=== PATIENT | male | born 1955 | race Caucasian/White ===

== ENCOUNTER 2018-10-16 19:18 | Inpatient (IN) | payer OTHER, SELFPAY ==
[2018-10-16] MEDS ORDERED: Sodium Chloride 0.9% 100 ML ONE (20:14)
[2018-10-16] MEDS ORDERED: Piperacillin/Tazobactam 4.5 GM VIAL ONE (20:14)
[2018-10-16 20:34] LABS: #Basophils 0.1 thou/uL (0.0-0.2); #Eosinphils 0.1 thou/uL (0.0-0.7); #Lymphocytes 1.6 thou/uL (1.20-3.40); #Monocytes 1.2 thou/uL (0.11-0.59); %Eosinophils 0.9 % (0.0-10.0); %Monocytes 9.7 % (0.0-10.0); %Neutrophils 75.4 % (42.0-75.0); Hemoglobin 14.2 g/dL (14.0-18.0); Mean Corpuscular HGB CONC 33.6 g/dL (32.0-36.0); Mean Corpuscular Hemoglobin 28.6 pg (27.0-31.0); Mean Platelet Volume 6.8 fL (7.4-10.4); Platelet Count 327 thou/uL (130-400); RBC Distribution Width 10.4 % (11.5-14.5); Red Blood Cell (RBC) Count 4.96 mill/uL (4.70-6.10); White Blood Cell (WBC) Count 11.9 thou/uL (4.8-10.8)
--- NOTE | 2018-10-16 20:36 | RAD ---
LEFT FOOT THREE VIEWS: HISTORY: A piece of metal was found in the patient's foot. The patient reports a pressure ulcer on the medial aspect of the great toe. FINDINGS: There are some soft tissue changes along the medial and plantar sides of the interphalangeal joint of the great toe, with some faint punctate radiopaque density associated with this. I am not certain i f this is a tiny foreign body or possibly calcification, less likely some type of packing. There is no underlying plain film evidence for osteomyelitis. IMPRESSION: Soft tissue ulcer of the great toe. No underlying osteomyelitis. POS: [facility]
[2018-10-16 20:51] LABS: ALT (SGPT) 15 U/L (8-55); AST (SGOT) 14 U/L (5-34); Albumin 4.2 g/dL (3.4-4.8); Alkaline Phosphatase 101 U/L (40-150); Anion Gap 17 mmol/L (10-20); BUN (Urea Nitrogen) 16 mg/dL (8.4-25.7); Bilirubin, Total 0.6 mg/dL (0.2-1.2); Calc. Creatinine Clearance 0 mL/min (70-130); Calcium 9.7 mg/dL (7.8-10.44); Carbon Dioxide 25 mmol/L (23-31); Chloride 96 mmol/L (98-107); Estimated GFR-MDRD Greater than 90; Glucose 328 mg/dL (80-115); Potassium 4.4 mmol/L (3.5-5.1); Protein, Total 8.2 g/dL (5.8-8.1); Sodium 134 mmol/L (136-145)
[2018-10-16] MEDS ORDERED: Adacel (T-DAP) 0.5 ML SYRINGE ONE (21:01)
[2018-10-16] MEDS ORDERED: Clindamycin/D5W 900 mg/50 ml Premix Bag ONE (21:07)
[2018-10-16 23:01] VITALS: BMI 24.0
[2018-10-16] MEDS ORDERED: Dextrose 5% in Water 1,000 ML IV PRN (23:06)
[2018-10-16] MEDS ORDERED: Dextrose 50% Abboject 50 ML SYRINGE SLOW IVP PRN (23:06)
[2018-10-16] MEDS: Sodium Chloride 0.9% 1,000 ML IV SCH (23:36)
[2018-10-17] MEDS ORDERED: hydrALAZINE 20 MG/ML VIAL SLOW IVP PRN (00:17)
[2018-10-17] MEDS ORDERED: Lisinopril 20 MG TAB PO SCH (00:30)
[2018-10-17] MEDS: HumaLOG 300 UNITS/3 ML VIAL SC PRN ×5 (00:33→21:05)
[2018-10-17] MEDS ORDERED: Metoprolol Tartrate 50 MG TAB PO SCH (01:00)
[2018-10-17] MEDS ORDERED: Nitroglycerin 0.4 MG TAB (25 Tab Bottle) SL SCH (01:00)
[2018-10-17] MEDS ORDERED: Insulin Glargine 8 UNITS in Pre-Filled Syringe 1 EACH SC SCH ×2 (01:00→21:00)
--- NOTE | 2018-10-17 01:36 | HP ---
CHIEF COMPLAINT: Left foot pain. HISTORY OF PRESENT ILLNESS: The patient is a very pleasant 62-year-old male with past medical history of diabetes and coronary artery disease status post bypass 7 years ago, who presented to the hospital with left foot pain. The patient stated that a few weeks ago, he had a small water blister on the left great toe, which the patient has been keeping an eye on. However, on , the patient stated that when he got home, took his boot off, the patient noticed a triangular metal piece imbedded in his left plantar aspect of his foot. 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 The patient stated that he removed it and has been cleaning it with hydrogen peroxide and has been doing [place] salt soaks. The patient denies any fevers or chills. However, today, he noticed that he has worsening erythema of the left foot, which concerned him, so he came into the ER for further evaluation. The patient does have a history of neuropathy and does not really have any pain. The patient denies any fevers or chills. Any nausea, vomiting, diarrhea, any abdominal pain, any chest pain or shortness of breath. PAST MEDICAL HISTORY: 1. The patient has a history of diabetes. 2. He has a history of coronary artery disease status post bypass. 3. He says he has a history of hypertension, but does not take any medications for that. PAST SURGICAL HISTORY: The patient had a coronary artery bypass in 2011. Has a history of hernia repair. SOCIAL HISTORY: He denies any alcohol use, drug use, or smoking history. He is a full code. Lives with his . ALLERGIES: HE HAS NO KNOWN DRUG ALLERGIES MEDICATIONS: pt takes no meds. REVIEW OF SYSTEMS: All negative except for the ones mentioned above in the HPI. FAMILY HISTORY: History of heart disease and diabetes. PHYSICAL EXAMINATION: VITAL SIGNS: The patient's temperature was 98.8, heart rate of 77, respirations 18, 95% on room air. Blood pressure of 210/98. GENERAL: He is awake, alert, and oriented x3. Does not appear in any distress. CV: S1, S2 present. No murmurs, rubs, or gallops. LUNGS: Clear to auscultation. No rhonchi or wheezes noted. ABDOMEN: Soft and nontender. Bowel sounds present x2. No hepatomegaly or splenomegaly noted. EXTREMITIES: His left foot has two wounds, one is in his great toe, which was the old blister, has some callus around it and some erythema around it and one that is between the fourth and the fifth toe. He has just a small healed puncture site. Does have some erythema around his toes going up all the way to his about mid foot. The pedal pulses are present bilaterally. No drainage has been noted. Neurovascular licona, no focal deficits noted. The patient is able to move all 4 extremities. PSYCH: The patient's affect is normal. He is awake, alert, and oriented x3. HEENT: Normocephalic, atraumatic. No lymphadenopathy noted. LABORATORY RESULTS: As of the following; WBCs of 11.9, hemoglobin of 14.2, hematocrit of 42.1, platelets of 327. Chemistry; sodium of 134, potassium of 4.4, BUN of 16, creatinine of 0.84, sugar of 328. His LFTs were normal. He also did have a left foot x-ray, which indicated that there possibly may be a tiny foreign body versus calcification, which I am not sure what it is and also mentions some soft tissue ulcer of the great toe. No underlying osteomyelitis was noted. ASSESSMENT AND PLAN: The patient is a very pleasant 62-year-old male who presents to the hospital with complaints of left foot erythema: 1. Left foot cellulitis. Given the fact that the patient is diabetic, we will start him on some Zosyn and also will add some vancomycin. We will also consult surgery in regard to this x-ray finding and also the patient might need some debridement. 2. Diabetes. We will check a hemoglobin A1c. PT TAKES NO HOME MEDS!! 3. Hypertension. The patient's blood pressure was in the 200s. We will start him on some lisinopril and also we will start him on some p.r.n. medications. 4. CAD: pt takes no home meds 5. Deep venous thrombosis prophylaxis, we will put the patient on some subcutaneous heparin. Job ID: [id number] [facility]
[2018-10-17] MEDS: Piperacillin/Tazobactam 3.375 GM in Sodium Chloride 0.9% 100 ML IVPB SCH ×4 (02:04→20:34)
[2018-10-17 06:26] LABS: #Eosinphils 0.1 thou/uL (0.0-0.7); #Lymphocytes 1.8 thou/uL (1.20-3.40); #Monocytes 1.2 thou/uL (0.11-0.59); #Neutrophils 6.7 thou/uL (1.40-6.50); %Basophils 0.5 % (0.0-1.0); %Eosinophils 0.9 % (0.0-10.0); %Lymphocytes 18.2 % (21.0-51.0); %Neutrophils 68.4 % (42.0-75.0); Hemoglobin 12.4 g/dL (14.0-18.0); Mean Corpuscular HGB CONC 34.9 g/dL (32.0-36.0); Mean Corpuscular Hemoglobin 30.1 pg (27.0-31.0); Mean Corpuscular Volume 86.3 fL (78.0-98.0); Mean Platelet Volume 7.3 fL (7.4-10.4); Platelet Count 308 thou/uL (130-400); RBC Distribution Width 11.3 % (11.5-14.5); Red Blood Cell (RBC) Count 4.11 mill/uL (4.70-6.10); White Blood Cell (WBC) Count 9.8 thou/uL (4.8-10.8)
[2018-10-17 06:32] LABS: Hemoglobin A1c 12.7 % (4.0-6.0)
[2018-10-17 06:50] LABS: Anion Gap 12 mmol/L (10-20); BUN (Urea Nitrogen) 15 mg/dL (8.4-25.7); Calc. Creatinine Clearance 98 mL/min (70-130); Calcium 8.6 mg/dL (7.8-10.44); Carbon Dioxide 25 mmol/L (23-31); Chloride 101 mmol/L (98-107); Estimated GFR-MDRD Greater than 90; Glucose 238 mg/dL (80-115); Potassium 3.7 mmol/L (3.5-5.1); Sodium 134 mmol/L (136-145)
[2018-10-17] MEDS ORDERED: Loratadine 10 MG TAB PO PRN (07:30)
[2018-10-17] MEDS ORDERED: Nitroglycerin 0.4 MG TAB (25 Tab Bottle) SL PRN (07:30)
[2018-10-17] MEDS ORDERED: Ondansetron PF 4 MG/2 ML Vial IVP PRN (07:30)
[2018-10-17] MEDS ORDERED: Labetalol HCl 100 MG/20 ML VIAL SLOW IVP PRN (07:30)
[2018-10-17] MEDS ORDERED: Sodium Chloride 0.65% Nasal 44 ML BOT EA NARE PRN (07:30)
[2018-10-17] MEDS ORDERED: Eucerin (Mineral Oil/Petrolatum,White) 30 gm Jar TOP PRN (07:30)
[2018-10-17] MEDS ORDERED: Zolpidem Tartrate 5 MG TAB PO PRN (07:30)
[2018-10-17] MEDS ORDERED: Bisacodyl 10 MG SUPP PR PRN (07:30)
[2018-10-17] MEDS ORDERED: Senokot S 8.6-50 MG TAB PO PRN (07:30)
[2018-10-17] MEDS ORDERED: Acetaminophen 500 MG TAB PO PRN (07:30)
[2018-10-17] MEDS ORDERED: Diabetic Tussin 200 MG/10 ML UDCUP PO PRN (07:30)
[2018-10-17] MEDS ORDERED: Ondansetron ODT 4 MG TAB PO PRN (07:30)
[2018-10-17] MEDS ORDERED: HYDROcodone/Acetaminophen 5/325 mg Tablet PO PRN (07:30)
[2018-10-17] MEDS ORDERED: Cepastat Lozenges 1 LOZ PO PRN (07:30)
[2018-10-17] MEDS ORDERED: Artificial Tears 18 DROP/0.9 ML EA EYE PRN (07:30)
[2018-10-17] MEDS ORDERED: Loperamide HCl 2 MG CAP PO PRN (07:30)
[2018-10-17] MEDS ORDERED: Morphine 2 MG/ML SYRINGE SLOW IVP PRN (07:32)
[2018-10-17] MEDS: Metoprolol Tartrate 50 MG TAB PO SCH ×2 (09:21→20:37)
[2018-10-17] MEDS: Saccharomyces boulardii 250 MG CAP PO SCH (09:22)
[2018-10-17] MEDS: Insulin Glargine 8 UNITS in Pre-Filled Syringe 1 EACH SC SCH (09:22)
[2018-10-17] MEDS: Lisinopril 20 MG TAB PO SCH ×2 (09:22→20:36)
[2018-10-17] MEDS: Enoxaparin Sodium 40 MG/0.4 ML SYRINGE SC SCH (09:27)
--- NOTE | 2018-10-17 09:54 | PDOC.PN ---
- Subjective Encounter Start Date: 10/17/18 Encounter Start Time: 08:00 -: old records requested/rev Patient seen and examined. No new complaints. No overnight events pt has less sensation over feet and he had galvanised nail injury to his toe and left great toe ulcer was getting worse - Objective Resuscitation Status - Order Detail: 10/16/18 23:05 Resuscitation Status Routine Resuscitation Status: FULL: Full Resuscitation MAR Reviewed: Yes Vital Signs & Weight: Vital Signs (12 hours) Temp Pulse Resp BP BP BP Pulse Ox 10/17/18 09:22 130/73 10/17/18 07:29 99.5 F 72 20 130/73 95 10/17/18 04:00 99.3 F 66 20 126/67 94 L 10/17/18 02:42 94 L 10/17/18 02:37 98.3 F 64 16 131/65 94 L 10/17/18 02:04 68 135/65 10/17/18 01:10 87 142/69 H 10/17/18 01:02 77 176/81 H 10/17/18 00:35 81 211/95 H 10/17/18 00:31 211/95 H 10/17/18 00:00 81 211/95 H 10/16/18 23:25 213/97 H 10/16/18 22:58 98.9 F 77 18 210/98 H 95 Weight Weight 157 lb 12.8 oz Result Diagrams: 10/17/18 05:35 10/17/18 05:35 Additional Labs: Accuchecks 10/17/18 10/16/18 04:07 23:06 POC Glucose 223 H 259 H Radiology Reviewed by me: Yes (xray foot reviewed) Phys Exam - Physical Examination Constitutional: NAD HEENT: PERRLA, moist MMs, sclera anicteric Neck: no JVD, supple Respiratory: no wheezing, no rales, no rhonchi Cardiovascular: RRR, no significant murmur, no rub Gastrointestinal: soft, non-tender, no distention, positive bowel sounds Musculoskeletal: no edema, pulses present left great toe base ulcer, erythema Neurological: non-focal, normal sensation, moves all 4 limbs Lymphatic: no nodes Psychiatric: normal affect, A&O x 3 Skin: no rash, normal turgor Dx/Plan (1) Cellulitis of left foot Code(s): L03.116 - CELLULITIS OF LEFT LOWER LIMB Status: Acute (2) Diabetic ulcer of toe Code(s): E11.621 - TYPE 2 DIABETES MELLITUS WITH FOOT ULCER; L97.509 - NON- PRESSURE CHRONIC ULCER OTH PRT UNSP FOOT W UNSP SEVERITY Status: Acute Qualifiers: Diabetes mellitus type: type 2 (3) CAD (coronary artery disease) Code(s): I25.10 - ATHSCL HEART DISEASE OF [place] CORONARY ARTERY W/O ANG PCTRS Status: Chronic (4) Diabetes type 2, controlled Code(s): E11.9 - TYPE 2 DIABETES MELLITUS WITHOUT COMPLICATIONS Status: Chronic (5) Hypertension Code(s): I10 - ESSENTIAL (PRIMARY) HYPERTENSION Status: Chronic - Plan cont current plan of care, plan discussed w/ family, continue antibiotics * podiatry consulted today * continue vancomycin and zosyn * wound care * medication reviewed as below * symptomatic treatment * discussed with * diabetes control. * repeat labs tomorrow Review of Systems - Review of Systems Constitutional: negative: fever, chills, sweats, weakness, malaise, other Eyes: negative: Pain, Vision Change, Conjunctivae Inflammation, Eyelid Inflammation, Redness, Other ENT: negative: Ear Pain, Ear Discharge, Nose Pain, Nose Discharge, Nose Congestion, Mouth Pain, Mouth Swelling, Throat Pain, Throat Swelling, Other Respiratory: negative: Cough, Dry, Shortness of Breath, Hemoptysis, SOB with Excertion, Pleuritic Pain, Sputum, Wheezing Cardiovascular: negative: chest pain, palpitations, orthopnea, paroxysmal nocturnal dyspnea, edema, light headedness, other Gastrointestinal: negative: Nausea, Vomiting, Abdominal Pain, Diarrhea, Constipation, Melena, Hematochezia, Other Genitourinary: negative: Dysuria, Frequency, Incontinence, Hematuria, Retention , Other Musculoskeletal: Foot Pain. negative: Neck Pain, Shoulder Pain, Arm Pain, Back Pain, Hand Pain, Leg Pain, Other - Medications/Allergies Allergies/Adverse Reactions: Allergies Allergy/AdvReac Type Severity Reaction Status Date / Time No Known Allergies Allergy Verified 10/16/18 23:20 Medications: Current Medications Acetaminophen (Tylenol) 650 mg PO Q4H PRN PRN Reason: Headache/Fever Acetaminophen (Tylenol) 500 mg PO Q6H PRN PRN Reason: Mild Pain (1-3) Hydrocodone Bitart/Acetaminophen ([place] 5/325) 1 tab PO Q4H PRN PRN Reason: Moderate Pain (4-6) Artificial Tears (Tears Naturale) 2 drop EA EYE PRN PRN PRN Reason: Dry Eyes Bisacodyl (Dulcolax) 10 mg [place] DAILYPRN PRN PRN Reason: Constipation Dextrose/Water (Dextrose 50%) 25 gm SLOW IVP PRN PRN PRN Reason: Hypoglycemia Enoxaparin Sodium (Lovenox) 40 mg SC 0900 [facility] Last Admin: 10/17/18 09:27 Dose: 40 mg Glucagon (Glucagon) 1 mg IM PRN PRN PRN Reason: Hypoglycemia Guaifenesin (Robitussin Sf) 200 mg PO Q4H PRN PRN Reason: Cough Hydralazine HCl (Apresoline) 5 mg SLOW IVP Q8H PRN PRN Reason: SBP > 180 Last Admin: 10/17/18 00:35 Dose: 5 mg Dextrose/Water (D5w) 1,000 mls @ 0 mls/hr IV .Q0M PRN PRN Reason: Hypoglycemia Piperacillin Sod/Tazobactam (Sod 3.375 gm/ Sodium Chloride) 100 mls @ 200 mls/ hr IVPB 0200,0800,1400,2000 [facility] Last Admin: 10/17/18 09:23 Dose: 100 mls Sodium Chloride (Normal Saline 0.9%) 1,000 mls @ 50 mls/hr IV .Q20H [facility] Last Admin: 10/16/18 23:36 Dose: 1,000 mls Insulin Glargine 8 units/ (Miscellaneous Medication) 0.08 mls @ 0 mls/hr SC HS [facility] Insulin Glargine 8 units/ (Miscellaneous Medication) 0.08 mls @ 0 mls/hr SC QAM [facility] Last Admin: 10/17/18 09:22 Dose: 0.08 mls Vancomycin HCl 1 gm/ Device 200 mls @ 200 mls/hr IVPB Q12HR [facility] Insulin Human Lispro (Humalog) 0 units SC .MILD SLIDING SCALE PRN PRN Reason: Mild Correctional Scale Last Admin: 10/17/18 06:26 Dose: 3 unit Insulin Human Lispro (Humalog) 0 units SC .BEDTIME SLIDING SC PRN; Protocol PRN Reason: BEDTIME SLIDING SCALE Last Admin: 10/17/18 00:33 Dose: 3 unit Labetalol HCl (Normodyne) 20 mg SLOW IVP Q4H PRN PRN Reason: SBP > 180 and HR >/= 70 Lisinopril (Zestril) 20 mg PO BID [facility] Last Admin: 10/17/18 09:22 Dose: 20 mg Loperamide HCl (Imodium) 2 mg PO PRN PRN PRN Reason: Diarrhea/Loose Stools Loratadine (Claritin) 10 mg PO DAILYPRN PRN PRN Reason: Sinus Symptoms Metoprolol Tartrate (Lopressor) 50 mg PO BID [facility] Last Admin: 10/17/18 09:21 Dose: 50 mg Mineral Oil/White Petrolatum (Eucerin Cream) 0 gm TOP BIDPRN PRN PRN Reason: Dry Skin Miscellaneous Medication (Pharmacy To Dose) 1 each IVPB PRN PRN PRN Reason: Pharmacy to dose Morphine Sulfate (Morphine) 2 mg SLOW IVP Q4H PRN PRN Reason: Severe Pain (7-10) Nitroglycerin (Nitrostat) 0.4 mg SL Q5MIN PRN PRN Reason: Chest Pain Ondansetron HCl (Zofran Odt) 4 mg PO Q6H PRN PRN Reason: Nausea/Vomiting Ondansetron HCl (Zofran) 4 mg IVP Q6H PRN PRN Reason: Nausea/Vomiting Saccharomyces Boulardii (Florastor) 250 mg PO DAILY [facility] Last Admin: 10/17/18 09:22 Dose: 250 mg Senna/Docusate Sodium (Senokot S) 2 tab PO BID PRN PRN Reason: Constipation Sodium Chloride ([place] Nasal [place] 0.65%) 0 ml EA NARE QIDPRN PRN PRN Reason: Nasal Congestion Throat Lozenges (Cepastat Lozenges) 1 tanner PO Q2H PRN PRN Reason: Sore Throat Zolpidem Tartrate (Ambien) 5 mg PO HSPRN PRN PRN Reason: Insomnia
[2018-10-17] MEDS: Vancomycin HCl 1 GM in Premix Bag 1 BAG IVPB SCH ×2 (10:27→20:44)
[2018-10-17 15:26] LABS: Bilirubin Negative (Negative); Blood, Urine Negative (Negative); Clarity CLEAR (Clear); Glucose, Urine (Dipstick) 500 mg/dL (Negative); Leukocyte Negative (Negative); Nitrite Negative (Negative); Protein, Urine (Dipstick) Negative (Neg-Trace); Specific Gravity, Urine 1.019 (1.002-1.036); Urobilinogen 0.2 mg/dL (0.2-1.0); pH, Urine 5.5 (5.0-9.0)
[2018-10-17 15:28] LABS: Bacteria/HPF None Seen HPF (None Seen); Hyaline Casts/LPF 0-3 HYALINE CAST LPF (0-3 Hyaline); RBC/HPF 0-3 HPF (0-3); Squamous Epithelial None Seen HPF (0-3); WBC/HPF 0-3 HPF (0-3)
[2018-10-17] MEDS: Sodium Chloride 0.9% 1,000 ML IV SCH (17:07)
[2018-10-18] MEDS: Piperacillin/Tazobactam 3.375 GM in Sodium Chloride 0.9% 100 ML IVPB SCH ×4 (02:46→20:52)
[2018-10-18] MEDS: HumaLOG 300 UNITS/3 ML VIAL SC PRN ×3 (06:22→18:42)
[2018-10-18 07:17] LABS: #Eosinphils 0.2 thou/uL (0.0-0.7); #Lymphocytes 1.6 thou/uL (1.20-3.40); #Monocytes 1.1 thou/uL (0.11-0.59); #Neutrophils 6.3 thou/uL (1.40-6.50); %Basophils 0.5 % (0.0-1.0); %Eosinophils 1.7 % (0.0-10.0); %Lymphocytes 17.3 % (21.0-51.0); %Monocytes 12.1 % (0.0-10.0); %Neutrophils 68.4 % (42.0-75.0); Hemoglobin 12.2 g/dL (14.0-18.0); Mean Corpuscular HGB CONC 34.4 g/dL (32.0-36.0); Mean Corpuscular Hemoglobin 29.9 pg (27.0-31.0); Mean Platelet Volume 7.1 fL (7.4-10.4); Platelet Count 315 thou/uL (130-400); RBC Distribution Width 11.1 % (11.5-14.5); Red Blood Cell (RBC) Count 4.07 mill/uL (4.70-6.10); White Blood Cell (WBC) Count 9.3 thou/uL (4.8-10.8)
[2018-10-18 07:38] LABS: Anion Gap 11 mmol/L (10-20); BUN (Urea Nitrogen) 10 mg/dL (8.4-25.7); CRP (Inflammatory) 6.84 mg/dL (= or < 0.5); Calc. Creatinine Clearance 102 mL/min (70-130); Calcium 8.7 mg/dL (7.8-10.44); Carbon Dioxide 27 mmol/L (23-31); Chloride 102 mmol/L (98-107); Estimated GFR-MDRD Greater than 90; Glucose 180 mg/dL (80-115); Potassium 4.6 mmol/L (3.5-5.1); Sodium 135 mmol/L (136-145)
[2018-10-18] MEDS: Enoxaparin Sodium 40 MG/0.4 ML SYRINGE SC SCH (08:27)
[2018-10-18] MEDS: Saccharomyces boulardii 250 MG CAP PO SCH (08:27)
[2018-10-18] MEDS: Lisinopril 20 MG TAB PO SCH ×2 (08:27→20:58)
[2018-10-18] MEDS: Metoprolol Tartrate 50 MG TAB PO SCH ×2 (08:27→20:58)
[2018-10-18] MEDS: Acetaminophen 325 MG TAB PO PRN (08:44)
--- NOTE | 2018-10-18 09:51 | PDOC.PN ---
- Subjective Encounter Start Date: 10/18/18 Encounter Start Time: 07:40 Patient seen and examined. No new complaints. No overnight events - Objective Resuscitation Status - Order Detail: 10/16/18 23:05 Resuscitation Status Routine Resuscitation Status: FULL: Full Resuscitation MAR Reviewed: Yes Vital Signs & Weight: Vital Signs (12 hours) Temp Pulse Resp BP BP Pulse Ox 10/18/18 07:19 98.8 F 64 19 156/70 H 91 L 10/18/18 04:52 98.7 F 61 16 160/69 H 92 L 10/17/18 22:21 94 L Weight Admit Weight 157 lb 12.8 oz Weight 157 lb 12.8 oz I&O: 10/17/18 10/18/18 10/19/18 06:59 06:59 06:59 Intake Total 1320 Balance 1320 Result Diagrams: 10/18/18 06:34 10/18/18 06:34 Additional Labs: Accuchecks 10/18/18 10/17/18 10/17/18 04:56 20:51 15:28 POC Glucose 206 H 316 H 234 H 10/17/18 11:24 POC Glucose 254 H Phys Exam - Physical Examination Constitutional: NAD HEENT: PERRLA, moist MMs, sclera anicteric Neck: no JVD, supple Respiratory: no wheezing, no rales, no rhonchi Cardiovascular: RRR, no significant murmur, no rub Gastrointestinal: soft, non-tender, no distention, positive bowel sounds Musculoskeletal: no edema, pulses present left foot cellulitis improving, diabetic toe ulcer Neurological: non-focal, normal sensation, moves all 4 limbs Lymphatic: no nodes Psychiatric: normal affect, A&O x 3 Skin: no rash, normal turgor Dx/Plan (1) Cellulitis of left foot Code(s): L03.116 - CELLULITIS OF LEFT LOWER LIMB Status: Acute (2) Diabetic ulcer of toe Code(s): E11.621 - TYPE 2 DIABETES MELLITUS WITH FOOT ULCER; L97.509 - NON- PRESSURE CHRONIC ULCER OTH PRT UNSP FOOT W UNSP SEVERITY Status: Acute Qualifiers: Diabetes mellitus type: type 2 (3) CAD (coronary artery disease) Code(s): I25.10 - ATHSCL HEART DISEASE OF [place] CORONARY ARTERY W/O ANG PCTRS Status: Chronic (4) Diabetes type 2, controlled Code(s): E11.9 - TYPE 2 DIABETES MELLITUS WITHOUT COMPLICATIONS Status: Chronic (5) Hypertension Code(s): I10 - ESSENTIAL (PRIMARY) HYPERTENSION Status: Chronic - Plan cont current plan of care, plan discussed w/ family, continue antibiotics * continue vancomycin and zosyn * await surgery (podiatry) input, may need I & D * discussed with * medication reviewed as below * symptomatic treatment. Review of Systems - Review of Systems ENT: negative: Ear Pain, Ear Discharge, Nose Pain, Nose Discharge, Nose Congestion, Mouth Pain, Mouth Swelling, Throat Pain, Throat Swelling, Other Respiratory: negative: Cough, Dry, Shortness of Breath, Hemoptysis, SOB with Excertion, Pleuritic Pain, Sputum, Wheezing Cardiovascular: negative: chest pain, palpitations, orthopnea, paroxysmal nocturnal dyspnea, edema, light headedness, other Gastrointestinal: negative: Nausea, Vomiting, Abdominal Pain, Diarrhea, Constipation, Melena, Hematochezia, Other Genitourinary: negative: Dysuria, Frequency, Incontinence, Hematuria, Retention , Other Musculoskeletal: negative: Neck Pain, Shoulder Pain, Arm Pain, Back Pain, Hand Pain, Leg Pain, Foot Pain, Other Skin: negative: Rash, Lesions, Kg, Bruising, Other - Medications/Allergies Allergies/Adverse Reactions: Allergies Allergy/AdvReac Type Severity Reaction Status Date / Time No Known Allergies Allergy Verified 10/16/18 23:20 Medications: Current Medications Acetaminophen (Tylenol) 650 mg PO Q4H PRN PRN Reason: Headache/Fever Last Admin: 10/18/18 08:44 Dose: 650 mg Acetaminophen (Tylenol) 500 mg PO Q6H PRN PRN Reason: Mild Pain (1-3) Hydrocodone Bitart/Acetaminophen ([place] 5/325) 1 tab PO Q4H PRN PRN Reason: Moderate Pain (4-6) Artificial Tears (Tears Naturale) 2 drop EA EYE PRN PRN PRN Reason: Dry Eyes Bisacodyl (Dulcolax) 10 mg [place] DAILYPRN PRN PRN Reason: Constipation Dextrose/Water (Dextrose 50%) 25 gm SLOW IVP PRN PRN PRN Reason: Hypoglycemia Enoxaparin Sodium (Lovenox) 40 mg SC 0900 [facility] Last Admin: 10/18/18 08:27 Dose: 40 mg Glucagon (Glucagon) 1 mg IM PRN PRN PRN Reason: Hypoglycemia Guaifenesin (Robitussin Sf) 200 mg PO Q4H PRN PRN Reason: Cough Hydralazine HCl (Apresoline) 5 mg SLOW IVP Q8H PRN PRN Reason: SBP > 180 Last Admin: 10/17/18 00:35 Dose: 5 mg Dextrose/Water (D5w) 1,000 mls @ 0 mls/hr IV .Q0M PRN PRN Reason: Hypoglycemia Piperacillin Sod/Tazobactam (Sod 3.375 gm/ Sodium Chloride) 100 mls @ 200 mls/ hr IVPB 0200,0800,1400,2000 [facility] Last Admin: 10/18/18 08:27 Dose: 100 mls Sodium Chloride (Normal Saline 0.9%) 1,000 mls @ 50 mls/hr IV .Q20H [facility] Last Admin: 10/17/18 17:07 Dose: 1,000 mls Insulin Glargine 8 units/ (Miscellaneous Medication) 0.08 mls @ 0 mls/hr SC HS [facility] Last Admin: 10/17/18 20:51 Dose: 0.08 mls Insulin Glargine 8 units/ (Miscellaneous Medication) 0.08 mls @ 0 mls/hr SC QAM [facility] Last Admin: 10/17/18 09:22 Dose: 0.08 mls Vancomycin HCl 1.25 gm/ Sodium (Chloride) 250 mls @ 166.667 mls/hr IVPB 0100, 0900,1700 [facility] Insulin Human Lispro (Humalog) 0 units SC .MILD SLIDING SCALE PRN PRN Reason: Mild Correctional Scale Last Admin: 10/18/18 06:22 Dose: 3 unit Insulin Human Lispro (Humalog) 0 units SC .BEDTIME SLIDING SC PRN; Protocol PRN Reason: BEDTIME SLIDING SCALE Last Admin: 10/17/18 21:05 Dose: 4 unit Labetalol HCl (Normodyne) 20 mg SLOW IVP Q4H PRN PRN Reason: SBP > 180 and HR >/= 70 Lisinopril (Zestril) 20 mg PO BID [facility] Last Admin: 10/18/18 08:27 Dose: 20 mg Loperamide HCl (Imodium) 2 mg PO PRN PRN PRN Reason: Diarrhea/Loose Stools Loratadine (Claritin) 10 mg PO DAILYPRN PRN PRN Reason: Sinus Symptoms Metoprolol Tartrate (Lopressor) 50 mg PO BID [facility] Last Admin: 10/18/18 08:27 Dose: 50 mg Mineral Oil/White Petrolatum (Eucerin Cream) 0 gm TOP BIDPRN PRN PRN Reason: Dry Skin Miscellaneous Medication (Pharmacy To Dose) 1 each IVPB PRN PRN PRN Reason: Pharmacy to dose Morphine Sulfate (Morphine) 2 mg SLOW IVP Q4H PRN PRN Reason: Severe Pain (7-10) Nitroglycerin (Nitrostat) 0.4 mg SL Q5MIN PRN PRN Reason: Chest Pain Ondansetron HCl (Zofran Odt) 4 mg PO Q6H PRN PRN Reason: Nausea/Vomiting Ondansetron HCl (Zofran) 4 mg IVP Q6H PRN PRN Reason: Nausea/Vomiting Saccharomyces Boulardii (Florastor) 250 mg PO DAILY [facility] Last Admin: 10/18/18 08:27 Dose: 250 mg Senna/Docusate Sodium (Senokot S) 2 tab PO BID PRN PRN Reason: Constipation Sodium Chloride ([place] Nasal [place] 0.65%) 0 ml EA NARE QIDPRN PRN PRN Reason: Nasal Congestion Throat Lozenges (Cepastat Lozenges) 1 tanner PO Q2H PRN PRN Reason: Sore Throat Zolpidem Tartrate (Ambien) 5 mg PO HSPRN PRN PRN Reason: Insomnia
[2018-10-18] MEDS: Insulin Glargine 8 UNITS in Pre-Filled Syringe 1 EACH SC SCH (10:04)
[2018-10-18] MEDS: Vancomycin HCl 1.25 GM in Sodium Chloride 0.9% 250 ML 250 ML IVPB SCH ×2 (10:05→19:15)
[2018-10-18] MEDS: Sodium Chloride 0.9% 1,000 ML IV SCH ×2 (15:15→21:03)
[2018-10-18] MEDS: Insulin Glargine 12 UNITS in Pre-Filled Syringe 1 EACH SC SCH (21:01)
[2018-10-19] MEDS: Vancomycin HCl 1.25 GM in Sodium Chloride 0.9% 250 ML 250 ML IVPB SCH ×3 (00:06→17:40)
[2018-10-19] MEDS: Piperacillin/Tazobactam 3.375 GM in Sodium Chloride 0.9% 100 ML IVPB SCH ×4 (01:54→20:59)
[2018-10-19 06:34] LABS: #Basophils 0.1 thou/uL (0.0-0.2); #Eosinphils 0.1 thou/uL (0.0-0.7); #Lymphocytes 1.6 thou/uL (1.20-3.40); #Monocytes 1.2 thou/uL (0.11-0.59); #Neutrophils 6.2 thou/uL (1.40-6.50); %Basophils 0.8 % (0.0-1.0); %Eosinophils 1.6 % (0.0-10.0); %Lymphocytes 17.4 % (21.0-51.0); %Monocytes 12.7 % (0.0-10.0); %Neutrophils 67.6 % (42.0-75.0); Hemoglobin 12.1 g/dL (14.0-18.0); Mean Corpuscular HGB CONC 34.6 g/dL (32.0-36.0); Mean Corpuscular Volume 86.8 fL (78.0-98.0); Mean Platelet Volume 6.6 fL (7.4-10.4); Platelet Count 317 thou/uL (130-400); RBC Distribution Width 11.2 % (11.5-14.5); Red Blood Cell (RBC) Count 4.04 mill/uL (4.70-6.10); White Blood Cell (WBC) Count 9.2 thou/uL (4.8-10.8)
[2018-10-19 06:56] LABS: Anion Gap 12 mmol/L (10-20); BUN (Urea Nitrogen) 7 mg/dL (8.4-25.7); Calc. Creatinine Clearance 114 mL/min (70-130); Calcium 8.2 mg/dL (7.8-10.44); Carbon Dioxide 24 mmol/L (23-31); Chloride 105 mmol/L (98-107); Estimated GFR-MDRD Greater than 90; Glucose 144 mg/dL (80-115); Potassium 3.7 mmol/L (3.5-5.1); Sodium 137 mmol/L (136-145)
[2018-10-19] MEDS: Metoprolol Tartrate 50 MG TAB PO SCH ×2 (08:13→20:59)
[2018-10-19] MEDS: Enoxaparin Sodium 40 MG/0.4 ML SYRINGE SC SCH (08:13)
[2018-10-19] MEDS: Saccharomyces boulardii 250 MG CAP PO SCH (08:13)
[2018-10-19] MEDS: Lisinopril 20 MG TAB PO SCH ×2 (08:13→20:59)
[2018-10-19] MEDS: Insulin Glargine 12 UNITS in Pre-Filled Syringe 1 EACH SC SCH ×2 (08:13→21:00)
[2018-10-19 08:54] LABS: Vancomycin, Trough 16.9 ug/mL
--- NOTE | 2018-10-19 09:59 | PDOC.PN ---
- Subjective Encounter Start Date: 10/19/18 Encounter Start Time: 08:10 Patient seen and examined. No new complaints. No overnight events - Objective Resuscitation Status - Order Detail: 10/16/18 23:05 Resuscitation Status Routine Resuscitation Status: FULL: Full Resuscitation MAR Reviewed: Yes Vital Signs & Weight: Vital Signs (12 hours) Temp Pulse Resp BP Pulse Ox 10/19/18 07:35 98.0 F 66 16 178/74 H 92 L 10/19/18 04:00 99.6 F 62 16 157/66 H 95 10/19/18 00:00 100.1 F H 66 18 164/72 H 92 L Weight Admit Weight 157 lb 12.8 oz Weight 157 lb 12.8 oz I&O: 10/18/18 10/19/18 10/20/18 06:59 06:59 06:59 Intake Total 1320 2140 Balance 1320 2140 Result Diagrams: 10/19/18 06:12 10/19/18 06:12 Additional Labs: Accuchecks 10/19/18 10/18/18 10/18/18 05:36 21:01 15:51 POC Glucose 153 H 208 H 179 H 10/18/18 11:09 POC Glucose 330 H Phys Exam - Physical Examination Constitutional: NAD HEENT: PERRLA, moist MMs, sclera anicteric Neck: no JVD, supple Respiratory: no wheezing, no rales, no rhonchi Cardiovascular: RRR, no significant murmur, no rub Gastrointestinal: soft, non-tender, no distention, positive bowel sounds Musculoskeletal: no edema, pulses present left great toe diabetic ulcer, cellulitis left foot improving Neurological: non-focal, normal sensation, moves all 4 limbs Lymphatic: no nodes Psychiatric: normal affect, A&O x 3 Skin: no rash, normal turgor Dx/Plan (1) Cellulitis of left foot Code(s): L03.116 - CELLULITIS OF LEFT LOWER LIMB Status: Acute (2) Diabetic ulcer of toe Code(s): E11.621 - TYPE 2 DIABETES MELLITUS WITH FOOT ULCER; L97.509 - NON- PRESSURE CHRONIC ULCER OTH PRT UNSP FOOT W UNSP SEVERITY Status: Acute Qualifiers: Diabetes mellitus type: type 2 (3) CAD (coronary artery disease) Code(s): I25.10 - ATHSCL HEART DISEASE OF [place] CORONARY ARTERY W/O ANG PCTRS Status: Chronic (4) Diabetes type 2, controlled Code(s): E11.9 - TYPE 2 DIABETES MELLITUS WITHOUT COMPLICATIONS Status: Chronic (5) Hypertension Code(s): I10 - ESSENTIAL (PRIMARY) HYPERTENSION Status: Chronic - Plan cont current plan of care, plan discussed w/ family, continue antibiotics * today podiatry will see for I & D evaluation * continue vancomcin and zosyn * medication reviewed as below * symptomatic treatment * wound care. Review of Systems - Review of Systems Eyes: negative: Pain, Vision Change, Conjunctivae Inflammation, Eyelid Inflammation, Redness, Other ENT: negative: Ear Pain, Ear Discharge, Nose Pain, Nose Discharge, Nose Congestion, Mouth Pain, Mouth Swelling, Throat Pain, Throat Swelling, Other Respiratory: negative: Cough, Dry, Shortness of Breath, Hemoptysis, SOB with Excertion, Pleuritic Pain, Sputum, Wheezing Cardiovascular: negative: chest pain, palpitations, orthopnea, paroxysmal nocturnal dyspnea, edema, light headedness, other Gastrointestinal: negative: Nausea, Vomiting, Abdominal Pain, Diarrhea, Constipation, Melena, Hematochezia, Other Genitourinary: negative: Dysuria, Frequency, Incontinence, Hematuria, Retention , Other Musculoskeletal: negative: Neck Pain, Shoulder Pain, Arm Pain, Back Pain, Hand Pain, Leg Pain, Foot Pain, Other - Medications/Allergies Allergies/Adverse Reactions: Allergies Allergy/AdvReac Type Severity Reaction Status Date / Time No Known Allergies Allergy Verified 10/16/18 23:20 Medications: Current Medications Acetaminophen (Tylenol) 650 mg PO Q4H PRN PRN Reason: Headache/Fever Last Admin: 10/18/18 08:44 Dose: 650 mg Acetaminophen (Tylenol) 500 mg PO Q6H PRN PRN Reason: Mild Pain (1-3) Hydrocodone Bitart/Acetaminophen ([place] 5/325) 1 tab PO Q4H PRN PRN Reason: Moderate Pain (4-6) Artificial Tears (Tears Naturale) 2 drop EA EYE PRN PRN PRN Reason: Dry Eyes Bisacodyl (Dulcolax) 10 mg SD DAILYPRN PRN PRN Reason: Constipation Dextrose/Water (Dextrose 50%) 25 gm SLOW IVP PRN PRN PRN Reason: Hypoglycemia Enoxaparin Sodium (Lovenox) 40 mg SC 0900 BRITANY Last Admin: 12/26/18 08:13 Dose: 40 mg Glucagon (Glucagon) 1 mg IM PRN PRN PRN Reason: Hypoglycemia Guaifenesin (Robitussin Sf) 200 mg PO Q4H PRN PRN Reason: Cough Hydralazine HCl (Apresoline) 5 mg SLOW IVP Q8H PRN PRN Reason: SBP > 180 Last Admin: 10/17/18 00:35 Dose: 5 mg Dextrose/Water (D5w) 1,000 mls @ 0 mls/hr IV .Q0M PRN PRN Reason: Hypoglycemia Piperacillin Sod/Tazobactam (Sod 3.375 gm/ Sodium Chloride) 100 mls @ 200 mls/ hr IVPB 0200,0800,1400,2000 [facility] Last Admin: 10/19/18 08:08 Dose: 100 mls Sodium Chloride (Normal Saline 0.9%) 1,000 mls @ 50 mls/hr IV .Q20H [facility] Last Admin: 10/18/18 21:03 Dose: 1,000 mls Vancomycin HCl 1.25 gm/ Sodium (Chloride) 250 mls @ 166.667 mls/hr IVPB 0100, 0900,1700 [facility] Last Admin: 10/19/18 09:21 Dose: 250 mls Insulin Glargine 12 units/ (Miscellaneous Medication) 0.12 mls @ 0 mls/hr SC HS [facility] Last Admin: 10/18/18 21:01 Dose: 0.12 mls Insulin Glargine 12 units/ (Miscellaneous Medication) 0.12 mls @ 0 mls/hr SC QAM [facility] Last Admin: 10/19/18 08:13 Dose: 0.12 mls Insulin Human Lispro (Humalog) 0 units SC .MILD SLIDING SCALE PRN PRN Reason: Mild Correctional Scale Last Admin: 10/18/18 18:42 Dose: 2 unit Insulin Human Lispro (Humalog) 0 units SC .BEDTIME SLIDING SC PRN; Protocol PRN Reason: BEDTIME SLIDING SCALE Last Admin: 10/17/18 21:05 Dose: 4 unit Labetalol HCl (Normodyne) 20 mg SLOW IVP Q4H PRN PRN Reason: SBP > 180 and HR >/= 70 Lisinopril (Zestril) 20 mg PO BID [facility] Last Admin: 10/19/18 08:13 Dose: 20 mg Loperamide HCl (Imodium) 2 mg PO PRN PRN PRN Reason: Diarrhea/Loose Stools Loratadine (Claritin) 10 mg PO DAILYPRN PRN PRN Reason: Sinus Symptoms Metoprolol Tartrate (Lopressor) 50 mg PO BID [facility] Last Admin: 10/19/18 08:13 Dose: 50 mg Mineral Oil/White Petrolatum (Eucerin Cream) 0 gm TOP BIDPRN PRN PRN Reason: Dry Skin Miscellaneous Medication (Pharmacy To Dose) 1 each IVPB PRN PRN PRN Reason: Pharmacy to dose Morphine Sulfate (Morphine) 2 mg SLOW IVP Q4H PRN PRN Reason: Severe Pain (7-10) Nitroglycerin (Nitrostat) 0.4 mg SL Q5MIN PRN PRN Reason: Chest Pain Ondansetron HCl (Zofran Odt) 4 mg PO Q6H PRN PRN Reason: Nausea/Vomiting Ondansetron HCl (Zofran) 4 mg IVP Q6H PRN PRN Reason: Nausea/Vomiting Saccharomyces Boulardii (Florastor) 250 mg PO DAILY [facility] Last Admin: 10/19/18 08:13 Dose: 250 mg Senna/Docusate Sodium (Senokot S) 2 tab PO BID PRN PRN Reason: Constipation Sodium Chloride ([place] 0.65%) 0 ml EA NARE QIDPRN PRN PRN Reason: Nasal Congestion Throat Lozenges (Cepastat Lozenges) 1 tanner PO Q2H PRN PRN Reason: Sore Throat Zolpidem Tartrate (Ambien) 5 mg PO HSPRN PRN PRN Reason: Insomnia
[2018-10-19] MEDS: HumaLOG 300 UNITS/3 ML VIAL SC PRN ×2 (12:48→17:40)
--- NOTE | 2018-10-19 17:05 | HP ---
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 Had sheet metal injury to his left big toe. He is admitted to hospitalist service on 10/16/2018 with an x-ray of his left foot demonstrating soft tissue changes without osteomyelitis. The patient has been receiving intravenous antibiotics, vancomycin. I have been asked to see him today. ALLERGIES: NONE. TOBACCO: None. ALCOHOL: Rarely. MEDICATIONS: None. PAST MEDICAL HISTORY: Diabetes mellitus type 2. Coronary artery bypass grafting, several years ago. Hypertension, does not take any medications. SOCIAL HISTORY: The patient is . His daughter works for [employer]. In the hospital, he has been given vancomycin, Zosyn, insulin, lisinopril b.i.d. 20 mg, metoprolol 50 b.i.d. PHYSICAL EXAMINATION: VITAL SIGNS: 5 feet 8 inches, 157 pounds, 24 BMI, temperature 98 degrees, respirations 16, blood pressure 178/74. HEAD, EARS, EYES, NOSE, AND THROAT: Unremarkable. LUNGS: Clear to auscultation. CARDIAC: Regular rate and rhythm without murmur or gallop. ABDOMEN: Soft and nontender. EXTREMITIES: Palpable femoral, popliteal, posterior tibial pulses bilaterally. Left great toe reveals blistered skin plantar aspect. He has necrotic tissue about a centimeter and half in diameter. At the bedside, this was debrided sharply down to the phalanx. Blood cultures are positive for Gram-positive radames, one of two cultures. LABORATORY DATA: White count 9.2, hemoglobin 12.1. Basic metabolic profile normal. ASSESSMENT AND PLAN: 1. Left foot diabetic infection, on vancomycin and Zosyn. He has been started on oral medications for his diabetes, which he was not taking before. He has been started on medications for his hypertension, which he was not taking before. The patient's hemoglobin A1c is 12.7. Accu-Cheks are 150 to 329. I have debrided the wound at the bedside. It has been debrided back to healthy tissue. I think this wound has a chance of requiring amputation in the future. At this point, he could be treated with antibiotics and outpatient wound VAC can be applied. I could see him in the outpatient wound care next Wednesday or Wednesday. We will make further recommendations pending that. He should be sent home with orthotic shoe. He should follow up with my office in about 2 to 3 weeks. 2. Diabetes mellitus, noncompliant, now started on oral medication and possibly insulin. 3. Hypertension, noncompliant on medications, has been restarted on new medications. 4. Coronary artery disease, stable. Job ID: [id number]
[2018-10-19] MEDS: Acetaminophen 325 MG TAB PO PRN (17:46)
[2018-10-20] MEDS: Vancomycin HCl 1.25 GM in Sodium Chloride 0.9% 250 ML 250 ML IVPB SCH ×2 (00:23→09:00)
[2018-10-20] MEDS: Piperacillin/Tazobactam 3.375 GM in Sodium Chloride 0.9% 100 ML IVPB SCH ×2 (02:19→08:40)
[2018-10-20] MEDS: Acetaminophen 325 MG TAB PO PRN (02:24)
--- NOTE | 2018-10-20 08:20 | PRG ---
DATE OF SERVICE: 10/20/2018 Tima Marie is doing well today. He has a wound VAC on his left foot. I debrided his toe and there is necrotic tissue over the plantar aspect of the distal toe extended down towards the bone. There were healthy margins. X-rays are negative for osteomyelitis. He has had minimal pain. Blood cultures positive 1/2 on admission for gram-negative radames, Gram stain, culture. During my debridement yesterday, gram-positive cocci. The patient is continued on intravenous antibiotics, awaiting sensitivities. From a surgical standpoint, the patient has a wound VAC and can be followed up as an outpatient in wound care for this wound. I will look at the wound in outpatient wound care. They will call me when he attends this. This has been approved and the patient is awaiting antibiotic recommendation for his 1/2 positive blood cultures of gram-negative rods. I will see him as needed during this hospitalization. Dr. Lawrence is covering tomorrow and she can look at his toe should it will be necessary tomorrow. Otherwise, we will change the wound VAC next week and I will see him as inpatient or outpatient pending his status. Job ID: [id number]
[2018-10-20] MEDS: Insulin Glargine 12 UNITS in Pre-Filled Syringe 1 EACH SC SCH (08:31)
[2018-10-20] MEDS: Saccharomyces boulardii 250 MG CAP PO SCH (08:31)
[2018-10-20] MEDS: Enoxaparin Sodium 40 MG/0.4 ML SYRINGE SC SCH (08:34)
[2018-10-20] MEDS ORDERED: Metoprolol Tartrate 50 MG TAB PO SCH (09:00)
[2018-10-20] MEDS ORDERED: NIFEdipine XL 60 MG TAB PO SCH (09:00)
[2018-10-20 09:17] LABS: Vancomycin, Trough 18.4 ug/mL
--- NOTE | 2018-10-20 10:40 | OP ---
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 X-rays negative for osteomyelitis, necrosis of skin, subcutaneous tissue, left great toe with cellulitis. PROCEDURE PERFORMED: Debridement at bedside left great toe plantar, blistered skin and necrotic tissue, placement of a disposable wound VAC. Anticipating discharge home on oral antibiotics, pending medical evaluation. ANESTHESIA: None. DESCRIPTION OF PROCEDURE: The patient at bedside, left great toe, plantar aspect prepared with alcohol, draped in routine fashion. Blistered skin debrided sharply, excised, discarded. Necrotic subcutaneous tissue and deep tissue debrided down to the deep fascia toward the phalanx. Finally reached viable tissue. Small focus of pus identified, sent for culture. Wound was irrigated. Wound Care Team arrived to place disposable wound VAC. The patient tolerated the procedure well. PLAN: Outpatient wound VAC, wound care appointment next week. Gram-negative rods, 1 out of 2 blood culture is positive per Medical. Job ID: [id number]
[2018-10-20] MEDS ORDERED: cloNIDine 0.1 MG TAB PO SCH (11:15)
[2018-10-20 12:01] VITALS: BP 180/81; TEMP 98.2
--- NOTE | 2018-10-20 13:12 | DIS ---
DATE OF ADMISSION: 10/16/2018 DATE OF DISCHARGE: 10/20/2018 PRIMARY CARE PHYSICIAN: Chris Campos MD. DISCHARGE DISPOSITION: Home. PRIMARY DISCHARGE DIAGNOSES: 1. Left foot cellulitis. 2. Diabetic ulcer of the left great toe. SECONDARY DISCHARGE DIAGNOSES: Diabetes, type 2; hypertension; and coronary artery disease. PRIMARY PROCEDURE/OPERATION: Dr. Aceves did incision and debridement for diabetic toe ulcer. RADIOLOGICAL INVESTIGATION: Foot x-ray showed soft tissue edema. LABORATORY DATA: Significant labs; WBC 9.2, hemoglobin 12.1, and platelets 317. Sodium 137, potassium 3.7, BUN 7, creatinine 0.67, and calcium 8.2. Urinalysis unremarkable. Blood culture showed contaminated Corynebacterium species, and wound culture growing Staph aureus. DISCHARGE MEDICATIONS: 1. Augmentin 875 mg twice daily for 10 days. 2. Doxycycline 100 mg twice daily for 10 days. 3. Metoprolol 25 mg twice daily. 4. Procardia XL 60 mg p.o. daily. 5. Lantus 12 units subcu b.i.d. 6. Florastor 250 mg p.o. daily. CONTRAINDICATION: None. CODE STATUS: Full code. 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 Aceves was consulted while in hospital. CASE RESULT PENDING ON DISCHARGE: None. ALLERGIES: NO KNOWN DRUG ALLERGIES. DISCHARGE PLAN: Posthospital, the patient will follow up with Dr. Aceves in 1 week. The patient will follow up with Dr. Campos in 1 week. HOSPITAL COURSE: A 62-year-old male with above-mentioned medical problem, who was admitted by Dr. Tonya Delcid. Please see her H and P for further details. The patient was admitted for left foot cellulitis and left great toe diabetic ulcer. The patient has history of puncture wound in the left great toe, which he was not recognized, and the left great toe cellulitis and ulcer was getting worse and that is why we admitted him in the hospital. This patient was also not taking any blood pressure and diabetes medication. We started Procardia XL and metoprolol on his regimen. This patient has lisinopril induced cough and that is why we discontinued lisinopril on discharge and changed to Procardia XL. This patient will follow up with primary care physician for further adjustment of his blood pressure medication. The patient was given Augmentin and doxycycline for staph infection. The patient will continue to follow up with Dr. Aceves on an outpatient basis for wound care. While in the hospital, wound VAC was arranged at surgical site and the patient is doing very well. His pain is well controlled. The patient is seen and examined at bedside today. REVIEW OF SYSTEMS: All review of systems reviewed with him and negative. Plan of care discussed with the patient and his . PHYSICAL EXAMINATION: VITAL SIGNS: Currently, temperature 97.9, pulse 60, blood pressure 174/72, and saturation 95% on room air. Weight 157 pounds. GENERAL: The patient is currently alert, awake. No obvious acute distress. HEENT: Head, normocephalic and atraumatic. Eyes; pupils round, reactive to light. Extraocular muscle intact. ENT; oropharynx within normal limits. Moist mucous membranes. No oral lesion. No pharyngeal erythema. No exudate. NECK: Supple. No JVD. No thyromegaly. No carotid bruit. LUNGS: Clear to auscultation without any rhonchi or rales. CARDIAC: S1 and S2, regular, without any murmur. ABDOMEN: Soft and benign without any tenderness. EXTREMITIES: No edema. NEUROLOGIC: Nonfocal examination. Overall, the patient is medically stable for discharge today. Job ID: [id number]
== END 2018-10-20 12:11 | disposition home or self-care (01) | DRG 623 ==
LOC: SCSER 19:18 → 2SW 21:30 → OBSVTOIN 21:30 → T4-A 22:38
PROVIDERS: ADMIT Internal Medicine; ATTEND Internal Medicine
PROC: 0JBR0ZZ Excision of Left Foot Subcutaneous Tissue and Fascia, Open Approach (ICD-10-PCS; principal; 2018-10-19)
PROC: 2W1VX6Z Compression of Left Toe using Pressure Dressing (ICD-10-PCS; 2018-10-19)
DX: E11.621 Type 2 diabetes mellitus with foot ulcer (principal); L03.116 Cellulitis of left lower limb; L97.529 Non-pressure chronic ulcer of other part of left foot with unspecified severity; I10 Essential (primary) hypertension; I25.10 Atherosclerotic heart disease of native coronary artery without angina pectoris; Z95.1 Presence of aortocoronary bypass graft
CPT/HCPCS: 36415; 36416; 80048; 80053; 80202; 81001; 83036; 83605; 85025; 86140; 87040; 87070; 87077; 87186; 87205; 90471; 90686; 90715; 90732; 96365; 96367; 96368; G0008; G0009; J0360; J1650; J2543; J3370; J3490; J7050

== ENCOUNTER 2018-10-24 07:47 | Outpatient (CLI) | payer SELFPAY | END 2018-10-24 07:48 | disposition home or self-care (01) | LOC: WCC 07:47 | PROVIDERS: ATTEND Family Medicine | DX: T81.89XD Other complications of procedures, not elsewhere classified, subsequent encounter (principal) | CPT/HCPCS: 97602 ==

== ENCOUNTER 2018-10-24 08:34 | Inpatient (IN) | payer OTHER, SELFPAY ==
[2018-10-24 09:34] LABS: #Basophils 0.1 thou/uL (0.0-0.2); #Eosinphils 0.1 thou/uL (0.0-0.7); #Lymphocytes 1.3 thou/uL (1.20-3.40); #Monocytes 1.1 thou/uL (0.11-0.59); #Neutrophils 6.9 thou/uL (1.40-6.50); %Basophils 0.7 % (0.0-1.0); %Eosinophils 1.5 % (0.0-10.0); %Lymphocytes 13.6 % (21.0-51.0); %Monocytes 11.7 % (0.0-10.0); %Neutrophils 72.4 % (42.0-75.0); Hemoglobin 12.9 g/dL (14.0-18.0); Mean Corpuscular HGB CONC 33.4 g/dL (32.0-36.0); Mean Corpuscular Hemoglobin 28.9 pg (27.0-31.0); Mean Corpuscular Volume 86.5 fL (78.0-98.0); Mean Platelet Volume 6.4 fL (7.4-10.4); Platelet Count 511 thou/uL (130-400); RBC Distribution Width 11.3 % (11.5-14.5); Red Blood Cell (RBC) Count 4.46 mill/uL (4.70-6.10); White Blood Cell (WBC) Count 9.6 thou/uL (4.8-10.8)
[2018-10-24 10:03] LABS: ALT (SGPT) 16 U/L (8-55); AST (SGOT) 16 U/L (5-34); Albumin 3.6 g/dL (3.4-4.8); Alkaline Phosphatase 66 U/L (40-150); Anion Gap 17 mmol/L (10-20); BUN (Urea Nitrogen) 17 mg/dL (8.4-25.7); Bilirubin, Total 0.4 mg/dL (0.2-1.2); Calc. Creatinine Clearance 0 mL/min (70-130); Calcium 9.7 mg/dL (7.8-10.44); Carbon Dioxide 25 mmol/L (23-31); Chloride 99 mmol/L (98-107); Estimated GFR-MDRD 87; Globulin 3.4 g/dL (2.4-3.5); Glucose 264 mg/dL (80-115); Potassium 5.4 mmol/L (3.5-5.1); Sodium 136 mmol/L (136-145)
--- NOTE | 2018-10-24 10:14 | RAD ---
LEFT TOES 3 VIEWS: HISTORY: Ulceration. Osteomyelitis. FINDINGS: Mild degenerative changes. On the lateral view, there is irregular soft tissue defect at the plantar surface at the level of the interphalangeal joint. No radiopaque foreign bodies or underlying destr uctive lesions are apparent. IMPRESSION: 1. Soft tissue ulceration. Mild degenerative changes. 2. No aggressive osseous destruction is evident. POS: [facility]
[2018-10-24] MEDS ORDERED: Piperacillin/Tazobactam 4.5 GM VIAL ONE (10:37)
[2018-10-24] MEDS ORDERED: Vancomycin HCl 1 GM in Premix Bag 1 BAG IVPB SCH (10:45)
[2018-10-24] MEDS ORDERED: Ondansetron PF 4 MG/2 ML Vial IVP PRN ×2 (14:05→14:42)
[2018-10-24] MEDS ORDERED: Ondansetron ODT 4 MG TAB PO PRN (14:05)
[2018-10-24] MEDS ORDERED: Sodium Chloride 0.9% 1,000 ML IV SCH (14:15)
[2018-10-24] MEDS ORDERED: Ondansetron ODT 4 MG TAB SL PRN (14:42)
[2018-10-24] MEDS ORDERED: Dextrose 5% in Water 1,000 ML IV PRN (14:42)
[2018-10-24] MEDS ORDERED: Dextrose 50% Abboject 50 ML SYRINGE SLOW IVP PRN (14:42)
[2018-10-24] MEDS ORDERED: HumaLOG 300 UNITS/3 ML VIAL SC PRN (14:42)
[2018-10-24] MEDS: metFORMIN 500 MG TAB PO SCH (16:05)
[2018-10-24] MEDS: glyBURIDE 5 MG TAB PO SCH (16:05)
--- NOTE | 2018-10-24 17:00 | MRI ---
LEFT FOOT MRI WITHOUT IV CONTRAST; HISTORY: A 62-year-old male with a history of a left great toe ulcer with concern for osteomyelitis. TECHNIQUE: Multiplanar, multisequence MRI examination of the forefoot is performed. FINDINGS: There is a fairly large, deep ulcer involving the plantar medial aspect of the great toe, at the leve l of the interphalangeal joint. Minimal soft tissue swelling. There is some very subtle STIR increa sed signal within the distal phalanx of the great toe but no abnormal T1 signal. This suggests some nonspecific osteitis but no convincing evidence for osteomyelitis. Arthrosis and degenerative change s are noted. Minimal nonspecific intrinsic muscle T2 hyperintensity. Motion artifact on numerous se quences lowers the sensitivity of this study. IMPRESSION: 1. Large, irregular ulcer involving the great toe medially, and on the plantar aspect, at the level of the interphalangeal joint region. Subtle STIR hyperintensity within the distal phalanx of the gre at toe without significant T2 hypointensity, evidence for nonspecific osteitis but no convincing evid ence for acute osteomyelitis at this time. 2. Minimal arthrosis and degenerative change. 3. Nonspecific intrinsic muscle T2 hyperintensity. E POS: [facility]
[2018-10-24] MEDS: HumaLOG 300 UNITS/3 ML VIAL SC PRN (17:38)
[2018-10-24] MEDS ORDERED: Piperacillin/Tazobactam 3.375 GM in Sodium Chloride 0.9% 100 ML IVPB SCH (18:00)
[2018-10-24] MEDS ORDERED: Piperacillin/Tazobactam 4.5 GM in Sodium Chloride 0.9% 100 ML IVPB SCH (18:00)
[2018-10-24] MEDS: Famotidine 20 MG TAB PO SCH (20:55)
[2018-10-24] MEDS ORDERED: Metoprolol Tartrate 25 MG TAB PO SCH (21:00)
[2018-10-24] MEDS: Acetaminophen 500 MG TAB PO PRN (21:01)
--- NOTE | 2018-10-24 21:07 | HP ---
PRIMARY CARE PROVIDER: Dr. Campos. CHIEF COMPLAINT: Left great toe diabetic ulcer. HISTORY OF PRESENT ILLNESS: This is a 62-year-old male, who presents to [facility] in transfer from the [facility]patient [facility] after the patient presented for his first followup visit for a left great toe diabetic ulcer, status post incision and debridement on 10/19/2018. The patient had initially presented on 10/17/2018 with an ulceration to the left great toe, evaluated by the General Surgery Service for potential debridement. The patient was placed on IV Zosyn and vancomycin, and underwent a bedside debridement of the toe on 10/19/2018. The patient had subsequent application of a wound VAC and was placed on Augmentin and doxycycline, and discharged home on 10/20/2018. The patient states he was compliant with his antibiotic regimen as well as the wound VAC and was following up on an outpatient basis for wound care evaluation. The patient was evaluated at the Wound Care Clinic; however, after evaluation of the foot by exam, the patient was referred to the emergency room for further evaluation due to suspected worsening edema, ischemia, and necrosis of the great toe. The patient denies any increased pain, fever, chills, or red streaks up the foot. In the emergency room, the patient underwent evaluation including plain radiograph imaging showing soft tissue ulceration and degenerative changes without aggressive osseous destruction. The patient was given Zosyn 4.5 g IV x1 dose and transferred to the medical floor. PAST MEDICAL HISTORY: 1. Left great toe diabetic ulceration with cellulitis, status post incision and debridement on 10/19/2018. 2. Diabetes mellitus type 2, on oral hypoglycemics. 3. Coronary artery disease. 4. Hypertension. PAST SURGICAL HISTORY: 1. Status post coronary artery bypass grafting in 2011. 2. Status post hernia repair. 3. Status post left great toe incision and debridement. CURRENT MEDICATIONS: 1. Augmentin 875 mg p.o. b.i.d. 2. Doxycycline 100 mg p.o. b.i.d. 3. Glyburide 5 mg p.o. b.i.d. 4. Metformin 1000 mg p.o. b.i.d. 5. Metoprolol tartrate 25 mg p.o. b.i.d. 6. Nifedipine XL 60 mg p.o. daily. 7. Florastor 250 mg p.o. daily. ALLERGIES: NO KNOWN DRUG ALLERGIES. FAMILY HISTORY: Positive for coronary artery disease and diabetes. SOCIAL HISTORY: No current alcohol, tobacco, or illicit drug use. , resides in the [place], [place] area. 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 REVIEW OF SYSTEMS: CONSTITUTIONAL: Negative for weight loss or gain, ability to conduct usual activities. SKIN: Negative for rash, itching. EYES: Negative for double vision, pain. ENT/MOUTH: Negative for nose bleeding, neck stiffness, pain, tenderness. CARDIOVASCULAR: Negative for palpitations, dyspnea on exertion, orthopnea. RESPIRATORY: Negative for shortness of breath, wheezing, cough, hemoptysis, fever or night sweats. GASTROINTESTINAL: Negative for poor appetite, abdominal pain, heartburn, nausea, vomiting, constipation, or diarrhea. GENITOURINARY: Negative for urgency, frequency, dysuria, nocturia. MUSCULOSKELETAL: Negative for pain, swelling. NEUROLOGIC/PSYCHIATRIC: Negative for anxiety, depression. ALLERGY/IMMUNOLOGIC: Negative for skin rash, bleeding tendency. Otherwise, negative except as stated in HPI. PHYSICAL EXAMINATION: VITAL SIGNS: Currently, blood pressure 167/70, pulse 67, respiratory rate 16, temperature 98.3 degrees Fahrenheit, O2 saturation 94% on room air. GENERAL APPEARANCE: This is a 62-year-old male, alert and oriented x3, pleasant, conversant, in no acute distress. HEENT: Pupils are equal, round, and reactive to light and accommodation. Extraocular muscles are intact. No scleral icterus. No conjunctival injection. Nares patent. OP is clear. Teeth in good repair. NECK: Supple. No cervical adenopathy, no thyromegaly, no carotid bruits, no JVD appreciated. Cervical spine with full active and passive range of motion. No meningeal signs noted. CHEST: Lungs are clear to auscultation bilaterally. CARDIOVASCULAR: S1 and S2 without noted murmur, rub, or gallop. ABDOMEN: Rounded, soft, nontender, and nondistended. Bowel sounds are positive in all 4 quadrants. There is no hepatosplenomegaly, no abdominal bruits, no rebound or guarding appreciated. EXTREMITIES: Warm and dry with fair turgor. Left great toe with edema and violaceous discoloration with black eschar at the distal aspect of the great toe. Large ulceration with granulation tissue and exposed fascia at the base. Pulses are diminished, but palpable at the dorsalis pedis, posterior tibial, and popliteal arteries bilaterally. Capillary refill less than 2 seconds. NEUROLOGIC: Cranial nerves 2 through 12 are grossly intact. No focal or lateralizing signs appreciated. PERTINENT LAB AND X-RAY FINDINGS: Sodium 136, potassium 5.4, chloride 99, CO2 of 25, BUN 17, creatinine 0.88, estimated GFR of 87, glucose 264, calcium 9.7. LFTs within normal limits. CRP 4.04, previously noted 6.84; 10/18/2018. CBC showed a white blood cell count of 9.6, hemoglobin 13, hematocrit 39, platelet count 511 with 72% neutrophils. ESR 61. Wound culture of the left great toe dated 10/19/2018, showed Staphylococcus aureus and Klebsiella/Enterobacter species. Sensitivities showed pansensitive except for amoxicillin and piperacillin. ASSESSMENT AND PLAN: 1. Left great toe diabetic ulcer/osteomyelitis. The patient will be admitted to the medical floor. We will continue vancomycin 1 g IV q.12 hours with additional Levaquin 750 mg IV daily. Consult General Surgery Service for any further debridement or recommendations regarding surgical intervention. Consider MRI imaging of the great toe. Consult Wound Care Service for local dressing changes and cleaning of the wound. 2. Diabetes mellitus type 2. Insulin sliding scale for reflexive coverage. Continue glyburide and metformin. Accu-Cheks a.c. and bedtime. ADA diet. 3. Hypertension. Resume home antihypertensive regimen and monitor clinical response. 4. Coronary artery disease. Stable. Continue metoprolol and Procardia. Aspirin 81 mg daily. 5. Prophylaxis. Lovenox 40 mg subcutaneously daily. Pepcid 20 mg p.o. b.i.d. 6. Code status is full. Surrogate medical decision maker is the patient's spouse. Job ID: [id number]
[2018-10-24] MEDS: Vancomycin HCl 1 GM in Premix Bag 1 BAG IVPB SCH (23:18)
[2018-10-24] MEDS: Lactated Ringer's 1,000 ML IV SCH (23:19)
--- NOTE | 2018-10-24 23:44 | CON ---
DATE OF CONSULTATION: 10/24/2018 CONSULTING PHYSICIAN: Dr. Fernando Martinez. REASON FOR CONSULTATION: Left great toe ulcer. HISTORY OF PRESENT ILLNESS: The patient is a 62-year-old diabetic white male. He was seen by Dr. Aceves on October 19 at which time, he debrided the left great toe diabetic infection. It was felt that this had a chance of healing with appropriate antibiotics and wound care. When the patient returned to outpatient wound care today, I was contacted due to worsening appearance of the ulcer. He was admitted to the medical service and I am consulted for further evaluation and management. The patient denies any discomfort, fever, or chills. He has been compliant with his wound care and antibiotics and then attempted to be compliant with his diabetic management. PAST MEDICAL HISTORY: 1. Diabetes mellitus type 2 for the past 5 or 6 years. 2. Coronary artery disease. 3. Hypertension. PAST SURGICAL HISTORY: 1. Coronary artery bypass graft 2011. 2. Hernia repair. 3. Left great toe debridement, last week. CURRENT MEDICATIONS: 1. Augmentin. 2. Doxycycline. 3. Glyburide. 4. Metformin. 5. Metoprolol. 6. Nifedipine. 7. Florastor. ALLERGIES: NO KNOWN DRUG ALLERGIES. PERSONAL AND SOCIAL HISTORY: He is . is present at bedside. They have 7 children. 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 He denies tobacco or alcohol use. REVIEW OF SYSTEMS: Otherwise unremarkable. FAMILY HISTORY: Noncontributory. PHYSICAL EXAMINATION: VITAL SIGNS: Temperature 97.9, pulse 73, blood pressure 176/79. GENERAL: Well-developed, well-nourished, pleasant white male, resting in bed, in no acute distress. He is alert and oriented x3. HEAD, EYES, EARS, NOSE, AND THROAT: Unremarkable. NECK: Supple without mass or tenderness. LUNGS: Clear to auscultation throughout. CARDIAC: Regular rate and rhythm without murmur. ABDOMEN: Soft, nontender, and nondistended. EXTREMITIES: He has palpable bilateral femoral pulses. Examination of his left great toe reveals an ulcer with over a centimeter of exposed bone on the plantar aspect. He also has necrotic changes of the skin on the plantar surface of the great toe. The wound surrounding the bone is devitalized and has a soupy appearance. There is some surrounding erythema. LABORATORY DATA: CBC obtained this morning reveals a white blood cell count of 9.6 with hemoglobin of 12.9. His metabolic panel reveals elevated potassium of 5.4, elevated glucose of 264. X-rays, an MRI was obtained of his foot that did not reveal any definite osteomyelitis at this time. ASSESSMENT: The patient's wound on his toes, not compatible with potential for healing. I would therefore recommend proceeding with great toe amputation. Due to the position of this ulcer on the medial aspect of the toe along the proximal phalanx, I suspect that this will need to be a ray amputation. Because of the surrounding erythema and the appearance of the wound, I suspect that this will need to be an open amputation with subsequent wound VAC application. I discussed all this in detail with the patient's . They understand and agree to proceed with surgery, which has been scheduled for tomorrow. Job ID: [id number]
[2018-10-25] MEDS: hydrALAZINE 20 MG/ML VIAL SLOW IVP PRN ×2 (04:09→15:33)
[2018-10-25] MEDS: Enoxaparin Sodium 40 MG/0.4 ML SYRINGE SC SCH (07:12)
[2018-10-25] MEDS: glyBURIDE 5 MG TAB PO SCH ×2 (07:12→16:40)
[2018-10-25] MEDS: metFORMIN 500 MG TAB PO SCH ×2 (07:12→16:40)
[2018-10-25] MEDS: Saccharomyces boulardii 250 MG CAP PO SCH (07:13)
[2018-10-25] MEDS: Famotidine 20 MG TAB PO SCH ×2 (07:13→20:28)
[2018-10-25] MEDS: NIFEdipine XL 60 MG TAB PO SCH (08:15)
[2018-10-25 08:17] LABS: Anion Gap 17 mmol/L (10-20); BUN (Urea Nitrogen) 11 mg/dL (8.4-25.7); Calc. Creatinine Clearance 102 mL/min (70-130); Calcium 9.3 mg/dL (7.8-10.44); Carbon Dioxide 21 mmol/L (23-31); Chloride 104 mmol/L (98-107); Estimated GFR-MDRD Greater than 90; Glucose 100 mg/dL (80-115); Potassium 4.2 mmol/L (3.5-5.1); Sodium 138 mmol/L (136-145)
--- NOTE | 2018-10-25 09:12 | PDOC.PN ---
- Subjective Encounter Start Date: 10/25/18 Encounter Start Time: 09:10 Subjective: f/u for L great toe DM ulcer with osteitis currently planned for amputation -: later today. No new complaints, fever or chills. - Objective Resuscitation Status - Order Detail: 10/24/18 14:35 Resuscitation Status Routine Resuscitation Status: FULL: Full Resuscitation MAR Reviewed: Yes Vital Signs & Weight: Vital Signs (12 hours) Temp Pulse Resp BP BP Pulse Ox 10/25/18 08:15 96 10/25/18 07:33 98.1 F 74 18 181/73 H 96 10/25/18 05:26 172/75 H 10/25/18 04:09 58 L 191/79 H 10/25/18 03:22 97.8 F 58 L 16 181/77 H 100 10/24/18 23:50 97.9 F 56 L 16 173/75 H 93 L Weight Weight 151 lb 3.2 oz I&O: 10/24/18 10/25/18 10/26/18 06:59 06:59 06:59 Intake Total 1620 Balance 1620 Result Diagrams: 10/25/18 07:50 10/25/18 07:50 Additional Labs: Accuchecks 10/25/18 10/24/18 10/24/18 05:04 20:42 16:23 POC Glucose 95 102 185 H Microbiology 10/24/18 09:26 Venous blood - Right Arm Blood Culture - Preliminary Specimen has been received and culture in progress. No Growth to date. 10/24/18 09:23 Venous blood - Right Arm Blood Culture - Preliminary Specimen has been received and culture in progress. No Growth to date. Laboratory Tests 10/24/18 10/24/18 10/24/18 09:23 09:23 09:23 ESR Westergren 61 Potassium 5.4 H C-Reactive Protein 4.04 H Radiology Reviewed by me: Yes (L toe MRI - +osteitis, ulceration) Phys Exam - Physical Examination Constitutional: NAD HEENT: PERRLA, sclera anicteric, oral pharynx no lesions Neck: no nodes, no JVD, supple, full ROM Respiratory: no wheezing, no rales, no rhonchi, clear to auscultation bilateral S1, S2 Cardiovascular: RRR, no significant murmur, no rub, gallop Gastrointestinal: soft, non-tender, no distention, positive bowel sounds L great toe edema, exposed bone medially, black Musculoskeletal: pulses present, edema present Neurological: normal sensation, moves all 4 limbs Psychiatric: A&O x 3 Skin: normal turgor, cap refill <2 seconds Dx/Plan (1) Diabetic ulcer of toe Code(s): E11.621 - TYPE 2 DIABETES MELLITUS WITH FOOT ULCER; L97.509 - NON- PRESSURE CHRONIC ULCER OTH PRT UNSP FOOT W UNSP SEVERITY Status: Acute Qualifiers: Diabetes mellitus type: type 2 Comment: Plan for ray amputation of L great toe, continue Levaquin/Vancomycin, wound vac application post-op (2) Cellulitis of left foot Code(s): L03.116 - CELLULITIS OF LEFT LOWER LIMB Status: Acute Comment: Continue Levaquin/Vancomycin (3) Hypertension Code(s): I10 - ESSENTIAL (PRIMARY) HYPERTENSION Status: Chronic Qualifiers: Hypertension type: essential hypertension Qualified Code(s): I10 - Essential (primary) hypertension Comment: Labile, resume Metoprolol 50mg BID, Nifedipine 60mg daily, Hydralazine PRN (4) CAD (coronary artery disease) Code(s): I25.10 - ATHSCL HEART DISEASE OF [place] CORONARY ARTERY W/O ANG PCTRS Status: Chronic Comment: Chronic, stable (5) Diabetes type 2, controlled Code(s): E11.9 - TYPE 2 DIABETES MELLITUS WITHOUT COMPLICATIONS Status: Chronic Comment: ISS, Hold Glyburide while NPO, serial accuchecks - Plan plan discussed w/ family, continue antibiotics, social welfare administrator Stable currently -: Plan for ray amputation of L great toe -: Pain control as clinically indicated -: Resume Metoprolol 50mg BID -: Continue IVF's * AM lab: BMP, CBC
[2018-10-25] MEDS: Metoprolol Tartrate 50 MG TAB PO SCH ×2 (09:44→20:28)
[2018-10-25 09:59] LABS: Eosinophils 7 % (0-10); Hemoglobin 12.6 g/dL (14.0-18.0); Lymphocytes 16 % (21-51); MDiff Complete? YES; Mean Corpuscular HGB CONC 33.6 g/dL (32.0-36.0); Mean Corpuscular Hemoglobin 28.7 pg (27.0-31.0); Mean Corpuscular Volume 85.5 fL (78.0-98.0); Mean Platelet Volume 7.5 fL (7.4-10.4); Monocytes 16 % (0-10); Neutrophil 58 % (42-75); PLT Morphology Comment PLT clumps seen-ADEQ; Platelet Count 364 thou/uL (130-400); RBC Distribution Width 11.3 % (11.5-14.5); Reactive Lymphocytes 2 % (0-10); Red Blood Cell (RBC) Count 4.37 mill/uL (4.70-6.10)
[2018-10-25] MEDS: Lactated Ringer's 1,000 ML IV SCH ×3 (10:43→22:29)
[2018-10-25] MEDS ORDERED: VANCOMYCIN IVPB PRN (11:19)
[2018-10-25] MEDS: Vancomycin HCl 1 GM in Premix Bag 1 BAG IVPB SCH (12:27)
[2018-10-25] MEDS ORDERED: Bupivacaine/Epinephrine 0.25% 30 ML VIAL ONE (13:00)
[2018-10-25] MEDS ORDERED: Fentanyl 100 MCG/2 ML VIAL ONE (13:11)
[2018-10-25] MEDS ORDERED: Midazolam HCl 2 mg/2 ml Vial ONE (13:14)
[2018-10-25] MEDS ORDERED: HYDROcodone/Acetaminophen 5/325 mg Tablet PO PRN ×2 (15:25)
[2018-10-25] MEDS ORDERED: PROPOFOL 200 MG/20 ML VIAL ONE (21:11)
--- NOTE | 2018-10-25 23:39 | OP ---
DATE OF PROCEDURE: 10/25/2018 PREOPERATIVE DIAGNOSIS: Diabetic toe ulcer involving the left great toe. POSTOPERATIVE DIAGNOSIS: Diabetic toe ulcer involving the left great toe. OPERATION PERFORMED: Left great toe ray amputation. ANESTHESIA: Total intravenous anesthesia with local using 0.25% Marcaine with epinephrine. INDICATIONS: The patient is a 62-year-old white male. He presents with an enlarging worsening ulcer involving the left great toe. There is a lengthy segment of exposed bone on the medial plantar aspect of the foot. The plantar aspect of the toe has become black. This is a wound that will not heal and therefore I recommend amputation. DESCRIPTION OF OPERATION: Informed consent was obtained. The patient was taken to the operating room where general anesthesia was obtained with the patient in a supine position. Left foot was prepped with Betadine and draped in sterile fashion. Local anesthetic was infiltrated proximally using 0.25% Marcaine with epinephrine. A circumferential incision was created just proximal to the level of the ulcer. Dissection was carried through the underlying soft tissue sharply. The bone was transected with the rib isabelle. I then debrided the bone back to attempt to obtain a margin of bone that could be covered by the overlying skin. This debridement was carried into the joint space. I therefore removed all of the proximal phalanx and the cartilaginous end of the underlying metatarsal bone. Hemostasis was maintained using electrocautery, but there was little bleeding within the wound. The wound care team presented to place a wound VAC. There were no complications. Blood loss was negligible. The patient tolerated the procedure well and was taken to recovery room in stable condition. Job ID: [id number]
[2018-10-26] MEDS: Vancomycin HCl 1 GM in Premix Bag 1 BAG IVPB SCH (00:52)
[2018-10-26] MEDS: Vancomycin HCl 1.5 GM in Sodium Chloride 0.9% 250 ML 300 ML IVPB SCH ×2 (01:00→12:56)
[2018-10-26] MEDS: Lactated Ringer's 1,000 ML IV SCH ×3 (04:53→20:35)
[2018-10-26] MEDS: metFORMIN 500 MG TAB PO SCH ×2 (08:08→16:51)
[2018-10-26] MEDS: Saccharomyces boulardii 250 MG CAP PO SCH (08:08)
[2018-10-26] MEDS: Famotidine 20 MG TAB PO SCH ×2 (08:09→20:33)
[2018-10-26] MEDS: glyBURIDE 5 MG TAB PO SCH ×2 (08:09→16:50)
[2018-10-26] MEDS: Metoprolol Tartrate 50 MG TAB PO SCH ×2 (08:11→20:33)
[2018-10-26] MEDS: NIFEdipine XL 60 MG TAB PO SCH (08:11)
[2018-10-26] MEDS: Enoxaparin Sodium 40 MG/0.4 ML SYRINGE SC SCH (08:12)
--- NOTE | 2018-10-26 14:17 | PDOC.PN ---
- Subjective Encounter Start Date: 10/26/18 Encounter Start Time: 14:10 Subjective: f/u s/p L great toe ray amputation POD#1. No new complaints and pain -: controlled currently. - Objective Resuscitation Status - Order Detail: 10/24/18 14:35 Resuscitation Status Routine Resuscitation Status: FULL: Full Resuscitation MAR Reviewed: Yes Vital Signs & Weight: Vital Signs (12 hours) Temp Pulse Resp BP BP Pulse Ox 10/26/18 11:56 98.0 F 62 18 149/69 H 95 10/26/18 08:11 78 196/87 H 10/26/18 08:00 98.9 F 78 18 196/87 H 94 L 10/26/18 04:00 99.6 F 68 18 152/69 H 91 L Weight Weight 151 lb 3.2 oz I&O: 10/25/18 10/26/18 10/27/18 06:59 06:59 06:59 Intake Total 1620 2540 Output Total 1100 Balance 1620 1440 Result Diagrams: 10/25/18 07:50 10/25/18 07:50 Additional Labs: Accuchecks 10/26/18 10/26/18 10/25/18 12:00 04:56 19:42 POC Glucose 140 H 104 183 H 10/25/18 16:26 POC Glucose 133 H Microbiology 10/24/18 09:26 Venous blood - Right Arm Blood Culture - Preliminary Specimen has been received and culture in progress. No Growth to date. 10/24/18 09:23 Venous blood - Right Arm Blood Culture - Preliminary Specimen has been received and culture in progress. No Growth to date. Laboratory Tests 10/24/18 10/24/18 10/24/18 09:23 09:23 09:23 ESR Westergren 61 Potassium 5.4 H C-Reactive Protein 4.04 H Microbiology 10/24/18 09:26 Venous blood - Right Arm Blood Culture - Preliminary NO GROWTH AT 48 HOURS 10/24/18 09:23 Venous blood - Right Arm Blood Culture - Preliminary NO GROWTH AT 48 HOURS Phys Exam - Physical Examination Constitutional: NAD HEENT: PERRLA, sclera anicteric, oral pharynx no lesions Neck: no nodes, no JVD, supple, full ROM Respiratory: no wheezing, no rales, no rhonchi, clear to auscultation bilateral S1, S2 Cardiovascular: RRR, no significant murmur, no rub, gallop Gastrointestinal: soft, non-tender, no distention, positive bowel sounds L foot with dressing/wound vac in place Musculoskeletal: pulses present Neurological: normal sensation, moves all 4 limbs Psychiatric: A&O x 3 Skin: normal turgor, cap refill <2 seconds Dx/Plan (1) Diabetic ulcer of toe Code(s): E11.621 - TYPE 2 DIABETES MELLITUS WITH FOOT ULCER; L97.509 - NON- PRESSURE CHRONIC ULCER OTH PRT UNSP FOOT W UNSP SEVERITY Status: Acute Qualifiers: Diabetes mellitus type: type 2 Comment: s/p ray amputation of L great toe POD #1, continue Levaquin/Vancomycin , wound vac application post-op (2) Cellulitis of left foot Code(s): L03.116 - CELLULITIS OF LEFT LOWER LIMB Status: Acute Comment: Continue Levaquin/Vancomycin (3) Hypertension Code(s): I10 - ESSENTIAL (PRIMARY) HYPERTENSION Status: Chronic Qualifiers: Hypertension type: essential hypertension Qualified Code(s): I10 - Essential (primary) hypertension Comment: Labile, resume Metoprolol 50mg BID, Nifedipine 60mg daily, Hydralazine PRN (4) CAD (coronary artery disease) Code(s): I25.10 - ATHSCL HEART DISEASE OF [place] CORONARY ARTERY W/O ANG PCTRS Status: Chronic Comment: Chronic, stable (5) Diabetes type 2, controlled Code(s): E11.9 - TYPE 2 DIABETES MELLITUS WITHOUT COMPLICATIONS Status: Chronic Comment: ISS, resume Glyburide, serial accuchecks - Plan plan discussed w/ family, continue antibiotics, PT/OT, social work therapist, DVT proph w/lovenox Stable overall -: Continue WCT with wound vac, local care -: Pain control -: Continue Levaquin/Vancomycin -: Likely home in 24h * .
[2018-10-26 15:23] VITALS: BMI 22.9
--- NOTE | 2018-10-26 15:23 | PRG ---
DATE OF SERVICE: 10/26/2018 SUBJECTIVE: Mr. Marie is postoperative day #1 from left great toe ray amputation. He has no complaints. He denies any pain. He has a wound VAC in place that was placed yesterday in the operating room. OBJECTIVE: VITAL SIGNS: On examination, he is afebrile. Vital signs within normal limits except that he has intermittent hypertension. Blood pressure one time was 196/87. Physical examination reveals no significant changes. Vac is intact on the left great toe amputation site. LABORATORY DATA: He has no new labs today. Cultures reveal no growth from his blood cultures preoperatively. ASSESSMENT: The patient is doing well following left great toe amputation. He is healing appropriately. He is still on intravenous antibiotics currently. With his toe amputated now, he does not require this any longer. I would recommend conversion to oral medications and discharge home tomorrow, on postoperative day #2. I will see him back in my office in 2 weeks for followup. He will be arranged to have [facility]. Job ID: [id number]
[2018-10-26] MEDS: Acetaminophen 500 MG TAB PO PRN (16:58)
[2018-10-27] MEDS: Vancomycin HCl 1.5 GM in Sodium Chloride 0.9% 250 ML 300 ML IVPB SCH ×2 (01:06→12:47)
[2018-10-27] MEDS: glyBURIDE 5 MG TAB PO SCH (08:01)
[2018-10-27] MEDS: NIFEdipine XL 60 MG TAB PO SCH (08:01)
[2018-10-27] MEDS: Famotidine 20 MG TAB PO SCH (08:01)
[2018-10-27] MEDS: Saccharomyces boulardii 250 MG CAP PO SCH (08:01)
[2018-10-27] MEDS: Enoxaparin Sodium 40 MG/0.4 ML SYRINGE SC SCH (08:01)
[2018-10-27] MEDS: metFORMIN 500 MG TAB PO SCH (08:01)
[2018-10-27] MEDS: Metoprolol Tartrate 50 MG TAB PO SCH (08:01)
[2018-10-27] MEDS: Lactated Ringer's 1,000 ML IV SCH (08:07)
[2018-10-27] MEDS: HumaLOG 300 UNITS/3 ML VIAL SC PRN (12:18)
[2018-10-27 12:37] LABS: Vancomycin, Trough 15.6 ug/mL
--- NOTE | 2018-10-27 12:50 | DIS ---
DATE OF ADMISSION: 10/24/2018 DATE OF DISCHARGE: 10/27/2018 DISCHARGE DIAGNOSES: 1. 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 2. Status post ray amputation of the left great toe on 10/25/2018. 3. Hypertension, labile. 4. Coronary artery disease, chronic and stable. 5. Diabetes mellitus, type 2, stable. CONSULTATIONS: Dr. Vasquez with General Surgery Service. PERTINENT LABORATORY AND X-RAY FINDINGS: CRP 4.04. ESR 61. Blood cultures x2 dated 10/24/2018, showed no growth at 48 hours. MRI of the left foot showed irregular ulcer of the great toe medially. Osteitis noted. HOSPITAL COURSE: The patient was initially admitted to the medical floor after presenting with increasing discoloration of the left great toe, status post recent incision and drainage with local debridement due to diabetic ulceration. The patient was noted with increasing black discoloration to the left great toe and placed on IV Levaquin with vancomycin. The patient was evaluated by the General Surgery Service after undergoing MRI imaging of the left great toe showing osteitis. Due to tissue destruction, increasing discoloration and lack of viable tissue, the patient was deemed an appropriate candidate and proceeded with ray amputation of the left great toe on 10/25/2018. The patient had postoperative wound VAC application in addition to local wound care by the Wound Care Service. The patient had minimal discomfort to the left great toe and was ambulating with a walking boot. The patient received local care and exchange of the wound VAC on 10/27/2018. Recommendations are to proceed with outpatient Wound Care Services and continue wound VAC therapy and monitor on an outpatient basis. I have examined the patient at the time of discharge and discussed followup instructions. The patient and spouse verbalized understanding and in agreement and ready for discharge on 10/27/2018. DISCHARGE MEDICATIONS: 1. Augmentin 875 mg 1 tab p.o. b.i.d. x10 days. 2. Metoprolol tartrate 50 mg p.o. daily. 3. Glyburide 5 mg p.o. b.i.d. 4. Metformin 1000 mg p.o. b.i.d. 5. Procardia XL 60 mg p.o. daily. FOLLOWUP: The patient will follow up with Dr. Chris Campos within 7 days of discharge. The patient will follow up with Dr. Vasquez with General Surgery Service within 14 days of discharge. CONDITION ON DISCHARGE: Stable. ACTIVITY: Ad-teressa. Ambulate with a postoperative surgical boot. SPECIAL INSTRUCTIONS: Continue wound VAC application with outpatient wound care evaluation. DIET: Heart healthy/ADA. CODE STATUS: Full. DISPOSITION: Home with [facility] on 10/27/2018. TIME SPENT: Total time preparing and coordinating discharge, 35 minutes. Job ID: [id number]
[2018-10-27 16:11] VITALS: BP 150/74; TEMP 98.7
== END 2018-10-27 16:06 | disposition home health service (06) | DRG 617 ==
LOC: ERS 08:34 → ERHOLD 11:03 → T4-A 14:05
PROVIDERS: ADMIT Family Medicine; ATTEND Family Medicine
PROC: 0Y6N0Z9 Detachment at Left Foot, Partial 1st Ray, Open Approach (ICD-10-PCS; principal; 2018-10-25)
DX: E11.69 Type 2 diabetes mellitus with other specified complication (principal); M86.8X7 Other osteomyelitis, ankle and foot; L03.116 Cellulitis of left lower limb; E11.621 Type 2 diabetes mellitus with foot ulcer; L97.529 Non-pressure chronic ulcer of other part of left foot with unspecified severity; I25.10 Atherosclerotic heart disease of native coronary artery without angina pectoris; I10 Essential (primary) hypertension; Z95.1 Presence of aortocoronary bypass graft; Z98.890 Other specified postprocedural states; Z79.84 Long term (current) use of oral hypoglycemic drugs; Z79.2 Long term (current) use of antibiotics; Z79.899 Other long term (current) drug therapy
CPT/HCPCS: 36415; 36416; 80048; 80053; 80202; 85007; 85025; 85027; 85652; 86140; 87040; 88305; 88311; 96361; 96365; 96367; J0360; J1650; J1956; J2250; J2543; J2704; J3010; J3370; J7050

== ENCOUNTER 2018-11-01 09:41 | Outpatient (CLI) | payer SELFPAY | END 2018-11-01 09:42 | disposition home or self-care (01) | LOC: WCC 09:41 | PROVIDERS: ATTEND Family Medicine | DX: T81.89XD Other complications of procedures, not elsewhere classified, subsequent encounter (principal) | CPT/HCPCS: 97605 ==

== ENCOUNTER 2018-11-04 11:01 | Outpatient (CLI) | payer SELFPAY ==
[2018-11-04] MEDS ORDERED: Sodium Chloride 0.9% 15 ML NEB ONE (13:51)
== END 2018-11-04 11:02 | disposition home or self-care (01) ==
LOC: WCC 11:01
PROVIDERS: ATTEND Family Medicine
DX: T81.89XD Other complications of procedures, not elsewhere classified, subsequent encounter (principal)
CPT/HCPCS: 97605; A4218

== ENCOUNTER 2018-11-08 08:54 | Outpatient (CLI) | payer SELFPAY ==
[2018-11-09] MEDS ORDERED: Sodium Chloride 0.9% 15 ML NEB ONE (13:30)
== END 2018-11-08 08:55 | disposition home or self-care (01) ==
LOC: WCC 08:54
PROVIDERS: ATTEND Family Medicine
DX: T81.89XD Other complications of procedures, not elsewhere classified, subsequent encounter (principal)
CPT/HCPCS: 97605

== ENCOUNTER 2018-11-11 11:17 | Outpatient (CLI) | payer SELFPAY ==
[~2018-11-11 11:17] MED LIST: Sodium Chloride 0.9% 15 ML NEB ONE
== END 2018-11-11 11:18 | disposition home or self-care (01) ==
LOC: WCC 11:17
PROVIDERS: ATTEND Family Medicine
DX: T81.89XD Other complications of procedures, not elsewhere classified, subsequent encounter (principal)
CPT/HCPCS: 97605; A4218

== ENCOUNTER 2018-11-14 14:00 | Inpatient (IN) | payer SELFPAY ==
[2018-11-14] MEDS ORDERED: MEROPENEM 1 GM/50 ML 1 GM in Premix Bag 1 BAG IVPB SCH (16:15)
[2018-11-14 16:20] LABS: #Basophils 0.1 thou/uL (0.0-0.2); #Eosinphils 0.1 thou/uL (0.0-0.7); #Lymphocytes 1.5 thou/uL (1.20-3.40); #Monocytes 1.4 thou/uL (0.11-0.59); #Neutrophils 9.3 thou/uL (1.40-6.50); %Basophils 0.5 % (0.0-1.0); %Eosinophils 0.5 % (0.0-10.0); %Lymphocytes 11.9 % (21.0-51.0); %Monocytes 11.2 % (0.0-10.0); Hemoglobin 12.4 g/dL (14.0-18.0); Mean Corpuscular Hemoglobin 28.6 pg (27.0-31.0); Mean Corpuscular Volume 86.5 fL (78.0-98.0); Mean Platelet Volume 6.8 fL (7.4-10.4); Platelet Count 292 thou/uL (130-400); RBC Distribution Width 11.9 % (11.5-14.5); Red Blood Cell (RBC) Count 4.35 mill/uL (4.70-6.10); White Blood Cell (WBC) Count 12.2 thou/uL (4.8-10.8)
[2018-11-14] MEDS ORDERED: Ondansetron PF 4 MG/2 ML Vial IVP PRN (16:31)
[2018-11-14] MEDS ORDERED: Bisacodyl 5 MG TAB PO PRN ×2 (16:31)
[2018-11-14] MEDS ORDERED: Diabetic Tussin 200 MG/10 ML UDCUP PO PRN (16:31)
[2018-11-14] MEDS ORDERED: HYDROcodone/Acetaminophen 5/325 mg Tablet PO PRN ×2 (16:31)
[2018-11-14] MEDS ORDERED: HumaLOG 300 UNITS/3 ML VIAL SC PRN (16:31)
[2018-11-14] MEDS ORDERED: Senokot S 8.6-50 MG TAB PO PRN ×2 (16:31)
[2018-11-14] MEDS ORDERED: Dextrose 5% in Water 1,000 ML IV PRN (16:31)
[2018-11-14] MEDS ORDERED: Benzonatate 100 MG CAP PO PRN (16:31)
[2018-11-14] MEDS ORDERED: cloNIDine 0.1 MG TAB PO PRN (16:31)
[2018-11-14] MEDS ORDERED: Dextrose 50% Abboject 50 ML SYRINGE SLOW IVP PRN (16:31)
[2018-11-14] MEDS ORDERED: hydrALAZINE 20 MG/ML VIAL SLOW IVP PRN (16:31)
[2018-11-14] MEDS ORDERED: Calcium Carbonate 500 MG ChewTAB PO PRN (16:31)
[2018-11-14 16:42] LABS: ALT (SGPT) 20 U/L (8-55); AST (SGOT) 18 U/L (5-34); Albumin 3.5 g/dL (3.4-4.8); Alkaline Phosphatase 72 U/L (40-150); Anion Gap 17 mmol/L (10-20); BUN (Urea Nitrogen) 20 mg/dL (8.4-25.7); Bilirubin, Total 0.5 mg/dL (0.2-1.2); Calc. Creatinine Clearance 0 mL/min (70-130); Calcium 9.1 mg/dL (7.8-10.44); Carbon Dioxide 22 mmol/L (23-31); Chloride 98 mmol/L (98-107); Estimated GFR-MDRD Greater than 90; Globulin 3.7 g/dL (2.4-3.5); Glucose 150 mg/dL (80-115); Potassium 4.2 mmol/L (3.5-5.1); Protein, Total 7.2 g/dL (5.8-8.1); Sodium 133 mmol/L (136-145)
[2018-11-14] MEDS ORDERED: Sodium Chloride 0.9% 1,000 ML IV SCH (16:45)
--- NOTE | 2018-11-14 17:01 | RAD ---
LEFT FOOT 3 VIEWS: Date: 11/14/18 HISTORY: Pain. COMPARISON: None. FINDINGS: There is a relatively recent from the 10/24/18 examination amputation at the great toe metatarsophala ngeal joint. There is a large overlying soft tissue ulcer containing gas, which does appear to abut t he cortex. There is also some gas extending proximally to the level of the great toe metatarsal head and neck. No acute fracture or malalignment. IMPRESSION: Relatively recent amputation through the great toe metatarsophalangeal joint. There does appear to be ulceration of the overlying soft tissue flap with gas extending along the metatarsal head and neck. If surgery is greater than 1-2 weeks, this amount of gas would be abnormal, concerning for dehiscence of the wound and extension of gas and gangrene along the metatarsal neck. POS: ANITA
--- NOTE | 2018-11-14 17:44 | HP ---
PRIMARY CARE PHYSICIAN: Dr. Campos. CHIEF COMPLAINT: Fever, chills, and worsening redness and swelling of the left foot and extending to leg. HISTORY OF PRESENTING ILLNESS: Mr. Marie is a very pleasant 63-year-old male with past medical history of coronary artery disease, diabetes, and hypertension, who presented to the emergency room with above-mentioned complaint from Dr. Chow's office. History is mainly obtained by the patient himself and supplemented by his . Electronic medical records have been reviewed and the case has been discussed with admitting ER physician, Dr. Newby. Mr. Marie was initially admitted on 10/16/2018 with left toe cellulitis. He was treated with vancomycin and Zosyn in the hospital and was discharged on Augmentin and doxycycline after he underwent I and D of diabetic toe ulcer by Dr. Aceves. He was discharged on 10/20/2018. He unfortunately came back to the hospital on 10/24/2018 when he had worsening of the same to cellulitis. Please note that after the first I and D operation on 10/19/2018, the patient was discharged home with wound VAC. Once again, the patient was admitted on 10/24/2018 and started on IV antibiotics. His MRI done during this admission showed osteitis without any specific evidence of osteomyelitis. Once again, he was seen by General Surgery, Dr. Vasquez. At this time, he underwent a ray amputation of the involved toe and was discharged today after on oral Augmentin. Upon review, the pathology specimen from the surgery showed viable skin, soft tissue and bone margins. His cultures are reviewed from these two admissions and initially, he had 1/2 Corynebacterium in the blood cultures on 10/16/2018 and then on 10/19/2018, he had presumptive Klebsiella, Enterobacter and Staphylococcus in the blood culture. He was seen in the outpatient setting by Dr. Vasquez, who referred him to Dr. Chow due to concerns of poor circulation. The patient and the reports that since the discharge, he has been fighting with worsening redness, swelling, and fever and chills at home. His foot has been feeling warm as well. They have been going to outpatient wound care and he is wearing the walking boot when needed. Wound VAC has subsequently been removed. In Dr. Chow's office today, he was noticed to have worsening cellulitis and was sent to the emergency room. He is now being admitted for IV antibiotics and Dr. Chow is planning to do an angiogram with possible angioplasty in the morning. In the emergency room, he has received meropenem and vancomycin. The patient also endorses nausea, vomiting, some loose stools for the last day or so and poor appetite for the last three or four days in addition to fever, chills, generalized weakness, and malaise. PAST MEDICAL HISTORY: 1. History of coronary artery disease, status post stenting by Dr. Chow multiple years ago. 2. Left great toe diabetic ulceration with cellulitis, status post I and D on 10/19/2018 and then ray amputation on 10/25/2018. 3. Diabetes mellitus. 4. Hypertension. 5. Coronary artery disease. PAST SURGICAL HISTORY: Status post CABG in 2011, status post hernia repair, status post left great toe I and D in 09/2018, and ray amputation in 10/2018. ALLERGIES: NO KNOWN MEDICATION ALLERGIES. FAMILY HISTORY: Significant for coronary artery disease and diabetes. SOCIAL HISTORY: No drug, tobacco, or alcohol abuse. 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 HOME MEDICATIONS: As below, 1. Glipizide 5 mg b.i.d. 2. Nifedipine 60 mg daily. 3. Metformin 1000 mg b.i.d. 4. Metoprolol tartrate 50 mg daily. CODE STATUS: Full code discussed with the patient. REVIEW OF SYSTEMS: A 12-point review of system is done. It is negative except for those mentioned in the history and physical. LABORATORY DATA: His CBC shows WBCs 12.2, which was 9.0 on 10/25/2018. He has 76% neutrophils. Serum chemistries largely unremarkable. Lactic acid is normal. Blood cultures have been obtained and sent. Foot x-rays done, but the results are pending. PHYSICAL EXAMINATION: VITAL SIGNS: Upon presentation, saturating 98% on room air, pulse of 88, blood pressure 155/77, temperature 99.9, and respirations 18. GENERAL: No acute distress. Awake, alert, and oriented x3. Very pleasant. Does appear somewhat pale. HEENT: Mucous membrane is slightly dry. No oropharyngeal exudate or erythema. Head is normocephalic and atraumatic. Pupils are equal and reactive to light and accommodation. Extraocular movement intact. NECK: Supple without any lymphadenopathy, JVD, or bruit. CHEST: Clear to auscultation without any wheezing, rales, or rhonchi. HEART: Rate and rhythm is regular without any murmurs, rubs, or gallops. ABDOMEN: Soft, nontender, nondistended with positive bowel sounds. EXTREMITIES: Show pitting edema to left lower extremity with cellulitis with warmth and streaking up his leg extending from the surgical area of amputation. His amputation wound looks healthy, but has some serous discharge. His right lower extremity examination is within normal limits. He has palpable dorsalis pedis in the right lower extremity. NEUROLOGICAL: Nonfocal. SKIN: Otherwise free of any rashes or bruises. IMPRESSION AND PLAN: 1. Recurrent left toe cellulitis. I am worried that the patient may have developed resistance to the antibiotics used in the past versus developing a deep venous thrombosis in that leg versus bacteremia. He did have some evidence of osteitis last time without any specific osteomyelitis, so he may need long-term IV antibiotics during this hospitalization. He also demonstrates poor circulation in that leg. He will be admitted and started on broad-spectrum IV antibiotic, namely meropenem and vancomycin. Blood cultures have been obtained. He will be evaluated with angioplasty for that leg circulation by Dr. Chow and is n.p.o. currently. We will request consultation with Infectious Disease, Dr. Oconnell with regards to the recommendations for outpatient IV antibiotics versus oral at this time. He will also undergo Doppler ultrasound to rule out deep venous thrombosis in that leg. He is otherwise hemodynamically stable. We will start him on D5 half-normal saline given history of diabetes and the fact that he is n.p.o. overnight. He is stable to be admitted to medical floor at this time. 2. Diabetes mellitus. We will put him on insulin sliding scale and hold oral hypoglycemics as he is n.p.o. Continue IV fluids as above. 3. History of coronary artery disease. We will restart his home medication of metoprolol. For some reason, the patient is not on any aspirin, statin, or PAOLA-inhibitor/ARBs. 4. Peripheral arterial disease. Angiogram with possible angioplasty tomorrow per Dr. Chow. 5. Code status, full code discussed with the patient. DISPOSITION: Mr. Marie is being admitted for recurrent left toe cellulitis, status post ray amputation with failed oral outpatient antibiotic therapy twice. Estimated length of stay at this time is at least 2 to 3 midnights. Further management will depend upon his clinical course. Job ID: [id number]
[2018-11-14] MEDS ORDERED: Clindamycin/D5W 300 MG/50 ML BAG IVPB SCH (18:00)
--- NOTE | 2018-11-14 19:03 | ULT ---
LEFT LOWER EXTREMITY VENOUS DOPPLER ULTRASOUND: 11/14/18 COMPARISON: None. HISTORY: Pain, assess for DVT. TECHNIQUE: Multiplanar coats scale sonographic imaging venous structures left lower extremity obtained with color flow and spectral analysis. FINDINGS: The left common femoral vein, greater saphenous vein, profunda femoral vein, femoral vein, popliteal vein, and posterior tibial vein are patent. Normal blood flow, augmentation and compression within t he deep venous system on the left. No evidence for DVT. Mildly prominent left inguinal lymph node measuring 1.2 cm in short axis dimen ellen noted. IMPRESSION: No evidence for deep venous thrombosis of the left lower extremity. POS: LUCIA
[2018-11-14] MEDS: Dextrose 5 %-0.45 % NaCl 1,000 ML IV SCH (20:36)
[2018-11-14] MEDS: Famotidine/PF 20 mg/2ml Vial SLOW IVP SCH (20:37)
[2018-11-14] MEDS: Clindamycin/D5W 300 MG/50 ML BAG IVPB SCH (20:37)
[2018-11-14 20:39] VITALS: BMI 22.6
[2018-11-14] MEDS: Acetaminophen 325 MG TAB PO PRN (20:56)
[2018-11-14] MEDS ORDERED: Vancomycin HCl 1 GM in Premix Bag 1 BAG IVPB SCH (21:00)
[2018-11-14] MEDS ORDERED: Meropenem 1 GM in Sodium Chloride 0.9% 100 ML IVPB SCH (22:00)
[2018-11-15] MEDS: Acetaminophen 325 MG TAB PO PRN ×2 (00:39→19:47)
[2018-11-15] MEDS: Clindamycin/D5W 300 MG/50 ML BAG IVPB SCH ×4 (02:46→19:44)
[2018-11-15] MEDS: MEROPENEM 1 GM/50 ML 1 GM in Premix Bag 1 BAG IVPB SCH ×3 (05:05→21:06)
[2018-11-15] MEDS: Metoprolol Tartrate 50 MG TAB PO SCH (05:22)
[2018-11-15] MEDS: Dextrose 5 %-0.45 % NaCl 1,000 ML IV SCH ×2 (05:31→19:52)
[2018-11-15] MEDS: HumaLOG 300 UNITS/3 ML VIAL SC PRN ×2 (06:44→17:38)
[2018-11-15 07:10] LABS: #Basophils 0.1 thou/uL (0.0-0.2); #Eosinphils 0.1 thou/uL (0.0-0.7); #Lymphocytes 1.8 thou/uL (1.20-3.40); #Monocytes 1.3 thou/uL (0.11-0.59); #Neutrophils 7.2 thou/uL (1.40-6.50); %Basophils 0.6 % (0.0-1.0); %Eosinophils 1.1 % (0.0-10.0); %Lymphocytes 17.4 % (21.0-51.0); %Monocytes 12.4 % (0.0-10.0); %Neutrophils 68.4 % (42.0-75.0); Hemoglobin 11.1 g/dL (14.0-18.0); Mean Corpuscular HGB CONC 32.9 g/dL (32.0-36.0); Mean Corpuscular Hemoglobin 28.8 pg (27.0-31.0); Mean Corpuscular Volume 87.6 fL (78.0-98.0); Mean Platelet Volume 6.7 fL (7.4-10.4); Platelet Count 313 thou/uL (130-400); RBC Distribution Width 11.9 % (11.5-14.5); Red Blood Cell (RBC) Count 3.86 mill/uL (4.70-6.10); White Blood Cell (WBC) Count 10.6 thou/uL (4.8-10.8)
[2018-11-15 07:30] LABS: Anion Gap 14 mmol/L (10-20); BUN (Urea Nitrogen) 13 mg/dL (8.4-25.7); Calc. Creatinine Clearance 95 mL/min (70-130); Calcium 8.6 mg/dL (7.8-10.44); Carbon Dioxide 24 mmol/L (23-31); Chloride 100 mmol/L (98-107); Estimated GFR-MDRD Greater than 90; Glucose 210 mg/dL (80-115); Potassium 3.6 mmol/L (3.5-5.1); Sodium 134 mmol/L (136-145)
[2018-11-15] MEDS ORDERED: Heparin 10,000 UNITS/1 ML VIAL ONE ×2 (07:47→07:48)
[2018-11-15] MEDS ORDERED: Clopidogrel Bisulfate 300 MG TAB ONE (07:49)
[2018-11-15] MEDS ORDERED: Protamine Sulfate 50 MG/5 ML VIAL ONE (08:28)
[2018-11-15] MEDS: Enoxaparin Sodium 40 MG/0.4 ML SYRINGE SC SCH (11:38)
[2018-11-15] MEDS: Famotidine/PF 20 mg/2ml Vial SLOW IVP SCH ×2 (11:44→19:44)
[2018-11-15] MEDS: Saccharomyces boulardii 250 MG CAP PO SCH (11:46)
[2018-11-15] MEDS: NIFEdipine XL 60 MG TAB PO SCH (11:47)
[2018-11-15] MEDS ORDERED: Clopidogrel Bisulfate 75 MG TAB PO SCH (12:15)
--- NOTE | 2018-11-15 12:59 | OP ---
DATE OF PROCEDURE: 11/15/2018 DIAGNOSIS: Nonhealing wound, left foot. PROCEDURES PERFORMED: Aortogram, left lower extremity runoff with stent, tibioperoneal trunk, posterior tibial artery with a 3.5 x 32 synergy drug-eluting stent, and angioplasty of the origin of the peroneal artery with a 2.25 x 15 balloon. CONTRAST: 40. FLUOROSCOPY: 6.8 minutes. DESCRIPTION OF PROCEDURE: After adequate prepping and draping, ultrasound-guided puncture of the common femoral artery on the right was performed. A 5-[place] sheath and Contra catheter were placed. The Contra catheter was then directed over the bifurcation and runoff of the leg was obtained on the left. Following this, the patient was heparinized, initially with 6000, and then an additional 5000. Over the wire, the 6-[place] Citizen destination sheath was advanced. Using a long-angled catheter, a Luge wire was placed down the posterior tibial and a second Luge wire down the peroneal artery. A 3 x 60 balloon was then used to dilate the tibioperoneal trunk and posterior tibial artery. Completion angiography was done. Following which, a synergy 3.5 x 32 mm drug-eluting stent was placed across the takeoff of the posterior tibial artery. Completion angiography showed some pinching of the peroneal artery. The wire was pulled back and then advanced through here, where a 2.25 balloon was inflated and the result was good with no residual stenosis. Anterior tibial was occluded at its origin. The posterior tibial had a 90% stenosis at its origin in the tibioperoneal trunk, about an 80% stenosis. Completion showed no residual disease. The posterior tibial ended above the ankle. The peroneal gave some collaterals to the posterior tibial and anterior tibial at the ankle. Job ID: [id number]
[2018-11-15] MEDS ORDERED: Iopamidol 370 76% 100 ML VIAL ONE (15:09)
--- NOTE | 2018-11-15 15:49 | PDOC.PN ---
- Subjective Encounter Start Date: 11/15/18 Encounter Start Time: 15:47 Subjective: feels a a little better -: s/p angioplasty left leg.was able to walk after that - Objective Resuscitation Status - Order Detail: 11/14/18 16:31 Resuscitation Status Routine Resuscitation Status: FULL: Full Resuscitation Discussed with: discussed w pt ZULMA Reviewed: Yes Vital Signs & Weight: Vital Signs (12 hours) Temp Pulse Resp BP BP Pulse Ox 11/15/18 11:47 75 167/69 H 11/15/18 11:30 98.0 F 75 16 167/69 H 98 11/15/18 04:00 99.1 F 73 20 132/68 92 L Weight Weight 149 lb 1.6 oz I&O: 11/14/18 11/15/18 11/16/18 06:59 06:59 06:59 Intake Total 1200 Balance 1200 Result Diagrams: 11/15/18 06:37 11/15/18 06:37 Additional Labs: Accuchecks 11/15/18 11/15/18 11/14/18 11:45 04:08 19:23 POC Glucose 87 302 H 142 H Microbiology 11/14/18 15:58 Venous blood - Right Hand Blood Culture - Preliminary Specimen has been received and culture in progress. No Growth to date. 11/14/18 15:58 Venous blood - Left Arm Blood Culture - Preliminary Specimen has been received and culture in progress. No Growth to date. Phys Exam - Physical Examination Constitutional: NAD HEENT: PERRLA, moist MMs, sclera anicteric, oral pharynx no lesions Neck: no nodes, no JVD, supple, full ROM Respiratory: no wheezing, no rales, no rhonchi, clear to auscultation bilateral Cardiovascular: RRR, no significant murmur, no rub Gastrointestinal: soft, non-tender, no distention, positive bowel sounds Musculoskeletal: no edema, pulses present left toe erythema better Neurological: non-focal, normal sensation, moves all 4 limbs Psychiatric: normal affect, A&O x 3 Dx/Plan (1) Cellulitis of left foot Code(s): L03.116 - CELLULITIS OF LEFT LOWER LIMB Status: Acute Comment: Continue clindamycin and meropenam due to gas in Xray (2) Diabetic ulcer of toe Code(s): E11.621 - TYPE 2 DIABETES MELLITUS WITH FOOT ULCER; L97.509 - NON- PRESSURE CHRONIC ULCER OTH PRT UNSP FOOT W UNSP SEVERITY Status: Chronic Qualifiers: Diabetes mellitus type: type 2 Comment: s/p ray amputation of L great toe 10/27/18., continue Abx for recurrent cellulitis (3) CAD (coronary artery disease) Code(s): I25.10 - ATHSCL HEART DISEASE OF [place] CORONARY ARTERY W/O ANG PCTRS Status: Chronic Comment: Chronic, stable (4) Diabetes type 2, controlled Code(s): E11.9 - TYPE 2 DIABETES MELLITUS WITHOUT COMPLICATIONS Status: Chronic Comment: ISS, resume Glyburide, serial accuchecks (5) Hypertension Code(s): I10 - ESSENTIAL (PRIMARY) HYPERTENSION Status: Chronic Qualifiers: Comment: Labile, resume Metoprolol 50mg BID, Nifedipine 60mg daily, Hydralazine PRN (6) PAD (peripheral artery disease) Code(s): I73.9 - PERIPHERAL VASCULAR DISEASE, UNSPECIFIED Status: Chronic Comment: s/p Stenting and angiogram 11/15/[address] Chow - Plan continue antibiotics, PT/OT, respiratory therapy, incentive spirometry, DVT proph w/SCDs s/p angioplaty of some PAD in left leg.hopefully will help with healing -: cont empiric ABx. ID to recommend final ABx -: follow Cx -: clinically better. -: home meds as below. * . labs in am Review of Systems - Medications/Allergies Allergies/Adverse Reactions: Allergies Allergy/AdvReac Type Severity Reaction Status Date / Time lisinopril Allergy Verified 11/14/18 20:39 Medications: Current Medications Acetaminophen (Tylenol) 650 mg PO Q4H PRN PRN Reason: Headache/Fever/Mild Pain (1-3) Last Admin: 11/15/18 00:39 Dose: 650 mg Hydrocodone Bitart/Acetaminophen ([place] 5/325) 1 tab PO Q4H PRN PRN Reason: Moderate Pain (4-6) Hydrocodone Bitart/Acetaminophen ([place] 5/325) 2 tab PO Q4H PRN PRN Reason: Severe Pain (7-10) Atorvastatin Calcium (Lipitor) 40 mg PO HS [facility] Benzonatate (Tessalon) 100 mg PO Q6H PRN PRN Reason: Cough Bisacodyl (Dulcolax) 10 mg PO DAILYPRN PRN PRN Reason: Constipation Bisacodyl (Dulcolax) 10 mg PO DAILYPRN PRN PRN Reason: Constipation Calcium Carbonate (Tums) 1,000 mg PO Q4H PRN PRN Reason: Heartburn or Indigestion Clindamycin Phosphate/Dextrose (Cleocin) 300 mg IVPB 0300,0900,1500,2100 [facility] Last Admin: 11/15/18 12:55 Dose: 300 mg Clonidine (Catapres) 0.1 mg PO Q4H PRN PRN Reason: SBP > 160____ Clopidogrel Bisulfate (Plavix) 75 mg PO DAILY [facility] Dextrose/Water (Dextrose 50%) 25 gm SLOW IVP PRN PRN PRN Reason: Hypoglycemia Enoxaparin Sodium (Lovenox) 40 mg SC 0900 [facility] Last Admin: 11/15/18 11:38 Dose: Not Given Famotidine (Pepcid) 20 mg SLOW IVP Q12HR [facility] Last Admin: 11/15/18 11:44 Dose: 20 mg Glucagon (Glucagon) 1 mg IM PRN PRN PRN Reason: Hypoglycemia Guaifenesin (Robitussin Sf) 200 mg PO Q4H PRN PRN Reason: Cough Hydralazine HCl (Apresoline) 10 mg SLOW IVP Q4H PRN PRN Reason: SBP > 180 and HR < 70 Dextrose/Water (D5w) 1,000 mls @ 0 mls/hr IV .Q0M PRN PRN Reason: Hypoglycemia Dextrose/Sodium Chloride (D5 1/2 Ns) 1,000 mls @ 75 mls/hr IV .[id number] [facility] Last Admin: 11/15/18 05:31 Dose: Not Given Meropenem 1 gm/ Device 50 mls @ 50 mls/hr IVPB Q8HR [facility] Last Admin: 11/15/18 14:26 Dose: 50 mls Insulin Human Lispro (Humalog) 0 units SC .MODERATE SLIDING SC PRN PRN Reason: Moderate Correctional Scale Last Admin: 11/15/18 06:44 Dose: 8 unit Insulin Human Lispro (Humalog) 0 units SC .BEDTIME SLIDING SC PRN PRN Reason: Bedtime Correctional Scale Metoprolol Tartrate (Lopressor) 50 mg PO DAILY [facility] Last Admin: 11/15/18 05:22 Dose: 50 mg Nifedipine (Procardia Xl) 60 mg PO DAILY [facility] Last Admin: 11/15/18 11:47 Dose: 60 mg Ondansetron HCl (Zofran) 4 mg IVP Q6H PRN PRN Reason: Nausea/Vomiting Saccharomyces Boulardii (Florastor) 250 mg PO DAILY [facility] Last Admin: 11/15/18 11:46 Dose: 250 mg Senna/Docusate Sodium (Senokot S) 2 tab PO BID PRN PRN Reason: Constipation Senna/Docusate Sodium (Senokot S) 2 tab PO BID PRN PRN Reason: Constipation
[2018-11-15] MEDS: Atorvastatin Calcium 40 MG TAB PO SCH (19:44)
[2018-11-16] MEDS: Clindamycin/D5W 300 MG/50 ML BAG IVPB SCH ×4 (02:16→20:52)
[2018-11-16] MEDS: MEROPENEM 1 GM/50 ML 1 GM in Premix Bag 1 BAG IVPB SCH ×3 (05:23→22:14)
[2018-11-16 06:09] LABS: #Basophils 0.1 thou/uL (0.0-0.2); #Eosinphils 0.1 thou/uL (0.0-0.7); #Lymphocytes 1.6 thou/uL (1.20-3.40); #Monocytes 1.2 thou/uL (0.11-0.59); #Neutrophils 8.9 thou/uL (1.40-6.50); %Basophils 0.4 % (0.0-1.0); %Eosinophils 0.6 % (0.0-10.0); %Lymphocytes 13.9 % (21.0-51.0); %Monocytes 10.4 % (0.0-10.0); %Neutrophils 74.7 % (42.0-75.0); Hemoglobin 10.9 g/dL (14.0-18.0); Mean Corpuscular HGB CONC 32.4 g/dL (32.0-36.0); Mean Corpuscular Volume 86.4 fL (78.0-98.0); Mean Platelet Volume 6.9 fL (7.4-10.4); Platelet Count 304 thou/uL (130-400); RBC Distribution Width 11.9 % (11.5-14.5); Red Blood Cell (RBC) Count 3.87 mill/uL (4.70-6.10); White Blood Cell (WBC) Count 11.9 thou/uL (4.8-10.8)
[2018-11-16] MEDS: HumaLOG 300 UNITS/3 ML VIAL SC PRN ×2 (06:38→18:02)
[2018-11-16] MEDS: Clopidogrel Bisulfate 75 MG TAB PO SCH (08:45)
[2018-11-16] MEDS: NIFEdipine XL 60 MG TAB PO SCH (08:46)
[2018-11-16] MEDS: Saccharomyces boulardii 250 MG CAP PO SCH (08:46)
[2018-11-16] MEDS: Famotidine/PF 20 mg/2ml Vial SLOW IVP SCH (08:46)
[2018-11-16] MEDS: Enoxaparin Sodium 40 MG/0.4 ML SYRINGE SC SCH (08:47)
[2018-11-16] MEDS: Metoprolol Tartrate 50 MG TAB PO SCH (08:52)
[2018-11-16] MEDS: Dextrose 5 %-0.45 % NaCl 1,000 ML IV SCH ×2 (08:53→22:16)
--- NOTE | 2018-11-16 15:29 | CON ---
DATE OF CONSULTATION: 11/16/2018 REASON FOR CONSULTATION: Foot infection. HISTORY OF PRESENT ILLNESS: A 63-year-old with a history of type 2 diabetes, coronary artery disease, and hypertension, previously admitted in September with inflammatory process left first toe, treated with oral vancomycin and Zosyn and discharged on oral Augmentin. Cultures from that episode revealed methicillin-sensitive Staphylococcus aureus and presumptive Klebsiella/enterobacter without the susceptibilities having been done for that organism. The patient experiences the recrudescence of persistence of inflammatory process due to worsening. He was seen and had amputation on October 19 and has had recrudescence again of inflammatory process. Dr. Chow has been consulted and the patient underwent revascularization procedure on November 15, this included aortogram, left lower extremity runoff with stenting of tibioperoneal trunk and posterior tibial artery and angioplasty of the origin of the peroneal artery. The patient currently denies any headaches. No visual symptoms, sore throat, odynophagia, or dysphagia. No cough, sputum production, or chest pain. No abdominal pain or diarrhea. No genitourinary symptoms. Not much pain in the extremity. PAST MEDICAL HISTORY: Includes type 2 diabetes, coronary artery disease with stenting many years ago, recent I and D and amputation of the left great toe, and hypertension. PAST SURGICAL HISTORY: As above plus hernia repair. ALLERGIES: NONE. FAMILY HISTORY: Coronary artery disease and diabetes. SOCIAL HISTORY: He is . 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 Never smoker. CURRENT MEDICATIONS: Include: 1. Tylenol. 2. Other p.r.n. medications. 3. Lipitor. 4. Dulcolax. 5. Tums. 6. Clindamycin. 7. Dextrose. 8. Diltiazem. 9. Meropenem. PHYSICAL EXAMINATION: VITAL SIGNS: T-max 100.6 now 98.6, blood pressure 120/50, pulse 79, respirations 16, and O2 saturation 94%. SKIN: Shows the area of amputation with round-shaped 1 cm ulcer with light red tissue at the base. No obvious bone exposure. There is erythema extending towards the hindfoot through the dorsal aspect of the left foot. HEENT: The patient has no lymphadenopathy. Ocular movements conjugate. Oral cavity is unremarkable. NECK: Supple. No jugular venous distention. No thyromegaly. LUNGS: Symmetric. Clear breath sounds. HEART: S1 and S2. Regular rate. No S3 or S4. No murmurs. ABDOMEN: Soft. Not distended or tender. No ascites. No bladder distention. MUSCULOSKELETAL: No other joint inflammatory process noted. EXTREMITIES: Pulses are 1+ in dorsalis pedis and popliteals. LABORATORY DATA: His cultures from blood samples are negative thus far. Previous cultures have been reviewed above. He had a Corynebacterium from one set of blood cultures from October 16, which is probably a contaminant. IMAGING STUDIES: Included a lower extremity MRI from October 24, which showed irregular ulcer involving the great toe medially at the level of the interphalangeal joint region. Some nonspecific osteitis, but no evidence of acute osteomyelitis. The foot x-ray repeated on November 14 with recent amputation to the great toe metatarsophalangeal joint. It does appear to be ulceration of the overlying soft tissue flap with gas extending along the dorsal head and neck. The observation is made that if the surgery is cleared in 1 to 2 weeks, this amount of gas would be a normal concerning for dehiscence in extension of infection along the metatarsal neck. ASSESSMENT: Type 2 diabetes with peripheral vascular disease, inflammatory process left first toe which failed initial intervention, probably due to vascular insufficiency. The other possibilities that he has a resistant gram-negative radames since the organism did not have susceptibility testing done in September. We assume that it is an extended-spectrum beta-lactamases organism. Continue meropenem that should cover also the Staphylococcus aureus. We did place a PICC line and treat him for a longer period of time until there is partial granulation. Consider repeating the MRI to see if there is extension of the osteomyelitis towards the first ray. Job ID: [id number]
--- NOTE | 2018-11-16 16:02 | PDOC.PN ---
- Subjective Encounter Start Date: 11/16/18 Encounter Start Time: 16:00 Subjective: feels very well. able to walk w walking boot -: redness in left toe much improved - Objective Resuscitation Status - Order Detail: 11/14/18 16:31 Resuscitation Status Routine Resuscitation Status: FULL: Full Resuscitation Discussed with: discussed w pt ZULMA Reviewed: Yes Vital Signs & Weight: Vital Signs (12 hours) Temp Pulse Resp BP BP Pulse Ox 11/16/18 08:46 88 143/72 H 11/16/18 08:00 97 11/16/18 07:21 98.3 F 88 20 143/72 H 97 11/16/18 04:48 98.6 F 77 16 145/71 H 94 L Weight Admit Weight 149 lb 1.6 oz Weight 149 lb 1.6 oz I&O: 11/15/18 11/16/18 11/17/18 06:59 06:59 06:59 Intake Total 1200 750 Balance 1200 750 Result Diagrams: 11/16/18 05:35 11/15/18 06:37 Additional Labs: Accuchecks 11/16/18 11/16/18 11/15/18 11:50 04:49 19:32 POC Glucose 208 H 212 H 187 H 11/15/18 16:57 POC Glucose 233 H Microbiology 11/14/18 15:58 Venous blood - Right Hand Blood Culture - Preliminary Specimen has been received and culture in progress. No Growth to date. 11/14/18 15:58 Venous blood - Right Hand Blood Culture - Preliminary NO GROWTH AT 48 HOURS 11/14/18 15:58 Venous blood - Left Arm Blood Culture - Preliminary Specimen has been received and culture in progress. No Growth to date. 11/14/18 15:58 Venous blood - Left Arm Blood Culture - Preliminary NO GROWTH AT 48 HOURS Phys Exam - Physical Examination Constitutional: NAD HEENT: PERRLA, moist MMs, sclera anicteric, oral pharynx no lesions Neck: no nodes, no JVD, supple, full ROM Respiratory: no wheezing, no rales, no rhonchi, clear to auscultation bilateral Cardiovascular: RRR, no significant murmur, no rub Gastrointestinal: soft, non-tender, no distention, positive bowel sounds Musculoskeletal: no edema, pulses present left toe dressed Neurological: non-focal, normal sensation, moves all 4 limbs Psychiatric: normal affect, A&O x 3 Dx/Plan (1) Cellulitis of left foot Code(s): L03.116 - CELLULITIS OF LEFT LOWER LIMB Status: Acute Comment: Continue clindamycin and meropenam due to gas in Xray (2) Diabetic ulcer of toe Code(s): E11.621 - TYPE 2 DIABETES MELLITUS WITH FOOT ULCER; L97.509 - NON- PRESSURE CHRONIC ULCER OTH PRT UNSP FOOT W UNSP SEVERITY Status: Chronic Qualifiers: Diabetes mellitus type: type 2 Comment: s/p ray amputation of L great toe 10/27/18., continue Abx for recurrent cellulitis (3) CAD (coronary artery disease) Code(s): I25.10 - ATHSCL HEART DISEASE OF [place] CORONARY ARTERY W/O ANG PCTRS Status: Chronic Comment: Chronic, stable (4) Diabetes type 2, controlled Code(s): E11.9 - TYPE 2 DIABETES MELLITUS WITHOUT COMPLICATIONS Status: Chronic Comment: ISS, resume Glyburide, serial accuchecks (5) Hypertension Code(s): I10 - ESSENTIAL (PRIMARY) HYPERTENSION Status: Chronic Qualifiers: Comment: Labile, resume Metoprolol 50mg BID, Nifedipine 60mg daily, Hydralazine PRN (6) PAD (peripheral artery disease) Code(s): I73.9 - PERIPHERAL VASCULAR DISEASE, UNSPECIFIED Status: Chronic Comment: s/p Stenting and angiogram 11/15/[address] Chow - Plan plan discussed w/ family, continue antibiotics, out of bed/ambulate, DVT proph w /SCDs clinically better. -: discussed w Dr. Oconnell. will get MRI of left toe to check for osteo -: may need PICC and meropenam for protracted period -: will follow. stable. * . Review of Systems - Review of Systems Constitutional: negative: fever, chills, sweats, weakness, malaise, other ENT: negative: Ear Pain, Ear Discharge, Nose Pain, Nose Discharge, Nose Congestion, Mouth Pain, Mouth Swelling, Throat Pain, Throat Swelling, Other Respiratory: negative: Cough, Dry, Shortness of Breath, Hemoptysis, SOB with Excertion, Pleuritic Pain, Sputum, Wheezing Cardiovascular: negative: chest pain, palpitations, orthopnea, paroxysmal nocturnal dyspnea, edema, light headedness, other Gastrointestinal: negative: Nausea, Vomiting, Abdominal Pain, Diarrhea, Constipation, Melena, Hematochezia, Other Genitourinary: negative: Dysuria, Frequency, Incontinence, Hematuria, Retention , Other Musculoskeletal: Foot Pain. negative: Neck Pain, Shoulder Pain, Arm Pain, Back Pain, Leg Pain, Other Neurological: negative: Weakness, Numbness, Incoordination, Change in Speech, Confusion, Seizures, Other - Medications/Allergies Allergies/Adverse Reactions: Allergies Allergy/AdvReac Type Severity Reaction Status Date / Time lisinopril Allergy Verified 11/14/18 20:39 Medications: Current Medications Acetaminophen (Tylenol) 650 mg PO Q4H PRN PRN Reason: Headache/Fever/Mild Pain (1-3) Last Admin: 11/15/18 19:47 Dose: 650 mg Hydrocodone Bitart/Acetaminophen ([place] 5/325) 1 tab PO Q4H PRN PRN Reason: Moderate Pain (4-6) Hydrocodone Bitart/Acetaminophen ([place] 5/325) 2 tab PO Q4H PRN PRN Reason: Severe Pain (7-10) Atorvastatin Calcium (Lipitor) 40 mg PO HS [facility] Last Admin: 11/15/18 19:44 Dose: 40 mg Benzonatate (Tessalon) 100 mg PO Q6H PRN PRN Reason: Cough Bisacodyl (Dulcolax) 10 mg PO DAILYPRN PRN PRN Reason: Constipation Bisacodyl (Dulcolax) 10 mg PO DAILYPRN PRN PRN Reason: Constipation Calcium Carbonate (Tums) 1,000 mg PO Q4H PRN PRN Reason: Heartburn or Indigestion Clindamycin Phosphate/Dextrose (Cleocin) 300 mg IVPB 0300,0900,1500,2100 [facility] Last Admin: 11/16/18 14:44 Dose: 300 mg Clonidine (Catapres) 0.1 mg PO Q4H PRN PRN Reason: SBP > 160____ Clopidogrel Bisulfate (Plavix) 75 mg PO DAILY [facility] Last Admin: 11/16/18 08:45 Dose: 75 mg Dextrose/Water (Dextrose 50%) 25 gm SLOW IVP PRN PRN PRN Reason: Hypoglycemia Enoxaparin Sodium (Lovenox) 40 mg SC 0900 [facility] Last Admin: 11/16/18 08:47 Dose: 40 mg Glucagon (Glucagon) 1 mg IM PRN PRN PRN Reason: Hypoglycemia Guaifenesin (Robitussin Sf) 200 mg PO Q4H PRN PRN Reason: Cough Hydralazine HCl (Apresoline) 10 mg SLOW IVP Q4H PRN PRN Reason: SBP > 180 and HR < 70 Dextrose/Water (D5w) 1,000 mls @ 0 mls/hr IV .Q0M PRN PRN Reason: Hypoglycemia Dextrose/Sodium Chloride (D5 1/2 Ns) 1,000 mls @ 75 mls/hr IV .[id number] [facility] Last Admin: 11/16/18 08:53 Dose: Not Given Meropenem 1 gm/ Device 50 mls @ 50 mls/hr IVPB Q8HR [facility] Last Admin: 11/16/18 14:41 Dose: 50 mls Insulin Human Lispro (Humalog) 0 units SC .MODERATE SLIDING SC PRN PRN Reason: Moderate Correctional Scale Last Admin: 11/16/18 06:38 Dose: 4 unit Insulin Human Lispro (Humalog) 0 units SC .BEDTIME SLIDING SC PRN PRN Reason: Bedtime Correctional Scale Metoprolol Tartrate (Lopressor) 50 mg PO DAILY [facility] Last Admin: 11/16/18 08:52 Dose: 50 mg Nifedipine (Procardia Xl) 60 mg PO DAILY [facility] Last Admin: 11/16/18 08:46 Dose: 60 mg Ondansetron HCl (Zofran) 4 mg IVP Q6H PRN PRN Reason: Nausea/Vomiting Pantoprazole Sodium (Protonix) 40 mg PO DAILY [facility] Last Admin: 11/16/18 14:40 Dose: Not Given Saccharomyces Boulardii (Florastor) 250 mg PO DAILY [facility] Last Admin: 11/16/18 08:46 Dose: 250 mg Senna/Docusate Sodium (Senokot S) 2 tab PO BID PRN PRN Reason: Constipation Senna/Docusate Sodium (Senokot S) 2 tab PO BID PRN PRN Reason: Constipation
[2018-11-16] MEDS: Acetaminophen 325 MG TAB PO PRN (18:06)
[2018-11-16] MEDS: Atorvastatin Calcium 40 MG TAB PO SCH (20:52)
[2018-11-17] MEDS: Clindamycin/D5W 300 MG/50 ML BAG IVPB SCH ×3 (02:32→16:33)
[2018-11-17] MEDS: MEROPENEM 1 GM/50 ML 1 GM in Premix Bag 1 BAG IVPB SCH ×3 (05:04→22:57)
[2018-11-17] MEDS: Acetaminophen 325 MG TAB PO PRN (05:08)
[2018-11-17] MEDS: HumaLOG 300 UNITS/3 ML VIAL SC PRN ×2 (06:22→12:31)
[2018-11-17] MEDS: Clopidogrel Bisulfate 75 MG TAB PO SCH (08:50)
[2018-11-17] MEDS: NIFEdipine XL 60 MG TAB PO SCH (08:50)
[2018-11-17] MEDS: Enoxaparin Sodium 40 MG/0.4 ML SYRINGE SC SCH (08:50)
[2018-11-17] MEDS: Saccharomyces boulardii 250 MG CAP PO SCH (08:50)
[2018-11-17] MEDS: Metoprolol Tartrate 50 MG TAB PO SCH (08:56)
[2018-11-17] MEDS: Dextrose 5 %-0.45 % NaCl 1,000 ML IV SCH (09:01)
[2018-11-17] MEDS ORDERED: glyBURIDE 5 MG TAB PO SCH (12:30)
--- NOTE | 2018-11-17 15:49 | PDOC.PN ---
- Subjective Encounter Start Date: 11/17/18 Encounter Start Time: 15:48 Subjective: feels more pain in plantar aspect of foot -: redness is better - Objective Resuscitation Status - Order Detail: 11/14/18 16:31 Resuscitation Status Routine Resuscitation Status: FULL: Full Resuscitation Discussed with: discussed w pt ZULMA Reviewed: Yes Vital Signs & Weight: Vital Signs (12 hours) Temp Pulse Resp BP BP BP Pulse Ox 11/17/18 15:27 99.7 F H 86 18 151/71 H 94 L 11/17/18 11:15 98 F 63 13 136/70 94 L 11/17/18 08:50 78 144/71 H 11/17/18 07:24 98.7 F 78 20 144/71 H 94 L 11/17/18 04:00 102.2 F H 85 20 146/74 H 95 Weight Admit Weight 149 lb 1.6 oz Weight 149 lb 1.6 oz I&O: 11/16/18 11/17/18 11/18/18 06:59 06:59 06:59 Intake Total 750 Balance 750 Result Diagrams: 11/16/18 05:35 11/15/18 06:37 Additional Labs: Accuchecks 11/17/18 11/17/18 11/16/18 11:18 04:46 19:32 POC Glucose 359 H 268 H 189 H 11/16/18 16:56 POC Glucose 237 H Microbiology 11/14/18 15:58 Venous blood - Right Hand Blood Culture - Preliminary NO GROWTH AT 48 HOURS 11/14/18 15:58 Venous blood - Left Arm Blood Culture - Preliminary NO GROWTH AT 48 HOURS Phys Exam - Physical Examination Constitutional: NAD HEENT: PERRLA, moist MMs, sclera anicteric, oral pharynx no lesions Neck: no nodes, no JVD, supple, full ROM Respiratory: no wheezing, no rales, no rhonchi, clear to auscultation bilateral Cardiovascular: RRR, no significant murmur, no rub Gastrointestinal: soft, non-tender, no distention, positive bowel sounds Musculoskeletal: no edema, pulses present Neurological: non-focal, normal sensation, moves all 4 limbs redness better in left foot Psychiatric: normal affect, A&O x 3 Skin: no rash Dx/Plan (1) Cellulitis of left foot Code(s): L03.116 - CELLULITIS OF LEFT LOWER LIMB Status: Acute Comment: Continue clindamycin and meropenam due to gas in Xray (2) Diabetic ulcer of toe Code(s): E11.621 - TYPE 2 DIABETES MELLITUS WITH FOOT ULCER; L97.509 - NON- PRESSURE CHRONIC ULCER OTH PRT UNSP FOOT W UNSP SEVERITY Status: Chronic Qualifiers: Diabetes mellitus type: type 2 Comment: s/p ray amputation of L great toe 10/27/18., continue Abx for recurrent cellulitis (3) CAD (coronary artery disease) Code(s): I25.10 - ATHSCL HEART DISEASE OF [place] CORONARY ARTERY W/O ANG PCTRS Status: Chronic Comment: Chronic, stable (4) Diabetes type 2, controlled Code(s): E11.9 - TYPE 2 DIABETES MELLITUS WITHOUT COMPLICATIONS Status: Chronic Comment: ISS, resume Glyburide, serial accuchecks (5) Hypertension Code(s): I10 - ESSENTIAL (PRIMARY) HYPERTENSION Status: Chronic Qualifiers: Comment: Labile, resume Metoprolol 50mg BID, Nifedipine 60mg daily, Hydralazine PRN (6) PAD (peripheral artery disease) Code(s): I73.9 - PERIPHERAL VASCULAR DISEASE, UNSPECIFIED Status: Chronic Comment: s/p Stenting and angiogram 11/15/[address] Chow - Plan continue antibiotics, PT/OT, out of bed/ambulate, DVT proph w/SCDs MRI concerning for osteomyelitis and osteonecrosis w fracture -: cont IV Abx .no abscess collection. -: HD stable. -: may need protracted IV Abx w PICC. -: Will consult GS again * . Review of Systems - Review of Systems Constitutional: negative: fever, chills, sweats, weakness, malaise, other ENT: negative: Ear Pain, Ear Discharge, Nose Pain, Nose Discharge, Nose Congestion, Mouth Pain, Mouth Swelling, Throat Pain, Throat Swelling, Other Respiratory: negative: Cough, Dry, Shortness of Breath, Hemoptysis, SOB with Excertion, Pleuritic Pain, Sputum, Wheezing Cardiovascular: negative: chest pain, palpitations, orthopnea, paroxysmal nocturnal dyspnea, edema, light headedness, other Gastrointestinal: negative: Nausea, Vomiting, Abdominal Pain, Diarrhea, Constipation, Melena, Hematochezia, Other Genitourinary: negative: Dysuria, Frequency, Incontinence, Hematuria, Retention , Other Musculoskeletal: Foot Pain. negative: Neck Pain, Shoulder Pain, Arm Pain, Back Pain, Hand Pain, Leg Pain, Other Skin: negative: Rash, Lesions, Kg, Bruising, Other Neurological: negative: Weakness, Numbness, Incoordination, Change in Speech, Confusion, Seizures, Other - Medications/Allergies Allergies/Adverse Reactions: Allergies Allergy/AdvReac Type Severity Reaction Status Date / Time lisinopril Allergy Verified 11/14/18 20:39 Medications: Current Medications Acetaminophen (Tylenol) 650 mg PO Q4H PRN PRN Reason: Headache/Fever/Mild Pain (1-3) Last Admin: 11/17/18 05:08 Dose: 650 mg Hydrocodone Bitart/Acetaminophen ([place]by 5/325) 1 tab PO Q4H PRN PRN Reason: Moderate Pain (4-6) Hydrocodone Bitart/Acetaminophen ([place] 5/325) 2 tab PO Q4H PRN PRN Reason: Severe Pain (7-10) Atorvastatin Calcium (Lipitor) 40 mg PO HS [facility] Last Admin: 11/16/18 20:52 Dose: 40 mg Benzonatate (Tessalon) 100 mg PO Q6H PRN PRN Reason: Cough Bisacodyl (Dulcolax) 10 mg PO DAILYPRN PRN PRN Reason: Constipation Bisacodyl (Dulcolax) 10 mg PO DAILYPRN PRN PRN Reason: Constipation Calcium Carbonate (Tums) 1,000 mg PO Q4H PRN PRN Reason: Heartburn or Indigestion Clindamycin Phosphate/Dextrose (Cleocin) 300 mg IVPB 0300,0900,1500,2100 [facility] Last Admin: 11/17/18 08:46 Dose: 300 mg Clonidine (Catapres) 0.1 mg PO Q4H PRN PRN Reason: SBP > 160____ Clopidogrel Bisulfate (Plavix) 75 mg PO DAILY [facility] Last Admin: 11/17/18 08:50 Dose: 75 mg Dextrose/Water (Dextrose 50%) 25 gm SLOW IVP PRN PRN PRN Reason: Hypoglycemia Enoxaparin Sodium (Lovenox) 40 mg SC 0900 [facility] Last Admin: 11/17/18 08:50 Dose: 40 mg Glucagon (Glucagon) 1 mg IM PRN PRN PRN Reason: Hypoglycemia Glyburide (Diabeta) 5 mg PO BID-[facility] Guaifenesin (Robitussin Sf) 200 mg PO Q4H PRN PRN Reason: Cough Hydralazine HCl (Apresoline) 10 mg SLOW IVP Q4H PRN PRN Reason: SBP > 180 and HR < 70 Dextrose/Water (D5w) 1,000 mls @ 0 mls/hr IV .Q0M PRN PRN Reason: Hypoglycemia Meropenem 1 gm/ Device 50 mls @ 50 mls/hr IVPB Q8HR [facility] Last Admin: 11/17/18 14:52 Dose: 50 mls Insulin Human Lispro (Humalog) 0 units SC .MODERATE SLIDING SC PRN PRN Reason: Moderate Correctional Scale Last Admin: 11/17/18 12:31 Dose: 10 unit Insulin Human Lispro (Humalog) 0 units SC .BEDTIME SLIDING SC PRN PRN Reason: Bedtime Correctional Scale Metoprolol Tartrate (Lopressor) 50 mg PO DAILY [facility] Last Admin: 11/17/18 08:56 Dose: 50 mg Nifedipine (Procardia Xl) 60 mg PO DAILY [facility] Last Admin: 11/17/18 08:50 Dose: 60 mg Ondansetron HCl (Zofran) 4 mg IVP Q6H PRN PRN Reason: Nausea/Vomiting Pantoprazole Sodium (Protonix) 40 mg PO DAILY [facility] Last Admin: 11/17/18 08:51 Dose: 40 mg Saccharomyces Boulardii (Florastor) 250 mg PO DAILY [facility] Last Admin: 11/17/18 08:50 Dose: 250 mg Senna/Docusate Sodium (Senokot S) 2 tab PO BID PRN PRN Reason: Constipation Senna/Docusate Sodium (Senokot S) 2 tab PO BID PRN PRN Reason: Constipation
--- NOTE | 2018-11-17 15:49 | MRI ---
MRI OF THE LEFT MID FOOT AND FOREFOOT WITH AND WITHOUT IV CONTRAST: INDICATION: History of left toe cellulitis, concern for osteomyelitis. TECHNIQUE: Multiplanar, multisequence MR images were obtained of the left mid foot and left forefoot with and wi thout contrast utilizing 15 cc of MultiHance. Comparisons are made with a left foot radiograph dated 11/14/2018 and a left foot MRI examination dated 11/24/2017. FINDINGS: There has been interval partial radial amputation of the great toe through the MTP joint. There is a full-thickness ulceration involving the dorsal aspect of the amputation site that contacts the dorsa l and central aspect of the great toe metatarsal head. There is abnormal edema and enhancement invol ving the dorsal aspect of the great toe metatarsal head suspicious for osteomyelitis. There has been interval development of a nondisplaced fracture involving the great toe metatarsal hea d extending to the plantar aspect of the great toe metatarsal neck. There is also fragmentation invo lving the proximal aspect of the tibial and fibula great toe sesamoids suspicious for changes of oste onecrosis and associated fracture development. There was a bifid fibular great toe sesamoid seen on the comparison examination. There is extensive cellulitis along the dorsal medial aspect of the foot. There is extensive edema a nd enhancement involving the distal aspect of the intrinsic foot musculature suspicious for changes o f some residual myositis. No drainable fluid collection is grossly evident. Lisfranc ligament remai ns intact. No additional suspicious marrow signal abnormality is evident. IMPRESSION: 1. Interval partial amputation of the great toe through the metatarsophalangeal joint. There has be en interval development of a dorsal ulceration overlying the great toe metatarsal head that contacts the dorsal and central aspect of the great toe metatarsal head. There is abnormal signal and enhance ment involving the dorsal aspect of the great toe metatarsal head suspicious for osteomyelitis. Ther e has been interval development of a nondisplaced comminuted fracture involving the great toe metatar colten head that extends into the plantar aspect of the great toe metatarsal neck. There is some fragme ntation involving the proximal aspect of the sesamoid suspicious for changes of osteonecrosis and fra cture. 2. Cellulitis and myositis of the forefoot and mid foot. POS: [facility]
[2018-11-17] MEDS: glyBURIDE 5 MG TAB PO SCH (16:34)
--- NOTE | 2018-11-17 17:23 | PRG ---
DATE OF SERVICE: 11/17/2018 SUBJECTIVE: Mr. Marie is still having fever. He denies any headaches, visual symptoms, sore throat, odynophagia, or dysphagia. No vomiting. No diarrhea. No genitourinary symptoms. OBJECTIVE: VITAL SIGNS: T-max 102.2, BP 150/70, pulse 86, respirations 13 to 18, O2 saturation 94%. SKIN EXAM: Shows the left foot amputation site with somewhat dry wound base, round-shaped, is red color, but there is not a lot of either exudate or blood in that area. The erythema still extends to the arch of the left foot in the midfoot region close to the hindfoot dorsal aspect. Pulses are faintly palpable in dorsalis pedis. No lymphadenopathy. Ocular movements conjugate. Oral cavity normal. NECK: Supple. LUNGS: Symmetric, clear breath sounds. HEART: S1, S2. Regular rate. No S3 or S4. ABDOMEN: Soft, not distended or tender. NEURO EXAMINATION: Nonfocal. LABORATORY DATA: White cell count is 11.9, hemoglobin 10.9, platelets 304. Creatinine 0.75. Liver profile normal. Microbiology, no growth in the blood culture of 48 hours. The previous results with Staph aureus, which was methicillin-sensitive and Klebsiella Enterobacter. The patient had an MRI and MRI results demonstrated radial amputation of the great toe through the MTP joint. Full thickness ulceration in the dorsal aspect of the amputation site that contacts the dorsal central aspect of the great toe metatarsal head. There is edema and enhancement involving the dorsal aspect of the great toe metatarsal head suspicious for osteomyelitis. There is a nondisplaced fracture involving the great toe metatarsal head extending to the plantar aspect of the great toe metatarsal neck. There is also fragmentation in the proximal aspect of the tibial and fibular great toe sesamoid. ASSESSMENT AND DISCUSSION: Type 2 diabetes, peripheral vascular disease, and inflammatory process, left first toe, which failed previous interventions, probably secondary to vascular insufficiency. Now, he has had the revascularization and he is on meropenem and we will add vancomycin in view of persistence of fever and inflammatory changes until we have the final results of cultures and some clinical response. He is at a high risk for further amputation and having to revise the surgical wound in view of the findings in the MRI. Job ID: [id number]
--- NOTE | 2018-11-17 19:15 | PRG ---
DATE OF SERVICE: 11/17/2018 Mr. Marie is a 63-year-old diabetic male, well known to myself from prior toe amputation. On October 25, I performed a left great toe ray amputation. When I saw him back in my office about 10 days postoperatively, he had a wound that was clearly making little to no progress. He had impaired pulses going down to his foot. I had referred him to see Dr. Chow, who had performed his prior heart surgery. Dr. Chow performed an arteriogram of his left leg showing severe vascular disease on November 15. He performed balloon angioplasty as well as stented one of the vessels in hopes of obtaining better arterial inflow to the foot. The patient had obvious cellulitis involving his foot based around the poorly healing toe amputation site. He was therefore admitted for IV antibiotics. He has been on meropenem and Dr. Oconnell has recently added vancomycin. An MRI of his foot was obtained today revealing disease within the metatarsal head at the amputation site. There is question of osteomyelitis versus osteonecrosis with concern regarding some degree of fracture involving the head of the metatarsal bone. It is noted that he has been febrile and earlier this morning had a temperature of 102.2. His laboratory studies revealed an elevated white blood cell count of 12.12 when he was admitted and yesterday, it was 11.9. On examination today, he still has some swelling of his left lower leg. He has some cellulitic change of his left foot proximal to the amputation site. His four other toes all appear to be viable. I debrided some of the callus and devitalized skin from around the wound bluntly. This reveals some underlying soft tissue that does not appear to be particularly viable, again especially near the amputation site. There is no foul smell and no obviously necrotic tissue. There is no granulation occurring within the wound bed. I am able to scrub the wound with gauze as well as the bone end. There was no bleeding within the wound that I could produce. ASSESSMENT AND PLAN: The patient with a very poorly healing left great toe amputation site. This is related to his diabetes and his diabetic vasculopathy. I have recommended avoiding further surgery for now. This wound would almost certainly require further debridement at a higher level amputation through the metatarsal bone. My hope was for now that he does have better arterial inflow and treatment with IV antibiotics will stabilize his situation and allow for surgery at the time when there is a better prognosis for healing of the wound. Dry gauze dressing was replaced. I would be happy to continue to see him while he is in the hospital, but I do not anticipate any surgery unless his wound deteriorates to the point that it mandates further debridement or exploration. Otherwise, I would hope that he will be able to be discharged and receive outpatient IV antibiotics and follow up with myself in a week or so. Job ID: [id number]
[2018-11-17] MEDS: Atorvastatin Calcium 40 MG TAB PO SCH (19:59)
[2018-11-17] MEDS ORDERED: Vancomycin HCl 1.75 GM in Sodium Chloride 0.9% 500 ML IVPB SCH (20:00)
[2018-11-17] MEDS ORDERED: Vancomycin HCl 1.25 GM in Sodium Chloride 0.9% 250 ML 250 ML IVPB SCH (21:00)
[2018-11-18] MEDS: MEROPENEM 1 GM/50 ML 1 GM in Premix Bag 1 BAG IVPB SCH ×2 (05:43→15:42)
[2018-11-18] MEDS ORDERED: Vancomycin HCl 1.25 GM in Sodium Chloride 0.9% 250 ML 250 ML IVPB SCH (08:00)
[2018-11-18] MEDS: Enoxaparin Sodium 40 MG/0.4 ML SYRINGE SC SCH (08:07)
[2018-11-18] MEDS: Metoprolol Tartrate 50 MG TAB PO SCH (08:08)
[2018-11-18] MEDS: Clopidogrel Bisulfate 75 MG TAB PO SCH (08:08)
[2018-11-18] MEDS: glyBURIDE 5 MG TAB PO SCH ×2 (08:08→15:46)
[2018-11-18] MEDS: NIFEdipine XL 60 MG TAB PO SCH (08:08)
[2018-11-18] MEDS: Saccharomyces boulardii 250 MG CAP PO SCH (08:08)
[2018-11-18 08:29] LABS: #Basophils 0.1 thou/uL (0.0-0.2); #Eosinphils 0.2 thou/uL (0.0-0.7); #Lymphocytes 1.7 thou/uL (1.20-3.40); #Monocytes 1.2 thou/uL (0.11-0.59); #Neutrophils 8.3 thou/uL (1.40-6.50); %Basophils 0.5 % (0.0-1.0); %Eosinophils 1.5 % (0.0-10.0); %Monocytes 10.8 % (0.0-10.0); %Neutrophils 72.2 % (42.0-75.0); Hemoglobin 10.8 g/dL (14.0-18.0); Mean Corpuscular HGB CONC 32.1 g/dL (32.0-36.0); Mean Corpuscular Hemoglobin 27.7 pg (27.0-31.0); Mean Corpuscular Volume 86.4 fL (78.0-98.0); Mean Platelet Volume 6.7 fL (7.4-10.4); Platelet Count 409 thou/uL (130-400); Red Blood Cell (RBC) Count 3.89 mill/uL (4.70-6.10); White Blood Cell (WBC) Count 11.5 thou/uL (4.8-10.8)
--- NOTE | 2018-11-18 09:26 | PRG ---
DATE OF SERVICE: 11/18/2018 Mr. Marie has no complaints. Dressing is intact on his left foot. He has been afebrile since I saw him yesterday and vital signs are normal. No additional examination is performed at this time. ASSESSMENT: The patient is apparently scheduled to have a PICC line placed today. Once this is placed, then he will have access for long-term IV antibiotics. This will be arranged per Dr. Oconnell. The patient has a followup visit scheduled in my office next week. At that time, I will reassess his wound and either proceed with further surgery or recommend continued observation. I have discussed all this in detail with the patient and his . Additionally, Physical Therapy should see the patient today and instruct him in crutch walking, which I would recommend for the future. Job ID: [id number]
[2018-11-18] MEDS: HumaLOG 300 UNITS/3 ML VIAL SC PRN (12:27)
--- NOTE | 2018-11-18 18:14 | SPC ---
PICC PLACEMENT ULTRASOUND GUIDED VENOUS ACCESS: (Peripherally Inserted Central Catheter) 11/18/18 HISTORY: 63-year-old male with osteomyelitis of the left foot requiring senior living IV antibiotics. TECHNIQUE: Catheter caliber: 5 Afghan Catheter trim length: 44 cm Catheter lumen number: Single Catheter tip location: Superior vena cava/right atrial junction. Vein accessed: Left basilic. TOTAL FLUOROSCOPY TIME: 0.4 minutes. DOSE AREA PRODUCT: 1827 mGy*cm^2. Signed, informed consent was obtained. A tourniquet was applied at the proximal aspect of the arm. The arm was prepared and draped in the usual sterile fashion. A 25 gauge needle was used to apply bu ffered lidocaine superficially. The vein was punctured with a 21 gauge micropuncture needle under ul trasound guidance. A 0.018 inch guide wire was advanced through the micropuncture needle and into th e vein. Under fluoroscopic guidance, the guide wire was advanced to the right atrium. The PICC (per ipherally inserted central catheter) was flushed and trimmed to the appropriate length. The skin pun cture hole was widened with a blade. The micropuncture needle was exchanged over the guide wire for a 5 Afghan peel-away dilator sheath. The dilator was exchanged over the guide wire for the PICC, whi ch was then further advanced under fluoroscopy. The sheath and guide wire were removed. The PICC wa s flushed again and secured in place at the arm. The patient tolerated the procedure well. There wa s no complication. IMPRESSION: Successful placement of PICC (peripherally inserted central catheter) isela [] POS: [facility]
[2018-11-18 18:16] VITALS: BP 150/75; TEMP 98.9
== END 2018-11-18 18:17 | disposition home or self-care (01) | DRG 253 ==
LOC: ERS 14:00 → T4-B 16:34 → ERHOLD 16:34 → T4-B 18:36
PROVIDERS: ADMIT Internal Medicine; ATTEND Internal Medicine
PROC: 047U341 Dilation of Left Peroneal Artery with Drug-eluting Intraluminal Device, using Drug-Coated Balloon, Percutaneous Approach (ICD-10-PCS; principal; 2018-11-15)
PROC: B41D1ZZ Fluoroscopy of Aorta and Bilateral Lower Extremity Arteries using Low Osmolar Contrast (ICD-10-PCS; 2018-11-15)
PROC: 02HV33Z Insertion of Infusion Device into Superior Vena Cava, Percutaneous Approach (ICD-10-PCS; 2018-11-18)
PROC: B548ZZA Ultrasonography of Superior Vena Cava, Guidance (ICD-10-PCS; 2018-11-18)
DX: E11.51 Type 2 diabetes mellitus with diabetic peripheral angiopathy without gangrene (principal); T87.44 Infection of amputation stump, left lower extremity; L03.116 Cellulitis of left lower limb; Y83.8 Other surgical procedures as the cause of abnormal reaction of the patient, or of later complication, without mention of misadventure at the time of the procedure; I25.10 Atherosclerotic heart disease of native coronary artery without angina pectoris; I10 Essential (primary) hypertension; Z95.5 Presence of coronary angioplasty implant and graft; Z95.1 Presence of aortocoronary bypass graft; Z79.84 Long term (current) use of oral hypoglycemic drugs; Z79.899 Other long term (current) drug therapy; Z83.3 Family history of diabetes mellitus; Z89.412 Acquired absence of left great toe; Z82.49 Family history of ischemic heart disease and other diseases of the circulatory system
CPT/HCPCS: 36415; 36416; 36569; 37230; 80048; 80053; 83605; 85025; 85347; 87040; 96361; 96365; 96368; C1751; C1769; C1874; C1887; J1644; J1650; J2185; J2720; J3370; J3490; J7050; Q9967; S0028

== ENCOUNTER 2018-12-14 15:48 | Outpatient (CLI) | payer SELFPAY ==
[2018-12-14 17:19] LABS: Hemoglobin A1c 7.7 % (4.0-6.0)
--- NOTE | 2018-12-16 06:55 | EKG ---
Test Reason : Blood Pressure : / mmHG Vent. Rate : 085 BPM Atrial Rate : 085 BPM P-R Int : 144 ms QRS Dur : 084 ms QT Int : 384 ms P-R-T Axes : 077 081 073 degrees QTc Int : 456 ms Normal sinus rhythm Normal ECG When compared with ECG of 25-DEC-2011 12:39, Criteria for Septal infarct are no longer Present ST elevation now present in Inferior leads ST no longer depressed in Anterior leads T wave inversion no longer evident in Anterolateral leads QT has shortened Confirmed by FRANCINE ANNA ([id number]) on 12/16/2018 6:55:20 AM Referred By: JINNY Confirmed By:FRANCINE ANNA
== END 2018-12-14 15:49 | disposition home or self-care (01) ==
LOC: LABBT 15:48
PROVIDERS: ATTEND Specialist
DX: Z01.818 Encounter for other preprocedural examination (principal); E11.621 Type 2 diabetes mellitus with foot ulcer; L97.529 Non-pressure chronic ulcer of other part of left foot with unspecified severity; S98.132A Complete traumatic amputation of one left lesser toe, initial encounter; E11.69 Type 2 diabetes mellitus with other specified complication
CPT/HCPCS: 83036; 93005; 93010

== ENCOUNTER 2018-12-14 16:00 | Inpatient (IN) | payer OTHER, SELFPAY ==
[2018-12-14 16:17] VITALS: BMI 22.9
[2018-12-15] MEDS ORDERED: Ketorolac Tromethamine 30 MG/ML VIAL ONE (07:25)
[2018-12-15] MEDS ORDERED: Bupivacaine HCl 0.5%/Epinephrine 1:200,000/PF 30 ml Vial ONE (08:59)
[2018-12-15] MEDS ORDERED: Fentanyl 100 MCG/2 ML VIAL ONE (09:28)
[2018-12-15] MEDS ORDERED: Meperidine HCl/PF 25 MG/ML VIAL SLOW IVP PRN (10:26)
[2018-12-15] MEDS ORDERED: Ondansetron HCl/PF 4 MG/2 ML Vial IVP PRN (10:26)
[2018-12-15] MEDS ORDERED: Promethazine HCl 25 MG/ML VIAL SLOW IVP PRN (10:26)
[2018-12-15] MEDS ORDERED: Promethazine HCl 25 MG/ML VIAL IM PRN (10:26)
[2018-12-15] MEDS ORDERED: Ondansetron PF 4 MG/2 ML Vial IVP PRN (10:29)
[2018-12-15] MEDS ORDERED: hydrALAZINE 20 MG/ML VIAL SLOW IVP PRN (10:29)
[2018-12-15] MEDS ORDERED: Dextrose 50% Abboject 50 ML SYRINGE SLOW IVP PRN (10:29)
[2018-12-15] MEDS ORDERED: Morphine 4 MG/ML VIAL SLOW IVP PRN (10:29)
[2018-12-15] MEDS ORDERED: Dextrose 5% in Water 1,000 ML IV PRN (10:29)
[2018-12-15] MEDS ORDERED: Insulin Regular 300 UNITS/3 ML VIAL SC PRN (10:29)
[2018-12-15] MEDS ORDERED: Lidocaine 1% PF 5 ML VIAL ONE (14:26)
[2018-12-15] MEDS ORDERED: PROPOFOL 200 MG/20 ML VIAL ONE (14:26)
[2018-12-15] MEDS ORDERED: PHENYLEPHRINE-NS 100 MCG/ML 10 ML SYRINGE ONE (14:26)
[2018-12-15] MEDS: Lactated Ringer's 1,000 ML IV SCH (18:11)
[2018-12-15] MEDS ORDERED: NIFEdipine XL 60 MG TAB PO SCH (18:15)
[2018-12-15] MEDS: Metoprolol Tartrate 50 MG TAB PO SCH (20:55)
[2018-12-15] MEDS ORDERED: Atorvastatin Calcium 40 MG TAB PO SCH (21:00)
[2018-12-16 04:23] VITALS: TEMP 98.6
[2018-12-16 06:04] LABS: #Basophils 0.1 thou/uL (0.0-0.2); #Eosinphils 0.2 thou/uL (0.0-0.7); #Monocytes 0.9 thou/uL (0.11-0.59); #Neutrophils 5.2 thou/uL (1.40-6.50); %Basophils 0.7 % (0.0-1.0); %Eosinophils 2.1 % (0.0-10.0); %Lymphocytes 24.3 % (21.0-51.0); %Monocytes 11.2 % (0.0-10.0); %Neutrophils 61.7 % (42.0-75.0); Hemoglobin 10.1 g/dL (14.0-18.0); Mean Corpuscular HGB CONC 32.7 g/dL (32.0-36.0); Mean Corpuscular Hemoglobin 28.1 pg (27.0-31.0); Mean Corpuscular Volume 85.9 fL (78.0-98.0); Mean Platelet Volume 6.1 fL (7.4-10.4); Platelet Count 343 thou/uL (130-400); White Blood Cell (WBC) Count 8.4 thou/uL (4.8-10.8)
[2018-12-16] MEDS ORDERED: metFORMIN 500 MG TAB PO SCH (08:00)
[2018-12-16] MEDS ORDERED: glyBURIDE 5 MG TAB PO SCH (08:00)
[2018-12-16 08:31] VITALS: BP 115/64
[2018-12-16] MEDS: Metoprolol Tartrate 50 MG TAB PO SCH (08:48)
[2018-12-16] MEDS: Lactated Ringer's 1,000 ML IV SCH (08:52)
[2018-12-16] MEDS ORDERED: NIFEdipine XL 60 MG TAB PO SCH (09:00)
[2018-12-16] MEDS ORDERED: Clopidogrel Bisulfate 75 MG TAB PO SCH (09:00)
--- NOTE | 2018-12-17 17:29 | OP ---
DATE OF PROCEDURE: 12/15/2018 PREOPERATIVE DIAGNOSIS: Nonhealing open wound from previous left great toe amputation site. POSTOPERATIVE DIAGNOSIS: Nonhealing open wound from previous left great toe amputation site. PROCEDURES PERFORMED: Debridement of dry gangrenous tissue from the plantar aspect of the left foot (underlying the head of the first metatarsal bone), excision and debridement of the left first metatarsal bone, debridement of nonviable surrounding tissue with packing of the wound open. INDICATIONS: The patient is a 63-year-old diabetic white male, on whom I performed a left great toe amputation about a month ago. When this showed evidence of nonhealing, Vascular Surgery consultation was obtained with Dr. Chow, who performed angiography, balloon angioplasty, and stent placement to try and optimize the vascular inflow into this patient's foot. After waiting several weeks for the benefits of vascular inflow to mature, he is now taken to the operating room for debridement of the nonhealing/nonviable wound in hopes of reaching a level with adequate vascularity to allow healing. DESCRIPTION OF OPERATION: Informed consent was obtained, the patient was taken to the operating room, where general anesthesia was obtained when the patient in supine position. Left foot was prepped with ChloraPrep and draped in sterile fashion. Local anesthetic was infiltrated proximally using 0.25% Marcaine with epinephrine. The operation was begun by excising the eschar from the plantar aspect of the foot. This was probably about 3.5 x 5 cm. There was full-thickness skin, dry gangrene, and the underlying fatty tissue was nonviable as well. I then created an incision on the dorsal aspect overlying the first metatarsal bone and dissected the metatarsal bone approximately about 3 or 4 cm. This was divided at this level with the rib isabelle. I then used the rongeurs to further debride the bone back up within the soft tissue of the foot. The bone appeared to be of normal integrity. There was bleeding of the tissue at the level of this excision and hemostasis had to be obtained with electrocautery. I then debrided the surrounding fatty tissue and soft tissue removing all desiccated or dusky tissue and hopefully optimizing the viability of surrounding soft tissue. A couple of tendons were distracted and excised. The wound was irrigated with saline and packed with dry gauze. There were no complications. Blood loss was negligible. The patient tolerated the procedure well and was taken to recovery room in stable condition. Plan will be to place a wound VAC tomorrow and follow him after a couple of weeks of wound care, hoping that this wound will begin to granulate. Job ID: [id number]
== END 2018-12-16 11:50 | disposition home or self-care (01) | DRG 504 ==
LOC: SURG A 12-15 06:36 → SURG B 12-15 11:50 → EDSTATUS 12-15 16:00
PROVIDERS: ADMIT Specialist; ATTEND Specialist
PROC: 0QBP0ZZ Excision of Left Metatarsal, Open Approach (ICD-10-PCS; principal; 2018-12-15)
DX: T87.81 Dehiscence of amputation stump (principal); I96 Gangrene, not elsewhere classified; E11.69 Type 2 diabetes mellitus with other specified complication
CPT/HCPCS: 36415; 36416; 85025; 88305; 88311; J0131; J0360; J0670; J1885; J2001; J2270; J2704; J3010

== ENCOUNTER 2018-12-19 15:37 | Outpatient (CLI) | payer OTHER | END 2018-12-19 15:38 | disposition home or self-care (01) | LOC: WCC 15:37 | PROVIDERS: ATTEND Family Medicine | DX: T81.89XD Other complications of procedures, not elsewhere classified, subsequent encounter (principal); Z89.432 Acquired absence of left foot | CPT/HCPCS: A4218 ==

== ENCOUNTER 2018-12-21 15:56 | Outpatient (CLI) | payer OTHER | END 2018-12-21 15:57 | disposition home or self-care (01) | LOC: WCC 15:56 | PROVIDERS: ATTEND Family Medicine | DX: T81.89XD Other complications of procedures, not elsewhere classified, subsequent encounter (principal) | CPT/HCPCS: 97605; A4218 ==

== ENCOUNTER 2018-12-23 16:09 | Outpatient (CLI) | payer OTHER | END 2018-12-23 16:10 | disposition home or self-care (01) | LOC: WCC 16:09 | PROVIDERS: ATTEND Family Medicine | DX: T81.89XD Other complications of procedures, not elsewhere classified, subsequent encounter (principal) | CPT/HCPCS: 97605; A4218 ==

== ENCOUNTER 2018-12-27 13:04 | Outpatient (CLI) | payer OTHER | END 2018-12-27 13:05 | disposition home or self-care (01) | LOC: WCC 13:04 | PROVIDERS: ATTEND Family Medicine | DX: L03.116 Cellulitis of left lower limb (principal) | CPT/HCPCS: 97605; A4218 ==

== ENCOUNTER 2018-12-29 15:01 | Outpatient (CLI) | payer OTHER ==
[2018-12-29] MEDS ORDERED: Sodium Chloride 0.9% 15 ML NEB ONE (19:43)
== END 2018-12-29 15:02 | disposition home or self-care (01) ==
LOC: WCC 15:01
PROVIDERS: ATTEND Family Medicine
DX: L03.116 Cellulitis of left lower limb (principal)
CPT/HCPCS: 97605; A4218

== ENCOUNTER 2019-01-02 14:39 | Outpatient (CLI) | payer OTHER ==
[2019-01-02] MEDS ORDERED: Sodium Chloride 0.9% 15 ML NEB ONE (17:52)
== END 2019-01-02 14:40 | disposition home or self-care (01) ==
LOC: WCC 14:39
PROVIDERS: ATTEND Family Medicine
DX: L03.116 Cellulitis of left lower limb (principal)
CPT/HCPCS: A4218

== ENCOUNTER 2019-01-04 13:05 | Outpatient (CLI) | payer OTHER ==
[2019-01-04] MEDS ORDERED: Sodium Chloride 0.9% 15 ML NEB ONE (16:55)
== END 2019-01-04 13:06 | disposition home or self-care (01) ==
LOC: WCC 13:05
PROVIDERS: ATTEND Family Medicine
DX: L03.116 Cellulitis of left lower limb (principal)
CPT/HCPCS: 97605; A4218

== ENCOUNTER 2019-01-06 13:07 | Outpatient (CLI) | payer OTHER | END 2019-01-06 13:08 | disposition home or self-care (01) | LOC: WCC 13:07 | PROVIDERS: ATTEND Family Medicine | DX: T81.89XD Other complications of procedures, not elsewhere classified, subsequent encounter (principal) | CPT/HCPCS: 97605; A4218 ==

== ENCOUNTER 2019-01-09 09:36 | Outpatient (CLI) | payer OTHER ==
--- NOTE | 2019-01-09 14:13 | HP ---
HISTORY OF PRESENT ILLNESS: Mr. Tima Marie is a very pleasant 63-year-old gentleman, who presents to the Wound Center for evaluation of a wound of the left foot subsequent to left great toe debridement on 12/15/2018. Previously, the patient underwent left great toe ray amputation on 10/25/2018. Prior to left great toe debridement, the patient underwent percutaneous revascularization of the left lower extremity on 11/15/2018. Negative pressure therapy was initiated subsequent to left great toe debridement and the patient has been receiving dressing changes of the wound VAC in the wound center. PAST MEDICAL HISTORY: 1. Hypertension. 2. Diabetes mellitus. 3. Coronary artery disease. 4. Peripheral vascular disease. PAST SURGICAL HISTORY: 1. Bilateral inguinal herniorrhaphy. 2. Coronary artery bypass grafting. 3. Left great toe ray amputation. 4. Left great toe debridement, status post amputation. MEDICATIONS: 1. Glyburide. 2. Metoprolol. 3. Metformin. 4. Lipitor. 5. Plavix. 6. Procardia. 7. Vitamin C. 8. Aspirin 81 mg. 9. Cephalexin. ALLERGIES: LISINOPRIL. SOCIAL HISTORY: Social history is negative for tobacco or EtOH use. FAMILY HISTORY: Family history is significant for diabetes mellitus. The patient states that he has two siblings, who were diagnosed with diabetes mellitus. PHYSICAL EXAMINATION: VITAL SIGNS: Temperature 97.7, pulse 68, respirations 18, blood pressure 191/87, and Accu-Chek 152. GENERAL: A 63-year-old gentleman, lying on table in examination room, in no acute distress. HEENT: Normocephalic and atraumatic. NECK: No nuchal rigidity. CHEST: Clear to auscultation. CV: Regular rate and rhythm. ABDOMEN: Soft. EXTREMITIES: A wound of the left foot subsequent to left great toe ray amputation followed by debridement is present. The dimensions of the wound are approximately 3.8 x 3.7 cm. No purulent drainage is associated with the wound. No maceration of the skin of the periwound is noted. No significant edema of the left foot is present on exam today. NEUROLOGIC: Grossly nonfocal. ASSESSMENT AND PLAN: 1. Wound of left foot as described above. Negative pressure therapy will be continued with dressing changes of the wound VAC here in the Wound Center. The patient is to continue cephalexin as per Dr. Oconnell. I will see Mr. Marie again in 3 weeks. The patient states that he has a followup appointment with Dr. Vasquez later this week. 2. Hypertension. 3. Diabetes mellitus. The patient's Accu-Chek in clinic today is 152. The patient has been told that for optimal wound healing, his blood glucoses should remain below 150. 4. Coronary artery disease. 5. Peripheral vascular disease. Job ID: [id number]
[2019-01-09] MEDS ORDERED: Sodium Chloride 0.9% 15 ML NEB ONE (18:00)
== END 2019-01-09 09:37 | disposition home or self-care (01) ==
LOC: WCC 09:36
PROVIDERS: ATTEND Family Medicine
DX: T81.89XD Other complications of procedures, not elsewhere classified, subsequent encounter (principal); I10 Essential (primary) hypertension; E11.51 Type 2 diabetes mellitus with diabetic peripheral angiopathy without gangrene; I25.10 Atherosclerotic heart disease of native coronary artery without angina pectoris; L03.116 Cellulitis of left lower limb
CPT/HCPCS: 97605; 99203; A4218; G0463

== ENCOUNTER 2019-01-11 15:20 | Outpatient (CLI) | payer OTHER | END 2019-01-11 15:21 | disposition home or self-care (01) | LOC: WCC 15:20 | PROVIDERS: ATTEND Family Medicine | DX: T81.89XD Other complications of procedures, not elsewhere classified, subsequent encounter (principal); L03.116 Cellulitis of left lower limb ==

== ENCOUNTER 2019-01-16 14:21 | Outpatient (CLI) | payer OTHER ==
[2019-01-16] MEDS ORDERED: Sodium Chloride 0.9% 15 ML NEB ONE (18:00)
== END 2019-01-16 14:22 | disposition home or self-care (01) ==
LOC: WCC 14:21
PROVIDERS: ATTEND Family Medicine
DX: T81.89XD Other complications of procedures, not elsewhere classified, subsequent encounter (principal)
CPT/HCPCS: A4218

== ENCOUNTER 2019-01-18 11:06 | Outpatient (CLI) | payer OTHER | END 2019-01-18 11:07 | disposition home or self-care (01) | LOC: WCC 11:06 | PROVIDERS: ATTEND Family Medicine | DX: T81.89XD Other complications of procedures, not elsewhere classified, subsequent encounter (principal) | CPT/HCPCS: 97605; A4218 ==

== ENCOUNTER 2019-01-20 13:40 | Outpatient (CLI) | payer OTHER ==
[2019-01-20] MEDS ORDERED: Sodium Chloride 0.9% 15 ML NEB ONE (18:00)
== END 2019-01-20 13:41 | disposition home or self-care (01) ==
LOC: WCC 13:40
PROVIDERS: ATTEND Family Medicine
DX: T81.89XD Other complications of procedures, not elsewhere classified, subsequent encounter (principal)
CPT/HCPCS: A4218

== ENCOUNTER 2019-01-27 14:28 | Outpatient (CLI) | payer OTHER | END 2019-01-27 14:29 | disposition home or self-care (01) | LOC: WCC 14:28 | PROVIDERS: ATTEND Family Medicine | DX: L03.116 Cellulitis of left lower limb (principal) | CPT/HCPCS: 99211; A4218; G0463 ==

== ENCOUNTER 2019-02-13 15:29 | Inpatient (IN) | payer OTHER, SELFPAY ==
[~2019-02-13 15:29] MED LIST changes: +Heparin 1,000 UNITS/ML VIAL ONE; -Sodium Chloride 0.9% 15 ML NEB ONE
[2019-02-13 16:48] LABS: #Eosinphils 0.1 thou/uL (0.0-0.7); #Lymphocytes 1.6 thou/uL (1.20-3.40); #Monocytes 1.3 thou/uL (0.11-0.59); #Neutrophils 11.2 thou/uL (1.40-6.50); %Basophils 0.2 % (0.0-1.0); %Eosinophils 0.6 % (0.0-10.0); %Monocytes 9.3 % (0.0-10.0); %Neutrophils 78.9 % (42.0-75.0); Hemoglobin 10.6 g/dL (14.0-18.0); Mean Corpuscular HGB CONC 33.9 g/dL (32.0-36.0); Mean Corpuscular Hemoglobin 29.2 pg (27.0-31.0); Mean Corpuscular Volume 86.4 fL (78.0-98.0); Mean Platelet Volume 6.3 fL (7.4-10.4); Platelet Count 409 thou/uL (130-400); RBC Distribution Width 12.8 % (11.5-14.5); Red Blood Cell (RBC) Count 3.63 mill/uL (4.70-6.10); White Blood Cell (WBC) Count 14.2 thou/uL (4.8-10.8)
--- NOTE | 2019-02-13 17:01 | RAD ---
LEFT FOOT THREE VIEWS: History: Status post left great toe amputation with swelling of the second toe now. FINDINGS: There is a prominent wound involving the amputation site of the great toe. There is some soft tissue gas extending from the wound towards and into the second toe with some soft tissue swelling and soft tissue gas, evidence for acute infection. There is some bony erosive changes of the distal second met atarsal and base of the proximal phalanx as well as new narrowing of the metatarsal phalangeal joint, certainly concerning for septic arthritis and osteomyelitis. IMPRESSION: Evidence for soft tissue infection involving the second toe with evidence for osteomyelitis involving the distal second metatarsal and base of the proximal phalanx of the second toe with second metatars al phalangeal joint arthritis, probably septic. POS: TPC
[2019-02-13 17:06] LABS: ALT (SGPT) 15 U/L (8-55); AST (SGOT) 11 U/L (5-34); Albumin 3.8 g/dL (3.4-4.8); Alkaline Phosphatase 87 U/L (40-150); Anion Gap 14 mmol/L (10-20); BUN (Urea Nitrogen) 19 mg/dL (8.4-25.7); Bilirubin, Total 0.5 mg/dL (0.2-1.2); Calc. Creatinine Clearance 0 mL/min (70-130); Calcium 9.6 mg/dL (7.8-10.44); Carbon Dioxide 27 mmol/L (23-31); Chloride 96 mmol/L (98-107); Estimated GFR-MDRD 83; Globulin 3.5 g/dL (2.4-3.5); Glucose 243 mg/dL (80-115); Potassium 4.4 mmol/L (3.5-5.1); Protein, Total 7.3 g/dL (5.8-8.1); Sodium 133 mmol/L (136-145)
[2019-02-13] MEDS ORDERED: Piperacillin/Tazobactam 4.5 GM VIAL ONE (18:33)
[2019-02-13 19:35] LABS: Bilirubin Negative (Negative); Blood, Urine Small (Negative); Clarity CLEAR (Clear); Glucose, Urine (Dipstick) 100 mg/dL (Negative); Leukocyte Negative (Negative); Nitrite Negative (Negative); Protein, Urine (Dipstick) Trace mg/dL (Neg-Trace); Specific Gravity, Urine 1.025 (1.002-1.036); Urobilinogen 0.2 mg/dL (0.2-1.0); pH, Urine 5.5 (5.0-9.0)
[2019-02-13 19:37] LABS: Bacteria/HPF None Seen HPF (None Seen); Hyaline Casts/LPF 0-3 HYALINE CAST LPF (0-3 Hyaline); Squamous Epithelial None Seen HPF (0-3); WBC/HPF 0-3 HPF (0-3)
[2019-02-13] MEDS ORDERED: Acetaminophen 500 MG TAB ONE (20:37)
[2019-02-13] MEDS ORDERED: Sodium Chloride 0.9% 1,000 ML IV SCH (23:22)
[2019-02-13] MEDS: Piperacillin/Tazobactam 3.375 GM in Sodium Chloride 0.9% 100 ML IVPB SCH (23:36)
[2019-02-14 03:55] VITALS: BMI 23.6
[2019-02-14] MEDS: Piperacillin/Tazobactam 3.375 GM in Sodium Chloride 0.9% 100 ML IVPB SCH ×4 (05:02→23:26)
[2019-02-14] MEDS ORDERED: Acetaminophen 325 MG TAB PO PRN (08:50)
[2019-02-14] MEDS ORDERED: Ondansetron PF 4 MG/2 ML Vial IVP PRN (08:50)
[2019-02-14] MEDS ORDERED: HYDROcodone/Acetaminophen 10/325 mg Tablet PO PRN (08:50)
[2019-02-14] MEDS ORDERED: Bisacodyl 10 MG SUPP PR PRN (08:50)
[2019-02-14] MEDS ORDERED: Bisacodyl 5 MG TAB PO PRN (08:50)
[2019-02-14] MEDS ORDERED: Dextrose 50% Abboject 50 ML SYRINGE SLOW IVP PRN (08:55)
[2019-02-14] MEDS ORDERED: Dextrose 5% in Water 1,000 ML IV PRN (08:55)
[2019-02-14] MEDS ORDERED: NIFEdipine XL 60 MG TAB PO SCH (09:00)
[2019-02-14 09:34] LABS: #Basophils 0.1 thou/uL (0.0-0.2); #Eosinphils 0.2 thou/uL (0.0-0.7); #Lymphocytes 1.5 thou/uL (1.20-3.40); #Monocytes 1.3 thou/uL (0.11-0.59); %Basophils 0.6 % (0.0-1.0); %Eosinophils 1.6 % (0.0-10.0); %Lymphocytes 13.9 % (21.0-51.0); %Monocytes 11.7 % (0.0-10.0); %Neutrophils 72.2 % (42.0-75.0); Hemoglobin 9.9 g/dL (14.0-18.0); Mean Corpuscular HGB CONC 33.3 g/dL (32.0-36.0); Mean Platelet Volume 6.3 fL (7.4-10.4); Platelet Count 360 thou/uL (130-400); RBC Distribution Width 12.7 % (11.5-14.5)
[2019-02-14] MEDS: HumaLOG 300 UNITS/3 ML VIAL SC PRN ×2 (09:41→17:56)
[2019-02-14 09:54] LABS: Anion Gap 12 mmol/L (10-20); BUN (Urea Nitrogen) 10 mg/dL (8.4-25.7); Calc. Creatinine Clearance 105 mL/min (70-130); Calcium 8.6 mg/dL (7.8-10.44); Carbon Dioxide 25 mmol/L (23-31); Chloride 102 mmol/L (98-107); Estimated GFR-MDRD Greater than 90; Glucose 186 mg/dL (80-115); Potassium 4.2 mmol/L (3.5-5.1); Sodium 135 mmol/L (136-145)
[2019-02-14] MEDS ORDERED: Bupivacaine/Epinephrine 0.25% 30 ML VIAL ONE (10:08)
[2019-02-14] MEDS ORDERED: Bupivacaine 0.5% 10 ML VIAL ONE (10:24)
--- NOTE | 2019-02-14 10:39 | HP ---
CHIEF COMPLAINT: Left second toe infection. HISTORY OF PRESENT ILLNESS: The patient is a very pleasant 63-year-old diabetic white male well known to myself. He has a history of coronary artery disease for which he underwent bypass grafting per Dr. Chow in 2011. I saw him initially on October 24, 2018 and performed a left great toe ray amputation on October 25. He had poor healing of this wound and was subsequently seen by Dr. Chow, who performed an aortogram, angioplasty and stent placement on his left leg to improve the arterial inflow. He continued to have poor healing of the wound and on December 15, I debrided the wound and took out additional exposed bone, removing most of the first metatarsal. Subsequent to this, he has had fairly good healing over the past couple of months. The bone was completely covered and there was reasonable granulation tissue with slow, but persisting healing within the wound. This past weekend, he developed chills with discoloration of the second toe. He presented to the hospital last night and was seen and admitted by the hospitalist service. X-rays of the foot demonstrate obvious osteomyelitis at the metatarsophalangeal joint. When he was admitted to the hospital, he had a leukocytosis with a white blood cell count of 14.2. His white blood cell count has dropped down to 11.0 this morning. He has persistent anemia and his hemoglobin is 10.6 upon admission yesterday and is 9.9 today. He was empirically started on Zosyn and vancomycin. No cultures of the wound were obtained. Blood culture results are preliminary. PAST MEDICAL HISTORY: 1. Diabetes mellitus. This was poorly controlled previously with a hemoglobin A1c of 13.5. Most recently, his hemoglobin A1c was 7.7. 2. Coronary artery disease. 3. Hypertension. 4. Hypercholesterolemia. 5. Peripheral neuropathy. 6. Peripheral arterial disease. PAST SURGICAL HISTORY: 1. Coronary artery bypass graft in 2011. 2. Hernia repair. 3. Left great toe amputation in October 2018. 4. Left first partial metatarsectomy on December 15. 5. Left leg angiogram with angioplasty and stenting on November 15, 2018. CURRENT MEDICATIONS: Include glyburide, metformin, metoprolol, nifedipine, valsartan, atorvastatin, and Plavix. ALLERGIES: NO KNOWN DRUG ALLERGIES. PERSONAL AND SOCIAL HISTORY: He is . is present at bedside. They have 7 children. 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 He has not been working since his toe amputation. 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 He denies tobacco or alcohol use. REVIEW OF SYSTEMS: Otherwise unremarkable. FAMILY HISTORY: Noncontributory. PHYSICAL EXAMINATION: VITAL SIGNS: His temperature is 98.4, pulse 76, and blood pressure 135/62. GENERAL: He is a well-developed, well-nourished, pleasant white male resting in bed, in no acute distress. He is alert and oriented x3. HEAD, EYES, EARS, NOSE, AND THROAT: Unremarkable. NECK: Supple without masses or tenderness. LUNGS: Clear to auscultation throughout. CARDIAC: Regular rate and rhythm without murmur. ABDOMEN: Soft, nontender, and nondistended. EXTREMITIES: He has palpable femoral pulse. On his left foot, the open wound from his great toe amputation site is healing appropriately with healthy granulation tissue within the base. His left second toe is erythematous and swollen. It did not look this way when I saw him last week in the office. ASSESSMENT: The patient with osteomyelitis involving the metatarsophalangeal joint of the second toe. The debridement of his wound carried close to the second joint. This is probably the origin of the infection. I do not think that this can heal with anything other than a second toe ray amputation. The wound will of course be left open. I have discussed the operation in detail with the patient's . They understand and agreed to proceed with surgery at this time. Job ID: [id number]
[2019-02-14] MEDS: Enoxaparin Sodium 40 MG/0.4 ML SYRINGE SC SCH (11:00)
[2019-02-14] MEDS: Famotidine 20 MG TAB PO SCH ×2 (11:01→20:04)
[2019-02-14] MEDS: Metoprolol Tartrate 50 MG TAB PO SCH ×2 (11:01→20:04)
[2019-02-14] MEDS: NIFEdipine XL 60 MG TAB PO SCH ×2 (11:01→12:30)
[2019-02-14] MEDS: Clopidogrel Bisulfate 75 MG TAB PO SCH (11:01)
[2019-02-14] MEDS: Lactinex Tablet PO SCH (11:01)
[2019-02-14] MEDS ORDERED: Promethazine HCl 25 MG/ML VIAL SLOW IVP PRN (11:02)
[2019-02-14] MEDS ORDERED: Promethazine HCl 25 MG/ML VIAL IM PRN (11:02)
[2019-02-14] MEDS ORDERED: Ondansetron HCl/PF 4 MG/2 ML Vial IVP PRN (11:02)
[2019-02-14] MEDS ORDERED: Ketorolac Tromethamine 30 MG/ML VIAL IVP PRN (11:02)
[2019-02-14] MEDS: Vancomycin HCl 1 GM in Premix Bag 1 BAG IVPB SCH ×2 (11:57→22:05)
[2019-02-14] MEDS: Sodium Chloride 0.9% 1,000 ML IV SCH ×2 (11:57→22:06)
[2019-02-14] MEDS ORDERED: Propofol 1,000 MG/100 ML VIAL IV ONE (12:11)
[2019-02-14] MEDS ORDERED: PROPOFOL 200 MG/20 ML VIAL ONE (13:49)
--- NOTE | 2019-02-14 14:28 | HP ---
PRIMARY CARE PHYSICIAN: Chris Campos MD CHIEF COMPLAINT: Chills. HISTORY OF PRESENT ILLNESS: This is a 63-year-old male with history of ray amputation of the left first toe due to diabetic osteomyelitis of that toe in September last year that required debridement in November and prolonged IV antibiotics at home, diabetes mellitus type 2 with complications, coronary artery disease, peripheral vascular disease, hypertension, hyperlipidemia, who comes to the emergency department complaining of chills at home and left foot discoloration. He states that he started seeing purplish discoloration of the surgical area and started having chills at home, for which he got concerned and came to the emergency department for evaluation. In the ED, his leukocytes were elevated and also found evidence of osteomyelitis of the distal second metatarsal base and proximal phalanx on x-ray. REVIEW OF SYSTEMS: All systems are reviewed and negative except for the ones mentioned above. PAST MEDICAL HISTORY: As stated in HPI. PAST SURGICAL HISTORY: Bilateral inguinal hernia repair, CABG, left great toe ray amputation, and left great toe debridement after amputation. SOCIAL HISTORY: Denies tobacco, alcohol, or illicit drugs. Happily . No living will, power of trust and estates attorney, or advance directive. He is a full code. HOME MEDICATIONS: Reviewed. ALLERGIES: TO LISINOPRIL. FAMILY HISTORY: Significant for diabetes. PHYSICAL EXAMINATION: VITAL SIGNS: Blood pressure 135/62, pulse 76, respirations 18, oxygen saturation 94% on room air, and temperature 98.4 Fahrenheit. GENERAL: No distress. He is awake, alert, and oriented x3. HEAD AND NECK: Pupils are equal and reactive to light. Extraocular muscles are intact. Mucous membranes are moist. Neck is supple. CARDIOVASCULAR: Rhythm and rate are regular. No audible murmurs, rubs, or gallops. PULMONARY: Clear to auscultation bilaterally. No wheezes, rhonchi, or crackles. ABDOMEN: Soft, nontender, nondistended. Positive bowel sounds. EXTREMITIES: No palpable edema. Pulses are symmetric. Left great toe amputation. SKIN: Purplish discoloration of the left second toe. Area of granulation at the amputation site of the left great toe with surrounding pocket of purulent material. This area is not tender. NEUROLOGIC: Decreased sensation in bilateral lower extremities. Cranial nerves 2 through 12 are grossly intact. LABORATORY ABNORMALITIES: Sodium 133, glucose 243. White blood cell count 14.2, hemoglobin 10.6. Current medications are reviewed. Foot x-ray report is reviewed. ASSESSMENT AND PLAN: 1. Left foot diabetic osteomyelitis: Recurrent events. Vancomycin and Zosyn for now. ID consultation. Surgery consultation. Possible need for forefoot amputation. 2. Diabetes mellitus type 2 with complications: Sliding scale insulin. Monitor glucose closely. 3. Coronary artery disease: Chronic, but stable. Resume home medications. 4. Peripheral arterial disease: History of previous stenting of the left lower extremity. Continue Plavix. 5. Acute hyponatremia: Likely pseudohyponatremia due to hyperglycemia. We will monitor. IV fluids. 6. Leukocytosis: Secondary to above. 7. Nonspecific anemia: Normocytic. Monitor. No evidence of bleeding. 8. Essential hypertension: Currently at goal. Resume home medications. 9. Hyperlipidemia: Continue statin. CODE STATUS: Full code. CORE MEASURE: Lovenox. DISPOSITION: Surgical Unit. PROGNOSIS: Guarded. CLINICAL STATUS: Guarded. EXPECTED LENGTH OF STAY: Greater than two midnights. TOTAL TIME SPENT: 35 minutes. Job ID: [id number]
--- NOTE | 2019-02-14 14:31 | OP ---
DATE OF PROCEDURE: 02/14/2019 PREOPERATIVE DIAGNOSIS: Osteomyelitis of left second toe. POSTOPERATIVE DIAGNOSIS: Osteomyelitis of left second toe. OPERATION PERFORMED: Left second toe ray amputation. ANESTHESIA: Total intravenous anesthesia with ankle block placed by Anesthesia. INDICATIONS: The patient is a 63-year-old diabetic male, who has undergone prior ray amputation of the left great toe. He developed fairly sudden onset of significant swelling and erythema of the left second toe associated with chills. X-rays indicate osteomyelitis at the proximal phalanx and distal metatarsal. He was taken to the operative room at this time for amputation of the second toe. DESCRIPTION OF OPERATION: Informed consent was obtained. The patient was taken to the operating room, where total intravenous anesthesia was administered. Left foot was prepped with Betadine and draped in sterile fashion. Incision was created extending from the open wound medially around the base of the second toe and then on the plantar surface. Dissection was carried directly into the MTP joint. There was abundant purulence within the joint indicating a septic joint. Cultures were obtained. There was no foul smell. The toe was disarticulated, and all soft tissue was removed, and the toe was passed off the field. The head of the metatarsal bone was then removed using rongeurs. There was obvious diseased spongy bone in the head of the metatarsal. I then proceeded a centimeter or two up the metatarsal bone. The bone became normal. The underlying tendons and fibrous tissue were sharply excised. There was significant bleeding from the skin edges that had to be controlled with electrocautery. The tissues were debrided with curette. It was then extensively irrigated with saline. It was then packed with a dry gauze dressing and a Kerlix roll and Coban was placed. There were no complications. Blood loss was negligible. The patient tolerated the procedure well and was taken to recovery room in stable condition. Job ID: [id number]
[2019-02-14] MEDS: Atorvastatin Calcium 40 MG TAB PO SCH (20:03)
[2019-02-14] MEDS: Valsartan 80 MG TAB PO SCH (20:05)
[2019-02-14] MEDS ORDERED: VALSARTAN 40 MG PO SCH (21:00)
--- NOTE | 2019-02-14 21:37 | CON ---
DATE OF CONSULTATION: 02/14/2019 REASON FOR CONSULTATION: Left foot osteomyelitis. HISTORY OF PRESENT ILLNESS: This is a 63-year-old whom I had seen, I believe, in October of 2018 when he presented with type 2 diabetes history as well as coronary artery disease, and peripheral vascular disease. He underwent revascularization by Dr. Chow and the procedure was carried out in general on November 15, 2018 and consisted of a posterior tibial artery angioplasty and peroneal artery angioplasty with stent in the tibial artery. He had amputation of the first ray and the cultures yielded methicillin-sensitive Staphylococcus aureus and presumptive Klebsiella Enterobacter, which was not susceptibility tested. He was treated at the Oncology Unit with IV Rocephin, completed a 6-week course of treatment. I recently saw him initially in December when he was switched to oral Keflex and then I saw him in January and still had a large wound at the first metatarsophalangeal amputation site,, but no bone exposure and no inflammatory changes. Antimicrobials were discontinued and he was supposed to follow up, but then he developed recrudescence of inflammatory process, was admitted. This time, the second toe seemed to be involved according to the radiology study performed. There was osteomyelitis evidence in the distal second metatarsal at the base of the proximal phalanx of the second toe. So, he underwent amputation of the second toe this time and is currently on broad-spectrum coverage. He otherwise denies any headaches, visual symptoms, sore throat, odynophagia, dysphagia, no cough, no sputum production, chest pain, no abdominal pain, or diarrhea. No genitourinary symptoms. No other joint symptoms. PAST MEDICAL HISTORY: Type 2 diabetes, peripheral vascular disease, coronary artery disease with stenting and left lower extremity angioplasty with stenting recently completed in October of 2018, recent amputation of the first ray. PICC line placement and protracted IV Rocephin at the Oncology Unit. SURGICAL HISTORY: Hernia repair in addition to the above. ALLERGIES: NONE. FAMILY HISTORY: Coronary artery disease and diabetes type 2. 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 Never a smoker. . CURRENT MEDICATIONS: 1. Tylenol. 2. Gallant. 3. Floranex. 4. Lipitor. 5. Dulcolax. 6. Plavix. 7. Lovenox. 8. Pepcid. 9. Insulin. 10. Procardia. 11. Zosyn. 12. Vancomycin. 13. Valsartan. PHYSICAL EXAMINATION: VITAL SIGNS: Essentially normal. Slight elevation of systolic blood pressure. SKIN: Shows before the surgical procedure, this area of wide wound with yellow base and purulence under the skin below the second toe. There is inflammatory changes with swelling of the second toe as well. There is redness in the dorsal aspect at the second toe level. Peripheral IV access. HEENT: Ocular movements conjugate. Nasal passages patent. Oral cavity normal. NECK: Supple. LUNGS: Symmetric. Clear breath sounds. HEART: S1 and S2, regular rate. No S3 or S4. ABDOMEN: Soft, not distended or tender. No ascites. No bladder distention. No other joint inflammatory process noted. Pulses are faintly palpable and dorsalis pedis. Moves extremities with little limitation. PSYCH: Cognitive function appears to be intact. LABORATORY DATA: White cell count is down from 14 to 11, platelets 360, hemoglobin 9.9, 72% neutrophils. Sodium 135, creatinine 0.71. Liver profile normal. Albumin 3.8. Repeat cultures from the toe are pending from the specimen submitted to Surgery. ASSESSMENT: 1. Coronary artery disease. 2. Peripheral vascular disease. 3. Recent first ray amputation, now with involvement of the second ray, status post amputation as well this time. PLAN: We will wait for the culture results and then resume IV antimicrobial therapy through a PICC line guided by the culture results from the latest specimen. Job ID: [id number]
[2019-02-15 06:22] LABS: #Eosinphils 0.2 thou/uL (0.0-0.7); #Lymphocytes 2.1 thou/uL (1.20-3.40); #Monocytes 1.3 thou/uL (0.11-0.59); #Neutrophils 6.1 thou/uL (1.40-6.50); %Basophils 0.5 % (0.0-1.0); %Lymphocytes 21.4 % (21.0-51.0); %Monocytes 13.3 % (0.0-10.0); %Neutrophils 62.9 % (42.0-75.0); Hemoglobin 9.4 g/dL (14.0-18.0); Mean Corpuscular HGB CONC 32.7 g/dL (32.0-36.0); Mean Corpuscular Hemoglobin 28.5 pg (27.0-31.0); Mean Corpuscular Volume 87.3 fL (78.0-98.0); Mean Platelet Volume 6.2 fL (7.4-10.4); Platelet Count 372 thou/uL (130-400); RBC Distribution Width 12.4 % (11.5-14.5); White Blood Cell (WBC) Count 9.8 thou/uL (4.8-10.8)
[2019-02-15] MEDS: Piperacillin/Tazobactam 3.375 GM in Sodium Chloride 0.9% 100 ML IVPB SCH ×3 (06:32→18:17)
[2019-02-15 06:48] LABS: Anion Gap 13 mmol/L (10-20); BUN (Urea Nitrogen) 8 mg/dL (8.4-25.7); Calc. Creatinine Clearance 111 mL/min (70-130); Calcium 8.4 mg/dL (7.8-10.44); Carbon Dioxide 24 mmol/L (23-31); Chloride 102 mmol/L (98-107); Estimated GFR-MDRD Greater than 90; Glucose 100 mg/dL (80-115); Potassium 3.5 mmol/L (3.5-5.1); Sodium 135 mmol/L (136-145)
[2019-02-15 07:55] LABS: Hemoglobin A1c 6.1 % (4.0-6.0)
[2019-02-15] MEDS: Famotidine 20 MG TAB PO SCH ×2 (09:08→19:57)
[2019-02-15] MEDS: Lactinex Tablet PO SCH (09:08)
[2019-02-15] MEDS: Clopidogrel Bisulfate 75 MG TAB PO SCH (09:08)
[2019-02-15] MEDS: Enoxaparin Sodium 40 MG/0.4 ML SYRINGE SC SCH (09:08)
[2019-02-15] MEDS: NIFEdipine XL 60 MG TAB PO SCH (09:08)
[2019-02-15] MEDS: Metoprolol Tartrate 50 MG TAB PO SCH ×2 (09:08→19:58)
[2019-02-15 09:13] LABS: Vancomycin, Trough 9.3 ug/mL
--- NOTE | 2019-02-15 09:28 | PRG ---
DATE OF SERVICE: 02/15/2019 SUBJECTIVE: Mr. Marie is postoperative day #1 from left 2nd toe amputation. He had a septic 2nd MTP joint with abundant purulence within the joint space and obvious osteomyelitis involving the bones. Mr. Marie has no complaints following his surgery. He notes minimal discomfort. His dressing is still intact from surgery yesterday. PHYSICAL EXAMINATION: VITAL SIGNS: He had a maximum temperature overnight of 100.7. Pulse is currently 73, blood pressure is 133/69. Physical examination is unremarkable. Dressing is clean, dry, and intact on his left foot. LABORATORY DATA: His Gram stain from the purulence in his foot reveals many gram-negative rods and moderate gram-positive cocci. Final cultures are pending. His blood culture from the previous day revealed no growth. CBC reveals that his white blood cell count is normalized at 9.8 with a hemoglobin of 9.4. Chemistry panel is unremarkable. ASSESSMENT: The patient with slowly healing left foot wound from this great toe amputation initially in October, it is still healing. He is now status post 2nd toe amputation as well. I will ask wound care team to place a wound VAC today. Dr. Oconnell has been consulted from an Infectious Disease standpoint. Hopefully, the cultures of his wound will have growth in spite of his intravenous antibiotics that he was receiving before his surgery. Either way, he will need a course of ongoing antibiotics and this will be per Dr. Oconnell. Hopefully, he will be ready for discharge by the end of the week. Job ID: [id number]
[2019-02-15] MEDS: Vancomycin HCl 1.5 GM in Sodium Chloride 0.9% 250 ML 300 ML IVPB SCH ×2 (10:24→20:30)
[2019-02-15] MEDS: HumaLOG 300 UNITS/3 ML VIAL SC PRN ×3 (12:18→20:29)
--- NOTE | 2019-02-15 13:32 | PDOC.PN ---
- Subjective Encounter Start Date: 02/15/19 Encounter Start Time: 07:50 CC; LEFT FOOT INFECTION SUBJECTIVE; PATIENT SEEN AND EVALUATED. S/P AMPUTATION OF LEFT SECOND TOE. NO COMPLICATIONS. PER NURSE, NO ACUTE EVENTS OVERNIGHT ROS; ALL SYSTEMS ARE REVIEWED AND NEGATIVE EXCEPT FOR THE ONES MENTIONED ABOVE - Objective Resuscitation Status - Order Detail: 02/14/19 08:50 Resuscitation Status Routine Resuscitation Status: FULL: Full Resuscitation Discussed with: Patient MAR Reviewed: Yes Vital Signs & Weight: Vital Signs (12 hours) Temp Pulse Resp BP BP BP Pulse Ox 02/15/19 11:00 98.6 F 62 18 115/55 L 96 02/15/19 09:08 73 133/69 02/15/19 08:00 93 L 02/15/19 07:46 98.3 F 73 20 133/69 93 L 02/15/19 04:00 98.6 F 65 20 148/70 H 93 L Weight Weight 155 lb I&O: 02/14/19 02/15/19 02/16/19 06:59 06:59 06:59 Intake Total 1200 1745 Output Total 700 Balance 500 1745 Result Diagrams: 02/15/19 05:58 02/15/19 05:58 Additional Labs: Accuchecks 02/15/19 02/14/19 02/14/19 11:03 20:01 16:34 POC Glucose 232 H 160 H 222 H Radiology Reviewed by me: Yes EKG Reviewed by me: Yes Phys Exam - Physical Examination HEENT: PERRLA, moist MMs, oral pharynx no lesions Neck: no nodes, no JVD, supple Respiratory: no wheezing, no rales, no rhonchi, clear to auscultation bilateral Cardiovascular: RRR, no significant murmur, no rub Gastrointestinal: soft, non-tender, no distention Musculoskeletal: no edema, pulses present Neurological: non-focal, moves all 4 limbs DECREASE SENSATION Psychiatric: normal affect, A&O x 3 Skin: no rash, normal turgor, cap refill <2 seconds Deviation from normal: SURGICAL SITE COVERED WITH GAUZE Dx/Plan (1) Diabetic foot infection Code(s): E11.628 - TYPE 2 DIABETES MELLITUS WITH OTHER SKIN COMPLICATIONS; L08.9 - LOCAL INFECTION OF THE SKIN AND SUBCUTANEOUS TISSUE, UNSP Status: Acute Plan: S/P AMPUTATION OF LEFT SECOND TOE. AWAITING ID RECOMMENDATIONS FOR LENGTH OF ABx (2) Anemia Code(s): D64.9 - ANEMIA, UNSPECIFIED Status: Acute Qualifiers: Anemia type: unspecified type Qualified Code(s): D64.9 - Anemia, unspecified Plan: BLOOD LOSS ANEMIA RULED OUT (3) Hyponatremia Code(s): E87.1 - HYPO-OSMOLALITY AND HYPONATREMIA Status: Acute Plan: RESOLVED (4) CAD (coronary artery disease) Code(s): I25.10 - ATHSCL HEART DISEASE OF [place] CORONARY ARTERY W/O ANG PCTRS Status: Chronic Comment: Chronic, stable (5) Diabetes type 2, controlled Code(s): E11.9 - TYPE 2 DIABETES MELLITUS WITHOUT COMPLICATIONS Status: Chronic Comment: ISS, resume Glyburide, serial accuchecks (6) Hypertension Code(s): I10 - ESSENTIAL (PRIMARY) HYPERTENSION Status: Chronic Qualifiers: Comment: Labile, resume Metoprolol 50mg BID, Nifedipine 60mg daily, Hydralazine PRN (7) PAD (peripheral artery disease) Code(s): I73.9 - PERIPHERAL VASCULAR DISEASE, UNSPECIFIED Status: Chronic Comment: s/p Stenting and angiogram 11/15/[address] Chow - Plan cont current plan of care CODE; FULL CORE; LOVENOX DISP; SURGICAL PROG; GUARDED CLINICAL STATUS; GUARDED EXPECTED DISCHARGE; TBD TOTAL TIME SPENT; 32 MINUTES DATE OF SERVICE; 02/15/2019
--- NOTE | 2019-02-15 16:53 | PRG ---
DATE OF SERVICE: 02/15/2019 SUBJECTIVE: Mr. Marie does not have any major new symptoms, particularly no diarrhea and no respiratory symptoms. OBJECTIVE: VITAL SIGNS: Fairly unremarkable. He did have some temp elevation of 100.7 yesterday and early this morning. GENERAL: Awake, alert, and oriented. LUNGS: Clear. HEART: S1 and S2, regular rate. ABDOMEN: Soft and not distended. EXTREMITIES: Left foot dressing not removed. LABORATORY DATA: White cell count 9.8, hemoglobin 9.4, and platelets 372. Creatinine 0.67. Microbiology with presumptive E. coli with pending susceptibilities. He did have Staph aureus in September and presumptive Klebsiella Enterobacter. ASSESSMENT AND DISCUSSION: Coronary artery disease, peripheral vascular disease with recent angioplasty and stenting, and left-sided first ray amputation, now with second ray inflammatory changes, status post amputation. We will wait for the final culture results and then plan on PICC line and give him IV therapy for protracted periods of time until there is good granulation. In view of the peripheral vascular disease and the risk of further amputation, I will get the best antimicrobial concentrations possible at the tissue level. Job ID: [id number]
[2019-02-15] MEDS: Sodium Chloride 0.9% 1,000 ML IV SCH (18:17)
[2019-02-15] MEDS: Atorvastatin Calcium 40 MG TAB PO SCH (19:57)
[2019-02-15] MEDS: Valsartan 80 MG TAB PO SCH (19:58)
[2019-02-16] MEDS: Piperacillin/Tazobactam 3.375 GM in Sodium Chloride 0.9% 100 ML IVPB SCH ×4 (00:34→17:02)
[2019-02-16] MEDS: Sodium Chloride 0.9% 1,000 ML IV SCH ×2 (00:43→15:27)
[2019-02-16 05:58] LABS: #Basophils 0.1 thou/uL (0.0-0.2); #Eosinphils 0.2 thou/uL (0.0-0.7); #Lymphocytes 2.6 thou/uL (1.20-3.40); #Monocytes 1.1 thou/uL (0.11-0.59); #Neutrophils 5.5 thou/uL (1.40-6.50); %Basophils 0.6 % (0.0-1.0); %Eosinophils 2.6 % (0.0-10.0); %Lymphocytes 27.3 % (21.0-51.0); %Monocytes 11.6 % (0.0-10.0); Hemoglobin 10.1 g/dL (14.0-18.0); Mean Corpuscular HGB CONC 33.7 g/dL (32.0-36.0); Mean Corpuscular Hemoglobin 29.3 pg (27.0-31.0); Platelet Count 435 thou/uL (130-400); RBC Distribution Width 12.6 % (11.5-14.5); Red Blood Cell (RBC) Count 3.43 mill/uL (4.70-6.10); White Blood Cell (WBC) Count 9.5 thou/uL (4.8-10.8)
[2019-02-16 06:03] LABS: INR-International Normal Ratio 1.1; Prothrombin Time 14.7 SEC (12.0-14.7)
[2019-02-16 06:25] LABS: Anion Gap 10 mmol/L (10-20); BUN (Urea Nitrogen) 11 mg/dL (8.4-25.7); Calc. Creatinine Clearance 98 mL/min (70-130); Carbon Dioxide 29 mmol/L (23-31); Chloride 102 mmol/L (98-107); Estimated GFR-MDRD Greater than 90; Glucose 91 mg/dL (80-115); Potassium 3.7 mmol/L (3.5-5.1); Sodium 137 mmol/L (136-145)
[2019-02-16] MEDS: NIFEdipine XL 60 MG TAB PO SCH (09:10)
[2019-02-16] MEDS: Clopidogrel Bisulfate 75 MG TAB PO SCH (09:11)
[2019-02-16] MEDS: Lactinex Tablet PO SCH (09:11)
[2019-02-16] MEDS: Enoxaparin Sodium 40 MG/0.4 ML SYRINGE SC SCH (09:11)
[2019-02-16] MEDS: Metoprolol Tartrate 50 MG TAB PO SCH ×2 (09:12→20:26)
[2019-02-16] MEDS: Famotidine 20 MG TAB PO SCH ×2 (09:12→20:26)
--- NOTE | 2019-02-16 09:45 | PDOC.PN ---
- Subjective Encounter Start Date: 02/16/19 Encounter Start Time: 09:45 CC; CHILLS. FOOT INFECTION SUBJECTIVE; PATIENT SEEN AND EVAL. PRESENT. NO COMPLAINTS. E COLI REPORTED ON WOUND CULTURES. ROS; ALL SYSTEMS ARE REVIEWED EXCEPT FOR THE ONES MENTIONED ABOVE - Objective Resuscitation Status - Order Detail: 02/14/19 08:50 Resuscitation Status Routine Resuscitation Status: FULL: Full Resuscitation Discussed with: Patient MAR Reviewed: Yes Vital Signs & Weight: Vital Signs (12 hours) Temp Pulse Resp BP Pulse Ox 02/16/19 09:10 80 02/16/19 08:00 98.3 F 80 18 164/70 H 97 Weight Admit Weight 155 lb Weight 155 lb I&O: 02/15/19 02/16/19 02/17/19 06:59 06:59 06:59 Intake Total 1745 1375 Output Total 1000 Balance 1745 375 Result Diagrams: 02/16/19 05:45 02/16/19 05:45 Additional Labs: Accuchecks 02/16/19 02/15/19 02/15/19 04:40 19:55 16:30 POC Glucose 101 311 H 309 H 02/15/19 11:03 POC Glucose 232 H Radiology Reviewed by me: Yes EKG Reviewed by me: Yes Phys Exam - Physical Examination HEENT: PERRLA, moist MMs, sclera anicteric Neck: no nodes, no JVD, supple Respiratory: no wheezing, no rales, no rhonchi Cardiovascular: RRR, no significant murmur, no rub Gastrointestinal: soft, non-tender, no distention, positive bowel sounds Musculoskeletal: no edema, pulses present LEFT 1st AND 2nd TOES AMPUTATED Neurological: non-focal, normal sensation, moves all 4 limbs DECREASE Nate SENSATION Psychiatric: normal affect, A&O x 3 Skin: no rash, normal turgor, cap refill <2 seconds Deviation from normal: SURGICAL SITE COVERED Dx/Plan (1) Diabetic foot infection Code(s): E11.628 - TYPE 2 DIABETES MELLITUS WITH OTHER SKIN COMPLICATIONS; L08.9 - LOCAL INFECTION OF THE SKIN AND SUBCUTANEOUS TISSUE, UNSP Status: Acute Plan: E COLI IN WOUND CULTURE. ID AND SURGEON FOLLOW. PLAN FOR IV ABx UNTIL GRANULATION TISSUE PRESENT WITHFINAL CULTURES. PICC ORDERED (2) Anemia Code(s): D64.9 - ANEMIA, UNSPECIFIED Status: Acute Qualifiers: Anemia type: unspecified type Qualified Code(s): D64.9 - Anemia, unspecified (3) Hyponatremia Code(s): E87.1 - HYPO-OSMOLALITY AND HYPONATREMIA Status: Resolved (4) CAD (coronary artery disease) Code(s): I25.10 - ATHSCL HEART DISEASE OF [place] CORONARY ARTERY W/O ANG PCTRS Status: Chronic Comment: Chronic, stable (5) Diabetes type 2, controlled Code(s): E11.9 - TYPE 2 DIABETES MELLITUS WITHOUT COMPLICATIONS Status: Chronic Comment: ISS, resume Glyburide, serial accuchecks (6) Hypertension Code(s): I10 - ESSENTIAL (PRIMARY) HYPERTENSION Status: Chronic Qualifiers: Comment: Labile, resume Metoprolol 50mg BID, Nifedipine 60mg daily, Hydralazine PRN (7) PAD (peripheral artery disease) Code(s): I73.9 - PERIPHERAL VASCULAR DISEASE, UNSPECIFIED Status: Chronic Comment: s/p Stenting and angiogram 11/15/[address] Chow - Plan cont current plan of care PICC ORDERED. MONITOR FINAL CULTURES. ID AND SURGERY FOLLOW. PLAN TO CONTINUE IV ABx UNTIL GRANULATION TISSUE PRESENT PER ID'S RECOMMENDATIONS. CODE; FULL CORE; LOVENOX DISP; MED SURG PROGNOSIS; FAIR CLINICAL STATUS; STABLE EXPECTED DISCHARGE; SEE ABOVE TOTAL TIME SPENT; 32 MINUTES DATE OF SERVICE; 02/16/2019
[2019-02-16] MEDS: Vancomycin HCl 1.5 GM in Sodium Chloride 0.9% 250 ML 300 ML IVPB SCH ×2 (10:52→20:23)
--- NOTE | 2019-02-16 11:16 | SPC ---
[facility] CVP LINE PICC INITAL >5: 02/16/2019 12:00 AM PROCEDURE: Peripherally placed 46 cm power PICC line. PICC Line Placement: The left arm was prepped and draped in sterile fashion. One percent lidocaine was used for local anesthetic. Under fluoroscopic and ultrasound guidance, the basilic vein was patent and accessed with a micropunc ture needle. A guide wire was then advanced into the basilic vein. A vascular sheath was then advanced over a guide wire, and a single lumen PICC line was trimmed. The PICC line was then advanc ed into the central venous system. A final placement film demonstrates the tip of the catheter terminated in the caval-atrial junction. After confirmation of the catheter position, the catheter was sutured in place at the skin entry site . There was no immediate complication. Total fluoroscopic time 0.1 minutes. Total exposure 14 66 mg/sq cm IMPRESSION: Peripheral placement of a single lumen power PICC line into the left basilic vein using fluoroscopic and ultrasound guidance.
[2019-02-16] MEDS: HumaLOG 300 UNITS/3 ML VIAL SC PRN ×2 (17:40→20:24)
[2019-02-16] MEDS: Valsartan 80 MG TAB PO SCH (20:25)
[2019-02-16] MEDS: Atorvastatin Calcium 40 MG TAB PO SCH (20:26)
[2019-02-16 21:58] LABS: Vancomycin, Trough 35.7 ug/mL
[2019-02-16] MEDS: HYDROcodone/Acetaminophen 5/325 mg Tablet PO PRN (22:16)
[2019-02-17] MEDS: Piperacillin/Tazobactam 3.375 GM in Sodium Chloride 0.9% 100 ML IVPB SCH ×5 (00:43→23:36)
[2019-02-17] MEDS: Sodium Chloride 0.9% 1,000 ML IV SCH ×3 (05:39→20:54)
[2019-02-17 07:14] LABS: #Basophils 0.1 thou/uL (0.0-0.2); #Eosinphils 0.3 thou/uL (0.0-0.7); #Lymphocytes 2.3 thou/uL (1.20-3.40); #Neutrophils 4.2 thou/uL (1.40-6.50); %Basophils 0.9 % (0.0-1.0); %Eosinophils 4.1 % (0.0-10.0); %Lymphocytes 28.9 % (21.0-51.0); %Monocytes 12.7 % (0.0-10.0); %Neutrophils 53.4 % (42.0-75.0); Hemoglobin 10.1 g/dL (14.0-18.0); Mean Corpuscular HGB CONC 32.8 g/dL (32.0-36.0); Mean Corpuscular Hemoglobin 28.9 pg (27.0-31.0); Mean Corpuscular Volume 88.2 fL (78.0-98.0); Mean Platelet Volume 6.4 fL (7.4-10.4); Platelet Count 413 thou/uL (130-400); RBC Distribution Width 12.4 % (11.5-14.5); Red Blood Cell (RBC) Count 3.48 mill/uL (4.70-6.10); White Blood Cell (WBC) Count 7.9 thou/uL (4.8-10.8)
[2019-02-17 07:35] LABS: Anion Gap 13 mmol/L (10-20); BUN (Urea Nitrogen) 9 mg/dL (8.4-25.7); Calc. Creatinine Clearance 103 mL/min (70-130); Calcium 8.7 mg/dL (7.8-10.44); Carbon Dioxide 26 mmol/L (23-31); Chloride 102 mmol/L (98-107); Estimated GFR-MDRD Greater than 90; Glucose 118 mg/dL (80-115); Potassium 3.9 mmol/L (3.5-5.1); Sodium 137 mmol/L (136-145)
[2019-02-17] MEDS: Lactinex Tablet PO SCH (08:19)
[2019-02-17] MEDS: Metoprolol Tartrate 50 MG TAB PO SCH ×2 (08:19→20:47)
[2019-02-17] MEDS: NIFEdipine XL 60 MG TAB PO SCH (08:19)
[2019-02-17] MEDS: Famotidine 20 MG TAB PO SCH ×2 (08:20→20:46)
[2019-02-17] MEDS: Enoxaparin Sodium 40 MG/0.4 ML SYRINGE SC SCH (08:20)
[2019-02-17] MEDS: Clopidogrel Bisulfate 75 MG TAB PO SCH (08:20)
[2019-02-17 09:37] LABS: Vancomycin, Trough 16.4 ug/mL
[2019-02-17] MEDS: Vancomycin HCl 1.5 GM in Sodium Chloride 0.9% 250 ML 300 ML IVPB SCH ×2 (12:08→20:46)
[2019-02-17] MEDS: HumaLOG 300 UNITS/3 ML VIAL SC PRN ×3 (12:31→20:50)
[2019-02-17] MEDS ORDERED: Valsartan 80 MG TAB PO SCH (16:36)
--- NOTE | 2019-02-17 17:25 | PRG ---
DATE OF SERVICE: 02/17/2019 SUBJECTIVE: The patient is seen and examined at bedside. He is not having much complaints to offer. He had his surgery done on , when Dr. Vasquez did second toe ray amputation with postoperative diagnosis of osteomyelitis of the left second toe. OBJECTIVE: VITAL SIGNS: Blood pressure is 165/84, pulse is 60, temperature is 98.5, maximal temperature is 98.5, respiratory rate is 18, and O2 saturation is 95% on room air. HEENT: His head is atraumatic and normocephalic. Eyes are PERRLA. Sclerae are nonicteric. Oral mucosa is moist. NECK: Supple. No lymphadenopathy. Thyroid is not palpable. LUNGS: Clear. HEART: S1, S2 normal. No S3. No S4. No any murmur. ABDOMEN: Soft, nontender, nondistended. EXTREMITIES: Left foot is wrapped. NEUROLOGICAL: He is alert and oriented x4. There are no any motor deficits. LABORATORY DATA: Labs showed white count of 7.9, hemoglobin 10.1, hematocrit 30.7, platelet count is 413. Normal chemistry. Glycemia is ranging from 126 to 289. Vancomycin trough is 16.4. Microbiology toe and specimen are growing E. coli, which is pansensitive and Prevotella bivia moderate with beta-lactamase positive. IMPRESSION: 1. Diabetic foot infection with osteomyelitis and status post ray amputation of the second left toe. 2. Anemia. 3. Hyponatremia, resolved. 4. Coronary artery disease, chronic, stable. 5. Diabetes mellitus type 2, uncontrolled. I will try to manage this and get under control before his discharge home. 6. Hypertension. 7. Peripheral arterial disease, status post stenting and angiogram in October [address] Chow. PLAN: The patient had a PICC line, and he is supposed to have Rocephin and Flagyl until the end of February per Dr. Oconnell' orders and wound VAC is going to be used. We are in the process of obtaining this and getting him set up for outpatient IV antibiotic therapy and follow up with Dr. Oconnell during that time. I am going to increase his blood pressure medications because his blood pressure is running on the higher side. Job ID: [id number]
[2019-02-17 20:18] VITALS: TEMP 98.6
[2019-02-17] MEDS: Atorvastatin Calcium 40 MG TAB PO SCH (20:47)
[2019-02-17] MEDS: HYDROcodone/Acetaminophen 5/325 mg Tablet PO PRN (20:50)
[2019-02-18] MEDS: Piperacillin/Tazobactam 3.375 GM in Sodium Chloride 0.9% 100 ML IVPB SCH (05:25)
[2019-02-18] MEDS: Famotidine 20 MG TAB PO SCH (08:04)
[2019-02-18] MEDS: Lactinex Tablet PO SCH (08:04)
[2019-02-18] MEDS: Clopidogrel Bisulfate 75 MG TAB PO SCH (08:04)
[2019-02-18] MEDS: Metoprolol Tartrate 50 MG TAB PO SCH (08:04)
[2019-02-18] MEDS: Enoxaparin Sodium 40 MG/0.4 ML SYRINGE SC SCH (08:05)
[2019-02-18] MEDS: NIFEdipine XL 60 MG TAB PO SCH (08:05)
[2019-02-18] MEDS: Vancomycin HCl 1.5 GM in Sodium Chloride 0.9% 250 ML 300 ML IVPB SCH (09:09)
[2019-02-18 10:18] VITALS: BP 164/66
--- NOTE | 2019-02-19 02:34 | DIS ---
DATE OF ADMISSION: 02/13/2019 DATE OF DISCHARGE: 02/18/2019 FINAL DIAGNOSES AT THE TIME OF DISCHARGE: 1. Diabetic foot infection with osteomyelitis and status post ray amputation of the second left toe. 2. Anemia. 3. Hyponatremia, resolved. 4. Coronary artery disease, chronic, stable. 5. Diabetes mellitus type 2. 6. Hypertension. 7. Peripheral arterial disease, status post stenting and angiogram in October [address] Chow. CONSULTANTS: 1. Dr. Edu Oconnell, Infectious Disease. 2. Dr. Israel Vasquez, General Surgery. PROCEDURE/OPERATION: Left second toe ray amputation on the [address] Vasquez. HOSPITAL COURSE: The patient is a 63-year-old male with history of ray amputation of the left first toe due to diabetic osteomyelitis of that toe in September 2018, that required debridement in November and prolonged IV antibiotic therapy at home. Also, he has diabetes mellitus type 2 with complications, coronary artery disease, peripheral vascular disease, hypertension, hyperlipidemia, who came to the emergency department complaining of chills at home and left foot discoloration. In the emergency room, his leukocytosis was elevated and he was found to have osteomyelitis of the distal second metatarsal base at the proximal phalanx on x-ray. He got admitted to the hospital with white count of 14.2. Sodium of 133, glucose 243, and hemoglobin of 10.6. He was started on vancomycin and Zosyn, and ID consultation was requested along with surgical consultation. His Plavix was continued and he had pseudohyponatremia due to his hyperglycemia, which improved with time. He was seen by Dr. Vasquez, who recommended second toe ray amputation, which was done on the 14 of February. Blood cultures x2 came back negative and culture from the left second toe showed E coli, which was pansensitive and Prevotella bivia moderate amount, which was positive for beta lactamase. The Gram stain showed many gram-negative rods and moderate gram-positive cocci in pairs and chains. No epithelial cells. A few WBCs were seen in the specimen. Postoperatively, he did very well. There was no any unexpected events. His blood pressure was running on the high side, so his Diovan was doubled from 40 mg once a day to 80 mg once a day at bedtime and his blood pressure is down to 164/66. He was seen by Dr. Oconnell for ID consultation and he recommended PICC line and IV Rocephin until the end of February, 2 g every 24 hours, and Flagyl 500 mg q.8 hours until the end of February. The outpatient IV antibiotic infusion was arranged along with wound care and wound VAC management. The patient is doing well. His blood pressure is 164/66, pulse is 65, respiratory rate is 18, O2 saturation is 96% on room air. He was seen and examined before his discharge. At the time of discharge, diet recommended is 2000 calories ADA diet. Activities as tolerated. MEDICATIONS: At the time of discharge: 1. Tylenol No. 3, one tablet every 4 hours p.r.n. as needed. 2. Rocephin 2 g every 24 hours until the end of February. 3. Lactobacillus which is Floranex one tablet once a day. 4. Metronidazole 500 mg tablets every 8 hours. 5. He will continue his diabetic medications, which is metformin 1000 mg twice a day and glyburide 5 mg twice a day. 6. As mentioned above, he will double the dose on his valsartan to 80 mg once a day. He will take Tylenol No. 3 and continue his nifedipine 60 mg once a day. 7. Metoprolol tartrate 50 mg twice a day. 8. Clopidogrel 75 mg once a day. 9. Atorvastatin 40 mg at bedtime. FOLLOWUP: He will follow up with Dr. Vasquez in [address] Oconnell in 3 weeks. He will have weekly blood work done, which will include CBC, comp and CRP, and this will be sent to Dr. Oconnell' office. TIME SPENT: Time spent on this discharge is more than 30 minutes. Job ID: [id number]
== END 2019-02-18 13:27 | disposition home or self-care (01) | DRG 504 ==
LOC: ERS 15:29 → T4-B 22:35
PROVIDERS: ADMIT Internal Medicine; ATTEND Internal Medicine
PROC: 0Y6S0Z0 Detachment at Left 2nd Toe, Complete, Open Approach (ICD-10-PCS; principal; 2019-02-14)
PROC: 02HV33Z Insertion of Infusion Device into Superior Vena Cava, Percutaneous Approach (ICD-10-PCS; 2019-02-16)
PROC: B518YZA Fluoroscopy of Superior Vena Cava using Other Contrast, Guidance (ICD-10-PCS; 2019-02-16)
PROC: B548ZZA Ultrasonography of Superior Vena Cava, Guidance (ICD-10-PCS; 2019-02-16)
DX: M86.8X7 Other osteomyelitis, ankle and foot (principal); E87.1 Hypo-osmolality and hyponatremia; E11.69 Type 2 diabetes mellitus with other specified complication; I25.10 Atherosclerotic heart disease of native coronary artery without angina pectoris; E11.51 Type 2 diabetes mellitus with diabetic peripheral angiopathy without gangrene; I10 Essential (primary) hypertension; E78.00 Pure hypercholesterolemia, unspecified; D64.9 Anemia, unspecified; E11.65 Type 2 diabetes mellitus with hyperglycemia; B96.20 Unspecified Escherichia coli [E. coli] as the cause of diseases classified elsewhere; E11.40 Type 2 diabetes mellitus with diabetic neuropathy, unspecified; Z95.1 Presence of aortocoronary bypass graft; Z89.422 Acquired absence of other left toe(s); Z88.8 Allergy status to other drugs, medicaments and biological substances; Z79.84 Long term (current) use of oral hypoglycemic drugs
CPT/HCPCS: 36415; 36416; 36569; 80048; 80053; 80202; 81003; 81015; 83036; 83605; 85025; 85610; 86850; 86900; 86901; 87040; 87070; 87076; 87077; 87186; 87205; 88305; 88311; 93005; 94760; 96365; 96366; 96375; C1751; J1644; J1650; J2543; J2704; J3370; J3490; J7050

== ENCOUNTER 2019-05-10 10:12 | Outpatient (CLI) | payer SELFPAY ==
[2019-05-10 11:48] LABS: Hemoglobin A1c 7.6 % (4.0-6.0)
[2019-05-10 11:49] LABS: Hemoglobin 10.7 g/dL (14.0-18.0); Mean Corpuscular Hemoglobin 29.2 pg (27.0-31.0); Mean Corpuscular Volume 88.4 fL (78.0-98.0); Mean Platelet Volume 6.3 fL (7.4-10.4); Platelet Count 517 thou/uL (130-400); RBC Distribution Width 12.6 % (11.5-14.5); Red Blood Cell (RBC) Count 3.67 mill/uL (4.70-6.10); White Blood Cell (WBC) Count 20.3 thou/uL (4.8-10.8)
[2019-05-10 12:00] LABS: Anion Gap 16 mmol/L (10-20); BUN (Urea Nitrogen) 16 mg/dL (8.4-25.7); Calc. Creatinine Clearance 0 mL/min (70-130); Calcium 8.8 mg/dL (7.8-10.44); Carbon Dioxide 22 mmol/L (23-31); Chloride 98 mmol/L (98-107); Estimated GFR-MDRD Greater than 90; Glucose 202 mg/dL (80-115); Potassium 5.9 mmol/L (3.5-5.1); Sodium 130 mmol/L (136-145)
[2019-05-10 12:13] LABS: Band 12 % (5-11); Lymphocytes 6 % (21-51); MDiff Complete? YES; Metamyelocyte 2 % (0-0); Monocytes 8 % (0-10); Neutrophil 72 % (42-75); Platelet Morphology Comment Appears Increased; Polychromasia SLIGHT = 2-3 cells (100X) (0-2/hpf)
--- NOTE | 2019-05-10 12:28 | EKG ---
Test Reason : Blood Pressure : / mmHG Vent. Rate : 064 BPM Atrial Rate : 064 BPM P-R Int : 148 ms QRS Dur : 086 ms QT Int : 442 ms P-R-T Axes : 058 046 084 degrees QTc Int : 455 ms Normal sinus rhythm Nonspecific ST-T changes When compared with ECG of 13-FEB-2019 18:52, T wave amplitude has increased in Inferior leads Nonspecific T wave abnormality no longer evident in Anterior leads Confirmed by DR. Femi BYRD ([id number]) on 05/10/2019 12:27:20 PM Referred By: JINNY Confirmed By:DR. Femi BYRD
== END 2019-05-10 10:13 | disposition home or self-care (01) ==
LOC: LABBT 10:12
PROVIDERS: ATTEND Specialist
DX: Z01.818 Encounter for other preprocedural examination (principal); S98.132A Complete traumatic amputation of one left lesser toe, initial encounter; I96 Gangrene, not elsewhere classified; E11.69 Type 2 diabetes mellitus with other specified complication
CPT/HCPCS: 80048; 83036; 85025; 93005; 93010

== ENCOUNTER 2019-05-11 08:09 | Inpatient (IN) | payer SELFPAY ==
[2019-05-11] MEDS ORDERED: Ketorolac Tromethamine 30 MG/ML VIAL ONE (09:34)
[2019-05-11 10:10] LABS: Anion Gap 14 mmol/L (10-20); BUN (Urea Nitrogen) 12 mg/dL (8.4-25.7); Calc. Creatinine Clearance 102 mL/min (70-130); Carbon Dioxide 23 mmol/L (23-31); Chloride 100 mmol/L (98-107); Estimated GFR-MDRD Greater than 90; Glucose 192 mg/dL (80-115); Potassium 4.5 mmol/L (3.5-5.1); Sodium 132 mmol/L (136-145)
[2019-05-11] MEDS ORDERED: Fentanyl 100 MCG/2 ML VIAL ONE (10:51)
[2019-05-11] MEDS ORDERED: Dextrose 5% in Water 1,000 ML IV PRN (15:55)
[2019-05-11] MEDS ORDERED: Dextrose 50% Abboject 50 ML SYRINGE SLOW IVP PRN (15:55)
[2019-05-11] MEDS ORDERED: Sodium Chloride 0.9% 1,000 ML IV SCH (15:55)
[2019-05-11] MEDS ORDERED: Morphine 2 MG/ML SYRINGE SLOW IVP PRN (15:55)
[2019-05-11] MEDS ORDERED: Ondansetron ODT 4 MG TAB PO PRN (15:55)
[2019-05-11 17:11] VITALS: BMI 23.8
[2019-05-11] MEDS ORDERED: CEFAZOLIN 1 GM VIAL SLOW IVP SCH (18:00)
[2019-05-11] MEDS: glyBURIDE 5 MG TAB PO SCH (19:36)
[2019-05-11] MEDS: HumaLOG 300 UNITS/3 ML VIAL SC PRN (20:51)
[2019-05-11] MEDS: ceFAZolin 1 GM/D5W 1 GM in Premix Bag 1 BAG IVPB SCH (20:51)
[2019-05-11] MEDS: Metoprolol Tartrate 50 MG TAB PO SCH (20:52)
[2019-05-11] MEDS ORDERED: Valsartan 80 MG TAB PO SCH (21:00)
[2019-05-11] MEDS ORDERED: metFORMIN 500 MG TAB PO SCH (21:00)
[2019-05-11] MEDS: HYDROcodone/Acetaminophen 10/325 mg Tablet PO PRN (23:39)
[2019-05-12] MEDS: ceFAZolin 1 GM/D5W 1 GM in Premix Bag 1 BAG IVPB SCH ×2 (03:54→12:11)
--- NOTE | 2019-05-12 04:19 | OP ---
DATE OF PROCEDURE: 05/11/2019 PREOPERATIVE DIAGNOSIS: Gangrenous left third toe (history of prior first and second toe amputations). POSTOPERATIVE DIAGNOSIS: Gangrenous left third toe (history of prior first and second toe amputations) with finding of infection extending laterally to the fourth toe, and proximally within the bed of the previously resected great toe. PROCEDURES PERFORMED: Initial third toe amputation, followed by conversion to a transmetatarsal amputation. ANESTHESIA: General with laryngeal mask airway. INDICATIONS: The patient is a 63-year-old diabetic white male. He had undergone amputation of the left great toe and second toe at 2 separate times secondary to infected and gangrenous diabetic toe infections. He presented yesterday with evidence of new gangrenous changes of the third toe and I recommended proceeding with third toe amputation. He also has leukocytosis as well as swelling of the left foot. DESCRIPTION OF PROCEDURE: Informed consent was obtained. The patient was taken to the operating room, where general anesthesia was obtained with the patient in supine position. Left foot was prepped with Betadine and draped in sterile fashion. An incision was created around the base of the third toe extending into the healing wound from the prior first and second toe amputations. The toe was disarticulated at the MTP joint. The underlying head of the third metatarsal bone was removed with rongeurs. During the course of this dissection, purulent fluid was noted emanating from the lateral aspect of the wound. As this tract was dissected, was found to extend over towards the fourth toe. There was no evidence of fourth toe gangrene, but there was additional purulence that was able to be expressed. I was concerned about persistent infection of this area. Additionally, I noted purulence draining from the bed of the first resected toe when this was pressed upon. At this point, I felt that he would do better with a transmetatarsal amputation and attempting to remove this third toe as I felt that further problems were imminent. I scrubbed out of the operation and spoke to his . I conveyed my findings to her as well as my recommendation for conversion to a transmetatarsal amputation, with which she agreed. An incision was then created across the dorsum of the left foot at the level of the distal metatarsal. The incision was created along the base of the toe so as to create a long plantar flap. The flap was dissected up underneath the bones of the lateral three toes. Rib isabelle were used to divide the third, fourth and fifth metatarsals, and the specimen was passed off the field. There was significant bleeding from the skin edges, which I felt was a good sign for healing. This was controlled with electrocautery. I debrided all of the bones back with rongeur. Meticulous hemostasis obtained with cautery. The wound was thoroughly irrigated. All tendons were distracted and excised. The remainder of the foot was compressed to ensure that there was no further purulence that could be expressed and none was seen. A dry gauze dressing was placed in the wound with dry gauze externally and a Kerlix roll followed by an Scar wrap. There were no complications. Blood loss was minimal. The patient tolerated the procedure well and was taken to recovery room in stable condition. Job ID: [id number]
[2019-05-12 05:45] LABS: #Eosinphils 0.3 thou/uL (0.0-0.7); #Lymphocytes 2.1 thou/uL (1.20-3.40); %Basophils 0.3 % (0.0-1.0); %Eosinophils 2.2 % (0.0-10.0); %Lymphocytes 18.7 % (21.0-51.0); %Monocytes 8.9 % (0.0-10.0); %Neutrophils 69.8 % (42.0-75.0); Mean Corpuscular HGB CONC 32.7 g/dL (32.0-36.0); Mean Corpuscular Hemoglobin 28.9 pg (27.0-31.0); Mean Corpuscular Volume 88.3 fL (78.0-98.0); Mean Platelet Volume 5.9 fL (7.4-10.4); Platelet Count 508 thou/uL (130-400); RBC Distribution Width 12.5 % (11.5-14.5); Red Blood Cell (RBC) Count 3.12 mill/uL (4.70-6.10); White Blood Cell (WBC) Count 11.4 thou/uL (4.8-10.8)
[2019-05-12 06:16] LABS: Anion Gap 12 mmol/L (10-20); BUN (Urea Nitrogen) 10 mg/dL (8.4-25.7); Calc. Creatinine Clearance 104 mL/min (70-130); Calcium 8.3 mg/dL (7.8-10.44); Carbon Dioxide 25 mmol/L (23-31); Chloride 100 mmol/L (98-107); Estimated GFR-MDRD Greater than 90; Glucose 139 mg/dL (80-115); Potassium 4.6 mmol/L (3.5-5.1); Sodium 132 mmol/L (136-145)
[2019-05-12] MEDS: glyBURIDE 5 MG TAB PO SCH (07:51)
[2019-05-12] MEDS: Metoprolol Tartrate 50 MG TAB PO SCH (07:52)
[2019-05-12] MEDS ORDERED: metFORMIN 500 MG TAB PO SCH (08:00)
[2019-05-12] MEDS ORDERED: Sulfameth/Trimethoprim DS 800-160mg TAB PO SCH (09:00)
[2019-05-12] MEDS ORDERED: Clopidogrel Bisulfate 75 MG TAB PO SCH (09:00)
[2019-05-12] MEDS ORDERED: Lactinex Tablet PO SCH (09:00)
[2019-05-12] MEDS ORDERED: NIFEdipine XL 60 MG TAB PO SCH (09:00)
--- NOTE | 2019-05-12 09:31 | PRG ---
DATE OF SERVICE: 05/12/2019 SUBJECTIVE: Mr. Marie is postoperative day #1 from left transmetatarsal amputation. He has no complaints. He has minimal discomfort. Cultures from his wound yesterday have revealed gram-positive cocci. Sensitivities have not been generated yet. Sensitivities from a culture of similar area last week revealed a multiply sensitive Staphylococcus. This is sensitive to both cephalosporins, quinolones, and Bactrim. OBJECTIVE: GENERAL: He is afebrile. VITAL SIGNS: Within normal limits. EXTREMITIES: Dressing is intact on his left foot. LABORATORY DATA: His hemoglobin level is 9.0 and white blood cell count is 11.4, this is down from 20.3 two days ago. ASSESSMENT AND PLAN: He is doing well following left transmetatarsal amputation. The wound appeared to be viable at the time of surgery. Because of the large open tissue area, I would recommend wound VAC. This is being arranged today. He has had a wound VAC previously on a prior amputation site. As soon as the wound VAC could be arranged, he can be discharged to home with outpatient wound care. I would recommend he be on a 2-week course of antibiotics and I will give him Bactrim at this time. I will see him back in followup in my office in regard to this. Job ID: [id number]
[2019-05-12 11:18] VITALS: TEMP 98.4
[2019-05-12] MEDS: HumaLOG 300 UNITS/3 ML VIAL SC PRN (12:14)
[2019-05-12] MEDS: HYDROcodone/Acetaminophen 10/325 mg Tablet PO PRN (13:55)
[2019-05-12 16:09] VITALS: BP 124/68
== END 2019-05-12 16:59 | disposition home or self-care (01) | DRG 617 ==
LOC: SDC 08:09 → T4-A 12:37
PROVIDERS: ADMIT Specialist; ATTEND Specialist
PROC: 0Y6N0ZC Detachment at Left Foot, Partial 3rd Ray, Open Approach (ICD-10-PCS; principal; 2019-05-11)
DX: E11.69 Type 2 diabetes mellitus with other specified complication (principal); E11.52 Type 2 diabetes mellitus with diabetic peripheral angiopathy with gangrene; I96 Gangrene, not elsewhere classified; E11.621 Type 2 diabetes mellitus with foot ulcer; L97.529 Non-pressure chronic ulcer of other part of left foot with unspecified severity; I10 Essential (primary) hypertension; B95.61 Methicillin susceptible Staphylococcus aureus infection as the cause of diseases classified elsewhere; Z16.23 Resistance to quinolones and fluoroquinolones; Z16.19 Resistance to other specified beta lactam antibiotics; E78.5 Hyperlipidemia, unspecified; I25.10 Atherosclerotic heart disease of native coronary artery without angina pectoris; I25.2 Old myocardial infarction; Z95.1 Presence of aortocoronary bypass graft; Z88.8 Allergy status to other drugs, medicaments and biological substances
CPT/HCPCS: 36415; 36416; 80048; 85025; 87070; 87077; 87186; 87205; J0131; J0690; J1885; J2270; J3010

== ENCOUNTER 2019-05-15 16:16 | Outpatient (CLI) | payer SELFPAY ==
[~2019-05-15 16:16] MED LIST changes: -Heparin 1,000 UNITS/ML VIAL ONE; +Sodium Chloride 0.9% 15 ML NEB ONE
== END 2019-05-15 16:17 | disposition home or self-care (01) ==
LOC: WCC 16:16
PROVIDERS: ATTEND Family Medicine
DX: T81.89XD Other complications of procedures, not elsewhere classified, subsequent encounter (principal); Z89.422 Acquired absence of other left toe(s)
CPT/HCPCS: 97605; A4218

== ENCOUNTER 2019-05-18 11:46 | Inpatient (IN) | payer OTHER, SELFPAY ==
[2019-05-18 16:07] VITALS: BMI 23.1
[2019-05-18] MEDS ORDERED: Dextrose 50% Abboject 50 ML SYRINGE IVP PRN (16:07)
[2019-05-18] MEDS ORDERED: Dextrose 5% in Water 1,000 ML IV PRN (16:07)
[2019-05-18 16:43] LABS: #Basophils 0.1 thou/uL (0.0-0.2); #Eosinphils 0.2 thou/uL (0.0-0.7); #Lymphocytes 1.8 thou/uL (1.20-3.40); #Monocytes 0.9 thou/uL (0.11-0.59); #Neutrophils 8.4 thou/uL (1.40-6.50); %Basophils 0.5 % (0.0-1.0); %Eosinophils 1.7 % (0.0-10.0); %Lymphocytes 16.2 % (21.0-51.0); %Monocytes 7.5 % (0.0-10.0); %Neutrophils 74.1 % (42.0-75.0); Hemoglobin 8.9 g/dL (14.0-18.0); Mean Corpuscular HGB CONC 33.6 g/dL (32.0-36.0); Mean Corpuscular Hemoglobin 29.5 pg (27.0-31.0); Mean Corpuscular Volume 87.9 fL (78.0-98.0); Mean Platelet Volume 5.7 fL (7.4-10.4); Platelet Count 640 thou/uL (130-400); RBC Distribution Width 12.7 % (11.5-14.5); Red Blood Cell (RBC) Count 3.03 mill/uL (4.70-6.10); White Blood Cell (WBC) Count 11.3 thou/uL (4.8-10.8)
[2019-05-18 17:04] LABS: Anion Gap 13 mmol/L (10-20); BUN (Urea Nitrogen) 24 mg/dL (8.4-25.7); Calc. Creatinine Clearance 74 mL/min (70-130); Calcium 9.1 mg/dL (7.8-10.44); Carbon Dioxide 24 mmol/L (23-31); Chloride 99 mmol/L (98-107); Estimated GFR-MDRD 76; Glucose 256 mg/dL (80-115); Potassium 4.7 mmol/L (3.5-5.1); Sodium 131 mmol/L (136-145)
--- NOTE | 2019-05-18 18:00 | HP ---
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 He is a diabetic. 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 X-rays were negative for osteomyelitis. At the bedside, the wound was debrided of blistered skin, necrotic tissue, and then a disposable wound VAC applied. Small focus of pus identified and sent for culture. The patient was subsequently returned on 10/25/2018, and Dr. Vasquez saw him, requiring left great toe ray amputation. Dr. Chow saw him in that hospitalization and performed aortogram runoff with stent to tibioperoneal trunk, posterior tibial artery, and peroneal artery angioplasty. Dr. Vasquez returned to the operating room with the patient on 12/15/2018 with further debridement of the foot and again returned to the operating room on 02/14/2019 with his left second toe ray amputation for progressive infection. On 05/11/2019, Dr. Vasquez performed essential transmetatarsal amputation. He was discharged home 3 days ago on Wednesday. Wound VAC was changed today in Wound Care, where he is [facility] VAC care. Dr. Vargas appreciated some redness in the medial arch area of the proximal foot and sent him for evaluation. In the office, I evaluated the wound and at the approximate area between the second and third metatarsals in the open transmetatarsal wound, there was a tract plantar that extended towards the plantar arch medially about 8 cm. This was cultured, although no frankly purulent material was seen. A gauze dressing was applied. I then communicated directly with Wound Care and asked them to pack this tract deeply with white foam and place a wound VAC and recommended admission to the hospital for intravenous antibiotics and consultation with Dr. Oconnell. The patient is at risk for limb loss. MEDICATIONS: 1. Bactrim DS. 2. Hydralazine 10 mg a day. 3. Rosuvastatin 5 mg at bedtime. 4. Metoprolol 50 mg twice a day with meals. 5. Glyburide 5 mg with meals twice a day. 6. Metformin 1000 mg twice a day. 7. Nifedipine 60 mg a day. 8. Plavix 75 mg a day. PAST SURGICAL HISTORY: Tonsillectomy, bilateral inguinal hernia repair, history of a bypass surgery in 2011 for coronary artery disease, and left toe amputations as described. FAMILY HISTORY: Significant for cancer, diabetes, and hypertension. SOCIAL HISTORY: Tobacco, none alcohol none. REVIEW OF SYSTEMS: Ten-point noncontributory. 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 ALLERGIES: LISINOPRIL. PHYSICAL EXAMINATION: VITAL SIGNS: Weight 152 pounds, blood pressure 137/51, 59 heart rate, and temperature 96.4 degrees. HEAD EARS EYES, NOSE, and THROAT: Unremarkable. LUNGS: Clear to auscultation. CARDIAC: Regular rate and rhythm without no murmur or gallop. ABDOMEN: Soft and nontender. Palpable femoral pulses and popliteal pulses bilaterally. EXTREMITIES: The patient has an open transmetatarsal wound in left foot. The plantar flap is slightly ischemic in appearance. In the mid flap at its base on the plantar aspect, there is a superficial 0.5 cm area that is about to ulcerate through the skin and break down. There is some slough over the flap on the plantar aspect. The patient has an area that tracks between the second and third metatarsals plantar towards the proximal foot arch area medially, where there is overlying redness and induration. DIAGNOSTIC STUDIES: Deep cultures were obtained and sent to microbiology. Wound was packed. ASSESSMENT AND PLAN: 1. Diabetic foot infection in left leg. The patient is at risk for limb loss. We will admit him to the hospital for more aggressive intravenous antibiotics and wound care. We will ask the physician rehab/pre vocational counselor over the weekend to look at his foot on Wednesday and I will look at it on Wednesday. The patient understands he is at risk for limb loss. We will try to salvage his leg. At this time, I think we can avoid a plantar incision. 2. Peripheral artery disease. 3. Diabetes mellitus. Job ID: [id number]
[2019-05-18] MEDS: Insulin Regular 300 UNITS/3 ML VIAL SC PRN (18:06)
[2019-05-18] MEDS: glyBURIDE 5 MG TAB PO SCH (18:06)
[2019-05-18] MEDS: Cefepime 2 GM in Sodium Chloride 0.9% 100 ML IVPB SCH (18:06)
--- NOTE | 2019-05-18 18:19 | RAD ---
LEFT FOOT: 05/18/19 Three views. HISTORY: Diabetic infection. COMPARISON: 02/13/19. FINDINGS/IMPRESSION: There has been midfoot amputation since prior exam with amputation in the mid metatarsals since prior study. There is soft tissue swelling at the stump and some soft tissue gas which could represent infection. No evidence of osseous erosion or lysis. POS: LUDIVINA
[2019-05-18] MEDS: Vancomycin HCl 1 GM in Premix Bag 1 BAG IVPB SCH (19:09)
[2019-05-18] MEDS: Metoprolol Tartrate 50 MG TAB PO SCH (20:53)
[2019-05-18] MEDS: metFORMIN 500 MG TAB PO SCH (20:53)
[2019-05-18] MEDS: Insulin Glargine 8 UNITS in Pre-Filled Syringe SC SCH (20:54)
[2019-05-18] MEDS: Rosuvastatin 5 MG TAB PO SCH (20:54)
[2019-05-18] MEDS: hydrALAZINE 10 MG TAB PO SCH (20:54)
[2019-05-18] MEDS ORDERED: hydrALAZINE 10 MG TAB PO SCH (21:00)
[2019-05-19] MEDS: Cefepime 2 GM in Sodium Chloride 0.9% 100 ML IVPB SCH ×2 (00:25→08:30)
[2019-05-19] MEDS: Vancomycin HCl 1 GM in Premix Bag 1 BAG IVPB SCH (06:01)
[2019-05-19] MEDS: Lactinex Tablet PO SCH (08:28)
[2019-05-19] MEDS: glyBURIDE 5 MG TAB PO SCH ×2 (08:28→17:06)
[2019-05-19] MEDS: metFORMIN 500 MG TAB PO SCH ×2 (08:29→20:34)
[2019-05-19] MEDS: hydrALAZINE 10 MG TAB PO SCH ×2 (08:29→20:33)
[2019-05-19] MEDS: Clopidogrel Bisulfate 75 MG TAB PO SCH (08:30)
[2019-05-19] MEDS: Metoprolol Tartrate 50 MG TAB PO SCH ×2 (08:30→20:34)
[2019-05-19] MEDS: NIFEdipine XL 60 MG TAB PO SCH (08:30)
[2019-05-19] MEDS ORDERED: Rosuvastatin 5 MG TAB PO SCH (09:00)
--- NOTE | 2019-05-19 09:18 | PDOC.HOSPP ---
- Subjective Subjective: pt up in bed no complains - Objective Vital Signs & Weight: Vital Signs (12 hours) Temp Pulse Resp BP Pulse Ox 05/19/19 07:02 98.6 F 67 16 151/70 H 96 05/19/19 03:16 99.1 F 68 16 136/67 96 05/18/19 23:30 99.2 F 59 L 16 143/69 H 95 Weight Weight 152 lb I&O: 05/18/19 05/19/19 05/20/19 06:59 06:59 06:59 Intake Total 100 Output Total 500 Balance -400 Result Diagrams: 05/18/19 16:30 05/18/19 16:30 Additional Labs: Accuchecks 05/19/19 05/18/19 05/18/19 05:58 20:34 17:00 POC Glucose 91 246 H 288 H ROS - Review of Systems All systems: All other ROS were reviewed and found negative. Respiratory: denies: cough, dry, shortness of breath, hemoptysis, SOB with excertion, pleuritic pain, sputum, wheezing, other Cardiovascular: denies: chest pain, palpitations, orthopnea, paroxysmal noc. dyspnea, edema, light headedness, other - Medication Medications: Active Medications Generic Name Dose Route Start Last Admin Trade Name Freq PRN Reason Stop Dose Admin Acidophilus 1 tab 05/19/19 09:00 05/19/19 08:28 Floranex PO 1 tab DAILY BRITANY Administration Clopidogrel Bisulfate 75 mg 05/19/19 09:00 05/19/19 08:30 Plavix PO 75 mg DAILY BRITANY Administration Glyburide 5 mg 05/18/19 16:30 05/19/19 08:28 Diabeta PO 5 mg BID-AC BRITANY Administration Hydralazine HCl 10 mg 05/18/19 21:00 05/19/19 08:29 Apresoline PO 10 mg BID BRITANY Administration Cefepime HCl 2 gm/ Sodium 100 mls @ 200 mls/hr 05/18/19 17:00 05/19/19 08:30 Chloride IVPB 100 mls 0100,0900,1700 BRITANY Administration Vancomycin HCl 1 gm/ Device 200 mls @ 200 mls/hr 05/18/19 18:00 05/19/19 06: 01 IVPB 200 mls 0600,1800 BRITANY Administration Insulin Glargine 8 units/ 0.08 mls @ 0 mls/hr 05/18/19 21:00 05/18/19 20:54 Miscellaneous Medication SC 0.08 mls HS BRITANY Administration Insulin Human Regular 0 units 05/18/19 16:07 05/18/19 18:06 Humulin R SC 6 unit .MODERATE SLIDING SC PRN Administration MODERATE SLIDING SCALE Protocol Metformin HCl 1,000 mg 05/18/19 21:00 05/19/19 08:29 Glucophage PO 1,000 mg BID BRITANY Administration Metoprolol Tartrate 50 mg 05/18/19 21:00 05/19/19 08:30 Lopressor PO 50 mg BID BRITANY Administration Nifedipine 60 mg 05/19/19 09:00 05/19/19 08:30 Procardia Xl PO 60 mg DAILY BRITANY Administration Rosuvastatin Calcium 5 mg 05/18/19 21:00 05/18/19 20:54 Crestor PO 5 mg HS BRITANY Administration Sodium Chloride 10 ml 05/18/19 21:00 05/19/19 08:31 Flush - Normal Saline IVF 10 ml Q12HR BRITANY Administration - Exam Neck: negative: supple, symmetric, no JVD, no Thyromegaly, no lymphadenopathy, no carotid bruit, JVD Heart: negative: RRR, no murmur, no gallops, no rubs, normal peripheral pulses, irregular, diminshed peripheral pulses, murmur present, II/IV, III/IV Hosp A/P (1) Diabetic foot infection Code(s): E11.628 - TYPE 2 DIABETES MELLITUS WITH OTHER SKIN COMPLICATIONS; L08.9 - LOCAL INFECTION OF THE SKIN AND SUBCUTANEOUS TISSUE, UNSP Status: Acute (2) CAD (coronary artery disease) Code(s): I25.10 - ATHSCL HEART DISEASE OF [place] CORONARY ARTERY W/O ANG PCTRS Status: Chronic (3) Diabetes type 2, controlled Code(s): E11.9 - TYPE 2 DIABETES MELLITUS WITHOUT COMPLICATIONS Status: Chronic (4) Hypertension Code(s): I10 - ESSENTIAL (PRIMARY) HYPERTENSION Status: Chronic Qualifiers: (5) PAD (peripheral artery disease) Code(s): I73.9 - PERIPHERAL VASCULAR DISEASE, UNSPECIFIED Status: Chronic - Plan will add lantus for better sugar control. will continue his home meds.
[2019-05-19] MEDS: Insulin Regular 300 UNITS/3 ML VIAL SC PRN (14:03)
--- NOTE | 2019-05-19 18:36 | PRG ---
DATE OF SERVICE: 05/19/2019 SUBJECTIVE: Tima Marie is seen in followup today. A wound VAC has been placed on his foot. Dr. Oconnell has seen him and only he can be treated as outpatient with Kiran and Yusra next week. Currently, he has wound VAC in place. We will continue intravenous antibiotics. Wound Care team has placed a wound VAC, and tomorrow they will place the Instill wound VAC. They will place white foam and the tract in the plantar foot. His foot looks a little better today with medial arch area, cellulitis slightly improved, but it is still indurated. ASSESSMENT AND PLAN: Diabetic foot infection. He will continue using his antibiotics and wound care. We will view the wound Wednesday and make further decision to assessment. He may need operative intervention pending clinical course. Job ID: [id number]
[2019-05-19] MEDS: Cipro 250 MG TAB PO SCH (20:33)
[2019-05-19] MEDS: Rosuvastatin 5 MG TAB PO SCH (20:34)
[2019-05-19] MEDS: Insulin Glargine 8 UNITS in Pre-Filled Syringe SC SCH (20:38)
[2019-05-19] MEDS: Rifampin 300 MG CAP PO SCH (22:08)
--- NOTE | 2019-05-19 22:08 | CON ---
DATE OF CONSULTATION: 05/19/2019 REASON FOR CONSULTATION: Inflammatory changes of left foot after most recent procedure. HISTORY OF PRESENT ILLNESS: A 63-year-old, known to us from prior visits who has history of type 2 diabetes, coronary artery disease, peripheral vascular disease with previous angioplasty and stent of tibioperoneal areas with amputation of left first ray and subsequently further amputation of second and third and eventually underwent a full transmetatarsal amputation of the left foot once it was found that the infection was tunneling towards the lateral aspect by Dr. Vasquez. The patient had been treated extensively with antimicrobials before, but most likely due to the underlying microvascular disease, has experienced persistence of the inflammatory process, which led to the latest results and now, he developed what appears to be an extension of the inflammatory process towards the more proximal mid foot plantar aspect as identified by Dr. Aceves and he was admitted for antimicrobial therapy and wound care. Cultures have been obtained and they are discussed below. The patient denies headaches. No change in visual symptoms, sore throat, odynophagia, or dysphagia. No cough or sputum production. No chest pain. No abdominal pain or diarrhea. No genitourinary symptoms. No other joint symptoms. PAST MEDICAL HISTORY: Includes type 2 diabetes mellitus, peripheral vascular disease, coronary artery disease with stenting, left lower extremity angioplasty and stenting in October of this year and then multiple procedures in the left foot which eventually culminated in the total transmetatarsal amputation. Has had PICC line treatments with antimicrobial therapy for protracted periods of time at the Oncology Unit. PAST SURGICAL HISTORY: Includes hernia repair. ALLERGIES: NONE. FAMILY HISTORY: Coronary artery disease and type 2 diabetes. 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 Never smoker. . CURRENT MEDICATIONS: 1. Floranex. 2. Cefepime. 3. Plavix. 4. Dextrose. 5. Glucagon. 6. Apresoline. 7. Insulin. 8. Metformin. 9. Nifedipine. 10. Vancomycin. PHYSICAL EXAMINATION: VITAL SIGNS: T-max 99.2, blood pressure 140/60, pulse 56, respirations 16, and O2 saturation 96%. SKIN: Shows the transmetatarsal amputation site with negative pressure dressing towards the medial aspect of the area. There is an area of tunneling towards the plantar aspect with mild erythema noted at this time. Peripheral IV access. No Coughlin catheter. No lymphadenopathy. HEENT: Ocular movements conjugate. Sclerae white. Pupils are equal. Oral cavity moist with no lesions. NECK: Supple. No jugular vein distention. LUNGS: Symmetric, clear breath sounds. HEART: S1 and S2, regular rate. No S3 or S4. ABDOMEN: Soft, not distended or tender. No ascites. No bladder distention. EXTREMITIES: No joint inflammatory activity. Pulses are diminished in dorsalis pedis, 1+ in popliteals. He is able to move all extremities. NEUROLOGIC: His cognitive function is intact. Speech is normal. LABORATORY DATA: White cell count 11.3, hemoglobin 8.9, platelets 640. Sodium 131, creatinine 0.99. Microbiology with Staph aureus, methicillin-sensitive, E. coli with a very broad susceptibility profile, Prevotella bivia. Prevotella is from January. IMAGING: The last imaging procedure was a foot x-ray from May 18 and it demonstrated mid foot amputation, soft-tissue swelling, but no osseous erosion or lysis. The last MRI is from October of this year and it demonstrated partial amputation of the great toe through the metatarsophalangeal joint, dorsal ulceration of the great toe metatarsal head, comminuted fracture as well and some cellulitis, myositis, but no involvement of the other toes and this became only obvious subsequently in the followup. Has a vascular ultrasound from November 14. This was a venous Doppler ultrasound with no evidence of deep vein thrombosis. ASSESSMENT: Type 2 diabetes, peripheral vascular disease with previous revascularization procedures in the left lower extremity, refractory infectious process in the left foot which has required progressive areas of amputation which culminated in total transmetatarsal amputation of the left foot. The organisms are not particularly resistant, but probably the vascular situation has led to this outcome. At this point, we will address the organisms isolated and we will transition him to oral ciprofloxacin and Flagyl and see how he continues to do and plan to continue with Cipro and Flagyl for at least 4 weeks and probably continue ciprofloxacin even longer than that. Job ID: [id number]
[2019-05-20] MEDS: Cipro 250 MG TAB PO SCH ×2 (06:52→19:58)
--- NOTE | 2019-05-20 08:35 | ULT ---
CAROTID DUPLEX ULTRASOUND: DATE: 05/20/19 INDICATION: Right-sided carotid bruit. FINDINGS: Peak systolic velocity within the right ICA is 88.3 cm/second and in the right CCA is 81.7 cm/second. Right ICA/CCA ratio is 1.08. Peak systolic velocity in the left ICA is 124.5 cm/second and in the left proximal CCA is 164.7 cm/se cond. Left ICA/CCA ratio is 0.76. There is mild intimal thickening and atherosclerotic plaque involving the common carotid arteries and proximal internal carotid arteries. No visible stenosis or turbulent flow is evident. There is antegrade flow within both vertebral arteries. IMPRESSION: No hemodynamically significant stenosis. POS: BH
[2019-05-20] MEDS: Clopidogrel Bisulfate 75 MG TAB PO SCH (09:20)
[2019-05-20] MEDS: hydrALAZINE 10 MG TAB PO SCH (09:20)
[2019-05-20] MEDS: NIFEdipine XL 60 MG TAB PO SCH (09:20)
[2019-05-20] MEDS: glyBURIDE 5 MG TAB PO SCH ×2 (09:20→17:18)
[2019-05-20] MEDS: Lactinex Tablet PO SCH (09:20)
[2019-05-20] MEDS: Metoprolol Tartrate 50 MG TAB PO SCH ×2 (09:21→19:58)
[2019-05-20] MEDS: metFORMIN 500 MG TAB PO SCH ×2 (09:21→19:57)
[2019-05-20] MEDS: Rifampin 300 MG CAP PO SCH ×2 (11:29→22:02)
[2019-05-20] MEDS: Insulin Regular 300 UNITS/3 ML VIAL SC PRN ×2 (12:25→21:58)
[2019-05-20] MEDS: Morphine 2 MG/ML SYRINGE SLOW IVP PRN (13:14)
--- NOTE | 2019-05-20 13:21 | PDOC.HOSPP ---
- Subjective Subjective: Pt seen for followup re: hypoglycemia. Says he feels better now, but had blurry vision earlier. - Objective Vital Signs & Weight: Vital Signs (12 hours) Temp Pulse Resp BP Pulse Ox 05/20/19 11:17 98.9 F 56 L 16 176/72 H 98 05/20/19 07:38 98.7 F 70 14 147/73 H 98 05/20/19 03:56 98.2 F 63 18 155/70 H 97 Weight Admit Weight 152 lb Weight 152 lb I&O: 05/19/19 05/20/19 05/21/19 06:59 06:59 06:59 Intake Total 100 1540 Output Total 500 300 Balance -400 1240 Result Diagrams: 05/18/19 16:30 05/18/19 16:30 Additional Labs: Accuchecks 05/20/19 05/20/19 05/19/19 11:22 05:55 20:36 POC Glucose 158 H 63 L 110 05/19/19 15:51 POC Glucose 81 MARs and Labs reviewed by me ROS - Review of Systems All systems: All other ROS were reviewed and found negative. Respiratory: denies: cough, dry, shortness of breath, hemoptysis, SOB with excertion, pleuritic pain, sputum, wheezing Cardiovascular: denies: chest pain, palpitations, orthopnea, paroxysmal noc. dyspnea, edema, light headedness Musculoskeletal: reports: foot pain Neurological: reports: other (blurry vision) - Medication Medications: Active Medications Generic Name Dose Route Start Last Admin Trade Name Freq PRN Reason Stop Dose Admin Acidophilus 1 tab 05/19/19 09:00 05/20/19 09:20 Floranex PO 1 tab DAILY BRITANY Administration Ciprofloxacin 500 mg 05/19/19 20:00 05/20/19 06:52 Cipro PO 500 mg 0600,1999 BRITANY Administration Clopidogrel Bisulfate 75 mg 05/19/19 09:00 05/20/19 09:20 Plavix PO 75 mg DAILY BRITANY Administration Glyburide 5 mg 05/18/19 16:30 05/20/19 09:20 Diabeta PO 5 mg BID-AC BRITANY Administration Hydralazine HCl 10 mg 05/18/19 21:00 05/20/19 09:20 Apresoline PO 10 mg BID BRITANY Administration Insulin Human Regular 0 units 05/18/19 16:07 05/20/19 12:25 Humulin R SC 2 unit .MODERATE SLIDING SC PRN Administration MODERATE SLIDING SCALE Protocol Metformin HCl 1,000 mg 05/18/19 21:00 05/20/19 09:21 Glucophage PO 1,000 mg BID BRITANY Administration Metoprolol Tartrate 50 mg 05/18/19 21:00 05/20/19 09:21 Lopressor PO 50 mg BID BRITANY Administration Nifedipine 60 mg 05/19/19 09:00 05/20/19 09:20 Procardia Xl PO 60 mg DAILY BRITANY Administration Rifampin 300 mg 05/19/19 22:00 05/20/19 11:29 Rifadin PO 300 mg 1000,2200 BRITANY Administration Rosuvastatin Calcium 5 mg 05/18/19 21:00 05/19/19 20:34 Crestor PO 5 mg HS BRITANY Administration Sodium Chloride 10 ml 05/18/19 21:00 05/20/19 12:59 Flush - Normal Saline IVF Not Given Q12HR BRITANY - Exam NAD Eye: anicteric sclera ENT: normocephalic atraumatic Neck: supple Heart: RRR Respiratory: CTAB Gastrointestinal: soft Neurological: CN's grossly intact Psychiatric: normal affect Hosp A/P (1) Hypoglycemia Code(s): E16.2 - HYPOGLYCEMIA, UNSPECIFIED Status: Acute (2) Diabetic foot infection Code(s): E11.628 - TYPE 2 DIABETES MELLITUS WITH OTHER SKIN COMPLICATIONS; L08.9 - LOCAL INFECTION OF THE SKIN AND SUBCUTANEOUS TISSUE, UNSP Status: Acute (3) CAD (coronary artery disease) Code(s): I25.10 - ATHSCL HEART DISEASE OF [place] CORONARY ARTERY W/O ANG PCTRS Status: Chronic (4) Hypertension Code(s): I10 - ESSENTIAL (PRIMARY) HYPERTENSION Status: Chronic Qualifiers: - Plan continue antibiotics, PT/OT, out of bed/ambulate Decrease Lantus tgo 5 units daily, continue accuchecks and titrate insulin dose. Continue oral ciprofloxacin, Blood pressures are high, change hydralazine to 25 mg BID PO.
[2019-05-20 16:53] LABS: #Basophils 0.1 thou/uL (0.0-0.2); #Eosinphils 0.1 thou/uL (0.0-0.7); #Lymphocytes 2.4 thou/uL (1.20-3.40); #Monocytes 1.3 thou/uL (0.11-0.59); #Neutrophils 8.8 thou/uL (1.40-6.50); %Basophils 0.5 % (0.0-1.0); %Eosinophils 0.9 % (0.0-10.0); %Lymphocytes 19.2 % (21.0-51.0); %Monocytes 9.9 % (0.0-10.0); %Neutrophils 69.5 % (42.0-75.0); Hemoglobin 9.8 g/dL (14.0-18.0); Mean Corpuscular Volume 85.3 fL (78.0-98.0); Mean Platelet Volume 5.7 fL (7.4-10.4); Platelet Count 633 thou/uL (130-400); RBC Distribution Width 12.3 % (11.5-14.5); Red Blood Cell (RBC) Count 3.37 mill/uL (4.70-6.10); White Blood Cell (WBC) Count 12.6 thou/uL (4.8-10.8)
--- NOTE | 2019-05-20 17:47 | PRG ---
DATE OF SERVICE: 05/20/2019 SUBJECTIVE: This is a 63-year-old gentleman, who has diabetic left foot infection, amputation of the big and second toe. Disease process had been going on since September. At this time, he was admitted to the hospital due to amputation stump infection. The patient is placed on wound VAC and wound care scheduled. The patient has no other complaints, no fever or shortness of breath. He is able to tolerate regular diet. He is able to ambulate well in the range of wound VAC. Urination and bowel movement normal. OBJECTIVE: GENERAL: The patient is alert, awake and oriented x3. VITAL SIGNS: Temperature 99, heart rate 73, respiratory rate 16, O2 sat 95% room air, and blood pressure 153/79. LUNGS: Clear bilaterally. HEART: Regular rate and rhythm. ABDOMEN: Soft and nondistended. EXTREMITIES: Upper extremities; neurovascularly intact. Normal range of motion , dry. Lower extremities; neurovascularly intact. Normal range of motion. Left foot is wrapped on wound VAC which is working. Minimal pain to touch. Wrapping dry and clean. DIAGNOSES: 1. Left foot amputation stump infection, possibly osteomyelitis. 2. Diabetes type 2. 3. Cardiovascular disease. PLAN: Continue supportive care. Continue wound care and wound VAC. The patient will be seen by Dr. Aceves on Wednesday to decide further treatment. Job ID: [id number] MTDD
[2019-05-20] MEDS: hydrALAZINE 25 MG TAB PO SCH (19:57)
[2019-05-20] MEDS: Rosuvastatin 5 MG TAB PO SCH (19:58)
[2019-05-20] MEDS ORDERED: Insulin Glargine 5 UNITS in Pre-Filled Syringe 1 EACH SC SCH (21:00)
--- NOTE | 2019-05-21 03:40 | PRG ---
DATE OF SERVICE: SUBJECTIVE: Patient is currently on the surgical floor. He has been admitted with a diabetic foot infection that has continued to progress. He is undergoing IV antibiotic treatment per Infectious Disease and currently has a wound VAC in place. His next wound VAC dressing change is planned for Wednesday when his primary surgeon returns. Otherwise, there are no reported issues. Patient's pain is controlled and he is tolerating a diet. OBJECTIVE: VITAL SIGNS: Stable. Patient remains afebrile. EXTREMITY: Wound VAC appears to be functioning properly. ASSESSMENT AND PLAN: Status post left midfoot amputation with infection. Plan will be to continue antibiotics per Infectious Disease. Wound VAC and supportive care. Job ID: [id number]
[2019-05-21] MEDS: Cipro 250 MG TAB PO SCH ×2 (06:14→20:46)
[2019-05-21] MEDS: Metoprolol Tartrate 50 MG TAB PO SCH ×2 (08:26→20:46)
[2019-05-21] MEDS: NIFEdipine XL 60 MG TAB PO SCH (08:26)
[2019-05-21] MEDS: glyBURIDE 5 MG TAB PO SCH ×2 (08:26→16:27)
[2019-05-21] MEDS: hydrALAZINE 25 MG TAB PO SCH ×3 (08:26→20:46)
[2019-05-21] MEDS: Lactinex Tablet PO SCH (08:26)
[2019-05-21] MEDS: metFORMIN 500 MG TAB PO SCH ×2 (08:27→20:46)
[2019-05-21] MEDS: Clopidogrel Bisulfate 75 MG TAB PO SCH (08:27)
[2019-05-21] MEDS: Rifampin 300 MG CAP PO SCH ×2 (08:36→20:47)
--- NOTE | 2019-05-21 11:55 | PDOC.HOSPP ---
- Subjective Subjective: Pt seen fo rfollowup re: hypoglycemia. Denies chest pain or shortness of breath. - Objective Vital Signs & Weight: Vital Signs (12 hours) Temp Pulse Resp BP BP Pulse Ox 05/21/19 11:32 98.7 F 61 14 164/72 H 98 05/21/19 08:26 68 169/76 H 05/21/19 07:22 98.6 F 68 14 169/76 H 98 05/21/19 04:15 98.6 F 78 18 176/71 H 97 Weight Admit Weight 152 lb Weight 152 lb I&O: 05/20/19 05/21/19 05/22/19 06:59 06:59 06:59 Intake Total 1540 1620 Output Total 300 700 Balance 1240 920 Result Diagrams: 05/20/19 16:40 05/18/19 16:30 Additional Labs: Accuchecks 05/21/19 05/20/19 05/20/19 05:50 22:52 20:47 POC Glucose 91 92 66 L 05/20/19 16:22 POC Glucose 83 Labs and MARs reviewed by me ROS - Review of Systems All systems: All other ROS were reviewed and found negative. Respiratory: denies: cough, dry, shortness of breath, hemoptysis, SOB with excertion, pleuritic pain, sputum, wheezing Cardiovascular: denies: chest pain, palpitations, orthopnea, paroxysmal noc. dyspnea, edema, light headedness - Medication Medications: Active Medications Generic Name Dose Route Start Last Admin Trade Name Freq PRN Reason Stop Dose Admin Acidophilus 1 tab 05/19/19 09:00 05/21/19 08:26 Floranex PO 1 tab DAILY BRITANY Administration Ciprofloxacin 500 mg 05/19/19 20:00 05/21/19 06:14 Cipro PO 500 mg 0600,1999 BRITANY Administration Clopidogrel Bisulfate 75 mg 05/19/19 09:00 05/21/19 08:27 Plavix PO 75 mg DAILY BRITANY Administration Hydralazine HCl 25 mg 05/20/19 21:00 05/21/19 08:26 Apresoline PO 25 mg BID BRITANY Administration Insulin Human Regular 0 units 05/18/19 16:07 05/20/19 21:58 Humulin R SC 4 unit .MODERATE SLIDING SC PRN Administration MODERATE SLIDING SCALE Protocol Metformin HCl 1,000 mg 05/18/19 21:00 05/21/19 08:27 Glucophage PO 1,000 mg BID BRITANY Administration Metoprolol Tartrate 50 mg 05/18/19 21:00 05/21/19 08:26 Lopressor PO 50 mg BID BRITANY Administration Morphine Sulfate 2 mg 05/20/19 12:51 05/20/19 13:14 Morphine SLOW IVP 2 mg Q6H PRN Administration Moderate to Severe Pain (6-10) Nifedipine 60 mg 05/19/19 09:00 05/21/19 08:26 Procardia Xl PO 60 mg DAILY BRITANY Administration Rifampin 300 mg 05/19/19 22:00 05/21/19 08:36 Rifadin PO 300 mg 1000,2200 BRITANY Administration Rosuvastatin Calcium 5 mg 05/18/19 21:00 05/20/19 19:58 Crestor PO 5 mg HS BRITANY Administration Sodium Chloride 10 ml 05/18/19 21:00 05/21/19 06:14 Flush - Normal Saline IVF 10 ml Q12HR BRITANY Administration - Exam NAD Eye: PERRL ENT: no oropharyngeal lesions Neck: supple Heart: RRR Respiratory: CTAB Gastrointestinal: soft, non-tender Psychiatric: normal affect, normal behavior Hosp A/P (1) Hypoglycemia Code(s): E16.2 - HYPOGLYCEMIA, UNSPECIFIED Status: Acute (2) Diabetic foot infection Code(s): E11.628 - TYPE 2 DIABETES MELLITUS WITH OTHER SKIN COMPLICATIONS; L08.9 - LOCAL INFECTION OF THE SKIN AND SUBCUTANEOUS TISSUE, UNSP Status: Acute (3) CAD (coronary artery disease) Code(s): I25.10 - ATHSCL HEART DISEASE OF [place] CORONARY ARTERY W/O ANG PCTRS Status: Chronic (4) Hypertension Code(s): I10 - ESSENTIAL (PRIMARY) HYPERTENSION Status: Chronic Qualifiers: - Plan continue antibiotics, PT/OT, out of bed/ambulate Discontinue Lantus, decrease glyburide to 2.5 mg BID. Continue accuchecks. BP still high, increase hydralazine to 25 mg TID.
[2019-05-21] MEDS: Morphine 2 MG/ML SYRINGE SLOW IVP PRN (15:39)
[2019-05-21] MEDS: Rosuvastatin 5 MG TAB PO SCH (20:47)
--- NOTE | 2019-05-22 03:39 | PRG ---
DATE OF SERVICE: 05/22/2019 SUBJECTIVE: The patient remains on the surgical floor. He is status post midfoot amputation that has become infected, requiring his admission. He is being followed by the Medicine Team and Infectious Disease. Currently, he also has a wound VAC in place, which is scheduled to be changed tomorrow. Pain is controlled, tolerating a diet. OBJECTIVE: VITAL SIGNS: Stable. The patient continues to have hypertension that the Medicine Team is addressing. Otherwise, he has been afebrile. EXTREMITIES: Wound VAC appears to be functioning properly. The patient appears in no distress. ASSESSMENT: Status post left foot amputation, now with infection. PLAN: Continue antibiotics per Dr. Oconnell and wound VAC change tomorrow. Job ID: [id number]
[2019-05-22] MEDS: Cipro 250 MG TAB PO SCH (05:31)
[2019-05-22] MEDS: NIFEdipine XL 60 MG TAB PO SCH (08:19)
[2019-05-22] MEDS: Lactinex Tablet PO SCH (08:19)
[2019-05-22] MEDS: metFORMIN 500 MG TAB PO SCH (08:20)
[2019-05-22] MEDS: hydrALAZINE 25 MG TAB PO SCH (08:20)
[2019-05-22] MEDS: glyBURIDE 5 MG TAB PO SCH (08:20)
[2019-05-22] MEDS: Metoprolol Tartrate 50 MG TAB PO SCH (08:21)
[2019-05-22] MEDS: Clopidogrel Bisulfate 75 MG TAB PO SCH (08:21)
--- NOTE | 2019-05-22 08:57 | EKG ---
Test Reason : Blood Pressure : / mmHG Vent. Rate : 072 BPM Atrial Rate : 072 BPM P-R Int : 158 ms QRS Dur : 086 ms QT Int : 428 ms P-R-T Axes : 059 027 088 degrees QTc Int : 468 ms Normal sinus rhythm Possible Left atrial enlargement Borderline ECG When compared with ECG of 10-MAY-2019 10:59, No significant change was found Confirmed by DR. Boo MARCELINO ([id number]) on 05/22/2019 8:57:02 AM Referred By: RADHA Confirmed By:DR. Boo MARCELINO
[2019-05-22 11:15] VITALS: BP 169/74; TEMP 98.9
[2019-05-22] MEDS: Insulin Regular 300 UNITS/3 ML VIAL SC PRN (12:03)
[2019-05-22] MEDS: Rifampin 300 MG CAP PO SCH (12:03)
--- NOTE | 2019-05-22 15:48 | OP ---
DATE OF PROCEDURE: 05/22/2019 PREOPERATIVE DIAGNOSIS: Left diabetic foot wound with nonviable flap partially. PROCEDURE PERFORMED: Sharp debridement of skin, subcutaneous tissue, excisional, sharp 10 blade resectional. ANESTHESIA: None. DESCRIPTION OF PROCEDURE: With the patient at bedside, alcohol prep, wound VAC removed and the necrotic skin flaps debrided sharply. Connective tissue and subcutaneous tissue were debrided sharply near the plantar track between the second and third metatarsals plantarly to facilitate wound care. The patient tolerated the procedure well. Wound Care available to place a wound VAC. Job ID: [id number]
--- NOTE | 2019-05-22 16:37 | DIS ---
DATE OF ADMISSION: 05/18/2019 DATE OF DISCHARGE: 05/22/2019 DISCHARGE DIAGNOSES: 1. Diabetic foot infection, left, status post transmetatarsal amputation by Dr. Vasquez. 2. Peripheral artery disease, status post PTAs, right leg, Dr. Chow. 3. Diabetes mellitus. 4. Hypertension. PROCEDURE DURING THIS HOSPITALIZATION: Bedside debridement of his foot. Intravenous antibiotics converted to oral. CONSULTATION: Dr. Oconnell. Cultures, left foot MRSA sensitive to planned discharge antibiotics per recommendation of Dr. Oconnell, 2 weeks of rifampin 300 t.i.d., Cipro 500 b.i.d. Outpatient wound care tracking the white foam into the plantar track towards the arch. HISTORY: A 63-year-old male, status post transmetatarsal amputation by Dr. Vasquez. The patient is seen in Wound Care with [facility] wound VAC. He was called to Wound Care to look at his wound, where he had cellulitis, edema of his medial arch area. There was noted to be tracking plantar to this wound. Wound Care was arranged such that in Wound Care outpatient, he will have packing of the wound. We will white foam towards the plantar aspect of the track. Sent home with the above-mentioned antibiotics. At the bedside, he had debridement of his flap. The remainder of the flap appeared to be viable with some questionable areas, but this will be followed as an outpatient. DISCHARGE MEDICATIONS: The same as preoperative. 1. Floranex. 2. Plavix. 3. Hydralazine. 4. Metformin. 5. Metoprolol. 6. Crestor. Job ID: [id number]
== END 2019-05-22 14:01 | disposition home or self-care (01) | DRG 465 ==
LOC: SURG A 15:49
PROVIDERS: ADMIT Specialist; ATTEND Specialist
PROC: 0JBR0ZZ Excision of Left Foot Subcutaneous Tissue and Fascia, Open Approach (ICD-10-PCS; principal; 2019-05-22)
DX: T87.44 Infection of amputation stump, left lower extremity (principal); E11.628 Type 2 diabetes mellitus with other skin complications; I73.9 Peripheral vascular disease, unspecified; I25.10 Atherosclerotic heart disease of native coronary artery without angina pectoris; E11.649 Type 2 diabetes mellitus with hypoglycemia without coma; Z79.84 Long term (current) use of oral hypoglycemic drugs; Z79.01 Long term (current) use of anticoagulants; Z90.89 Acquired absence of other organs; Z95.1 Presence of aortocoronary bypass graft; Z89.422 Acquired absence of other left toe(s); Z88.8 Allergy status to other drugs, medicaments and biological substances; Y83.5 Amputation of limb(s) as the cause of abnormal reaction of the patient, or of later complication, without mention of misadventure at the time of the procedure
CPT/HCPCS: 36415; 36416; 80048; 85025; 86140; 93005; 93010; 93880; J0692; J1815; J2270; J3370; J3490

== ENCOUNTER 2019-05-18 11:58 | Outpatient (CLI) | payer SELFPAY | END 2019-05-18 11:59 | disposition home or self-care (01) | LOC: WCC 11:58 | PROVIDERS: ATTEND Family Medicine | DX: T81.89XD Other complications of procedures, not elsewhere classified, subsequent encounter (principal) | CPT/HCPCS: 97605; A4218 ==

== ENCOUNTER 2019-05-25 16:11 | Outpatient (CLI) | payer SELFPAY ==
[2019-05-27] MEDS ORDERED: Sodium Chloride 0.9% 15 ML NEB ONE ×2 (14:33)
== END 2019-05-25 16:12 | disposition home or self-care (01) ==
LOC: WCC 16:11
PROVIDERS: ATTEND Family Medicine
DX: T81.89XD Other complications of procedures, not elsewhere classified, subsequent encounter (principal)
CPT/HCPCS: 97605

== ENCOUNTER 2019-05-29 10:12 | Outpatient (CLI) | payer SELFPAY ==
[2019-05-29] MEDS ORDERED: Sodium Chloride 0.9% 15 ML NEB ONE (15:00)
== END 2019-05-29 10:13 | disposition home or self-care (01) ==
LOC: WCC 10:12
PROVIDERS: ATTEND Family Medicine
DX: L03.116 Cellulitis of left lower limb (principal)
CPT/HCPCS: A4218

== ENCOUNTER 2019-06-05 11:47 | Outpatient (CLI) | payer SELFPAY | END 2019-06-05 11:48 | disposition home or self-care (01) | LOC: WCC 11:47 | PROVIDERS: ATTEND Family Medicine | DX: T81.89XD Other complications of procedures, not elsewhere classified, subsequent encounter (principal) | CPT/HCPCS: 97605 ==

== ENCOUNTER 2019-06-08 11:54 | Outpatient (CLI) | payer SELFPAY | END 2019-06-08 11:55 | disposition home or self-care (01) | LOC: WCC 11:54 | PROVIDERS: ATTEND Family Medicine | DX: T81.89XD Other complications of procedures, not elsewhere classified, subsequent encounter (principal) | CPT/HCPCS: 97605; A4218 ==

== ENCOUNTER 2019-06-12 14:29 | Outpatient (CLI) | payer SELFPAY ==
[2019-06-12] MEDS ORDERED: Sodium Chloride 0.9% 15 ML NEB ONE (15:00)
== END 2019-06-12 14:30 | disposition home or self-care (01) ==
LOC: WCC 14:29
PROVIDERS: ATTEND Family Medicine
DX: T81.89XD Other complications of procedures, not elsewhere classified, subsequent encounter (principal)
CPT/HCPCS: A4218

== ENCOUNTER 2019-06-15 15:56 | Outpatient (CLI) | payer SELFPAY | END 2019-06-15 15:57 | disposition home or self-care (01) | LOC: WCC 15:56 | PROVIDERS: ATTEND Family Medicine | DX: L03.116 Cellulitis of left lower limb (principal) | CPT/HCPCS: 97605; A4218 ==

== ENCOUNTER 2019-06-22 14:59 | Outpatient (CLI) | payer SELFPAY ==
--- NOTE | 2019-06-23 10:31 | PRG ---
DATE OF SERVICE: 06/22/2019 SUBJECTIVE: Mr. Tima Marie is a very pleasant 63-year-old gentleman, who presents to the Wound Center for evaluation of a wound of the left foot subsequent to transmetatarsal amputation on 05/11/[address] Israel Vasquez. On 05/22/2019, the patient underwent debridement at bedside by Dr. Aceves. The patient had been admitted to [facility] on 05/18/2019 for a diabetic foot infection. Subsequent to debridement at bedside, negative pressure therapy was initiated, and upon discharge from [facility], the patient was referred to the Wound Center for assistance with dressing changes of the wound VAC. PHYSICAL EXAMINATION: VITAL SIGNS: Temperature 97.9, pulse 82, respirations 17, blood pressure 160/75. Accu-Chek 111. EXTREMITIES: A wound of the left foot is present, which measures approximately 5.0 x 7.5 cm. Granulation tissue is present within the wound margins. No purulent drainage is associated with the wound. No maceration of the skin of the periwound is noted. No significant edema of the left foot is present on exam today. ASSESSMENT AND PLAN: 1. Left foot wound as described above. Negative pressure therapy will be continued with dressing changes of the wound VAC here in the Wound Center. The patient will be seen by Dr. Aceves next week. I will see Mr. Marie again in 2 weeks. 2. Hypertension. 3. Diabetes mellitus. The patient's Accu-Chek in clinic today is 111. The patient has been reminded that for optimal wound healing, his blood glucoses should remain below 150. 4. Coronary artery disease. 5. Peripheral vascular disease. Job ID: [id number]
== END 2019-06-22 15:00 | disposition home or self-care (01) ==
LOC: WCC 14:59
PROVIDERS: ATTEND Family Medicine
DX: S91.302D Unspecified open wound, left foot, subsequent encounter (principal); I10 Essential (primary) hypertension; E11.9 Type 2 diabetes mellitus without complications; I25.10 Atherosclerotic heart disease of native coronary artery without angina pectoris; I73.9 Peripheral vascular disease, unspecified
CPT/HCPCS: 97602; A4218

== ENCOUNTER 2019-06-27 11:01 | Outpatient (CLI) | payer SELFPAY ==
--- NOTE | 2019-06-27 11:53 | PRG ---
DATE OF SERVICE: 06/27/2019 Mr. Marie was seen in [facility] Wound Care in the basement today. He is undergoing wound care. He reports that Dr. Oconnell has seen him and continues oral antibiotics. The patient has had a transmetatarsal amputation of the left foot. He has plantar tunneling towards the arch, which has decreased in size. He has mild redness on the distal arch area, but the proximal arch area medial foot redness has resolved. Probing the wound reveals the tunnel still tunnels plantar about 3 to 4 cm, but not as long as it was previously. This tunnels underneath the slightly reddened area. On the lateral aspect of the foot, there is necrotic tissue over the fifth metatarsal. The necrotic tissue on the plantar flap and plantar side of the foot was debrided sharply exposing the tunnel towards the medial foot and opening the wound over the fifth metatarsal. The fifth metatarsal is palpated and exposed. Debridement of the tissues will allow wound VAC application and hopefully allow this to granulate over the fifth metatarsal hopefully to avoid resection more the metatarsal. I will see the wound in 1 to 2 weeks to assess this. He will continue oral antibiotics and care with Dr. Oconnell. I will see him in Wound Care in a week or 2. Job ID: [id number]
== END 2019-06-27 11:02 | disposition home or self-care (01) ==
LOC: WCC 11:01
PROVIDERS: ATTEND Family Medicine
DX: T81.89XD Other complications of procedures, not elsewhere classified, subsequent encounter (principal); Z89.432 Acquired absence of left foot
CPT/HCPCS: 97605; A4218

== ENCOUNTER 2019-06-28 13:09 | Outpatient (CLI) | payer SELFPAY | END 2019-06-28 13:10 | disposition home or self-care (01) | LOC: WCC 13:09 | PROVIDERS: ATTEND Family Medicine | DX: T81.89XD Other complications of procedures, not elsewhere classified, subsequent encounter (principal) | CPT/HCPCS: 97605 ==

== ENCOUNTER 2019-06-30 11:36 | Emergency (ER) | payer SELFPAY ==
[2019-06-30 13:57] LABS: #Basophils 0.1 thou/uL (0.0-0.2); #Eosinphils 0.4 thou/uL (0.0-0.7); #Lymphocytes 2.5 thou/uL (1.20-3.40); #Monocytes 0.8 thou/uL (0.11-0.59); #Neutrophils 5.1 thou/uL (1.40-6.50); %Eosinophils 4.2 % (0.0-10.0); %Lymphocytes 27.6 % (21.0-51.0); %Monocytes 9.3 % (0.0-10.0); %Neutrophils 57.8 % (42.0-75.0); Hemoglobin 11.5 g/dL (14.0-18.0); Mean Corpuscular HGB CONC 32.4 g/dL (32.0-36.0); Mean Corpuscular Hemoglobin 28.3 pg (27.0-31.0); Mean Corpuscular Volume 87.3 fL (78.0-98.0); Mean Platelet Volume 6.2 fL (7.4-10.4); Platelet Count 406 thou/uL (130-400); RBC Distribution Width 13.4 % (11.5-14.5); Red Blood Cell (RBC) Count 4.06 mill/uL (4.70-6.10); White Blood Cell (WBC) Count 8.9 thou/uL (4.8-10.8)
--- NOTE | 2019-06-30 14:03 | CT ---
CT OF HEAD NONCONTRAST: INDICATION: Emergency exam, hypertension. FINDINGS: There is no acute intracranial hemorrhage, mass effect, or midline shift. Ventricular system is age appropriate in size. IMPRESSION: No acute intracranial abnormalities. POS: C
[2019-06-30 14:20] LABS: ALT (SGPT) 11 U/L (8-55); AST (SGOT) 10 U/L (5-34); Albumin 4.1 g/dL (3.4-4.8); Alkaline Phosphatase 65 U/L (40-150); Anion Gap 15 mmol/L (10-20); BUN (Urea Nitrogen) 13 mg/dL (8.4-25.7); Bilirubin, Total 0.4 mg/dL (0.2-1.2); Calc. Creatinine Clearance 0 mL/min (70-130); Calcium 9.2 mg/dL (7.8-10.44); Carbon Dioxide 26 mmol/L (23-31); Chloride 100 mmol/L (98-107); Estimated GFR-MDRD Greater than 90; Globulin 3.1 g/dL (2.4-3.5); Glucose 68 mg/dL (80-115); Potassium 4.1 mmol/L (3.5-5.1); Protein, Total 7.2 g/dL (5.8-8.1); Sodium 137 mmol/L (136-145)
[2019-06-30] MEDS ORDERED: cloNIDine 0.1 MG TAB ONE (15:28)
== END 2019-06-30 16:50 | disposition home or self-care (01) ==
LOC: ERS 11:36
DX: I10 Essential (primary) hypertension (principal); I25.10 Atherosclerotic heart disease of native coronary artery without angina pectoris; E11.9 Type 2 diabetes mellitus without complications
CPT/HCPCS: 36415; 70450; 80053; 84484; 85025; 93005

== ENCOUNTER 2019-06-30 11:47 | Outpatient (CLI) | payer SELFPAY | END 2019-06-30 11:48 | disposition home or self-care (01) | LOC: WCC 11:47 | PROVIDERS: ATTEND Family Medicine | DX: T81.89XD Other complications of procedures, not elsewhere classified, subsequent encounter (principal) | CPT/HCPCS: 97605; A4218 ==

== ENCOUNTER 2019-07-04 10:00 | Outpatient (CLI) | payer SELFPAY | END 2019-07-04 10:01 | disposition home or self-care (01) | LOC: WCC 10:00 | PROVIDERS: ATTEND Family Medicine | DX: T81.89XD Other complications of procedures, not elsewhere classified, subsequent encounter (principal) | CPT/HCPCS: A4218 ==

== ENCOUNTER 2019-07-07 10:27 | Outpatient (CLI) | payer SELFPAY | END 2019-07-07 10:28 | disposition home or self-care (01) | LOC: WCC 10:27 | PROVIDERS: ATTEND Family Medicine | DX: T81.89XD Other complications of procedures, not elsewhere classified, subsequent encounter (principal); L03.116 Cellulitis of left lower limb | CPT/HCPCS: 97605; A4218 ==

== ENCOUNTER 2019-07-11 14:58 | Outpatient (CLI) | payer SELFPAY | END 2019-07-11 14:59 | disposition home or self-care (01) | LOC: WCC 14:58 | PROVIDERS: ATTEND Family Medicine | DX: T81.89XD Other complications of procedures, not elsewhere classified, subsequent encounter (principal) ==

== ENCOUNTER 2019-07-14 14:46 | Outpatient (CLI) | payer OTHER, SELFPAY ==
[2019-07-14] MEDS ORDERED: Sodium Chloride 0.9% 15 ML NEB ONE (19:14)
== END 2019-07-14 14:47 | disposition home or self-care (01) ==
LOC: WCC 14:46
PROVIDERS: ATTEND Family Medicine
DX: T81.89XD Other complications of procedures, not elsewhere classified, subsequent encounter (principal)
CPT/HCPCS: 97605; A4218

== ENCOUNTER 2019-07-17 15:00 | Outpatient (CLI) | payer OTHER, SELFPAY ==
--- NOTE | 2019-07-17 12:10 | PRG ---
DATE OF SERVICE: 07/17/2019 Tima Marie is seen today in wound care. Mr. Marie has a transmetatarsal amputation of left foot. He has had previous debridement of the left plantar flap that was necrotic with necrotic tissue. He has had a sinus tract protruding from the transmetatarsal amputation plantar towards the arch. We have been persistent and packing this debriding this to allow phone packing, but this tract has resolved. There is no indication of infection or deeper tracts in the plantar arch now. The wound is healthy, granulating and looks very good. I would continue the wound VAC and hopefully in next 3 weeks, we could change to non-wound VAC care. Overall, the prognosis is good for salvage of the foot. Job ID: [id number]
[2019-07-17] MEDS ORDERED: Sodium Chloride 0.9% 15 ML NEB ONE (17:03)
== END 2019-07-17 15:01 | disposition home or self-care (01) ==
LOC: WCC 15:00
PROVIDERS: ATTEND Family Medicine
DX: T81.89XD Other complications of procedures, not elsewhere classified, subsequent encounter (principal); Z89.432 Acquired absence of left foot
CPT/HCPCS: 97605; A4218

== ENCOUNTER 2019-07-20 11:30 | Outpatient (CLI) | payer SELFPAY | END 2019-07-20 11:31 | disposition home or self-care (01) | LOC: WCC 11:30 | PROVIDERS: ATTEND Family Medicine | DX: L03.116 Cellulitis of left lower limb (principal); T81.89XD Other complications of procedures, not elsewhere classified, subsequent encounter | CPT/HCPCS: 97605; A4218 ==

== ENCOUNTER 2019-07-24 14:18 | Outpatient (CLI) | payer SELFPAY ==
[2019-07-24] MEDS ORDERED: Sodium Chloride 0.9% 15 ML NEB ONE (18:22)
== END 2019-07-24 14:19 | disposition home or self-care (01) ==
LOC: WCC 14:18
PROVIDERS: ATTEND Family Medicine
DX: T81.89XD Other complications of procedures, not elsewhere classified, subsequent encounter (principal)
CPT/HCPCS: 97605; A4218

== ENCOUNTER 2019-07-27 11:08 | Outpatient (CLI) | payer SELFPAY ==
[2019-07-27] MEDS ORDERED: Sodium Chloride 0.9% 15 ML NEB ONE (15:00)
== END 2019-07-27 11:09 | disposition home or self-care (01) ==
LOC: WCC 11:08
PROVIDERS: ATTEND Family Medicine
DX: T81.89XD Other complications of procedures, not elsewhere classified, subsequent encounter (principal)
CPT/HCPCS: 99211; A4218; G0463

== ENCOUNTER 2019-07-31 09:46 | Outpatient (CLI) | payer SELFPAY ==
--- NOTE | 2019-07-31 10:31 | PRG ---
DATE OF SERVICE: 07/31/2019 HISTORY: Mr. Tima Marie is a very pleasant 63-year-old gentleman, who presents to the Wound Center for evaluation of a wound of the left foot subsequent to transmetatarsal amputation on 05/11/[address] Israel Vasquez. On 05/22/2019, the patient underwent debridement at bedside by Dr. Aceves. The patient had been admitted to [facility] on 05/18/2019 for a diabetic foot infection. Subsequent to debridement at bedside, negative pressure therapy was initiated, and upon discharge from [facility], the patient was referred to the Wound Center for assistance with dressing changes of the wound VAC. Negative pressure therapy has been discontinued by Dr. Aceves and the patient is receiving dressing changes of Fibracol with the assistance of his . PHYSICAL EXAMINATION: VITAL SIGNS: Temperature 97.8, pulse 59, respirations 16, and blood pressure 114/61. Accu-Chek 177. EXTREMITIES: A wound of the left foot is present which measures approximately 3.5 x 8.2 cm. The dimensions of the wound at the time of the patient's visit on 06/22/2019 were approximately 5.0 x 7.5 cm. Granulation tissue is present within the wound margins. No purulent drainage is associated with the wound. No cellulitis of the left foot is appreciated. No maceration of the skin of the periwound is noted. No significant edema of the left foot is present on exam today. ASSESSMENT AND PLAN: 1. Left foot wound as described above. Dressing changes of Fibracol will be continued after cleansing and irrigation with the assistance of the patient's . The patient will be seen by Dr. Aceves in 1 to 3 weeks. I will see Mr. Marie again in 2 weeks. 2. Hypertension. 3. Diabetes mellitus. The patient's Accu-Chek in clinic today is 177. The patient has been reminded that for optimal wound healing, his blood glucoses should remain below 150. 4. Coronary artery disease. 5. Peripheral vascular disease. Job ID: [id number]
== END 2019-07-31 09:47 | disposition home or self-care (01) ==
LOC: WCC 09:46
PROVIDERS: ATTEND Family Medicine
DX: T81.89XD Other complications of procedures, not elsewhere classified, subsequent encounter (principal); I10 Essential (primary) hypertension; E11.9 Type 2 diabetes mellitus without complications; I25.10 Atherosclerotic heart disease of native coronary artery without angina pectoris; I73.9 Peripheral vascular disease, unspecified
CPT/HCPCS: A4218

== ENCOUNTER 2019-08-14 11:36 | Outpatient (CLI) | payer OTHER, SELFPAY ==
--- NOTE | 2019-08-14 10:40 | PRG ---
DATE OF SERVICE: 08/14/2019 HISTORY: Mr. Tiam Marie is a very pleasant 63-year-old gentleman, who presents to the [facility] for evaluation of a wound of the left foot subsequent to transmetatarsal amputation on 05/11/[address] Israel Vasquez. On 05/22/2019, the patient underwent debridement at bedside by Dr. Aceves. The patient had been admitted to [facility] on 05/18/2019 for a diabetic foot infection. Subsequent to debridement at bedside, negative pressure therapy was initiated, and upon discharge from [facility], the patient was referred to the Wound Center for assistance with dressing changes of the wound VAC. Negative pressure therapy has been discontinued by Dr. Aceves and the patient is receiving dressing changes of Fibracol with the assistance of his . PHYSICAL EXAMINATION: VITAL SIGNS: Temperature 97.8, pulse 63, respirations 16, and blood pressure 154/68. Accu-Chek 119. EXTREMITIES: A wound of the left foot is present, which measures approximately 3.5 x 5.9 cm. The dimensions of the wound at the time of the patient's visit on 07/31/2019 were approximately 3.5 x 8.2 cm. Granulation tissue is present within the wound margins. No purulent drainage is associated with the wound. No cellulitis of the left foot is appreciated. No maceration of the skin of the periwound is noted. No significant edema of the left foot is present on exam today. ASSESSMENT AND PLAN: 1. Left foot wound as described above. Dressing changes of Fibracol or Promogran will be continued after cleansing and irrigation with the assistance of the patient's . I will see Mr. Marie again in 2 weeks. 2. Hypertension. 3. Diabetes mellitus. The patient's Accu-Chek in clinic today is 119. The patient has been reminded that for optimal wound healing, his blood glucoses should remain below 150. 4. Coronary artery disease. 5. Peripheral vascular disease. Job ID: [id number]
== END 2019-08-14 11:37 | disposition home or self-care (01) ==
LOC: WCC 11:36
PROVIDERS: ATTEND Family Medicine
DX: Z47.81 Encounter for orthopedic aftercare following surgical amputation (principal); I10 Essential (primary) hypertension; E11.9 Type 2 diabetes mellitus without complications; I25.10 Atherosclerotic heart disease of native coronary artery without angina pectoris; I73.9 Peripheral vascular disease, unspecified; Z89.432 Acquired absence of left foot
CPT/HCPCS: A4218

== ENCOUNTER 2019-08-28 13:48 | Outpatient (CLI) | payer SELFPAY ==
--- NOTE | 2019-08-28 16:39 | PRG ---
DATE OF SERVICE: 08/28/2019 HISTORY: Mr. Tima Marie is a very pleasant 63-year-old gentleman accompanied by his , who presents to the Wound Center for evaluation of a wound of the left foot subsequent to transmetatarsal amputation on 05/11/[address] Israel Vasquez. On 05/22/2019, the patient underwent debridement at bedside by Dr. Aceves. The patient had been admitted to [facility] on 05/18/2019 for a diabetic foot infection. Subsequent to debridement at bedside, negative pressure therapy was initiated and upon discharge from [facility], the patient was referred to the Wound Center for assistance with dressing changes of the wound VAC. Negative pressure therapy has been discontinued by Dr. Aceves and the patient is receiving dressing changes with the assistance of his . PHYSICAL EXAMINATION: VITAL SIGNS: Temperature 98.0, pulse 81, respirations 19, and blood pressure 144/81. Accu-Chek 171. EXTREMITIES: A wound of the left foot is present which measures approximately 2.6 x 4.3 cm. The dimensions of the wound at the time of the patient's visit on 08/14/2019 were approximately 3.5 x 5.9 cm. Granulation tissue is present within the wound margins. No purulent drainage is associated with the wound. No cellulitis of the left foot is appreciated. No maceration of the skin of the periwound is noted. No significant edema of the left foot is present on exam today. ASSESSMENT AND PLAN: 1. Left foot wound as described above. Dressing changes of Promogran will be continued on a daily basis after cleansing and irrigation with the assistance of the patient's . I will see Mr. Marie in 2 weeks. 2. Hypertension. 3. Diabetes mellitus. The patient's Accu-Chek in clinic today is 171. The patient has been reminded that for optimal wound healing, his blood glucoses should remain below 150. 4. Coronary artery disease. 5. Peripheral vascular disease. Job ID: [id number]
== END 2019-08-28 13:49 | disposition home or self-care (01) ==
LOC: WCC 13:48
PROVIDERS: ATTEND Family Medicine
DX: S91.302D Unspecified open wound, left foot, subsequent encounter (principal); E11.9 Type 2 diabetes mellitus without complications; I25.10 Atherosclerotic heart disease of native coronary artery without angina pectoris; I73.9 Peripheral vascular disease, unspecified
CPT/HCPCS: A4218

== ENCOUNTER 2019-10-24 18:50 | Inpatient (IN) | payer OTHER, MEDICARE ==
[2019-10-24] MEDS ORDERED: Ondansetron ODT 4 MG TAB ONE (19:33)
[2019-10-24] MEDS ORDERED: Ondansetron PF 4 MG/2 ML Vial ONE ×2 (19:33→19:58)
--- NOTE | 2019-10-24 20:03 | RAD ---
EXAM: Portable chest PROVIDED CLINICAL HISTORY: Fever COMPARISON: 08/06/2019 FINDINGS: The lungs are hypoinflated, limiting assessment. Median sternotomy changes are again seen. Cardiac an d mediastinal silhouette is not definitely changed in appearance. Prominence of the pulmonary bronchovascular markings may be on the basis of lung hypoinflation. Vascular congestion is not exclud ed. No focal consolidation or pneumothorax evident. Blunting of each costophrenic angle may be on the basis of lung hypoinflation versus small effusions. IMPRESSION: Hypoinflated exam.
--- NOTE | 2019-10-24 20:14 | RAD ---
EXAM: XR Foot Lt 3 View STANDARD PROVIDED CLINICAL HISTORY: Pain FINDINGS: There is no evidence for fracture or other acute osseous abnormality. Postoperative changes involving the forefoot appear similar to 08/06/2019. Alignment appears anatomic. Joint spaces appear preserved. IMPRESSION: No evidence for an acute osseous abnormality. If there is persistent clinical concern, conservative m anagement and follow-up imaging advised.
[2019-10-24] MEDS ORDERED: Acetaminophen 500 MG TAB ONE (20:16)
[2019-10-24 20:20] LABS: Hemoglobin 11.6 g/dL (14.0-18.0); Mean Corpuscular HGB CONC 35.4 g/dL (32.0-36.0); Mean Corpuscular Hemoglobin 30.1 pg (27.0-31.0); Mean Platelet Volume 7.2 fL (7.4-10.4); Platelet Count 333 thou/uL (130-400); RBC Distribution Width 12.5 % (11.5-14.5); Red Blood Cell (RBC) Count 3.85 mill/uL (4.70-6.10); White Blood Cell (WBC) Count 20.1 thou/uL (4.8-10.8)
[2019-10-24] MEDS ORDERED: MEROPENEM 1 GM/50 ML 1 GM in Premix Bag 1 BAG IVPB SCH (20:30)
[2019-10-24 20:42] LABS: Band 3 % (5-11); Lymphocytes 4 % (21-51); MDiff Complete? YES; Monocytes 4 % (0-10); Neutrophil 89 % (42-75); Platelet Morphology Comment Appears Adequate
[2019-10-24 20:45] LABS: ALT (SGPT) 10 U/L (8-55); AST (SGOT) 12 U/L (5-34); Albumin 4.4 g/dL (3.4-4.8); Alkaline Phosphatase 74 U/L (40-110); Anion Gap 15 mmol/L (10-20); BUN (Urea Nitrogen) 19 mg/dL (8.4-25.7); Bilirubin, Total 0.7 mg/dL (0.2-1.2); CK (CPK) 91 U/L (30-200); Calc. Creatinine Clearance 0 mL/min (70-130); Calcium 9.4 mg/dL (7.8-10.44); Carbon Dioxide 23 mmol/L (23-31); Chloride 100 mmol/L (98-107); Estimated GFR-MDRD 73; Globulin 3.4 g/dL (2.4-3.5); Glucose 198 mg/dL (80-115); Lipase 23 U/L (8-78); Potassium 3.5 mmol/L (3.5-5.1); Protein, Total 7.8 g/dL (5.8-8.1); Sodium 134 mmol/L (136-145)
[2019-10-24 20:57] LABS: Bacteria/HPF None Seen HPF (None Seen); Bilirubin Negative (Negative); Blood, Urine 2+ (Negative); Clarity Clear (Clear); Glucose, Urine (Dipstick) 200 mg/dL (Negative); Leukocyte Negative Leu/uL (Negative); Mucous/LPF 1+ LPF (<2+); Nitrite Negative (Negative); Protein, Urine (Dipstick) 300 mg/dL (Neg-Trace); RBC/HPF 21-50 HPF (0-3); Squamous Epithelial None Seen HPF (0-3); Urobilinogen Normal mg/dL (Less than 2); WBC/HPF 0-3 HPF (0-3)
[2019-10-24 21:05] LABS: CKMB 1.8 ng/mL (0-6.6)
[2019-10-24 23:46] LABS: Troponin I 0.124 ng/mL (< 0.028)
[2019-10-25] MEDS ORDERED: Calcium Carbonate 500 MG ChewTAB PO PRN (00:51)
[2019-10-25] MEDS ORDERED: Ondansetron ODT 4 MG TAB PO PRN (00:51)
[2019-10-25] MEDS ORDERED: Senokot S 8.6-50 MG TAB PO PRN (00:51)
[2019-10-25] MEDS ORDERED: Ondansetron PF 4 MG/2 ML Vial IVP PRN (00:51)
[2019-10-25] MEDS ORDERED: Acetaminophen 325 MG TAB PO PRN (00:51)
[2019-10-25] MEDS ORDERED: Vancomycin HCl 1 GM in Premix Bag 1 BAG IVPB SCH (01:00)
--- NOTE | 2019-10-25 01:22 | HP ---
Patient was seen and examined on October 24, 2019. CHIEF COMPLAINT: Fever. HISTORY OF PRESENT ILLNESS: The patient is a 63-year-old male with chronic diastolic heart failure, recurrent left foot infections, diabetes mellitus type 2, and hypertension, presented to the emergency room with the above complaint. Last hospitalization at this facility was approximately 2 to 3 months ago for diabetic foot infection. He was discharged home with Augmentin. Over the last one month, the patient has gradual worsening shortness of breath along with bilateral lower extremity swelling. He is unable to lie down flat. He gets short of breath on [id number] exertion. He was recently evaluated by Cardiology, Dr. Saavedra, and was diagnosed with diastolic heart failure. He was started on Lasix 20 mg daily that was increased to 20 mg twice daily 1 to 2 days ago. Earlier today, the patient had fever along with chills. He also has dry cough over the last 3 to 4 days. He felt nauseous and had several episodes of vomiting. He denies any abdominal pain or diarrhea. The cough was essentially dry. He noticed minimal redness over the left foot amputation site. He denies any altered mentation. He denies any sick contacts, except for except for one of the grandchildren with transient viral gastroenteritis. His vital signs in the emergency room showed temperature of 102.6, respirations 25, pulse of 116, with a blood pressure of 176/106 with O2 saturation of 90% to 92% on room air. He was later saturating 94% on 3 L nasal cannula. He received vancomycin, meropenem, Zofran with 2 L of IV fluid in the emergency room. PAST MEDICAL HISTORY: 1. Diabetes mellitus, type 2. 2. Hypertension. 3. Hyperlipidemia. 4. Peripheral vascular disease. 5. Coronary artery disease, status post CABG. 6. Recurrent diabetic foot infections. PAST SURGICAL HISTORY: 1. Partial left foot amputation. 2. Coronary artery bypass grafting. 3. Hernia surgery. 4. Lower extremity stent placement. ALLERGIES: PATIENT IS ALLERGIC TO STATINS AND LISINOPRIL. CURRENT HOME MEDICATION: 1. Glyburide 5 mg twice a day. 2. Metformin 1000 mg b.i.d. 3. Lucentis intraocular monthly injection. 4. Procardia XL 60 mg daily. 5. Lopressor 50 mg b.i.d. 6. Lasix 20 mg b.i.d. 7. Plavix 75 mg daily. 8. Hydralazine 50 mg 3 times a day. SOCIAL HISTORY: The patient currently lives at home with his family. Spouse is at the bedside. No smoking, alcohol, or drug use. FAMILY HISTORY: Positive for diabetes, hypertension, and cancer. REVIEW OF SYSTEMS: All other review of systems was reviewed and was found negative. PHYSICAL EXAMINATION: VITAL SIGNS: As discussed above. GENERAL: A 63-year-old male, in mild respiratory distress, able to complete short phrases. HEENT: Head, atraumatic and normocephalic. Sclerae anicteric. Moist mucous membranes. No oral lesion. NECK: Supple. No JVD. No carotid bruit. LUNGS: Show bilateral rhonchi with rales at bases. Minimal accessory muscle use. He is currently on 3 L oxygen. No significant wheezing. HEART: S1, S2 present. Healed midline scar from previous CABG. 3/6 systolic murmur over the mitral area. No heaves or pulsation. ABDOMEN: Soft, nontender. Bowel sounds present. No rebound or guarding. EXTREMITIES: Bilateral lower extremity 2+ edema with some erythema over the left foot surgical site. He also had 1 cm diameter lesion on the anterior upper leg with some serosanguineous dressing and minimal erythema surrounding the lesion. SKIN: As discussed above. Warm and dry. LYMPH NODES: No palpable lymph nodes in the neck. PERIPHERAL VASCULAR: Radial pulses palpable bilaterally. MUSCULOSKELETAL: No joint swelling tenderness. LABORATORY FINDINGS: WBC 20.1 with hemoglobin 11.6, and platelet 333 with neutrophils of 89%, 3% bandemia. Chemistry showed sodium 134, potassium 3.5, chloride 100, bicarb 23, BUN 19, creatinine 1.03, and glucose of 198. Troponin initially was 0.041. Repeat troponin was 0.124. CRP 1.46. BNP 224.8. BNP 3 weeks ago was 124. Influenza screen was negative. Chest x-ray by my review showed increased bronchopulmonary markings. Left foot x-ray by my review was negative for acute findings. EKG by my review showed sinus tachycardia with nonspecific ST-T wave changes in the anterolateral leads. IMPRESSION: 1. Severe sepsis suspected due to left foot cellulitis. 2. Acute on chronic diastolic heart failure exacerbation. 3. Questionable acute bronchitis. 4. Hyponatremia, probably due to volume overload. Patient has gained approximately 10 pounds over the past 1 month. 5. Type 2 myocardial infarction. 6. Chronic kidney disease, stage 2. 7. Diabetes mellitus, type 2. 8. Hypertension. 9. Peripheral vascular disease. 10. Hyperlipidemia, unable to tolerate statins. 11. Coronary artery disease status post coronary artery bypass grafting. PLAN: 1. Patient will be monitored on the telemetry unit. We will continue vancomycin. We will add Zosyn. Consult Infectious Disease, Dr. Oconnell. We will hold further IV fluids. He received 2 L IV fluids in the ER. We will resume home medications including Lasix. The Lasix dose will be increased temporarily. We will start insulin sliding scale. Continue Plavix. Patient denies any chest discomfort. 2. Telemetry monitoring. 3. Vital signs every 4 hourly. Plan was discussed with the patient and the family in detail. They stated understanding. Job ID: [id number]
[2019-10-25] MEDS ORDERED: Piperacillin/Tazobactam 3.375 GM VIAL ONE ×2 (02:00→08:46)
[2019-10-25] MEDS ORDERED: Aspirin 325 MG TAB ONE (02:00)
[2019-10-25] MEDS: Piperacillin/Tazobactam 3.375 GM in Sodium Chloride 0.9% 100 ML IVPB SCH ×4 (02:06→19:40)
[2019-10-25 07:03] LABS: #Lymphocytes 0.6 thou/uL (1.20-3.40); #Monocytes 0.9 thou/uL (0.11-0.59); %Basophils 0.1 % (0.0-1.0); %Eosinophils 0.1 % (0.0-10.0); %Lymphocytes 3.3 % (21.0-51.0); %Monocytes 5.1 % (0.0-10.0); %Neutrophils 91.5 % (42.0-75.0); Mean Corpuscular HGB CONC 32.5 g/dL (32.0-36.0); Mean Corpuscular Hemoglobin 28.6 pg (27.0-31.0); Mean Corpuscular Volume 87.8 fL (78.0-98.0); Mean Platelet Volume 6.7 fL (7.4-10.4); Platelet Count 261 thou/uL (130-400); RBC Distribution Width 12.7 % (11.5-14.5); White Blood Cell (WBC) Count 17.5 thou/uL (4.8-10.8)
[2019-10-25 07:20] LABS: Anion Gap 13 mmol/L (10-20); BUN (Urea Nitrogen) 19 mg/dL (8.4-25.7); Calc. Creatinine Clearance 80 mL/min (70-130); Calcium 8.2 mg/dL (7.8-10.44); Carbon Dioxide 23 mmol/L (23-31); Chloride 104 mmol/L (98-107); Estimated GFR-MDRD 76; Glucose 197 mg/dL (80-115); Magnesium 1.8 mg/dL (1.6-2.6); Potassium 3.5 mmol/L (3.5-5.1); Sodium 136 mmol/L (136-145)
[2019-10-25] MEDS ORDERED: Dextrose 50% Abboject 50 ML SYRINGE SLOW IVP PRN (07:33)
[2019-10-25] MEDS ORDERED: Dextrose 5% in Water 1,000 ML IV PRN (07:33)
[2019-10-25] MEDS ORDERED: Loperamide HCl 2 MG CAP PO PRN (07:33)
[2019-10-25] MEDS ORDERED: Sodium Chloride 0.65% Nasal 44 ML BOT EA NARE PRN (07:33)
[2019-10-25] MEDS ORDERED: hydrALAZINE 20 MG/ML VIAL SLOW IVP PRN (07:33)
[2019-10-25] MEDS ORDERED: Artificial Tears 18 DROP/0.9 ML EA EYE PRN (07:33)
[2019-10-25] MEDS ORDERED: HumaLOG 300 UNITS/3 ML VIAL SC PRN (07:33)
[2019-10-25] MEDS ORDERED: Cepastat Lozenges 1 LOZ PO PRN (07:33)
[2019-10-25] MEDS ORDERED: Diabetic Tussin 200 MG/10 ML UDCUP PO PRN (07:33)
[2019-10-25 07:46] LABS: CKMB 3.4 ng/mL (0-6.6)
[2019-10-25] MEDS ORDERED: Potassium Chloride 20 MEQ TAB PO SCH (08:00)
[2019-10-25] MEDS ORDERED: HumaLOG 300 UNITS/3 ML VIAL ONE (08:46)
[2019-10-25] MEDS ORDERED: Ondansetron ODT 4 MG TAB ONE (08:46)
[2019-10-25] MEDS ORDERED: Furosemide 20 MG/2 ML VIAL ONE (08:46)
[2019-10-25] MEDS ORDERED: Clopidogrel Bisulfate 75 MG TAB ONE (08:46)
[2019-10-25] MEDS ORDERED: Potassium Chloride 20 MEQ TAB ONE (08:46)
[2019-10-25] MEDS ORDERED: hydrALAZINE 25 MG TAB ONE (08:46)
[2019-10-25] MEDS ORDERED: Metoprolol Tartrate 25 MG TAB ONE (08:46)
[2019-10-25] MEDS ORDERED: Enoxaparin Sodium 40 MG/0.4 ML SYRINGE ONE (08:46)
[2019-10-25] MEDS: Potassium Chloride 20 MEQ TAB PO SCH (08:52)
[2019-10-25] MEDS: glyBURIDE 5 MG TAB PO SCH ×2 (08:52→16:36)
[2019-10-25] MEDS: hydrALAZINE 25 MG TAB PO SCH ×2 (08:53→16:36)
[2019-10-25] MEDS: Clopidogrel Bisulfate 75 MG TAB PO SCH (08:53)
[2019-10-25] MEDS: Metoprolol Tartrate 50 MG TAB PO SCH ×2 (08:54→21:22)
[2019-10-25] MEDS: Lactinex Tablet PO SCH (08:54)
[2019-10-25] MEDS: Enoxaparin Sodium 40 MG/0.4 ML SYRINGE SC SCH (08:55)
[2019-10-25] MEDS: NIFEdipine XL 60 MG TAB PO SCH (08:55)
[2019-10-25] MEDS ORDERED: Furosemide 20 MG/2 ML VIAL SLOW IVP SCH (09:00)
[2019-10-25] MEDS: HumaLOG 300 UNITS/3 ML VIAL SC PRN (09:03)
[2019-10-25] MEDS: Vancomycin HCl 1.25 GM in Sodium Chloride 0.9% 250 ML 250 ML IVPB SCH ×2 (10:23→21:22)
--- NOTE | 2019-10-25 12:36 | PDOC.HOSPP ---
- Subjective Encounter Date: 10/25/19 Encounter Time: 11:00 Subjective: Patient seen and examined. No new complaints. No overnight events pt has intermittent chest pain and dyspnea, he has edema of both leg and had fever at home - Objective Vital Signs & Weight: Vital Signs (12 hours) Pulse BP 10/25/19 08:55 88 10/25/19 08:53 88 161/75 H Weight Weight 165 lb 5.82 oz Result Diagrams: 10/25/19 06:51 10/25/19 06:51 Additional Labs: Accuchecks 10/25/19 10/25/19 10/25/19 11:11 07:14 02:47 POC Glucose 229 H 212 H 223 H Radiology Reviewed by me: Yes EKG Reviewed by me: Yes Hospitalist ROS - Review of Systems Constitutional: denies: fever, chills, sweats, weakness, malaise, other ENT: denies: ear pain, ear discharge, nose pain, nose discharge, nose congestion , mouth pain, mouth swelling, throat pain, throat swelling, other Respiratory: reports: SOB with excertion. denies: cough, dry, shortness of breath, hemoptysis, pleuritic pain, sputum, wheezing, other Cardiovascular: reports: chest pain, edema. denies: palpitations, orthopnea, paroxysmal noc. dyspnea, light headedness, other Gastrointestinal: denies: nausea, vomiting, abdominal pain, diarrhea, constipation, melena, hematochezia, other Genitourinary: denies: dysuria, frequency, incontinence, hematuria, retention, other Musculoskeletal: denies: neck pain, shoulder pain, arm pain, back pain, hand pain, leg pain, foot pain, other Skin: denies: rash, lesions, deirdre, bruising, other - Medication Medications: Active Medications Generic Name Dose Route Start Last Admin Trade Name Freq PRN Reason Stop Dose Admin Acidophilus 1 tab 10/25/19 09:00 10/25/19 08:54 Floranex PO 1 tab DAILY BRITANY Administration Clopidogrel Bisulfate 75 mg 10/25/19 09:00 10/25/19 08:53 Plavix PO 75 mg DAILY BRITANY Administration Enoxaparin Sodium 40 mg 10/25/19 09:00 10/25/19 08:55 Lovenox SC 40 mg 0900 BRITANY Administration Glyburide 5 mg 10/25/19 08:00 10/25/19 08:52 Diabeta PO 5 mg BID-WM BRITANY Administration Hydralazine HCl 50 mg 10/25/19 09:00 10/25/19 08:53 Apresoline PO 50 mg TID BRITANY Administration Piperacillin Sod/Tazobactam 100 mls @ 200 mls/hr 10/25/19 02:00 10/25/19 08: 55 Sod 3.375 gm/ Sodium Chloride IVPB 100 mls 0200,0800,1400,2000 BRITANY Administration Vancomycin HCl 1.25 gm/ Sodium 250 mls @ 166.667 mls/hr 10/25/19 09:00 10:23 Chloride IVPB 250 mls Q12HR BRITANY Administration Insulin Human Lispro 0 units 10/25/19 07:33 10/25/19 09:03 Humalog SC 4 unit .MODERATE SLIDING SC PRN Administration Moderate Correctional Scale Metoprolol Tartrate 50 mg 10/25/19 09:00 10/25/19 08:54 Lopressor PO 50 mg BID BRITANY Administration Nifedipine 60 mg 10/25/19 09:00 10/25/19 08:55 Procardia Xl PO 60 mg QAM BRITANY Administration Ondansetron HCl 4 mg 10/25/19 00:51 10/25/19 08:55 Zofran Odt PO 4 mg Q6H PRN Administration Nausea/Vomiting Potassium Chloride 20 meq 10/25/19 08:00 10/25/19 08:52 K-Dur PO 20 meq QAM-WM BRITANY Administration - Exam General Appearance: NAD, awake alert Eye: PERRL, anicteric sclera ENT: normocephalic atraumatic, no oropharyngeal lesions Neck: supple, symmetric, no JVD, no thyromegaly Heart: RRR, no murmur, no gallops Respiratory - other findings: few basilar rales and reduced air entry Gastrointestinal: soft, non-tender, non-distended, normal bowel sounds Extremities: 2+ LE edema Skin: normal turgor, no lesions Neurological: no focal deficits Musculoskeletal: normal tone, normal strength Psychiatric: normal affect, normal behavior Hosp A/P (1) Type [address] elevation Code(s): I21.A1 - MYOCARDIAL INFARCTION TYPE 2 Status: Acute (2) Anemia, normocytic normochromic Code(s): D64.9 - ANEMIA, UNSPECIFIED Status: Chronic (3) CAD (coronary artery disease) Code(s): I25.10 - ATHSCL HEART DISEASE OF [place] CORONARY ARTERY W/O ANG PCTRS Status: Chronic Qualifiers: Coronary Disease-Associated Artery/Lesion type: bypass graft [place] vs. 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 (5) Hypertension Code(s): I10 - ESSENTIAL (PRIMARY) HYPERTENSION Status: Chronic Qualifiers: (6) PAD (peripheral artery disease) Code(s): I73.9 - PERIPHERAL VASCULAR DISEASE, UNSPECIFIED Status: Chronic (7) Sepsis Code(s): A41.9 - SEPSIS, UNSPECIFIED ORGANISM Status: Suspected Qualifiers: Sepsis acute organ dysfunction status: unspecified - Plan old records reviewed/req, continue antibiotics 10/25/19 I am suspecting underlying CAD based on his history for his elevated troponin, will get cardiology opinion in this regard, will get echo, currently on empiric antibiotic, i will increase lasix, will check protein and creatinine ration to rule out nephrotic syndrome. medication reviewed and continue to provide symptomatic treatment
[2019-10-25] MEDS: Furosemide 40 MG/4 ML VIAL SLOW IVP SCH (15:22)
[2019-10-25 20:20] LABS: Creatinine, Urine 46.89 mg/dL (63-166)
[2019-10-25] MEDS: hydrALAZINE 10 MG TAB PO SCH (21:21)
[2019-10-26] MEDS: Piperacillin/Tazobactam 3.375 GM in Sodium Chloride 0.9% 100 ML IVPB SCH ×4 (01:23→21:46)
[2019-10-26 05:06] LABS: #Lymphocytes 1.2 thou/uL (1.20-3.40); #Neutrophils 8.6 thou/uL (1.40-6.50); %Basophils 0.1 % (0.0-1.0); %Eosinophils 0.4 % (0.0-10.0); %Lymphocytes 10.7 % (21.0-51.0); %Monocytes 9.4 % (0.0-10.0); %Neutrophils 79.5 % (42.0-75.0); Hemoglobin 9.5 g/dL (14.0-18.0); Mean Corpuscular HGB CONC 33.8 g/dL (32.0-36.0); Mean Corpuscular Hemoglobin 29.1 pg (27.0-31.0); Mean Corpuscular Volume 85.8 fL (78.0-98.0); Mean Platelet Volume 7.2 fL (7.4-10.4); Platelet Count 246 thou/uL (130-400); RBC Distribution Width 12.5 % (11.5-14.5); Red Blood Cell (RBC) Count 3.28 mill/uL (4.70-6.10); White Blood Cell (WBC) Count 10.8 thou/uL (4.8-10.8)
[2019-10-26 05:30] LABS: Anion Gap 12 mmol/L (10-20); BUN (Urea Nitrogen) 18 mg/dL (8.4-25.7); Calc. Creatinine Clearance 78 mL/min (70-130); Calcium 8.3 mg/dL (7.8-10.44); Carbon Dioxide 24 mmol/L (23-31); Chloride 103 mmol/L (98-107); Estimated GFR-MDRD 74; Glucose 142 mg/dL (80-115); Magnesium 1.9 mg/dL (1.6-2.6); Potassium 3.4 mmol/L (3.5-5.1); Sodium 136 mmol/L (136-145)
[2019-10-26] MEDS: Furosemide 40 MG/4 ML VIAL SLOW IVP SCH ×2 (06:20→14:56)
[2019-10-26 08:50] LABS: Vancomycin, Trough 14.3 ug/mL
[2019-10-26] MEDS: Clopidogrel Bisulfate 75 MG TAB PO SCH (09:24)
[2019-10-26] MEDS: NIFEdipine XL 60 MG TAB PO SCH (09:25)
[2019-10-26] MEDS: Enoxaparin Sodium 40 MG/0.4 ML SYRINGE SC SCH (09:25)
[2019-10-26] MEDS: Metoprolol Tartrate 50 MG TAB PO SCH ×2 (09:25→21:47)
[2019-10-26] MEDS: Potassium Chloride 20 MEQ TAB PO SCH (09:25)
[2019-10-26] MEDS: glyBURIDE 5 MG TAB PO SCH ×2 (09:25→16:28)
[2019-10-26] MEDS: hydrALAZINE 10 MG TAB PO SCH ×2 (09:33→14:57)
[2019-10-26] MEDS: Lactinex Tablet PO SCH (09:34)
[2019-10-26] MEDS: Vancomycin HCl 1.25 GM in Sodium Chloride 0.9% 250 ML 250 ML IVPB SCH ×2 (10:18→21:47)
--- NOTE | 2019-10-26 12:35 | PDOC.HOSPP ---
- Subjective Encounter Date: 10/26/19 Encounter Time: 09:45 Subjective: Patient seen and examined. No new complaints. No overnight events - Objective Vital Signs & Weight: Vital Signs (12 hours) Temp Pulse Resp BP BP Pulse Ox 10/26/19 11:58 97.9 F 66 16 141/70 H 91 L 10/26/19 09:33 82 143/66 H 10/26/19 09:25 82 143/66 H 10/26/19 08:00 98.7 F 82 16 143/66 H 95 10/26/19 04:00 98.4 F 81 20 150/67 H 94 L Weight Weight 170 lb 1.6 oz I&O: 10/25/19 10/26/19 10/27/19 06:59 06:59 06:59 Intake Total 350 Output Total 250 Balance 100 Result Diagrams: 10/26/19 04:19 10/26/19 04:19 Additional Labs: Accuchecks 10/26/19 10/26/19 10/25/19 10:56 05:59 21:34 POC Glucose 294 H 165 H 148 H 10/25/19 16:57 POC Glucose 154 H EKG Reviewed by me: Yes Hospitalist ROS - Review of Systems ENT: denies: ear pain, ear discharge, nose pain, nose discharge, nose congestion , mouth pain, mouth swelling, throat pain, throat swelling, other Respiratory: reports: SOB with excertion. denies: cough, dry, shortness of breath, hemoptysis, pleuritic pain, sputum, wheezing, other Cardiovascular: reports: edema. denies: chest pain, palpitations, orthopnea, paroxysmal noc. dyspnea, light headedness, other Gastrointestinal: denies: nausea, vomiting, abdominal pain, diarrhea, constipation, melena, hematochezia, other Genitourinary: denies: dysuria, frequency, incontinence, hematuria, retention, other Musculoskeletal: denies: neck pain, shoulder pain, arm pain, back pain, hand pain, leg pain, foot pain, other - Medication Medications: Active Medications Generic Name Dose Route Start Last Admin Trade Name Freq PRN Reason Stop Dose Admin Acidophilus 1 tab 10/25/19 09:00 10/26/19 09:34 Floranex PO 1 tab DAILY BRITANY Administration Clopidogrel Bisulfate 75 mg 10/25/19 09:00 10/26/19 09:24 Plavix PO 75 mg DAILY BRITANY Administration Enoxaparin Sodium 40 mg 10/25/19 09:00 10/26/19 09:25 Lovenox SC 40 mg 0900 BRITANY Administration Furosemide 40 mg 10/25/19 14:00 10/26/19 06:20 Lasix SLOW IVP 40 mg 0600,1400 BRITANY Administration Glyburide 5 mg 10/25/19 08:00 10/26/19 09:25 Diabeta PO 5 mg BID-WM BRITANY Administration Hydralazine HCl 50 mg 10/25/19 21:00 10/26/19 09:33 Apresoline PO 50 mg TID BRITANY Administration Piperacillin Sod/Tazobactam 100 mls @ 200 mls/hr 10/25/19 02:00 10/26/19 09: 26 Sod 3.375 gm/ Sodium Chloride IVPB 100 mls 0200,0800,1400,2000 BRITANY Administration Vancomycin HCl 1.25 gm/ Sodium 250 mls @ 166.667 mls/hr 10/25/19 09:00 10:18 Chloride IVPB 250 mls Q12HR BRITANY Administration Insulin Human Lispro 0 units 10/25/19 07:33 10/25/19 09:03 Humalog SC 4 unit .MODERATE SLIDING SC PRN Administration Moderate Correctional Scale Metoprolol Tartrate 50 mg 10/25/19 09:00 10/26/19 09:25 Lopressor PO 50 mg BID BRITANY Administration Nifedipine 60 mg 10/25/19 09:00 10/26/19 09:25 Procardia Xl PO 60 mg QAM BRITANY Administration Ondansetron HCl 4 mg 10/25/19 00:51 10/25/19 08:55 Zofran Odt PO 4 mg Q6H PRN Administration Nausea/Vomiting Potassium Chloride 20 meq 10/25/19 08:00 10/26/19 09:25 K-Dur PO 20 meq QAM-WM BRITANY Administration Sodium Chloride 10 ml 10/25/19 00:51 10/26/19 09:27 Flush - Normal Saline IVF 10 ml PRN PRN Administration Saline Flush - Exam General Appearance: NAD, awake alert Eye: PERRL, anicteric sclera ENT: normocephalic atraumatic, no oropharyngeal lesions Neck: supple, symmetric, no JVD Heart: RRR, no murmur, no gallops, no rubs Respiratory: CTAB, no wheezes, no rales Gastrointestinal: soft, non-tender, non-distended, normal bowel sounds Extremities: no cyanosis, no clubbing, 2+ LE edema Skin: normal turgor, no lesions Neurological: no focal deficits Musculoskeletal: normal tone, normal strength Psychiatric: normal affect, normal behavior Hosp A/P (1) Type [address] elevation Code(s): I21.A1 - MYOCARDIAL INFARCTION TYPE 2 Status: Acute (2) Anemia, normocytic normochromic Code(s): D64.9 - ANEMIA, UNSPECIFIED Status: Chronic (3) CAD (coronary artery disease) Code(s): I25.10 - ATHSCL HEART DISEASE OF [place] CORONARY ARTERY W/O ANG PCTRS Status: Chronic Qualifiers: Coronary Disease-Associated Artery/Lesion type: bypass graft [place] vs. 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 (5) Hypertension Code(s): I10 - ESSENTIAL (PRIMARY) HYPERTENSION Status: Chronic Qualifiers: (6) PAD (peripheral artery disease) Code(s): I73.9 - PERIPHERAL VASCULAR DISEASE, UNSPECIFIED Status: Chronic (7) Sepsis Code(s): A41.9 - SEPSIS, UNSPECIFIED ORGANISM Status: Suspected Qualifiers: Sepsis acute organ dysfunction status: unspecified - Plan old records reviewed/req 10/25/19 I am suspecting underlying CAD based on his history for his elevated troponin, will get cardiology opinion in this regard, will get echo, currently on empiric antibiotic, i will increase lasix, will check protein and creatinine ration to rule out nephrotic syndrome. medication reviewed and continue to provide symptomatic treatment 10/26/19 cardiology to see today, continue lasix, echo pending, continue empiric antibiotic, doubt has sepsis, based on culture will decide dcing antibiotics
[2019-10-26 12:43] VITALS: BMI 25.8
[2019-10-26] MEDS: HumaLOG 300 UNITS/3 ML VIAL SC PRN ×2 (12:51→17:36)
--- NOTE | 2019-10-26 15:14 | CON ---
DATE OF CONSULTATION: 10/26/2019 REASON FOR CONSULTATION: Fever. HISTORY OF PRESENT ILLNESS: A 63-year-old, who is known to me from multiple prior visits. The last time I saw him was in April 2019, when he presented with a history of type 2 diabetes, coronary artery disease, peripheral vascular disease, previous angioplasty and stent of tibioperoneal areas with amputation of left first ray, subsequently further amputation of second and third, and eventually a full transmetatarsal amputation of the left foot. He has received multiple courses of protracted IV antimicrobial therapy. I have seen him in the clinic a few times after that, and he seemed to be doing well. Over the past month, however, he developed worsening dyspnea with volume overload, and Dr. Saavedra was managing his clinical course. Apparently, he had a "leaky valve", but now, he comes in with new onset of chills, which developed fairly suddenly on the [place]. No headaches. No change in visual symptoms, sore throat, odynophagia, or dysphagia. No dental pain. No nasal or ear symptoms. No back pain. He did have this persistent dry cough, which has been there for quite a few weeks before the fever developed, but no new changes in that symptom. No abdominal pain. No genitourinary symptoms. No diarrhea or bleeding. The left foot seemed to be doing okay. The findings on admission included a pulse of 116, BP 170/106, temperature 102.6, O2 saturation 92%, and he appeared to be in moderate distress. Overall, exam was not particularly remarkable. The lungs were described as clear. Currently, Mr. Marie is awake. He is lying in bed. He is in no distress, whatsoever. His is in the room with him. REVIEW OF SYSTEMS: A 10-point review of systems still with cough and mild dyspnea, but other findings are negative. PAST MEDICAL HISTORY: Type 2 diabetes, peripheral vascular disease, coronary artery disease and stenting, left lower extremity angioplasty and stenting, transmetatarsal amputation of left foot, and hernia repair. ALLERGIES: NONE. FAMILY HISTORY: Type 2 diabetes and coronary artery disease. 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 Never smoker. . CURRENT MEDICATIONS: 1. Tylenol. 2. Flomax. 3. Tums. 4. Plavix. 5. Lovenox. 6. Lasix. 7. DiaBeta. 8. Insulin. 9. Lopressor. 10. Procardia. 11. Zofran. 12. Zosyn. 13. Vancomycin. PHYSICAL EXAMINATION: VITAL SIGNS: He defervesced after admission. BP 140/70, pulse 66, respirations 16, O2 saturation 91% to 95%. SKIN: The left foot transmetatarsal site looks quite good. There is no erythema. There is only a slit-like margin that has not yet completely closed at the very end, but no inflammatory changes and no significant drainage. He has those tiny little petechial lesions in the lower leg and a round-shaped 1 cm area of self excoriation with shallow erosion without inflammatory changes in the more proximal anterior aspect of the left lower extremity. The patient has a peripheral IV access, and he is voiding in the urinal. LYMPHATICS: No lymphadenopathy. HEENT: Sclerae are white. Pupils are reactive. Oral cavity is not remarkable. NECK: Supple. LUNGS: Symmetric air entry with faint scattered inspiratory crackles at the bases. HEART: S1 and S2. Regular rate. Diminished heart sounds. Soft aortic murmur. ABDOMEN: Soft. Not distended or tender. No ascites. There is a question of bladder distention. EXTREMITIES: There is 1+ edema in the lower extremities. Pulses are diminished in dorsalis pedis. Capillary refill is little bit delayed. NEUROLOGIC: His cognitive function appears to be intact including normal orientation. LABORATORY DATA: His white cell count was 20,000, down to 10.8; hemoglobin was 11.6, now 9.5; platelet count 246; 79% neutrophils. Sodium 134, creatinine 1.03. Liver profile normal. Troponin 0.041. Albumin 4.4. Urinalysis with 0 to 3 wbc's, 300 protein. Microbiology; we have influenza A and B negative. Two sets of blood cultures, no growth for 48 hours. IMAGING STUDIES: We have a foot x-ray from admission with no osseous abnormalities noted. Chest x-ray with hypoinflated lungs with limited technical quality. ASSESSMENT: Type 2 diabetes; ischemic cardiomyopathy; volume overload; chronic left foot complications, which seem to have resolved after the latest transmetatarsal amputation; new onset of fever; some respiratory symptoms; and possible urinary retention. DISCUSSION: The patient may have had a viral infection or could have been transiently bacteremic. We will have to follow up the blood cultures. He needs a respiratory virus PCR panel, and we will check a bladder ultrasound to rule out urinary retention. An intra-abdominal inflammatory process is not apparent otherwise. An upper respiratory tract infection only if it is viral in nature. May have had early pneumonitis, though that was not demonstrated by the chest x-ray. CT of chest can be more sensitive in that regard. Job ID: [id number]
--- NOTE | 2019-10-26 16:33 | CT ---
CT CHEST WITHOUT CONTRAST: 10/26/19 HISTORY: Shortness of breath. FINDINGS: Absence of IV contrast reduces the sensitivity of the exam particularly for the evaluation of mediast inal, hilar, and vascular structures. There are vascular calcifications without evidence of aneurysmal dilatation of the thoracic aorta. Th ere are changes of median sternotomy. There are moderate sized bilateral pleural effusions. No perica rdial effusion is seen. Adjacent atelectatic changes are noted. No pneumothoraces are identified. The re are degenerative changes in the spine. A small hiatal hernia is present. IMPRESSION: Moderate sized bilateral pleural effusions. POS: [facility]
[2019-10-26] MEDS: hydrALAZINE 25 MG TAB PO SCH (21:46)
--- NOTE | 2019-10-26 21:49 | CON ---
DATE OF CONSULTATION: HISTORY OF PRESENT ILLNESS: Tima Marie is a 63-year-old white male, who I evaluated once in the office on September 18, 2019. He has a history of an aborted lateral infarction in 2011, followed by CABG x3. Press Tender [employer] at that time was Dr. Johnson. I saw him he was complaining of increased shortness of breath and having to sleep in a chair as well as increased lower extremity edema. He would have chest discomfort daily lasting seconds. He was placed on furosemide 20 mg q.a.m. He was on very high dose nifedipine-60 mg b.i.d. and this was reduced to 60 mg daily and hydralazine was increased from 25 b.i.d. to 50 t.i.d. The furosemide later was increased to 20 b.i.d. He has continued to have increased shortness of breath, peripheral edema. He spiked a temp to 102 on the day of admission. He also felt that he could not breathe and had some chest pressure. He came to the hospital and thus far cultures are unremarkable. Influenza type A and B antigen is negative. Saturation was 90% to 92% on room air. He was unable to lie flat in the emergency room. It is of note that echocardiogram in the office on October 12 revealed ejection fraction of 60% to 65% with mild left atrial enlargement, aortic valve sclerosis, moderate mitral regurgitation, and mild tricuspid regurgitation. He has felt that he has diastolic heart failure. PAST MEDICAL HISTORY: 1. Diabetes. 2. Hypertension. 3. Hypercholesterolemia. 4. Peripheral vascular disease. 5. Coronary artery disease. 6. Diabetic foot infections. PAST SURGICAL HISTORY: 1. Tonsillectomy. 2. Nose surgery. 3. Bilateral hernia repair. 4. Left transmetatarsal amputation. 5. CABG x3 in 2011. MEDICATIONS: 1. Procardia 60 XL q.a.m. 2. Furosemide 20 mg b.i.d. 3. Metoprolol 50 b.i.d. 4. Plavix 75 daily. 5. Hydralazine 50 t.i.d. 6. Glyburide 5 mg b.i.d. 7. Metformin 1000 b.i.d. ALLERGIES: LISINOPRIL CAUSES COUGH. HE ALSO DEVELOPS MUSCLE ACHES WITH STATINS AND IS UNABLE TO TOLERATE ATORVASTATIN OR ROSUVASTATIN. SOCIAL HISTORY: He does not smoke or drink. FAMILY HISTORY: Father had sudden . REVIEW OF SYSTEMS: A 10-point review of systems is otherwise unremarkable. PHYSICAL EXAMINATION: VITAL SIGNS: Blood pressure 130/60, pulse 75. HEENT: PERRL. NECK: Supple. CHEST: Clear except for some dullness at the bases. CARDIOVASCULAR: S1, S2 normal without any S3, S4, or murmurs. Carotid upstrokes normal without bruits. ABDOMEN: Normal bowel sounds without tenderness or organomegaly. EXTREMITIES: Revealed 2+ pretibial edema. NEUROLOGICAL: Grossly intact. SKIN: Warm and dry. LABORATORY AND DIAGNOSTIC DATA: Chest CT revealed bilateral pleural effusions. IMPRESSION: 1. [id number] diastolic heart failure. 2. Status post coronary artery bypass graft x3. 3. Diabetes. 4. Peripheral vascular disease, status post left transmetatarsal amputation. 5. Hypertension. 6. Hypercholesterolemia. 7. Positive family history. PLAN: Nifedipine will be discontinued because of the side effect of lower extremity edema. He is being diuresed at the present time. Hydralazine will also be increased for better blood pressure control. Job ID: [id number] [facility]
[2019-10-27] MEDS: Piperacillin/Tazobactam 3.375 GM in Sodium Chloride 0.9% 100 ML IVPB SCH ×3 (03:25→14:21)
[2019-10-27 05:28] LABS: Anion Gap 12 mmol/L (10-20); BUN (Urea Nitrogen) 20 mg/dL (8.4-25.7); Calc. Creatinine Clearance 78 mL/min (70-130); Calcium 8.4 mg/dL (7.8-10.44); Carbon Dioxide 24 mmol/L (23-31); Chloride 105 mmol/L (98-107); Estimated GFR-MDRD 71; Glucose 157 mg/dL (80-115); Potassium 3.4 mmol/L (3.5-5.1); Sodium 138 mmol/L (136-145)
[2019-10-27] MEDS: Furosemide 40 MG/4 ML VIAL SLOW IVP SCH ×2 (06:21→15:14)
[2019-10-27] MEDS: Clopidogrel Bisulfate 75 MG TAB PO SCH (08:58)
[2019-10-27] MEDS: glyBURIDE 5 MG TAB PO SCH ×2 (08:58→18:09)
[2019-10-27] MEDS: Metoprolol Tartrate 50 MG TAB PO SCH ×2 (08:58→20:05)
[2019-10-27] MEDS: Lactinex Tablet PO SCH (08:58)
[2019-10-27] MEDS: hydrALAZINE 25 MG TAB PO SCH ×3 (08:58→20:05)
[2019-10-27] MEDS: Potassium Chloride 20 MEQ TAB PO SCH (08:59)
[2019-10-27] MEDS: Enoxaparin Sodium 40 MG/0.4 ML SYRINGE SC SCH (08:59)
[2019-10-27] MEDS: Vancomycin HCl 1.25 GM in Sodium Chloride 0.9% 250 ML 250 ML IVPB SCH (09:12)
--- NOTE | 2019-10-27 12:16 | PDOC.HOSPP ---
- Subjective Encounter Date: 10/27/19 Encounter Time: 09:00 Subjective: Expresses no complaint.. - Objective Vital Signs & Weight: Vital Signs (12 hours) Temp Pulse Pulse Pulse Resp BP BP 10/27/19 11:34 98.5 F 65 20 10/27/19 10:56 69 65 133/64 123/61 10/27/19 08:58 75 10/27/19 07:45 98.5 F 77 20 10/27/19 05:13 10/27/19 03:23 99 F 75 16 BP Pulse Ox 10/27/19 11:34 123/61 93 L 10/27/19 10:56 10/27/19 08:58 10/27/19 07:45 164/77 H 96 10/27/19 05:13 94 L 10/27/19 03:23 146/67 H 85 L Weight Admit Weight 165 lb 5.82 oz Weight 172 lb 4.8 oz I&O: 10/26/19 10/27/19 10/28/19 06:59 06:59 06:59 Intake Total 350 2070 Output Total 250 1600 375 Balance 100 470 -375 Result Diagrams: 10/26/19 04:19 10/27/19 04:16 Additional Labs: Accuchecks 10/27/19 10/26/19 05:31 16:49 POC Glucose 174 H 164 H Hospitalist ROS - Medication Medications: Active Medications Generic Name Dose Route Start Last Admin Trade Name Freq PRN Reason Stop Dose Admin Acetaminophen 650 mg 10/25/19 00:51 10/26/19 17:41 Tylenol PO 650 mg Q4H PRN Administration Headache/Fever/Mild Pain (1-3) Acidophilus 1 tab 10/25/19 09:00 10/27/19 08:58 Floranex PO 1 tab DAILY BRITANY Administration Clopidogrel Bisulfate 75 mg 10/25/19 09:00 10/27/19 08:58 Plavix PO 75 mg DAILY BRITANY Administration Enoxaparin Sodium 40 mg 10/25/19 09:00 10/27/19 08:59 Lovenox SC 40 mg 0900 BRITANY Administration Furosemide 40 mg 10/25/19 14:00 10/27/19 06:21 Lasix SLOW IVP 40 mg 0600,1400 BRITANY Administration Glyburide 5 mg 10/25/19 08:00 10/27/19 08:58 Diabeta PO 5 mg BID-WM BRITANY Administration Hydralazine HCl 75 mg 10/26/19 21:00 10/27/19 08:58 Apresoline PO 75 mg TID BRITANY Administration Piperacillin Sod/Tazobactam 100 mls @ 200 mls/hr 10/25/19 02:00 10/27/19 08: 58 Sod 3.375 gm/ Sodium Chloride IVPB 100 mls 0200,0800,1400,2000 BRITANY Administration Vancomycin HCl 1.25 gm/ Sodium 250 mls @ 166.667 mls/hr 10/25/19 09:00 09:12 Chloride IVPB 250 mls Q12HR BRITANY Administration Insulin Human Lispro 0 units 10/25/19 07:33 10/26/19 17:36 Humalog SC 2 unit .MODERATE SLIDING SC PRN Administration Moderate Correctional Scale Metoprolol Tartrate 50 mg 10/25/19 09:00 10/27/19 08:58 Lopressor PO 50 mg BID BRITANY Administration Ondansetron HCl 4 mg 10/25/19 00:51 10/25/19 08:55 Zofran Odt PO 4 mg Q6H PRN Administration Nausea/Vomiting Ondansetron HCl 4 mg 10/25/19 00:51 10/26/19 17:48 Zofran IVP 4 mg Q6H PRN Administration Nausea/Vomiting Potassium Chloride 20 meq 10/25/19 08:00 10/27/19 08:59 K-Dur PO 20 meq QAM-WM BRITANY Administration Sodium Chloride 10 ml 10/25/19 00:51 10/26/19 17:48 Flush - Normal Saline IVF 10 ml PRN PRN Administration Saline Flush - Exam General Appearance: NAD Neck: no JVD Heart: RRR Respiratory: CTAB Gastrointestinal: soft Extremities: 1+ LE edema (+left foot wound) Neurological: no weakness Psychiatric: normal affect Hosp A/P (1) Type [address] elevation Code(s): I21.A1 - MYOCARDIAL INFARCTION TYPE 2 Status: Acute (2) Anemia, normocytic normochromic Code(s): D64.9 - ANEMIA, UNSPECIFIED Status: Chronic (3) CAD (coronary artery disease) Code(s): I25.10 - ATHSCL HEART DISEASE OF [place] CORONARY ARTERY W/O ANG PCTRS Status: Chronic Qualifiers: Coronary Disease-Associated Artery/Lesion type: bypass graft [place] vs. transplanted heart: [place] heart Associated angina: without angina Qualified Code(s): I25.810 - Atherosclerosis of coronary artery bypass graft(s) without angina pectoris (4) Diabetes type 2, controlled Code(s): E11.9 - TYPE 2 DIABETES MELLITUS WITHOUT COMPLICATIONS Status: Chronic Qualifiers: Diabetes mellitus roasterman insulin use: without correction use (5) Hypertension Code(s): I10 - ESSENTIAL (PRIMARY) HYPERTENSION Status: Chronic Qualifiers: (6) PAD (peripheral artery disease) Code(s): I73.9 - PERIPHERAL VASCULAR DISEASE, UNSPECIFIED Status: Chronic (7) Sepsis Code(s): A41.9 - SEPSIS, UNSPECIFIED ORGANISM Status: Suspected Qualifiers: Sepsis acute organ dysfunction status: unspecified (8) Cellulitis of left foot Code(s): L03.116 - CELLULITIS OF LEFT LOWER LIMB Status: Acute - Plan BxC negative so far. Continue antibiotics. f/u with ID, Cardiology.. Continue current therapy.
[2019-10-27] MEDS: HumaLOG 300 UNITS/3 ML VIAL SC PRN ×2 (13:25→18:09)
--- NOTE | 2019-10-27 14:33 | PRG ---
DATE OF SERVICE: 10/27/2019 SUBJECTIVE: The patient is back to baseline. He denies any headaches. No respiratory symptoms or abdominal pain. He had urinary retention identified via bladder scan yesterday was a little bit above 300. The subsequent measurement was right around 150. He is still on Zosyn and vancomycin. OBJECTIVE: VITAL SIGNS: He has been afebrile. T-max 99.4, blood pressure 120/61, pulse 65, respirations 20, and O2 saturation 93% to 96%. GENERAL: He is awake, alert, oriented. LUNGS: Symmetric air entry. No crackles or wheezing. HEART: S1 and S2, regular rate. ABDOMEN: Soft, not distended. NEURO: Nonfocal. EXTREMITIES: The foot is still without any inflammatory changes. LABORATORY DATA: White cell count down to 10.8, hemoglobin 9.5, platelets 246. Creatinine 1.05. Urinalysis with 0 to 3 wbc's. Microbiology with negative respiratory virus PCR and blood culture thus far no growth. Echocardiogram with EF 60% to 65%, diastolic dysfunction, mitral regurg, mild tricuspid regurg, some ascites. Chest CT without any infiltrates, but just pleural effusion. ASSESSMENT AND DISCUSSION: Type 2 diabetes, ischemic cardiomyopathy, volume overload, chronic left foot complications but no evidence of inflammatory change remaining in the left foot, transient temperature elevation, some respiratory symptoms and evidence of urinary retention. The urinary retention may have precipitated decompensation with fever. It is hard to prove that beyond reasonable doubt in the absence of urine cultures, but he will probably need Flomax and similar. We will go ahead and discontinue antimicrobial therapy and follow up his clinical course. He will need probably to schedule appointment with urologist for followup in the outpatient setting on Flomax. Job ID: [id number]
[2019-10-28] MEDS: Furosemide 40 MG/4 ML VIAL SLOW IVP SCH ×2 (05:04→14:28)
[2019-10-28 05:15] LABS: Anion Gap 9 mmol/L (10-20); BUN (Urea Nitrogen) 17 mg/dL (8.4-25.7); Calc. Creatinine Clearance 92 mL/min (70-130); Calcium 8.5 mg/dL (7.8-10.44); Carbon Dioxide 30 mmol/L (23-31); Chloride 103 mmol/L (98-107); Estimated GFR-MDRD 87; Glucose 162 mg/dL (80-115); Potassium 3.3 mmol/L (3.5-5.1); Sodium 139 mmol/L (136-145)
[2019-10-28 09:00] VITALS: TEMP 98.3
[2019-10-28] MEDS: Lactinex Tablet PO SCH (09:02)
[2019-10-28] MEDS: Potassium Chloride 20 MEQ TAB PO SCH (09:02)
[2019-10-28] MEDS: glyBURIDE 5 MG TAB PO SCH (09:03)
[2019-10-28] MEDS: hydrALAZINE 25 MG TAB PO SCH ×2 (09:03→14:28)
[2019-10-28] MEDS: Enoxaparin Sodium 40 MG/0.4 ML SYRINGE SC SCH (09:03)
[2019-10-28] MEDS: Clopidogrel Bisulfate 75 MG TAB PO SCH (09:03)
[2019-10-28] MEDS: Metoprolol Tartrate 50 MG TAB PO SCH (09:03)
[2019-10-28] MEDS ORDERED: Tamsulosin HCl 0.4 MG CAP PO SCH (11:00)
--- NOTE | 2019-10-28 11:17 | PDOC.HOSPP ---
- Subjective Encounter Date: 10/28/19 Encounter Time: 08:35 Subjective: Some difficulty urinating.. Residual urine 350cc on bladder scan. - Objective Vital Signs & Weight: Vital Signs (12 hours) Temp Pulse Resp BP Pulse Ox 10/28/19 09:03 66 10/28/19 08:57 98.3 F 66 20 180/88 H 95 10/28/19 08:35 95 10/28/19 03:32 99.4 F 69 20 176/76 H 94 L 10/27/19 23:51 175/80 H Weight Admit Weight 165 lb 5.82 oz Weight 169 lb 9.6 oz I&O: 10/27/19 10/28/19 10/29/19 06:59 06:59 06:59 Intake Total 2070 200 Output Total 1600 625 Balance 470 -425 Result Diagrams: 10/26/19 04:19 10/28/19 04:32 Additional Labs: Accuchecks 10/28/19 10/27/19 10/27/19 05:45 22:28 16:48 POC Glucose 176 H 177 H 166 H 10/27/19 10:51 POC Glucose 264 H Hospitalist ROS - Medication Medications: Active Medications Generic Name Dose Route Start Last Admin Trade Name Freq PRN Reason Stop Dose Admin Acetaminophen 650 mg 10/25/19 00:51 10/26/19 17:41 Tylenol PO 650 mg Q4H PRN Administration Headache/Fever/Mild Pain (1-3) Acidophilus 1 tab 10/25/19 09:00 10/28/19 09:02 Floranex PO 1 tab DAILY BRITANY Administration Clopidogrel Bisulfate 75 mg 10/25/19 09:00 10/28/19 09:03 Plavix PO 75 mg DAILY BRITANY Administration Enoxaparin Sodium 40 mg 10/25/19 09:00 10/28/19 09:03 Lovenox SC 40 mg 0900 BRITANY Administration Furosemide 40 mg 10/25/19 14:00 10/28/19 05:04 Lasix SLOW IVP 40 mg 0600,1400 BRITANY Administration Glyburide 5 mg 10/25/19 08:00 10/28/19 09:03 Diabeta PO 5 mg BID-WM BRITANY Administration Hydralazine HCl 75 mg 10/26/19 21:00 10/28/19 09:03 Apresoline PO 75 mg TID BRITANY Administration Insulin Human Lispro 0 units 10/25/19 07:33 10/27/19 18:09 Humalog SC 2 unit .MODERATE SLIDING SC PRN Administration Moderate Correctional Scale Metoprolol Tartrate 50 mg 10/25/19 09:00 10/28/19 09:03 Lopressor PO 50 mg BID BRITANY Administration Ondansetron HCl 4 mg 10/25/19 00:51 10/25/19 08:55 Zofran Odt PO 4 mg Q6H PRN Administration Nausea/Vomiting Ondansetron HCl 4 mg 10/25/19 00:51 10/26/19 17:48 Zofran IVP 4 mg Q6H PRN Administration Nausea/Vomiting Potassium Chloride 20 meq 10/25/19 08:00 10/28/19 09:02 K-Dur PO 20 meq QAM-WM BRITANY Administration Sodium Chloride 10 ml 10/25/19 00:51 10/26/19 17:48 Flush - Normal Saline IVF 10 ml PRN PRN Administration Saline Flush - Exam General Appearance: NAD Neck: no JVD Heart: RRR Respiratory: CTAB Gastrointestinal: soft Extremities: 1+ LE edema (Left foot wound , ..redness is better.) Neurological: no weakness Hosp A/P (1) Type [address] elevation Code(s): I21.A1 - MYOCARDIAL INFARCTION TYPE 2 Status: Acute (2) Anemia, normocytic normochromic Code(s): D64.9 - ANEMIA, UNSPECIFIED Status: Chronic (3) CAD (coronary artery disease) Code(s): I25.10 - ATHSCL HEART DISEASE OF [place] CORONARY ARTERY W/O ANG PCTRS Status: Chronic Qualifiers: Coronary Disease-Associated Artery/Lesion type: bypass graft [place] vs. transplanted heart: [place] heart Associated angina: without angina Qualified Code(s): I25.810 - Atherosclerosis of coronary artery bypass graft(s) without angina pectoris (4) Diabetes type 2, controlled Code(s): E11.9 - TYPE 2 DIABETES MELLITUS WITHOUT COMPLICATIONS Status: Chronic Qualifiers: Diabetes mellitus long term care phlebotomist insulin use: without chcf use (5) Hypertension Code(s): I10 - ESSENTIAL (PRIMARY) HYPERTENSION Status: Chronic Qualifiers: (6) PAD (peripheral artery disease) Code(s): I73.9 - PERIPHERAL VASCULAR DISEASE, UNSPECIFIED Status: Chronic (7) Sepsis Code(s): A41.9 - SEPSIS, UNSPECIFIED ORGANISM Status: Suspected Qualifiers: Sepsis acute organ dysfunction status: unspecified (8) Cellulitis of left foot Code(s): L03.116 - CELLULITIS OF LEFT LOWER LIMB Status: Acute - Plan BxC negative so far. Continue antibiotics. f/u with ID, Cardiology.. Continue current therapy. Add flomax .5mg qd in view of dysuria, high residual urine.
[2019-10-28] MEDS: HumaLOG 300 UNITS/3 ML VIAL SC PRN (11:47)
[2019-10-28] MEDS ORDERED: Potassium Chloride 20 MEQ TAB PO SCH (14:45)
[2019-10-28 16:04] VITALS: BP 180/80
--- NOTE | 2019-10-29 02:20 | DIS ---
DATE OF ADMISSION: 10/24/2019 DATE OF DISCHARGE: 10/28/2019 ADMITTING DIAGNOSES: Severe sepsis, possibly due to left foot cellulitis; acute on chronic diastolic heart failure; possible bronchitis; hyponatremia; type 2 myocardial infarction; chronic kidney disease; diabetes mellitus; hypertension; peripheral vascular disease; hyperlipidemia; and coronary artery disease. DISCHARGE DIAGNOSES: Left foot cellulitis, acute on chronic diastolic heart failure, hyponatremia secondary to fluid overload, type 2 myocardial infarction, chronic kidney disease, diabetes mellitus, hypertension, peripheral vascular disease, hyperlipidemia, and coronary artery disease. CONSULTANTS: Dr. Oconnell and Dr. Zeus Saavedra. PROCEDURES: Chest x-ray, foot x-ray, chest CT, echocardiogram. COURSE OF HOSPITALIZATION: Uncomplicated, responded well to management. The patient is clinically stable at this time, being discharged home. For discharge medication, please see discharge medication reconciliation sheet. The patient is to follow up with consultants. He is also to see a urologist as outpatient. We have to mention that the patient had some dysuria and was noticed to have a high urine residual about 300 mL. He was started on Flomax and he is being discharged home. As you mentioned, appointment is to be made for him to see a urologist as outpatient. For today's physical examination, please report to the patient's medical record, progress note section. Discharge time, 32 minutes. Job ID: [id number]
[2019-10-29] MEDS ORDERED: Tamsulosin HCl 0.4 MG CAP PO SCH ×2 (09:00)
--- NOTE | 2019-10-31 00:40 | PQF ---
TOREY LEVY CYPRIEN [id number] CLINICAL DOCUMENTATION CLARIFICATION FORM: POST DISCHARGE Addendum to original discharge summary date: ____ Late entry note date: __ DATE: 10/31/19 ATTN: Marcello Samayoa Please exercise your independent, professional judgment in responding to the clarification form. Clinical indicators are provided on the bottom of this form for your review Can you please further clarify if Left foot cellulitis is due to recent left foot amputation of not? Please check appropriate box(s): [ ] Left foot cellulitis is due to recent left foot amputation [ ] Left foot cellulitis is due to recent left foot amputation [ ] Left foot cellulitis is due Diabetes mellitus [ ] Other diagnosis please specify [ ] Unable to determine In addition, please specify: Present on Admission (POA): [ ] Yes [x ] No [ ] Unable to determine CLINICAL INDICATORS - SIGNS / SYMPTOMS / LABS H and P pg.2- Partial left foot amputation H and P pg.3- severe sepsis suspected due to left foot cellulitis Consult 10/26 pg.1- past medical history: transmetatarsal amputation of left foot Consult 10/26 Dr. Oconnell pg.2- Skin: the left foot transmetatarsal site looks quite good Consult 10/26 pg.2- he has those tiny little petechial lesion in the lower leg and a round shaped 1 cm area of self excoriation with shallw erosion Consult 10/26 pg.3- chronic left foot complication, which seems t have resolved after the latest transmetatarsal amputation Consult Dr. Baez pg.2- PVD status post left transmetatarsal amputation RISK FACTORS Left foot cellulitis Hypertension- H and P pg.3 diabetes mellitus type 2-H and P pg.3 Peripheral vascular disease- H and P pg.3 Hyperlipidemia- H and P pg.3 CKD 2- H and P pg.3 TREATMENT: Infectious Consult 10/26 Dr. Oconnell Foot Xray 10/24 IV Fluids- DEC IV Antibiotics- DEC (This form is maintained as a part of the permanent medical record) 2014 [employer]. All Rights Reserved [email or web address] [not [email or web address]] [email or web address]
--- NOTE | 2019-10-31 00:47 | PQF ---
TOREY LEVY CYPRIEN [id number] CLINICAL DOCUMENTATION CLARIFICATION FORM: POST DISCHARGE Addendum to original discharge summary date: ____ Late entry note date: __ DATE: 10/31/19 ATTN: Marcello Samayoa Please exercise your independent, professional judgment in responding to the clarification form. Clinical indicators are provided on the bottom of this form for your review Can you please further clarify if Severe sepsis is ruled in or ruled out? Severe Sepsis [ x ] Ruled in diagnosis [ ] Continue to treat [ ] Resolved [ ] Ruled out diagnosis [ ] Cannot rule out diagnosis [ ] Other diagnosis [ ] Unable to determine In addition, please specify: Present on Admission (POA): [ ] Yes [ ] No [ ] Unable to determine For continuity of documentation, please document condition throughout progress notes and discharge summary. Thank You. CLINICAL INDICATORS - SIGNS / SYMPTOMS / LABS H and P pg.3- severe sepsis suspected due to left foot cellulitis Consult 10/26 pg.1- past medical history: transmetatarsal amputation of left foot Hospitalist KIRA Dc 10/26 p.6-doubt has sepsis based on culture will decide dcing antibiotics DS pg.1- admitting diagnosis: severe sepsis possibly due to left foot cellulitis RISK FACTORS Left foot cellulitis Hypertension- H and P pg.3 diabetes mellitus type 2-H and P pg.3 Peripheral vascular disease- H and P pg.3 Hyperlipidemia- H and P pg.3 CKD 2- H and P pg.3 TREATMENTS Infectious Consult 10/26 Dr. Oconnell Foot Xray 10/24 IV Fluids- MAR IV Antibiotics- DEC (This form is maintained as a part of the permanent medical record) 2014 [employer]. All Rights Reserved Chang [email or web address] [not provided] MTDD
[2019-11-01 17:09] LABS: % Free PSA 6.6 % (.); Total PSA 2.9 ng/mL (0.0-4.0)
== END 2019-10-28 16:29 | disposition home or self-care (01) | DRG 871 ==
LOC: ERS 18:50 → ERHOLD 22:57 → 2NO 10-25 15:25
PROVIDERS: ADMIT Internal Medicine; ATTEND Internal Medicine
DX: A41.9 Sepsis, unspecified organism (principal); I50.33 Acute on chronic diastolic (congestive) heart failure; I21.A1 Myocardial infarction type 2; L03.116 Cellulitis of left lower limb; I13.0 Hypertensive heart and chronic kidney disease with heart failure and stage 1 through stage 4 chronic kidney disease, or unspecified chronic kidney disease; E87.1 Hypo-osmolality and hyponatremia; I42.9 Cardiomyopathy, unspecified; R65.20 Severe sepsis without septic shock; E11.51 Type 2 diabetes mellitus with diabetic peripheral angiopathy without gangrene; I25.10 Atherosclerotic heart disease of native coronary artery without angina pectoris; E11.22 Type 2 diabetes mellitus with diabetic chronic kidney disease; N18.2 Chronic kidney disease, stage 2 (mild); J40 Bronchitis, not specified as acute or chronic; D63.1 Anemia in chronic kidney disease; E78.5 Hyperlipidemia, unspecified; E78.00 Pure hypercholesterolemia, unspecified; Z95.1 Presence of aortocoronary bypass graft; Z79.84 Long term (current) use of oral hypoglycemic drugs; Z79.02 Long term (current) use of antithrombotics/antiplatelets; Z79.899 Other long term (current) drug therapy; Z88.8 Allergy status to other drugs, medicaments and biological substances
CPT/HCPCS: 36415; 36416; 71045; 71250; 80048; 80053; 80202; 81003; 81015; 82550; 82553; 82570; 83605; 83690; 83735; 83880; 84153; 84154; 84156; 84484; 85025; 85652; 86140; 87040; 87633; 87804; 93005; 93306; 93798; 96361; 96365; 96367; 96375; J1650; J1940; J1956; J2185; J2405; J2543; J3370; J3490; J7050; Q0162

== ENCOUNTER 2020-12-12 11:22 | Inpatient (IN) | payer MEDICARE ==
[2020-12-12] MEDS ORDERED: hydrALAZINE 20 MG/ML VIAL ONE (12:26)
[2020-12-12 13:34] LABS: SARS-CoV-2 NAA Rapid Test Not Detected (NotDetected)
--- NOTE | 2020-12-12 13:37 | PDOC.HHP ---
Hospitalist HPI Shortness of breath History of Present Illness: The patient is a 65-year-old male with past medical history of coronary artery disease, diabetes mellitus, hypertension, and congestive heart failure who presented to the hospital with worsening shortness of breath. The patient has been symptomatic for a while but only on activity. Recently his symptoms became worse with minimal activity at home and over the past 2 days he was symptomatic at rest. He also reported worsening orthopnea and lower extremity swelling. He denies fever, chills, nausea, vomiting but endorses dry cough. Allergies/Adverse Reactions: Allergy/AdvReac Type Severity Reaction Status Date / Time lisinopril Allergy COUGH Verified 05/18/19 16:06 [id number] Reductase Allergy Verified 10/25/19 00:39 Inhibitor Home Medications: Medication Instructions Recorded Confirmed Type glyBURIDE 5 mg PO BID-WM #60 tablet 10/20/18 10/24/19 Rx metFORMIN HCl [Metformin HCl] 1,000 mg PO BID #60 tablet 10/20/18 10/24/19 Rx Metoprolol Tartrate [Lopressor] 50 mg PO BID 10/24/18 10/24/19 History Clopidogrel Bisulfate [Plavix] 75 mg PO DAILY #30 tab 11/18/18 10/24/19 Rx Lactobacillus [Floranex] 1 tab PO DAILY #30 tab 02/18/19 10/24/19 Rx Ranibizumab [Lucentis] 0.3 mg IO ASDIR 05/19/19 10/24/19 History Potassium Chloride [K-Dur] 20 meq PO QAM-WM 30 Days #30 tab 10/28/19 Rx Tamsulosin HCl [Flomax] 0.4 mg PO DAILY 30 Days #30 cap 10/28/19 Rx hydrALAZINE [Apresoline] 75 mg PO TID 30 Days #90 tab 10/28/19 Rx Past History: PMHx: As above PSHx: Tonsillectomy, CABG, hernia repair, eye surgery, toe surgery FHx: Noncontributory for the current presentation Social: The patient denies alcohol use, drug use or smoking Hospitalist HPI ROS All other systems reviewed; all pertinent +/- noted in HPI/Subj Hospitalist Exam General Appearance: awake alert ENT: normocephalic atraumatic Neck: supple Heart: RRR Respiratory: normal chest expansion, no tachypnea, rhonchi Extremities: no cyanosis, no clubbing, 1+ LE edema Neurological: cranial nerve grossly intact, no new deficit Hospitalist Results Lab results: Laboratory Last Values Influenza A RNA INAAT Not Detected (NotDetected) 12/12/20 12:40 Influenza B RNA INAAT Not Detected (NotDetected) 12/12/20 12:40 SARS-CoV-2 Rap RNA(RT-PCR) Not Detected (NotDetected) 12/12/20 12:40 Hospitalist H&P A/P (1) CHF exacerbation Code(s): I50.9 - HEART FAILURE, UNSPECIFIED Status: Acute Assessment and Plan: Admit to telemetry. 2 g sodium diet and 1500 cc fluid restriction. Strict intake and output. Lasix 40 mg IV twice daily. Check echocardiogram. (2) Acute respiratory failure with hypoxia Code(s): J96.01 - ACUTE RESPIRATORY FAILURE WITH HYPOXIA Status: Acute Assessment and Plan: Due to volume overload. Supplemental oxygen as needed. (3) Hypertension Code(s): I10 - ESSENTIAL (PRIMARY) HYPERTENSION Status: Chronic Qualifiers: Assessment and Plan: This is uncontrolled. The patient is on hydralazine and metoprolol titrate. I will add Imdur to his blood pressure regimen. IV Lasix will also help with his hypertension. (4) CAD (coronary artery disease) Code(s): I25.10 - ATHSCL HEART DISEASE OF [place] CORONARY ARTERY W/O ANG PCTRS Status: Chronic Qualifiers: Coronary Disease-Associated Artery/Lesion type: bypass graft [place] vs. transplanted heart: [place] heart Associated angina: without angina Qualified Code(s): I25.810 - Atherosclerosis of coronary artery bypass graft(s) without angina pectoris Assessment and Plan: The patient is on Plavix. (5) Diabetes type 2, controlled Code(s): E11.9 - TYPE 2 DIABETES MELLITUS WITHOUT COMPLICATIONS Status: Chronic Qualifiers: Diabetes mellitus skilled nursing insulin use: without skilled nursing use Assessment and Plan: Restart his home glipizide. Hold Metformin due to CHF exacerbation. Start insulin sliding scale. (6) Pneumonia Code(s): J18.9 - PNEUMONIA, UNSPECIFIED ORGANISM Status: Acute Assessment and Plan: The patient does not have any fever or signs of sepsis. Neutrophilia is present on his CBC. Chest x-ray showed right lower lobe infiltrates and some effusion. I will start IV ceftriaxone and azithromycin. Check procalcitonin in the morning. (7) Chronic kidney disease Code(s): N18.9 - CHRONIC KIDNEY DISEASE, UNSPECIFIED Status: Acute Assessment and Plan: Stage III. Creatinine at baseline.
[2020-12-12] MEDS ORDERED: Dextrose 50% Abboject 50 ML SYRINGE SLOW IVP PRN (13:45)
[2020-12-12] MEDS ORDERED: HumaLOG 300 UNITS/3 ML VIAL SC PRN (13:45)
[2020-12-12] MEDS ORDERED: Dextrose 5% in Water 1,000 ML IV PRN (13:45)
[2020-12-12] MEDS: Azithromycin 500 MG in Sodium Chloride 0.9% 250 ML 250 ML IVPB SCH (14:45)
[2020-12-12] MEDS: Furosemide 40 MG/4 ML VIAL SLOW IVP SCH (14:45)
[2020-12-12] MEDS ORDERED: Furosemide 40 MG/4 ML VIAL ONE (14:53)
[2020-12-12] MEDS ORDERED: Azithromycin 500 MG VIAL ONE (14:53)
[2020-12-12] MEDS ORDERED: cefTRIAXone\\ROCEPHIN 1 GM VIAL ONE (15:39)
[2020-12-12] MEDS: cefTRIAXone\\ROCEPHIN 1 GM in Sodium Chloride 0.9% 100 ML IVPB SCH (15:45)
[2020-12-12] MEDS ORDERED: hydrALAZINE 25 MG TAB ONE (17:02)
[2020-12-12 21:44] VITALS: BMI 27.0
[2020-12-12] MEDS: hydrALAZINE 25 MG TAB PO SCH ×2 (21:46→21:47)
[2020-12-12] MEDS: Metoprolol Tartrate 50 MG TAB PO SCH (21:47)
[2020-12-12] MEDS: glyBURIDE 5 MG TAB PO SCH (21:47)
[2020-12-13 04:08] LABS: Anion Gap 13 mmol/L (10-20); BUN (Urea Nitrogen) 35 mg/dL (8.4-25.7); Calc. Creatinine Clearance 57 mL/min (70-130); Carbon Dioxide 25 mmol/L (23-31); Chloride 100 mmol/L (98-107); Glucose 84 mg/dL (80-115); Potassium 3.5 mmol/L (3.5-5.1); Sodium 134 mmol/L (136-145)
[2020-12-13 04:26] LABS: Band 2 % (5-11); Eosinophils 1 % (0-10); Hemoglobin 9.5 g/dL (14.0-18.0); Hypochromia SLIGHT = 6-15 cells (100X) (0-5/hpf); Lymphocytes 7 % (21-51); MDiff Complete? YES; Mean Corpuscular HGB CONC 32.3 g/dL (32.0-36.0); Mean Corpuscular Hemoglobin 27.3 pg (27.0-31.0); Mean Corpuscular Volume 84.7 fL (78.0-98.0); Mean Platelet Volume 6.8 fL (7.4-10.4); Monocytes 22 % (0-10); Neutrophil 68 % (42-75); Platelet Count 215 thou/uL (130-400); Platelet Morphology Comment Appears Adequate; Red Blood Cell (RBC) Count 3.47 mill/uL (4.70-6.10); White Blood Cell (WBC) Count 6.7 thou/uL (4.8-10.8)
[2020-12-13] MEDS: Furosemide 40 MG/4 ML VIAL SLOW IVP SCH ×2 (05:45→14:48)
[2020-12-13] MEDS: hydrALAZINE 25 MG TAB PO SCH ×3 (09:02→21:57)
[2020-12-13] MEDS: glyBURIDE 5 MG TAB PO SCH ×2 (09:02→17:18)
[2020-12-13] MEDS: Clopidogrel Bisulfate 75 MG TAB PO SCH (09:03)
[2020-12-13] MEDS: Enoxaparin Sodium 40 MG/0.4 ML SYRINGE SC SCH (09:03)
[2020-12-13] MEDS: Tamsulosin HCl 0.4 MG CAP PO SCH (09:03)
[2020-12-13] MEDS: Metoprolol Tartrate 50 MG TAB PO SCH ×2 (09:30→21:58)
[2020-12-13] MEDS: Azithromycin 500 MG in Sodium Chloride 0.9% 250 ML 250 ML IVPB SCH (14:47)
[2020-12-13] MEDS: cefTRIAXone\\ROCEPHIN 1 GM in Sodium Chloride 0.9% 100 ML IVPB SCH (14:48)
--- NOTE | 2020-12-13 17:08 | PDOC.HOSPP ---
- Subjective Encounter Date: 12/13/20 Subjective: Was a fair amount of cough. Still has some peripheral edema. - Objective Vital Signs & Weight: Vital Signs (12 hours) Temp Pulse Resp BP Pulse Ox 12/13/20 15:44 98.9 F 63 16 181/85 H 97 12/13/20 12:00 99.0 F 86 21 H 167/70 H 94 L 12/13/20 08:45 98.0 F 63 20 183/83 H 94 L Weight Weight 179 lb I&O: 12/12/20 12/13/20 12/14/20 06:59 06:59 06:59 Intake Total 480 Output Total 850 Balance -370 Result Diagrams: 12/13/20 03:24 12/13/20 03:24 Additional Labs: Accuchecks 12/13/20 12/13/20 12/12/20 11:17 06:04 20:46 POC Glucose 153 H 82 143 H 12/12/20 18:48 POC Glucose 89 Hospitalist ROS - Medication Medications: Active Medications Generic Name Dose Route Start Last Admin Trade Name Kodiq PRN Reason Stop Dose Admin Clopidogrel Bisulfate 75 mg 12/13/20 09:00 12/13/20 09:03 Clopidogrel Bisulfate 75 Mg Tab PO 75 mg DAILY BRITANY Administration Enoxaparin Sodium 40 mg 12/13/20 09:00 12/13/20 09:03 Enoxaparin Sodium 40 Mg/0.4 Ml Syringe SC 40 mg 0900 BRITANY Administration Furosemide 40 mg 12/12/20 14:00 12/13/20 14:48 Furosemide 40 Mg/4 Ml Vial SLOW IVP 40 mg 0600,1400 BRITANY Administration Glyburide 5 mg 12/12/20 17:00 12/13/20 09:02 Glyburide 5 Mg Tab PO 5 mg BID-WM BRITANY Administration Hydralazine HCl 75 mg 12/12/20 15:00 12/13/20 14:48 Hydralazine 25 Mg Tab PO 75 mg TID BRITANY Administration Azithromycin 500 mg/ Sodium 250 mls @ 250 mls/hr 12/12/20 14:00 12/13/20 14:47 Chloride IVPB 250 mls Q24HR BRITANY Administration Ceftriaxone Sodium 1 gm/ 100 mls @ 200 mls/hr 12/12/20 15:00 12/13/20 14:48 Sodium Chloride IVPB 100 mls Q24HR BRITANY Administration Isosorbide Mononitrate 30 mg 12/12/20 14:00 12/13/20 09:03 Isosorbide Mononitrate Er 30 Mg Tab PO 30 mg DAILY BRITANY Administration Metoprolol Tartrate 50 mg 12/12/20 21:00 12/13/20 09:30 Metoprolol Tartrate 50 Mg Tab PO 50 mg BID BRITANY Administration Tamsulosin HCl 0.4 mg 12/13/20 09:00 12/13/20 09:03 Tamsulosin Hcl 0.4 Mg Cap PO 0.4 mg DAILY BRITANY Administration Hospitalist Exam Vitals: Vital Signs (12 hours) Temp Pulse Resp BP Pulse Ox 12/13/20 15:44 98.9 F 63 16 181/85 H 97 12/13/20 12:00 99.0 F 86 21 H 167/70 H 94 L 12/13/20 08:45 98.0 F 63 20 183/83 H 94 L Weight Weight 179 lb General Appearance: NAD, awake alert Heart: RRR, no murmur, no gallops, no rubs, normal peripheral pulses Respiratory - other findings: Diffuse rales throughout both lungs. Diminished right base. Gastrointestinal: soft, non-tender, non-distended, normal bowel sounds, no palpable masses, no hepatomegaly, no splenomegaly, no bruit Extremities: 1+ LE edema Extremities - other findings: Left midfoot amputation Neurological: no focal deficits Musculoskeletal: normal tone, normal strength, no muscle wasting Psychiatric: normal affect, normal behavior, A&O x 3 Hosp A/P (1) CKD (chronic kidney disease), stage III Code(s): N18.30 - CHRONIC KIDNEY DISEASE, STAGE 3 UNSPECIFIED Status: Acute (2) Acute respiratory failure with hypoxia Code(s): J96.01 - ACUTE RESPIRATORY FAILURE WITH HYPOXIA Status: Acute (3) CHF exacerbation Code(s): I50.9 - HEART FAILURE, UNSPECIFIED Status: Acute (4) Pneumonia Code(s): J18.9 - PNEUMONIA, UNSPECIFIED ORGANISM Status: Acute (5) Anemia Code(s): D64.9 - ANEMIA, UNSPECIFIED Status: Chronic Qualifiers: (6) CAD (coronary artery disease) Code(s): I25.10 - ATHSCL HEART DISEASE OF [place] CORONARY ARTERY W/O ANG PCTRS Status: Chronic Qualifiers: Coronary Disease-Associated Artery/Lesion type: bypass graft [place] vs. transplanted heart: [place] heart Associated angina: without angina Qualified Code(s): I25.810 - Atherosclerosis of coronary artery bypass graft(s) without angina pectoris (7) Diabetes type 2, controlled Code(s): E11.9 - TYPE 2 DIABETES MELLITUS WITHOUT COMPLICATIONS Status: Chronic Qualifiers: Diabetes mellitus detention insulin use: without detention use (8) Hypertension Code(s): I10 - ESSENTIAL (PRIMARY) HYPERTENSION Status: Chronic Qualifiers: (9) PAD (peripheral artery disease) Code(s): I73.9 - PERIPHERAL VASCULAR DISEASE, UNSPECIFIED Status: Chronic - Plan Acute hypoxic respiratory failure with hypoxia: Appears to be due to some congestive heart failure decompensation and pneumonia. Continue supplemental oxygen as needed. Acute on chronic systolic congestive heart failure: Continue IV Lasix. Sodium restricted diet. 1500 cc fluid restriction. Echocardiogram has been ordered and results pending. Consider consulting cardiology if he is not move along quickly. Pneumonia: Patient has right lower lobe infiltrate with effusion on the right lung. He has fairly diffuse rales throughout both lungs. Productive cough. CT chest. Continue Rocephin and azithromycin. COVID-19 screen was negative. CKD stage III: Patient appears to be at his baseline renal function. Continue to monitor. Hypertension: Patient is on hydralazine and metoprolol at home. He had Imdur added to his regimen as his pressure was still running high on presentation. Coronary artery disease: Continue Plavix and statin. Diabetes mellitus: Continue home regimen of glipizide. Metformin being held for now. Continue sliding scale insulin. DVT prophylaxis: Lovenox.
--- NOTE | 2020-12-13 18:35 | CT ---
Chest CT without contrast: 12/13/2020 COMPARISON: 10/26/2019 HISTORY: Shortness of breath, evaluate pleural effusion TECHNIQUE: Axial CT imaging at 5 mm intervals from the thoracic inlet through the upper abdomen witho ut contrast. Coronal and sagittal reformatted imaging obtained. FINDINGS: The lack of contrast media limits assessment of the imaged viscera, the vascular structures , and assessment for lymphadenopathy. Limited assessment of the upper abdomen demonstrates no acute findings. There is a small left pleural effusion and a moderate/large right pleural effusion. Bilater al pleural effusions were present on the prior examination, now larger on the right and smaller on the left. Midline sternotomy wires are present. Multiple mediastinal clips are present and coronary arterial ca lcification is noted. There is hazy increased interstitial density in bilateral perihilar regions and the central portion o f both lungs, right greater than left, with associated mild bilateral perihilar groundglass opacity. Partial consolidation/collapse is noted involving the right lower lobe. Review of the osseous structures demonstrates no acute finding. No worrisome lytic or blastic bone le ellen. IMPRESSION: Bilateral pleural effusions, right greater than left. Nonspecific partial consolidation/c ollapse of the right lower lobe with perihilar interstitial and groundglass opacity as above. Findings are most consistent with pulmonary edema. Infectious pneumonitis or aspiration cannot be exc luded. Follow-up imaging following treatment to document resolution is thus advised.
[2020-12-14 04:44] LABS: Anion Gap 13 mmol/L (10-20); BUN (Urea Nitrogen) 36 mg/dL (8.4-25.7); Calc. Creatinine Clearance 60 mL/min (70-130); Calcium 8.1 mg/dL (7.8-10.44); Carbon Dioxide 27 mmol/L (23-31); Chloride 103 mmol/L (98-107); Glucose 91 mg/dL (80-115); Potassium 3.6 mmol/L (3.5-5.1); Sodium 139 mmol/L (136-145)
[2020-12-14 05:01] LABS: Eosinophils 2 % (0-10); Lymphocytes 14 % (21-51); MDiff Complete? YES; Mean Corpuscular HGB CONC 32.3 g/dL (32.0-36.0); Mean Corpuscular Hemoglobin 27.4 pg (27.0-31.0); Mean Corpuscular Volume 84.8 fL (78.0-98.0); Mean Platelet Volume 6.8 fL (7.4-10.4); Monocytes 12 % (0-10); Neutrophil 72 % (42-75); Platelet Count 249 thou/uL (130-400); Platelet Morphology Comment Appears Adequate; RBC Morphology Normal; Red Blood Cell (RBC) Count 3.65 mill/uL (4.70-6.10); White Blood Cell (WBC) Count 5.7 thou/uL (4.8-10.8)
[2020-12-14] MEDS: Furosemide 40 MG/4 ML VIAL SLOW IVP SCH ×2 (05:51→15:52)
[2020-12-14] MEDS: hydrALAZINE 25 MG TAB PO SCH ×3 (08:39→21:47)
[2020-12-14] MEDS: Enoxaparin Sodium 40 MG/0.4 ML SYRINGE SC SCH (08:39)
[2020-12-14] MEDS: Clopidogrel Bisulfate 75 MG TAB PO SCH (08:39)
[2020-12-14] MEDS: glyBURIDE 5 MG TAB PO SCH ×2 (08:39→17:32)
[2020-12-14] MEDS: Tamsulosin HCl 0.4 MG CAP PO SCH (08:40)
[2020-12-14] MEDS: Metoprolol Tartrate 50 MG TAB PO SCH ×2 (11:14→21:48)
[2020-12-14] MEDS: hydrALAZINE 20 MG/ML VIAL SLOW IVP PRN (12:24)
--- NOTE | 2020-12-14 13:40 | PDOC.HOSPP ---
- Subjective Encounter Date: 12/14/20 Subjective: Feels slightly better. His is here today and she believes that he may have little less edema today. - Objective Vital Signs & Weight: Vital Signs (12 hours) Temp Pulse Pulse Pulse Resp BP BP 12/14/20 12:40 60 66 172/77 H 179/77 H 12/14/20 12:30 12/14/20 12:00 98.3 F 62 19 12/14/20 08:30 98.0 F 56 L 15 12/14/20 05:06 12/14/20 04:00 97.7 F 72 26 H BP BP Pulse Ox Pulse Ox Pulse Ox 12/14/20 12:40 93 L 98 12/14/20 12:30 186/81 H 12/14/20 12:00 195/86 H 95 12/14/20 08:30 184/85 H 95 12/14/20 05:06 97 12/14/20 04:00 174/70 H 97 Weight Weight 180 lb 12.8 oz I&O: 12/13/20 12/14/20 12/15/20 06:59 06:59 06:59 Intake Total 720 Output Total 1950 Balance -1230 Result Diagrams: 12/14/20 04:02 12/14/20 04:02 Additional Labs: Accuchecks 12/14/20 12/13/20 12/13/20 11:12 20:58 17:11 POC Glucose 164 H 171 H 115 H Hospitalist ROS - Medication Medications: Active Medications Generic Name Dose Route Start Last Admin Trade Name Kodiq PRN Reason Stop Dose Admin Clopidogrel Bisulfate 75 mg 12/13/20 09:00 12/14/20 08:39 Clopidogrel Bisulfate 75 Mg Tab PO 75 mg DAILY BRITANY Administration Enoxaparin Sodium 40 mg 12/13/20 09:00 12/14/20 08:39 Enoxaparin Sodium 40 Mg/0.4 Ml Syringe SC 40 mg 0900 BRITANY Administration Furosemide 40 mg 12/12/20 14:00 12/14/20 05:51 Furosemide 40 Mg/4 Ml Vial SLOW IVP 40 mg 0600,1400 BRITANY Administration Glyburide 5 mg 12/12/20 17:00 12/14/20 08:39 Glyburide 5 Mg Tab PO 5 mg BID- BRITANY Administration Hydralazine HCl 75 mg 12/12/20 15:00 12/14/20 08:39 Hydralazine 25 Mg Tab PO 75 mg TID BRITANY Administration Hydralazine HCl 10 mg 12/13/20 18:51 12/14/20 12:24 Hydralazine 20 Mg/Ml Vial SLOW IVP 10 mg Q4H PRN Administration Hypertension Isosorbide Mononitrate 30 mg 12/12/20 14:00 12/14/20 11:13 Isosorbide Mononitrate Er 30 Mg Tab PO 30 mg DAILY BRITANY Administration Metoprolol Tartrate 50 mg 12/12/20 21:00 12/14/20 11:14 Metoprolol Tartrate 50 Mg Tab PO 50 mg BID BRITANY Administration Tamsulosin HCl 0.4 mg 12/13/20 09:00 12/14/20 08:40 Tamsulosin Hcl 0.4 Mg Cap PO 0.4 mg DAILY BRITANY Administration Hospitalist Exam Vitals: Vital Signs (12 hours) Temp Pulse Pulse Pulse Resp BP BP 12/14/20 12:40 60 66 172/77 H 179/77 H 12/14/20 12:30 12/14/20 12:00 98.3 F 62 19 12/14/20 08:30 98.0 F 56 L 15 12/14/20 05:06 12/14/20 04:00 97.7 F 72 26 H BP BP Pulse Ox Pulse Ox Pulse Ox 12/14/20 12:40 93 L 98 12/14/20 12:30 186/81 H 12/14/20 12:00 195/86 H 95 12/14/20 08:30 184/85 H 95 12/14/20 05:06 97 12/14/20 04:00 174/70 H 97 Weight Weight 180 lb 12.8 oz General Appearance: NAD, awake alert Heart: RRR, no gallops, no rubs, II/IV Respiratory: no wheezes, no ronchi, rales (Much improved from the prior exam) Gastrointestinal: soft, non-tender, non-distended, normal bowel sounds, no palpable masses, no hepatomegaly, no splenomegaly, no bruit Extremities: 2+ LE edema Extremities - other findings: Toes amputated off left foot Skin: normal turgor Neurological: no new deficit Musculoskeletal: normal tone Psychiatric: normal affect, normal behavior, A&O x 3 Hosp A/P (1) CKD (chronic kidney disease), stage III Code(s): N18.30 - CHRONIC KIDNEY DISEASE, STAGE 3 UNSPECIFIED Status: Acute (2) Acute respiratory failure with hypoxia Code(s): J96.01 - ACUTE RESPIRATORY FAILURE WITH HYPOXIA Status: Acute (3) CHF exacerbation Code(s): I50.9 - HEART FAILURE, UNSPECIFIED Status: Acute (4) Pneumonia Code(s): J18.9 - PNEUMONIA, UNSPECIFIED ORGANISM Status: Acute (5) Anemia Code(s): D64.9 - ANEMIA, UNSPECIFIED Status: Chronic Qualifiers: (6) CAD (coronary artery disease) Code(s): I25.10 - ATHSCL HEART DISEASE OF [place] CORONARY ARTERY W/O ANG PCTRS Status: Chronic Qualifiers: Coronary Disease-Associated Artery/Lesion type: bypass graft [place] vs. 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 Continue supplemental oxygen as needed. Acute on chronic systolic congestive heart failure: Continue IV Lasix. Sodium restricted diet. 1500 cc fluid restriction. Echocardiogram consistent with prior studies indicates preserved ejection fraction with diastolic dysfunction. Appears to be subtly improved with diuresis. Continue with IV Lasix. Pneumonia: Patient initially appeared to have a right lower lobe infiltrate with effusion on the right lung. He had fairly diffuse rales throughout both lungs. Productive cough. CT chest appeared to be more consistent with congestive heart failure than infiltrate.. He was initially on Rocephin and azithromycin however this was transitioned to p.o. doxycycline on 12/14/2020. COVID-19 screen was negative. CKD stage III: Patient appears to be at his baseline renal function. Continue to monitor. Hypertension: Patient is on hydralazine and metoprolol at home. Imdur was added to his regimen as his pressure was still running high on presentation. Coronary artery disease: Continue Plavix and statin. Diabetes mellitus: Continue home regimen of glipizide. Metformin being held for now. Continue sliding scale insulin. DVT prophylaxis: Lovenox.
[2020-12-14] MEDS: Doxycycline 100 MG CAP PO SCH (21:48)
[2020-12-15] MEDS: hydrALAZINE 20 MG/ML VIAL SLOW IVP PRN ×3 (00:25→16:27)
[2020-12-15 04:35] LABS: #Basophils 0.1 thou/uL (0.0-0.2); #Eosinphils 0.2 thou/uL (0.0-0.7); #Lymphocytes 0.9 thou/uL (1.20-3.40); #Monocytes 0.7 thou/uL (0.11-0.59); %Basophils 1.4 % (0.0-1.0); %Eosinophils 4.4 % (0.0-10.0); %Lymphocytes 18.7 % (21.0-51.0); %Monocytes 14.1 % (0.0-10.0); %Neutrophils 61.5 % (42.0-75.0); Mean Corpuscular HGB CONC 32.4 g/dL (32.0-36.0); Mean Corpuscular Hemoglobin 27.4 pg (27.0-31.0); Mean Corpuscular Volume 84.5 fL (78.0-98.0); Mean Platelet Volume 6.7 fL (7.4-10.4); Platelet Count 252 thou/uL (130-400); RBC Distribution Width 12.8 % (11.5-14.5); Red Blood Cell (RBC) Count 3.64 mill/uL (4.70-6.10); White Blood Cell (WBC) Count 4.8 thou/uL (4.8-10.8)
[2020-12-15 04:59] LABS: Anion Gap 13 mmol/L (10-20); BUN (Urea Nitrogen) 31 mg/dL (8.4-25.7); Calc. Creatinine Clearance 71 mL/min (70-130); Carbon Dioxide 26 mmol/L (23-31); Chloride 100 mmol/L (98-107); Glucose 108 mg/dL (80-115); Potassium 3.5 mmol/L (3.5-5.1); Sodium 135 mmol/L (136-145)
[2020-12-15] MEDS: Furosemide 40 MG/4 ML VIAL SLOW IVP SCH ×2 (05:39→14:04)
[2020-12-15] MEDS: hydrALAZINE 25 MG TAB PO SCH ×3 (08:16→20:42)
[2020-12-15] MEDS: Enoxaparin Sodium 40 MG/0.4 ML SYRINGE SC SCH (08:16)
[2020-12-15] MEDS: Clopidogrel Bisulfate 75 MG TAB PO SCH (08:17)
[2020-12-15] MEDS: Tamsulosin HCl 0.4 MG CAP PO SCH (08:17)
[2020-12-15] MEDS: glyBURIDE 5 MG TAB PO SCH ×2 (08:17→16:25)
[2020-12-15] MEDS: Doxycycline 100 MG CAP PO SCH ×2 (08:17→20:41)
[2020-12-15] MEDS: Metoprolol Tartrate 50 MG TAB PO SCH ×2 (08:17→20:41)
[2020-12-15] MEDS ORDERED: Metolazone 5 MG TAB PO SCH (08:30)
[2020-12-15] MEDS: Metolazone 5 MG TAB PO SCH (13:17)
--- NOTE | 2020-12-15 15:16 | PDOC.HOSPP ---
- Subjective Encounter Date: 12/15/20 Subjective: Patient feels well. He has been able to ambulate up and down the comer fairly well without oxygen and does not feel significantly short of breath. Still has some peripheral edema although it is improved. He reports that he has been voiding quite a bit of fluid (although the I's and O's are not necessarily reflective of that as they were recorded in the record). Still had significant amount of cough overnight. - Objective Vital Signs & Weight: Vital Signs (12 hours) Temp Pulse Pulse Pulse Resp BP BP 12/15/20 14:04 58 L 12/15/20 12:42 55 L 53 L 187/79 H 12/15/20 11:40 98.7 F 58 L 20 12/15/20 08:16 61 197/85 H 12/15/20 08:00 60 20 12/15/20 04:47 61 197/85 H 12/15/20 04:39 12/15/20 04:00 98.5 F 61 18 BP BP BP Pulse Ox Pulse Ox Pulse Ox 12/15/20 14:04 12/15/20 12:42 167/74 H 93 L 90 L 12/15/20 11:40 185/85 H 94 L 12/15/20 08:16 12/15/20 08:00 200/85 H 96 12/15/20 04:47 12/15/20 04:39 95 12/15/20 04:00 197/85 H 95 Weight Weight 6.064 oz I&O: 12/14/20 12/15/20 12/16/20 06:59 06:59 06:59 Intake Total 720 1450 Output Total 1950 1525 Balance -1230 -75 Result Diagrams: 12/15/20 04:14 12/15/20 04:14 Additional Labs: Accuchecks 12/15/20 12/15/20 12/14/20 10:54 05:41 20:25 POC Glucose 177 H 94 186 H 12/14/20 17:05 POC Glucose 119 H Hospitalist ROS - Medication Medications: Active Medications Generic Name Dose Route Start Last Admin Trade Name Freq PRN Reason Stop Dose Admin Clopidogrel Bisulfate 75 mg 12/13/20 09:00 12/15/20 08:17 Clopidogrel Bisulfate 75 Mg Tab PO 75 mg DAILY BRITANY Administration Doxycycline Hyclate 100 mg 12/14/20 21:00 12/15/20 08:17 Doxycycline 100 Mg Cap PO 100 mg BID BRITANY Administration Enoxaparin Sodium 40 mg 12/13/20 09:00 12/15/20 08:16 Enoxaparin Sodium 40 Mg/0.4 Ml Syringe SC 40 mg 0900 BRITANY Administration Furosemide 40 mg 12/12/20 14:00 12/15/20 14:04 Furosemide 40 Mg/4 Ml Vial SLOW IVP 40 mg 0600,1400 BRITANY Administration Glyburide 5 mg 12/12/20 17:00 12/15/20 08:17 Glyburide 5 Mg Tab PO 5 mg BID-WM BRITANY Administration Hydralazine HCl 10 mg 12/13/20 18:51 12/15/20 04:47 Hydralazine 20 Mg/Ml Vial SLOW IVP 10 mg Q4H PRN Administration Hypertension Hydralazine HCl 100 mg 12/14/20 15:00 12/15/20 14:04 Hydralazine 25 Mg Tab PO 100 mg TID BRITANY Administration Isosorbide Mononitrate 30 mg 12/12/20 14:00 12/15/20 08:17 Isosorbide Mononitrate Er 30 Mg Tab PO 30 mg DAILY BRITANY Administration Metolazone 5 mg 12/15/20 13:30 12/15/20 13:17 Metolazone 5 Mg Tab PO 5 mg 0530,1330 BRITANY Administration Metoprolol Tartrate 50 mg 12/12/20 21:00 12/15/20 08:17 Metoprolol Tartrate 50 Mg Tab PO 50 mg BID BRITANY Administration Sodium Chloride 10 ml 12/14/20 21:00 12/15/20 09:43 Flush - Normal Saline 10 Ml Syringe IVF 10 ml Q12HR BRITANY Administration Tamsulosin HCl 0.4 mg 12/13/20 09:00 12/15/20 08:17 Tamsulosin Hcl 0.4 Mg Cap PO 0.4 mg DAILY BRITANY Administration Hospitalist Exam Vitals: Vital Signs (12 hours) Temp Pulse Pulse Pulse Resp BP BP 12/15/20 14:04 58 L 12/15/20 12:42 55 L 53 L 187/79 H 12/15/20 11:40 98.7 F 58 L 12/15/20 08:16 61 197/85 H 12/15/20 08:00 60 12/15/20 04:47 61 197/85 H 12/15/20 04:39 12/15/20 04:00 98.5 F 61 18 BP BP BP Pulse Ox Pulse Ox Pulse Ox 12/15/20 14:04 12/15/20 12:42 167/74 H 93 L 90 L 12/15/20 11:40 185/85 H 94 L 12/15/20 08:16 12/15/20 08:00 200/85 H 96 12/15/20 04:47 12/15/20 04:39 95 12/15/20 04:00 197/85 H 95 Weight Weight 6.064 oz General Appearance: NAD, awake alert Heart: RRR, no murmur, no gallops, no rubs, normal peripheral pulses Respiratory: CTAB, no wheezes, no ronchi, normal chest expansion, no tachypnea, rales (Minimal) Respiratory - other findings: Diminished breath sounds and diminished fremitus right base Gastrointestinal: soft, non-tender, non-distended, normal bowel sounds, no palpable masses, no hepatomegaly, no splenomegaly, no bruit Extremities: no cyanosis, no clubbing, no edema Skin: normal turgor Neurological: no focal deficits Musculoskeletal: normal tone, normal strength, no muscle wasting Psychiatric: normal affect, normal behavior, A&O x 3 Hosp A/P (1) Acute respiratory failure with hypoxia Code(s): J96.01 - ACUTE RESPIRATORY FAILURE WITH HYPOXIA Status: Acute (2) CHF exacerbation Code(s): I50.9 - HEART FAILURE, UNSPECIFIED Status: Acute (3) CKD (chronic kidney disease), stage III Code(s): N18.30 - CHRONIC KIDNEY DISEASE, STAGE 3 UNSPECIFIED Status: Acute (4) Pneumonia Code(s): J18.9 - PNEUMONIA, UNSPECIFIED ORGANISM Status: Acute (5) Anemia Code(s): D64.9 - ANEMIA, UNSPECIFIED Status: Chronic Qualifiers: (6) CAD (coronary artery disease) Code(s): I25.10 - ATHSCL HEART DISEASE OF [place] CORONARY ARTERY W/O ANG PCTRS Status: Chronic Qualifiers: Coronary Disease-Associated Artery/Lesion type: bypass graft [place] vs. transplanted heart: [place] heart Associated angina: without angina Qualified Code(s): I25.810 - Atherosclerosis of coronary artery bypass graft(s) without angina pectoris (7) Diabetes type 2, controlled Code(s): E11.9 - TYPE 2 DIABETES MELLITUS WITHOUT COMPLICATIONS Status: Chronic Qualifiers: Diabetes mellitus long term care social worker insulin use: without long term care social worker use (8) Hypertension Code(s): I10 - ESSENTIAL (PRIMARY) HYPERTENSION Status: Chronic Qualifiers: (9) PAD (peripheral artery disease) Code(s): I73.9 - PERIPHERAL VASCULAR DISEASE, UNSPECIFIED Status: Chronic (10) Pleural effusion on right Code(s): J90 - PLEURAL EFFUSION, NOT ELSEWHERE CLASSIFIED Status: Acute - Plan Acute hypoxic respiratory failure with hypoxia: Appears to be due to some congestive heart failure decompensation and pneumonia. Continue supplemental oxygen as needed. By 12/15/2020 the patient was able to come off oxygen was ambulating in the comer without difficulty. Acute on chronic systolic congestive heart failure: Continue IV Lasix. Sodium restricted diet. 1500 cc fluid restriction. Echocardiogram consistent with prior studies indicates preserved ejection fraction with diastolic dysfunction. Was improving with Lasix. Recorded output indicated modest gains on 12/15/2020 (although patient indicated he had more output than was recorded). Added metolazone. Patient follows with cardiology clinic here. Will consult cardiology. Pleural effusion on the right: Secondary to decompensated heart failure. Continuing to diurese. Patient was able to wean off oxygen. If he can remain stable may be able to continue to work on diuresis over time. Otherwise it is certainly large enough to consider thoracentesis. Pneumonia: Patient initially appeared to have a right lower lobe infiltrate with effusion on the right lung. He had fairly diffuse rales throughout both lungs. These did clear with diuresis. Productive cough. CT chest appeared to be more consistent with congestive heart failure than infiltrate.. He was initially on Rocephin and azithromycin however this was transitioned to p.o. doxycycline on 12/14/2020. COVID-19 screen was negative. CKD stage III: Patient appears to be at his baseline renal function. Continue to monitor. Hypertension: Patient is on hydralazine and metoprolol at home. Imdur was added to his regimen as his pressure was still running high on presentation. Hydralazine was increased to 100 mg p.o. 3 times daily. Coronary artery disease: Continue Plavix and statin. Diabetes mellitus: Continue home regimen of glipizide. Metformin being held for now. Continue sliding scale insulin. Blood sugars very well controlled. DVT prophylaxis: Lovenox.
[2020-12-16 04:19] LABS: #Eosinphils 0.2 thou/uL (0.0-0.7); #Lymphocytes 1.1 thou/uL (1.20-3.40); #Monocytes 0.6 thou/uL (0.11-0.59); #Neutrophils 2.6 thou/uL (1.40-6.50); %Basophils 0.7 % (0.0-1.0); %Eosinophils 3.7 % (0.0-10.0); %Lymphocytes 24.6 % (21.0-51.0); %Monocytes 13.2 % (0.0-10.0); %Neutrophils 57.8 % (42.0-75.0); Hemoglobin 10.4 g/dL (14.0-18.0); Mean Corpuscular HGB CONC 33.4 g/dL (32.0-36.0); Mean Corpuscular Hemoglobin 27.6 pg (27.0-31.0); Mean Corpuscular Volume 82.9 fL (78.0-98.0); Mean Platelet Volume 6.6 fL (7.4-10.4); Platelet Count 277 thou/uL (130-400); RBC Distribution Width 12.8 % (11.5-14.5); Red Blood Cell (RBC) Count 3.78 mill/uL (4.70-6.10); White Blood Cell (WBC) Count 4.6 thou/uL (4.8-10.8)
[2020-12-16 04:42] LABS: Anion Gap 14 mmol/L (10-20); BUN (Urea Nitrogen) 31 mg/dL (8.4-25.7); Calc. Creatinine Clearance 0 mL/min (70-130); Calcium 8.5 mg/dL (7.8-10.44); Carbon Dioxide 28 mmol/L (23-31); Chloride 98 mmol/L (98-107); Glucose 125 mg/dL (80-115); Potassium 3.7 mmol/L (3.5-5.1); Sodium 136 mmol/L (136-145)
[2020-12-16] MEDS: Furosemide 40 MG/4 ML VIAL SLOW IVP SCH ×2 (05:53→15:50)
[2020-12-16] MEDS: Metolazone 5 MG TAB PO SCH ×2 (05:53→14:53)
[2020-12-16] MEDS: hydrALAZINE 20 MG/ML VIAL SLOW IVP PRN ×2 (05:55→16:32)
--- NOTE | 2020-12-16 08:12 | RAD ---
XR Chest 1 View Portable History: Pleural effusion, shortness of breath Comparison: Radiograph December 11, 2020. Findings: Similar size large right pleural effusion. Pulmonary edema slightly improved. Heart size is enlarged. Impression: Similar large right pleural effusion. Mild improved pulmonary edema.
[2020-12-16] MEDS: Doxycycline 100 MG CAP PO SCH ×2 (08:26→21:32)
[2020-12-16] MEDS: Enoxaparin Sodium 40 MG/0.4 ML SYRINGE SC SCH (08:26)
[2020-12-16] MEDS: glyBURIDE 5 MG TAB PO SCH ×2 (08:26→17:13)
[2020-12-16] MEDS: hydrALAZINE 25 MG TAB PO SCH ×3 (08:26→21:31)
[2020-12-16] MEDS: Clopidogrel Bisulfate 75 MG TAB PO SCH (08:26)
[2020-12-16] MEDS: Metoprolol Tartrate 50 MG TAB PO SCH ×2 (08:27→21:32)
[2020-12-16] MEDS: Tamsulosin HCl 0.4 MG CAP PO SCH (08:27)
[2020-12-16] MEDS: Losartan 25 MG TAB PO SCH (09:15)
--- NOTE | 2020-12-16 17:17 | PDOC.HOSPP ---
- Subjective Encounter Date: 12/16/20 Subjective: Feels very well in general. His edema has improved significantly. He is breathing comfortably. He is able to ambulate without oxygen and do well. - Objective Vital Signs & Weight: Vital Signs (12 hours) Temp Pulse Pulse Pulse Resp BP BP 12/16/20 16:13 97.7 F 57 L 12/16/20 11:14 98.2 F 56 L 12/16/20 10:37 56 L 58 L 151/67 H 157/72 H 12/16/20 07:46 98.5 F 58 L 12/16/20 05:55 58 L BP Pulse Ox Pulse Ox Pulse Ox 12/16/20 16:13 197/87 H 92 L 12/16/20 11:14 167/76 H 93 L 12/16/20 10:37 94 L 94 L 12/16/20 07:46 230/98 H 93 L 12/16/20 05:55 Weight Weight 6.18 oz I&O: 12/15/20 12/16/20 12/17/20 06:59 06:59 06:59 Intake Total 1450 1080 300 Output Total 1525 2600 2075 Balance -75 -1520 -4785 Result Diagrams: 12/16/20 03:56 12/16/20 03:56 Additional Labs: Accuchecks 12/16/20 12/16/20 12/16/20 16:32 10:51 05:53 POC Glucose 158 H 144 H 113 H 12/15/20 12/15/20 21:00 17:16 POC Glucose 199 H 174 H Hospitalist ROS - Medication Medications: Active Medications Generic Name Dose Route Start Last Admin Trade Name Freq PRN Reason Stop Dose Admin Clopidogrel Bisulfate 75 mg 12/13/20 09:00 12/16/20 08:26 Clopidogrel Bisulfate 75 Mg Tab PO 75 mg DAILY BRITANY Administration Doxycycline Hyclate 100 mg 12/14/20 21:00 12/16/20 08:26 Doxycycline 100 Mg Cap PO 100 mg BID BRITANY Administration Enoxaparin Sodium 40 mg 12/13/20 09:00 12/16/20 08:26 Enoxaparin Sodium 40 Mg/0.4 Ml Syringe SC 40 mg 0900 BRITANY Administration Furosemide 40 mg 12/12/20 14:00 12/16/20 15:50 Furosemide 40 Mg/4 Ml Vial SLOW IVP 40 mg 0600,1400 BRITANY Administration Glyburide 5 mg 12/12/20 17:00 12/16/20 08:26 Glyburide 5 Mg Tab PO 5 mg BID-WM BRITANY Administration Hydralazine HCl 10 mg 12/13/20 18:51 12/16/20 16:32 Hydralazine 20 Mg/Ml Vial SLOW IVP 10 mg Q4H PRN Administration Hypertension Hydralazine HCl 100 mg 12/14/20 15:00 12/16/20 14:54 Hydralazine 25 Mg Tab PO 100 mg TID BRITANY Administration Isosorbide Mononitrate 30 mg 12/12/20 14:00 12/16/20 08:27 Isosorbide Mononitrate Er 30 Mg Tab PO 30 mg DAILY BRITANY Administration Losartan Potassium 50 mg 12/16/20 09:00 12/16/20 09:15 Losartan 25 Mg Tab PO 50 mg DAILY BRITANY Administration Metolazone 5 mg 12/15/20 13:30 12/16/20 14:53 Metolazone 5 Mg Tab PO 5 mg 0530,1330 BRITANY Administration Metoprolol Tartrate 50 mg 12/12/20 21:00 12/16/20 08:27 Metoprolol Tartrate 50 Mg Tab PO 50 mg BID BRITANY Administration Sodium Chloride 10 ml 12/14/20 21:00 12/16/20 08:27 Flush - Normal Saline 10 Ml Syringe IVF 10 ml Q12HR BRITANY Administration Sodium Chloride 10 ml 12/14/20 14:00 12/16/20 05:56 Flush - Normal Saline 10 Ml Syringe IVF 10 ml PRN PRN Administration Saline Flush Tamsulosin HCl 0.4 mg 12/13/20 09:00 12/16/20 08:27 Tamsulosin Hcl 0.4 Mg Cap PO 0.4 mg DAILY BRITANY Administration Hospitalist Exam Vitals: Vital Signs (12 hours) Temp Pulse Pulse Pulse Resp BP BP 12/16/20 16:13 97.7 F 57 L 12/16/20 11:14 98.2 F 56 L 12/16/20 10:37 56 L 58 L 151/67 H 157/72 H 12/16/20 07:46 98.5 F 58 L 20 12/16/20 05:55 58 L BP Pulse Ox Pulse Ox Pulse Ox 12/16/20 16:13 197/87 H 92 L 12/16/20 11:14 167/76 H 93 L 12/16/20 10:37 94 L 94 L 12/16/20 07:46 230/98 H 93 L 12/16/20 05:55 Weight Weight 6.18 oz General Appearance: NAD, awake alert Heart: RRR, no murmur, no gallops, no rubs, normal peripheral pulses Respiratory: CTAB, no wheezes, no rales, no ronchi, normal chest expansion, no tachypnea, normal percussion Gastrointestinal: soft, non-tender, non-distended, normal bowel sounds, no palpable masses, no hepatomegaly, no splenomegaly Extremities: no cyanosis, no clubbing, no edema Skin: normal turgor Neurological: cranial nerve grossly intact, normal sensation to touch, no weakness, no focal deficits, no new deficit Musculoskeletal: normal tone, normal strength, no muscle wasting Psychiatric: normal affect, normal behavior, A&O x 3 Hosp A/P (1) Acute respiratory failure with hypoxia Code(s): J96.01 - ACUTE RESPIRATORY FAILURE WITH HYPOXIA Status: Acute (2) CHF exacerbation Code(s): I50.9 - HEART FAILURE, UNSPECIFIED Status: Acute (3) CKD (chronic kidney disease), stage III Code(s): N18.30 - CHRONIC KIDNEY DISEASE, STAGE 3 UNSPECIFIED Status: Acute (4) Pneumonia Code(s): J18.9 - PNEUMONIA, UNSPECIFIED ORGANISM Status: Acute (5) Anemia Code(s): D64.9 - ANEMIA, UNSPECIFIED Status: Chronic Qualifiers: (6) CAD (coronary artery disease) Code(s): I25.10 - ATHSCL HEART DISEASE OF [place] CORONARY ARTERY W/O ANG PCTRS Status: Chronic Qualifiers: Coronary Disease-Associated Artery/Lesion type: bypass graft [place] vs. transplanted heart: [place] heart Associated angina: without angina Qualified Code(s): I25.810 - Atherosclerosis of coronary artery bypass graft(s) without angina pectoris (7) Diabetes type 2, controlled Code(s): E11.9 - TYPE 2 DIABETES MELLITUS WITHOUT COMPLICATIONS Status: Chronic Qualifiers: Diabetes mellitus penitentiary insulin use: without penitentiary use (8) Hypertension Code(s): I10 - ESSENTIAL (PRIMARY) HYPERTENSION Status: Chronic Qualifiers: (9) PAD (peripheral artery disease) Code(s): I73.9 - PERIPHERAL VASCULAR DISEASE, UNSPECIFIED Status: Chronic (10) Pleural effusion on right Code(s): J90 - PLEURAL EFFUSION, NOT ELSEWHERE CLASSIFIED Status: Acute - Plan Acute hypoxic respiratory failure with hypoxia: Appears to be due to some congestive heart failure decompensation and pleural effusion. Continue supplemental oxygen as needed. By 12/15/2020 the patient was able to come off oxygen was ambulating in the comer without difficulty. Acute on chronic systolic congestive heart failure: Continue IV Lasix. Sodium restricted diet. 1500 cc fluid restriction. Echocardiogram consistent with prior studies indicates preserved ejection fraction with diastolic dysfunction. improving with Lasix. Added metolazone. Patient follows with cardiology clinic here. consult cardiology. Pleural effusion on the right: Secondary to decompensated heart failure. Continuing to diurese. Patient was able to wean off oxygen. Appears as though he will be stable off of oxygen and thoracentesis may not be necessary. Pneumonia: Patient initially appeared to have a right lower lobe infiltrate with effusion on the right lung. He had fairly diffuse rales throughout both lungs. These did clear with diuresis. Productive cough. CT chest appeared to be more consistent with congestive heart failure than infiltrate.. He was initially on Rocephin and azithromycin however this was transitioned to p.o. doxycycline on 12/14/2020. COVID-19 screen was negative. CKD stage III: Patient appears to be at his baseline renal function. Continue to monitor. Hypertension: Patient is on hydralazine and metoprolol at home. Imdur was added to his regimen as his pressure was still running high on presentation. Hydralazine was increased to 100 mg p.o. 3 times daily. Continue to run hypertensive. On 12/16/2020 the patient was given additional dose of losartan. Patient has had a cough related to lisinopril so PAOLA inhibitor's were specifically avoided. Coronary artery disease: Continue Plavix and statin. Diabetes mellitus: Continue home regimen of glipizide. Metformin being held for now. Continue sliding scale insulin. Blood sugars very well controlled. DVT prophylaxis: Lovenox.
--- NOTE | 2020-12-16 21:37 | CON ---
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 His surgical scrub technician at that time was Dr. Johnson. I first saw him in the office in August 2019. He was complaining of increased shortness of breath, having asleep in a chair, as well as increased lower extremity edema. He did have chest discomfort lasting several seconds. He was placed on furosemide 20 q.a.m. He also was on very high dose nifedipine-60 mg b.i.d. and this was reduced, hydralazine was increased, and later furosemide was increased to 20 b.i.d. He continued to have increased shortness of breath and was hospitalized in October 2019. He was febrile to 102. It was felt he had severe sepsis from left foot cellulitis. He has continued to be followed in the office and the last time he was seen was in October 2020. He had been out of Lasix for one week and developed increased shortness of breath and leg edema, but resumed Lasix and was starting to improve. He now has had problems with increased shortness of breath and was admitted on December 12. He has been diuresed over the last 3 or 4 days with improvement in his symptoms, but he continues to remain short of breath. He denies any chest discomfort. He denies any fever. PAST MEDICAL HISTORY: Diabetes, hypertension, hypercholesterolemia, peripheral vascular disease, coronary artery disease, diabetic foot infections. PAST SURGICAL HISTORY: CABG x3 in 2011, left transmetatarsal amputation, tonsillectomy, nose surgery, bilateral hernia repair. MEDICATIONS: 1. Hydralazine 100 mg t.i.d. 2. Plavix 75 daily. 3. Furosemide 40 mg b.i.d. 4. Metoprolol 100 b.i.d. 5. Metformin 1000 mg b.i.d. 6. Flomax 0.4 daily. 7. Glyburide 5 mg b.i.d. ALLERGIES: LISINOPRIL CAUSES A COUGH, MUSCLE ACHES WITH CHOLESTEROL MEDICATIONS, TRYING TO GET REPATHA. SOCIAL HISTORY: He does not smoke or drink. FAMILY HISTORY: Father had sudden . REVIEW OF SYSTEMS: 10-point review of systems is otherwise unremarkable. PHYSICAL EXAMINATION: VITAL SIGNS: Blood pressure 188/79, pulse of 56. HEENT: PERRL. NECK: Supple. CHEST: Reveals absent breath sounds one-half the way down the right posterior chest. Dullness to percussion. ABDOMEN: Normal bowel sounds without tenderness or organomegaly. EXTREMITIES: Reveal 1 to 2+ edema to the knee. NEUROLOGIC: Grossly intact. SKIN: Warm and dry. DIAGNOSTIC STUDIES: Chest x-ray reveals some increased pulmonary vascularity, but very significant right pleural effusion obscuring approximately one-half of the right chest. LABORATORY DATA: Hemoglobin 10.4, hematocrit 31.3, white count 4600, platelets 277,000. Sodium 136, potassium 3.7, chloride 98, carbon dioxide 28, BUN 31, creatinine 1.41. BNP 1251.7. Troponin I of 0.032. COVID negative. Echocardiogram revealed ejection fraction of 55% to 60% with moderate concentric left ventricular hypertrophy with evidence of diastolic dysfunction, moderate left atrial enlargement, moderate mitral regurgitation, moderately thickened aortic valve leaflets with normal excursion, [id number] tricuspid regurgitation. IMPRESSION: 1. [id number] diastolic heart failure. 2. Status post coronary artery bypass graft x3. 3. Hypertension. 4. Hypercholesterolemia, untreated. I have tried to give Repatha for the patient. He does not tolerate statins. Last LDL was 160. 5. Diabetes. 6. Peripheral vascular disease, status post drug-eluting stent in the left peroneal artery. 7. Family history of cardiac arrest. 8. Chronic kidney disease. PLAN: The patient continue to be diuresed. Medications will be gradually increased to try to control his blood pressure. Pulmonary will be consulted for thoracentesis both therapeutic and diagnostic. Job ID: [id number] [facility]
[2020-12-17 05:25] LABS: Hemoglobin 10.5 g/dL (14.0-18.0); Mean Corpuscular HGB CONC 32.6 g/dL (32.0-36.0); Mean Corpuscular Volume 82.8 fL (78.0-98.0); Mean Platelet Volume 6.5 fL (7.4-10.4); Platelet Count 297 thou/uL (130-400); RBC Distribution Width 12.6 % (11.5-14.5); Red Blood Cell (RBC) Count 3.88 mill/uL (4.70-6.10); White Blood Cell (WBC) Count 4.8 thou/uL (4.8-10.8)
[2020-12-17] MEDS: Metolazone 5 MG TAB PO SCH ×2 (05:25→14:28)
[2020-12-17 05:30] LABS: Anion Gap 11 mmol/L (10-20); BUN (Urea Nitrogen) 31 mg/dL (8.4-25.7); Calc. Creatinine Clearance 0 mL/min (70-130); Calcium 8.4 mg/dL (7.8-10.44); Carbon Dioxide 30 mmol/L (23-31); Chloride 98 mmol/L (98-107); Glucose 141 mg/dL (80-115); Potassium 3.4 mmol/L (3.5-5.1); Sodium 136 mmol/L (136-145)
[2020-12-17 05:59] LABS: Band 4 % (5-11); Eosinophils 5 % (0-10); Hypochromia SLIGHT = 6-15 cells (100X) (0-5/hpf); Lymphocytes 19 % (21-51); MDiff Complete? YES; Monocytes 10 % (0-10); Neutrophil 57 % (42-75); Platelet Morphology Comment Appears Adequate; Reactive Lymphocytes 5 % (0-10)
[2020-12-17] MEDS: Furosemide 40 MG/4 ML VIAL SLOW IVP SCH ×2 (06:30→14:28)
[2020-12-17] MEDS: hydrALAZINE 25 MG TAB PO SCH ×3 (07:26→22:08)
[2020-12-17] MEDS: Metoprolol Tartrate 50 MG TAB PO SCH (07:27)
[2020-12-17] MEDS: Losartan 25 MG TAB PO SCH (07:27)
[2020-12-17] MEDS: glyBURIDE 5 MG TAB PO SCH ×2 (09:15→17:18)
[2020-12-17] MEDS: Clopidogrel Bisulfate 75 MG TAB PO SCH (09:16)
[2020-12-17] MEDS: Tamsulosin HCl 0.4 MG CAP PO SCH (09:16)
[2020-12-17] MEDS: Doxycycline 100 MG CAP PO SCH ×2 (09:16→22:08)
--- NOTE | 2020-12-17 12:23 | RAD ---
EXAM: CHEST ONE VIEW HISTORY: Pleural effusion. Follow-up evaluation COMPARISON: 12/16/2020 FINDINGS: Postoperative changes related to median sternotomy are again noted. Cardiac silhouette is magnified b y projection but does appear mildly enlarged. Pulmonary vasculature is within normal limits. Small right pleural effusion and associated atelectasis is present. Right pleural effusion is smaller in si ze compared to prior exam. Left lung remains clear. Remote left-sided rib fractures are seen. IMPRESSION: Improvement in right pleural effusion.
[2020-12-17 12:57] LABS: RBC Count-Automated (BF) 53 /cu.mm; WBC/Nucleated-Auto (BF) 179 uL
[2020-12-17 13:15] LABS: Fluid, Triglycerides 12 mg/dL (Not Available); Pleural Fluid, Amylase Less than 30 U/L (Not Available); Pleural Fluid, Glucose 166 mg/dL; Pleural Fluid, LDH 69 U/L (Not Available); Pleural Fluid, Protein 2.2 g/dL
[2020-12-17 13:27] LABS: BF Color Yellow; Body Fluid Source Pleural Fluid; Clarity Hazy (Clear); Tube # EDTA
[2020-12-17 13:40] LABS: BF Segmented Neutrophils 4 %; Cell Count Non Hematic 76 %; Eosinophils 1 %; Lymphocytes 19 %
--- NOTE | 2020-12-17 15:54 | CON ---
DATE OF CONSULTATION: Tima Marie is a 65-year-old gentleman, who has been in the hospital here now for several days. X-ray shows worsening right-sided pleural effusion, two views of the chest. He is having difficulty with breathing. He is from [place]. He had orthopnea and PND. Denies any chills or sweats. He is a nonsmoker. No prior history of TB, pneumonia, or bronchial asthma. He had an echo done, which shows diastolic dysfunction. PAST MEDICAL HISTORY: Otherwise, pertinent for hypertension, high cholesterol, and diabetes. PAST SURGICAL HISTORY: Tonsils, left foot amputation, bypass surgery, hernia repair, and eye surgery. HOME MEDICATIONS: Include: 1. Glyburide 5 b.i.d. 2. Flomax 0.4. 3. Metoprolol 75. 4. Hydralazine 100 three times a day. 5. Plavix 75. 6. Lasix 40. 7. Metformin 1000 twice a day. ALLERGIES: LISINOPRIL AND STATINS. PHYSICAL EXAMINATION: GENERAL: He is in mild distress. VITAL SIGNS: His respirations 20, pulse 80, blood pressure 130/80, sats are 96% on room air. CHEST: Decreased breath sounds, right lung, two view of the chest, left lung unremarkable. CARDIAC: Normal S1, S2. No gallops. ABDOMEN: No masses. DIAGNOSTIC STUDIES: X-ray shows right pleural effusion. His labs show white count 4000, H and H 10 and 32, platelet count is normal. Creatinine 1.3, BUN 31. IMPRESSION: Right pleural effusion, probably diastolic dysfunction, mild azotemia, diabetes, peripheral vascular disease, and coronary artery disease. PLAN: Continue cardiac care. Therapeutic thoracentesis will be performed. Further recommendations as above. This is a consultation note, 70 minutes, 50% direct patient care. Job ID: [id number]
[2020-12-17] MEDS: Carvedilol 25 MG TAB PO SCH (17:18)
--- NOTE | 2020-12-17 17:38 | ULT ---
EXAM: RENAL ULTRASOUND: 12/17/20 HISTORY: Malignant hypertension. COMPARISON: None. TECHNIQUE: Perez scale, color flow, Doppler imaging with spectral waveform analysis of the kidneys is performed. FINDINGS: Bilaterally, no hydronephrosis. Right kidney measures 11.4 x 5.8 x 6.0 cm. Left kidney measures 11.5 x 6.2 x 6.4 cm. Renal Doppler: Right renal artery: 95.2 cm/s. Left renal artery: 129.8 cm/s. Right renal artery to aorta ratio: 0.49. Left renal artery to aorta ratio: 0.67. Right arcuate artery resistive indices: 0.70. Left arcuate artery resistive indices: 0.79. IMPRESSION: Increased resistive index involving the left renal arcuate artery. Correlate for medical renal diseas e. POS: PPP
[2020-12-17] MEDS ORDERED: Losartan 25 MG TAB PO SCH (18:45)
--- NOTE | 2020-12-17 18:46 | PDOC.HOSPP ---
- Subjective Encounter Date: 12/17/20 Subjective: Feels reasonably well in general. Has been able to get up and around. He tolerated the thoracentesis without difficulty. - Objective Vital Signs & Weight: Vital Signs (12 hours) Temp Pulse Resp BP BP Pulse Ox 12/17/20 16:01 97.7 F 56 L 18 185/88 H 93 L 12/17/20 14:28 58 L 12/17/20 12:04 98.0 F 58 L 18 179/76 H 92 L 12/17/20 09:14 57 L 163/72 H 12/17/20 07:23 97.5 F L 58 L 20 235/103 H 94 L 12/17/20 07:20 94 L Weight Weight 169 lb 9.6 oz I&O: 12/16/20 12/17/20 12/18/20 06:59 06:59 06:59 Intake Total 1080 660 600 Output Total 2600 3975 3000 Balance -3697 -0761 -7389 Result Diagrams: 12/17/20 04:27 12/17/20 04:27 Additional Labs: Accuchecks 12/17/20 12/17/20 12/17/20 16:31 10:25 06:27 POC Glucose 93 163 H 125 H 12/16/20 20:49 POC Glucose 255 H Hospitalist ROS - Medication Medications: Active Medications Generic Name Dose Route Start Last Admin Trade Name Freq PRN Reason Stop Dose Admin Carvedilol 25 mg 12/17/20 17:00 12/17/20 17:18 Carvedilol 25 Mg Tab PO 25 mg BID-WM BRITANY Administration Clopidogrel Bisulfate 75 mg 12/13/20 09:00 12/17/20 09:16 Clopidogrel Bisulfate 75 Mg Tab PO 75 mg DAILY BRITANY Administration Doxycycline Hyclate 100 mg 12/14/20 21:00 12/17/20 09:16 Doxycycline 100 Mg Cap PO 100 mg BID BRITANY Administration Furosemide 40 mg 12/12/20 14:00 12/17/20 14:28 Furosemide 40 Mg/4 Ml Vial SLOW IVP 40 mg 0600,1400 BRITANY Administration Glyburide 5 mg 12/12/20 17:00 12/17/20 17:18 Glyburide 5 Mg Tab PO 5 mg BID-WM BRITANY Administration Hydralazine HCl 10 mg 12/13/20 18:51 12/16/20 16:32 Hydralazine 20 Mg/Ml Vial SLOW IVP 10 mg Q4H PRN Administration Hypertension Hydralazine HCl 100 mg 12/14/20 15:00 12/17/20 14:28 Hydralazine 25 Mg Tab PO 100 mg TID BRITANY Administration Isosorbide Mononitrate 30 mg 12/12/20 14:00 12/17/20 07:27 Isosorbide Mononitrate Er 30 Mg Tab PO 30 mg DAILY BRITANY Administration Losartan Potassium 50 mg 12/16/20 09:00 12/17/20 07:27 Losartan 25 Mg Tab PO 50 mg DAILY BRITANY Administration Metolazone 5 mg 12/15/20 13:30 12/17/20 14:28 Metolazone 5 Mg Tab PO 5 mg 0530,1330 BRITANY Administration Sodium Chloride 10 ml 12/14/20 21:00 12/17/20 09:16 Flush - Normal Saline 10 Ml Syringe IVF 10 ml Q12HR BRITANY Administration Sodium Chloride 10 ml 12/14/20 14:00 12/16/20 05:56 Flush - Normal Saline 10 Ml Syringe IVF 10 ml PRN PRN Administration Saline Flush Tamsulosin HCl 0.4 mg 12/13/20 09:00 12/17/20 09:16 Tamsulosin Hcl 0.4 Mg Cap PO 0.4 mg DAILY BRITANY Administration Hospitalist Exam Vitals: Vital Signs (12 hours) Temp Pulse Resp BP BP Pulse Ox 12/17/20 16:01 97.7 F 56 L 18 185/88 H 93 L 12/17/20 14:28 58 L 12/17/20 12:04 98.0 F 58 L 18 179/76 H 92 L 12/17/20 09:14 57 L 163/72 H 12/17/20 07:23 97.5 F L 58 L 20 235/103 H 94 L 12/17/20 07:20 94 L Weight Weight 169 lb 9.6 oz General Appearance: NAD, awake alert Heart: RRR, no murmur, no gallops, no rubs, normal peripheral pulses Respiratory: CTAB, no wheezes, no rales, no ronchi, normal chest expansion, no tachypnea Respiratory - other findings: Still diminished at the right base. Gastrointestinal: soft, non-tender, non-distended, normal bowel sounds, no palpable masses, no hepatomegaly, no splenomegaly, no bruit Extremities: no cyanosis, no clubbing Extremities - other findings: Trace edema. Left toes amputated. Musculoskeletal: normal tone, normal strength, no muscle wasting Psychiatric: normal affect, normal behavior, A&O x 3 Hosp A/P (1) Acute respiratory failure with hypoxia Code(s): J96.01 - ACUTE RESPIRATORY FAILURE WITH HYPOXIA Status: Acute (2) CHF exacerbation Code(s): I50.9 - HEART FAILURE, UNSPECIFIED Status: Acute (3) CKD (chronic kidney disease), stage III Code(s): N18.30 - CHRONIC KIDNEY DISEASE, STAGE 3 UNSPECIFIED Status: Acute (4) Pneumonia Code(s): J18.9 - PNEUMONIA, UNSPECIFIED ORGANISM Status: Acute (5) Anemia Code(s): D64.9 - ANEMIA, UNSPECIFIED Status: Chronic Qualifiers: (6) CAD (coronary artery disease) Code(s): I25.10 - ATHSCL HEART DISEASE OF [place] CORONARY ARTERY W/O ANG PCTRS Status: Chronic Qualifiers: Coronary Disease-Associated Artery/Lesion type: bypass graft [place] vs. transplanted heart: [place] heart Associated angina: without angina Qualified Code(s): I25.810 - Atherosclerosis of coronary artery bypass graft(s) without angina pectoris (7) Diabetes type 2, controlled Code(s): E11.9 - TYPE 2 DIABETES MELLITUS WITHOUT COMPLICATIONS Status: Chronic Qualifiers: Diabetes mellitus detention insulin use: without detention use (8) Hypertension Code(s): I10 - ESSENTIAL (PRIMARY) HYPERTENSION Status: Chronic Qualifiers: (9) PAD (peripheral artery disease) Code(s): I73.9 - PERIPHERAL VASCULAR DISEASE, UNSPECIFIED Status: Chronic (10) Pleural effusion on right Code(s): J90 - PLEURAL EFFUSION, NOT ELSEWHERE CLASSIFIED Status: Acute - Plan Acute hypoxic respiratory failure with hypoxia: Appears to be due to some congestive heart failure decompensation and pleural effusion. Continue supplemental oxygen as needed. By 12/15/2020 the patient was able to come off oxygen was ambulating in the comer without difficulty. Acute on chronic systolic congestive heart failure: Continue IV Lasix. Sodium restricted diet. 1500 cc fluid restriction. Echocardiogram consistent with prior studies indicates preserved ejection fraction with diastolic dysfunction. improving with Lasix. Added metolazone. Patient follows with cardiology clinic here. consult cardiology. Pleural effusion on the right: Secondary to decompensated heart failure. Continuing to diurese. Patient was able to wean off oxygen. Cardiology recommended thoracentesis. This was performed today by pulmonology. Appears to be transudate of. Patient tolerated well. Pneumonia: Patient initially appeared to have a right lower lobe infiltrate with effusion on the right lung. He had fairly diffuse rales throughout both lungs. These did clear with diuresis. Productive cough. CT chest appeared to be more consistent with congestive heart failure than infiltrate.. He was initially on Rocephin and azithromycin however this was transitioned to p.o. doxycycline on 12/14/2020. COVID-19 screen was negative. CKD stage III: Patient appears to be at his baseline renal function. Continue to monitor. Hypertension: Patient is on hydralazine and metoprolol at home. Imdur was added to his regimen as his pressure was still running high on presentation. Hydralazine was increased to 100 mg p.o. 3 times daily. Continue to run hypertensive. On 12/16/2020 the patient was given additional dose of losartan. Patient has had a cough related to lisinopril so PAOLA inhibitor's were specifically avoided. Tolerated losartan well but his blood pressure continued to run high so this was given as an additional dose on the evening of 12/17/2020. Coronary artery disease: Continue Plavix and statin. Diabetes mellitus: Continue home regimen of glipizide. Metformin being held for now. Continue sliding scale insulin. Blood sugars very well controlled. DVT prophylaxis: Lovenox.
[2020-12-18 04:34] LABS: #Eosinphils 0.3 thou/uL (0.0-0.7); #Lymphocytes 1.1 thou/uL (1.20-3.40); #Monocytes 0.8 thou/uL (0.11-0.59); #Neutrophils 3.8 thou/uL (1.40-6.50); %Basophils 0.7 % (0.0-1.0); %Eosinophils 5.3 % (0.0-10.0); %Lymphocytes 18.1 % (21.0-51.0); %Monocytes 13.7 % (0.0-10.0); %Neutrophils 62.3 % (42.0-75.0); Hemoglobin 10.7 g/dL (14.0-18.0); Mean Corpuscular HGB CONC 33.2 g/dL (32.0-36.0); Mean Corpuscular Hemoglobin 27.3 pg (27.0-31.0); Mean Corpuscular Volume 82.3 fL (78.0-98.0); Mean Platelet Volume 6.4 fL (7.4-10.4); Platelet Count 288 thou/uL (130-400); RBC Distribution Width 12.7 % (11.5-14.5); White Blood Cell (WBC) Count 6.1 thou/uL (4.8-10.8)
[2020-12-18 04:47] LABS: Anion Gap 12 mmol/L (10-20); BUN (Urea Nitrogen) 37 mg/dL (8.4-25.7); Calc. Creatinine Clearance 60 mL/min (70-130); Calcium 8.5 mg/dL (7.8-10.44); Carbon Dioxide 29 mmol/L (23-31); Chloride 97 mmol/L (98-107); Glucose 139 mg/dL (80-115); Sodium 135 mmol/L (136-145)
[2020-12-18] MEDS: Metolazone 5 MG TAB PO SCH ×2 (05:37→12:45)
[2020-12-18] MEDS: Furosemide 40 MG/4 ML VIAL SLOW IVP SCH ×2 (06:29→14:25)
[2020-12-18] MEDS: Carvedilol 25 MG TAB PO SCH (07:22)
[2020-12-18] MEDS: hydrALAZINE 25 MG TAB PO SCH ×2 (07:22→14:25)
[2020-12-18] MEDS: Losartan 25 MG TAB PO SCH (07:22)
--- NOTE | 2020-12-18 08:05 | OP ---
DATE OF PROCEDURE: 12/17/2020 DESCRIPTION OF PROCEDURE: After informed consent, the patient sitting upright in bed, the right posterior thorax was cleaned with chlorhexidine. Thereafter, 1% lidocaine was infiltrated all the way to the pleural space and 20 mL of pale yellow fluid was removed, appeared to be transudative. Thereafter, using an 8-[place] catheter, total of 1600 mL was removed without difficulty. Pleural effusion was sent for appropriate studies including culture and cytology. The patient tolerated the procedure well. Job ID: [id number]
--- NOTE | 2020-12-18 08:17 | PRG ---
DATE OF SERVICE: 12/18/2020 SUBJECTIVE: This morning, he is awake, alert, responsive, less short of breath. OBJECTIVE: VITAL SIGNS: Temperature 99, sats room air, blood pressure 185/80. CHEST: Decreased breath sounds without any wheezing. CARDIAC: Normal S1, S2. No gallops. ABDOMEN: No masses. LABORATORY DATA: Creatinine 1.3. White count 6000. Pleural effusion was transudate, protein 2.2. IMPRESSION: Respiratory failure; large pleural effusion, status post thoracentesis. PLAN: Pulmonary licona, much improved. Continue cardiac care. Disposition as per Cardiology. Job ID: [id number]
[2020-12-18] MEDS: Doxycycline 100 MG CAP PO SCH (09:22)
[2020-12-18] MEDS: Clopidogrel Bisulfate 75 MG TAB PO SCH (09:22)
[2020-12-18] MEDS: glyBURIDE 5 MG TAB PO SCH (09:22)
[2020-12-18] MEDS: Tamsulosin HCl 0.4 MG CAP PO SCH (09:22)
[2020-12-18 11:35] VITALS: BP 157/72; TEMP 98.4
[2020-12-18] MEDS ORDERED: Potassium Chloride 20 MEQ TAB PO SCH (12:30)
[2020-12-18] MEDS ORDERED: Carvedilol 25 MG TAB PO SCH (15:00)
--- NOTE | 2020-12-18 16:49 | PDOC.DS.DS ---
Provider Date of Admission: 12/12/20 12:39 Date of Discharge: 12/18/20 Admitting Provider: Berlin Aguilar MD Consultations: Cardiology, Pulmonary Primary Care Physician: Chris Campos MD Course Hospital Course: Acute hypoxic respiratory failure with hypoxia: Appeared to be due to some congestive heart failure decompensation and pleural effusion. Continue supplemental oxygen as needed. By 12/15/2020 the patient was able to come off oxygen was ambulating in the comer without difficulty. Acute on chronic systolic congestive heart failure: Continue IV Lasix. Sodium restricted diet. 1500 cc fluid restriction. Echocardiogram consistent with prior studies indicates preserved ejection fraction with diastolic dysfunction. Echocardiogram had a left ventricle ejection fraction of 55 to 60% with moderate concentric LVH. Restrictive filling pattern suggesting restrictive diastolic dysfunction. improved with Lasix. Added metolazone. Consulted cardiology. Pleural effusion on the right: Secondary to decompensated heart failure. Continuing to diurese. Patient was able to wean off oxygen. Cardiology recommended thoracentesis. This was performed today by pulmonology. Appears to be transudate of. Patient tolerated well. Pneumonia: Patient initially appeared to have a right lower lobe infiltrate with effusion on the right lung. He had fairly diffuse rales throughout both lungs. These did clear with diuresis. Productive cough. CT chest appeared to be more consistent with congestive heart failure than infiltrate.. He was initially on Rocephin and azithromycin however this was transitioned to p.o. doxycycline on 12/14/2020. COVID-19 screen was negative. CKD stage III: Patient appears to be at his baseline renal function. Continue to monitor. Hypertension: Patient is on hydralazine and metoprolol at home. Imdur was added to his regimen as his pressure was still running high on presentation. Hydralazine was increased to 100 mg p.o. 3 times daily. Continue to run hypertensive. On 12/16/2020 the patient was given additional dose of losartan. Patient has had a cough related to lisinopril so PAOLA inhibitor's were specifically avoided. Tolerated losartan well but his blood pressure continued to run high so this was given as an additional dose on the evening of 12/17/2020. That seemed to help somewhat. Cardiology also increased the carvedilol to 25 mg p.o. 3 times daily. With that the patient's blood pressure appeared to be adequate for discharge to home. Coronary artery disease: Continue Plavix and statin. Diabetes mellitus: Continue home regimen of glipizide. Metformin being held for now. Continue sliding scale insulin. Blood sugars very well controlled. Lab Results: 12/18/20 04:16 12/18/20 04:16 Abnormal Lab Results - Last 48 hrs 12/17/20 04:27: Potassium 3.4 L, BUN 31 H, Creatinine 1.34 H 12/17/20 04:27: RBC 3.88 L, Hgb 10.5 L, Hct 32.1 L, MPV 6.5 L, Band Neuts % (Manual) 4 L, Lymphocytes % (Manual) 19 L 12/17/20 11:52: Fluid Clarity Hazy H 12/18/20 04:16: Sodium 135 L, Potassium 3.0 L, Chloride 97 L, BUN 37 H, Creatinine 1.31 H 12/18/20 04:16: RBC 3.90 L, Hgb 10.7 L, Hct 32.1 L, MPV 6.4 L, Lymphocytes % 18.1 L, Monocytes % 13.7 H, Lymphocytes # 1.1 L, Monocytes # 0.8 H Microbiology - Entire Visit 12/17/20 11:52 Pleural fluid Body Fluid Culture - Preliminary 12/17/20 11:52 Pleural fluid Direct Acid Fast Bacilli Smear - Final 12/17/20 11:52 Pleural fluid Acid Fast Bacilli Smear - Pending 12/17/20 11:52 Pleural fluid Acid Fast Bacilli Culture - Pending Vitals: Vital Signs (12 hours) Temp Pulse Pulse Pulse Resp BP BP 12/18/20 14:25 70 12/18/20 11:34 98.4 F 70 20 12/18/20 10:22 70 68 140/63 134/60 12/18/20 07:22 66 12/18/20 07:20 12/18/20 07:18 99.1 F 66 20 BP Pulse Ox Pulse Ox Pulse Ox 12/18/20 14:25 12/18/20 11:34 157/72 H 93 L 12/18/20 10:22 92 L 94 L 12/18/20 07:22 12/18/20 07:20 94 L 12/18/20 07:18 185/80 H 94 L Weight Weight 169 lb 9.6 oz Physical Exam: The patient was seen and examined on the day of discharge. Problem Time Spent in discharge related activities (mins): 35 (1) Acute respiratory failure with hypoxia Code(s): J96.01 - ACUTE RESPIRATORY FAILURE WITH HYPOXIA Status: Acute (2) CHF exacerbation Code(s): I50.9 - HEART FAILURE, UNSPECIFIED Status: Acute (3) CKD (chronic kidney disease), stage III Code(s): N18.30 - CHRONIC KIDNEY DISEASE, STAGE 3 UNSPECIFIED Status: Acute (4) Pneumonia Code(s): J18.9 - PNEUMONIA, UNSPECIFIED ORGANISM Status: Acute (5) Anemia Code(s): D64.9 - ANEMIA, UNSPECIFIED Status: Chronic Qualifiers: (6) CAD (coronary artery disease) Code(s): I25.10 - ATHSCL HEART DISEASE OF [place] CORONARY ARTERY W/O ANG PCTRS Status: Chronic Qualifiers: Coronary Disease-Associated Artery/Lesion type: bypass graft [place] vs. transplanted heart: [place] heart Associated angina: without angina Qualified Code(s): I25.810 - Atherosclerosis of coronary artery bypass graft(s) without angina pectoris (7) Diabetes type 2, controlled Code(s): E11.9 - TYPE 2 DIABETES MELLITUS WITHOUT COMPLICATIONS Status: Chronic Qualifiers: Diabetes mellitus alf insulin use: without joint terminal attack controller use (8) Hypertension Code(s): I10 - ESSENTIAL (PRIMARY) HYPERTENSION Status: Chronic Qualifiers: (9) PAD (peripheral artery disease) Code(s): I73.9 - PERIPHERAL VASCULAR DISEASE, UNSPECIFIED Status: Chronic (10) Pleural effusion on right Code(s): J90 - PLEURAL EFFUSION, NOT ELSEWHERE CLASSIFIED Status: Acute Plan Prescriptions: hydrALAZINE [Apresoline] 100 mg PO TID #90 tab Carvedilol [Coreg] 25 mg PO TID #90 tab Losartan [Cozaar] 50 mg PO DAILY #30 tab Isosorbide Mononitrate [Imdur ER] 30 mg PO DAILY #30 tab Potassium Chloride 20 meq PO DAILY #30 tab Metolazone [Zaroxolyn] 5 mg PO 0530,1330 #60 tab Home Medications: Medication Instructions Recorded Confirmed Type glyBURIDE 5 mg PO BID-WM #60 tablet 10/20/18 12/13/20 Rx metFORMIN HCl [Metformin HCl] 1,000 mg PO BID #60 tablet 10/20/18 12/13/20 Rx Clopidogrel Bisulfate [Plavix] 75 mg PO DAILY #30 tab 11/18/18 12/13/20 Rx Lactobacillus [Floranex] 1 tab PO DAILY #30 tab 02/18/19 12/13/20 Rx Tamsulosin HCl [Flomax] 0.4 mg PO DAILY 30 Days #30 cap 10/28/19 12/13/20 Rx Furosemide [Lasix] 40 mg PO BID 12/13/20 12/13/20 History hydrALAZINE HCl [Hydralazine HCl] 100 mg PO TID 12/13/20 12/13/20 History Carvedilol [Coreg] 25 mg PO TID #90 tab 12/18/20 Rx Isosorbide Mononitrate [Imdur ER] 30 mg PO DAILY #30 tab 12/18/20 Rx Losartan [Cozaar] 50 mg PO DAILY #30 tab 12/18/20 Rx Metolazone [Zaroxolyn] 5 mg PO 0530,1330 #60 tab 12/18/20 Rx Potassium Chloride 20 meq PO DAILY #30 tab 12/18/20 Rx hydrALAZINE [Apresoline] 100 mg PO TID #90 tab 12/18/20 Rx Allergies: lisinopril Allergy (Verified 05/18/19 16:06) COUGH Dlhejet-Fxw-Efl Reductase Inhibitor Allergy (Verified 10/25/19 00:39) Activity:: Activity as Tolerated Nourishment:: Heart Healthy Diet, Low Sodium Diet Referrals: Cardiac Rehab - [place] [Outside] - 7 Days (Your doctor has ordered outpatient cardiac rehab for you to begin within 1-2 weeks after you go home from the hospital. The location nearest to you is the [facility]. The front office in [place] will call you in 3-5 days to get you scheduled for your evaluation. If you do not receive a call, please reach out to them at [phone] and request an appointment. Should you have any trouble or need assistance, please call the cardiac rehab main line in [place] at [phone]) Chris Campos MD [Primary Care Provider] - 7 Days (Please call the office and schedule a follow up appointment ) Zeus Saavedra MD [Active] - 2-3 Weeks (Please call the office and schedule a follow up appointment) Disposition: HOME Quality CORE MEASURES:: HF
== END 2020-12-18 16:36 | disposition home or self-care (01) | DRG 291 ==
LOC: ERS 11:22 → ERHOLD 12:39 → 2NO 20:20
PROVIDERS: ADMIT Internal Medicine; ATTEND Internal Medicine
PROC: 0W993ZZ Drainage of Right Pleural Cavity, Percutaneous Approach (ICD-10-PCS; principal; 2020-12-17)
DX: I13.0 Hypertensive heart and chronic kidney disease with heart failure and stage 1 through stage 4 chronic kidney disease, or unspecified chronic kidney disease (principal); J96.01 Acute respiratory failure with hypoxia; I50.23 Acute on chronic systolic (congestive) heart failure; J18.9 Pneumonia, unspecified organism; J90 Pleural effusion, not elsewhere classified; I25.810 Atherosclerosis of coronary artery bypass graft(s) without angina pectoris; Z20.822 Contact with and (suspected) exposure to COVID-19; N18.30 Chronic kidney disease, stage 3 unspecified; E11.22 Type 2 diabetes mellitus with diabetic chronic kidney disease; D63.1 Anemia in chronic kidney disease; E11.51 Type 2 diabetes mellitus with diabetic peripheral angiopathy without gangrene; R79.89 Other specified abnormal findings of blood chemistry; E78.00 Pure hypercholesterolemia, unspecified; Z88.8 Allergy status to other drugs, medicaments and biological substances; Z95.1 Presence of aortocoronary bypass graft; Z79.84 Long term (current) use of oral hypoglycemic drugs; Z79.01 Long term (current) use of anticoagulants; Z79.899 Other long term (current) drug therapy
CPT/HCPCS: 0240U; 36415; 36416; 71045; 71250; 76770; 80048; 82150; 82945; 83615; 84145; 84157; 84478; 85025; 85060; 87070; 87116; 87205; 87206; 88112; 89051; 93306; 93798; 93975; 96374; J0360; J0456; J0696; J1642; J1650; J1815; J1940; J3490; J7050

== ENCOUNTER 2021-02-17 09:19 | Outpatient (CLI) | payer MEDICARE | END 2021-02-17 09:20 | disposition home or self-care (01) | LOC: BICRAD 09:19 | PROVIDERS: ATTEND Internal Medicine Pulmonary Disease | DX: R06.00 Dyspnea, unspecified (principal); J90 Pleural effusion, not elsewhere classified | CPT/HCPCS: 71046 ==

== ENCOUNTER 2021-07-22 09:14 | Outpatient (CLI) | payer MEDICARE | END 2021-07-22 09:15 | disposition home or self-care (01) | LOC: BICRAD 09:14 | PROVIDERS: ATTEND Internal Medicine Pulmonary Disease | DX: R06.00 Dyspnea, unspecified (principal); J90 Pleural effusion, not elsewhere classified; J98.11 Atelectasis | CPT/HCPCS: 71046 ==

== ENCOUNTER 2021-09-03 08:48 | Outpatient (CLI) | payer MEDICARE | END 2021-09-03 08:49 | disposition home or self-care (01) | LOC: RAD 08:48 | PROVIDERS: ATTEND Internal Medicine Pulmonary Disease | DX: R06.00 Dyspnea, unspecified (principal); R91.8 Other nonspecific abnormal finding of lung field | CPT/HCPCS: 71046 ==